=== PATIENT | female | born 1950 | race Caucasian/White ===

== ENCOUNTER 2017-08-22 01:57 | Observation (INO) ==
[2017-08-23] MEDS ORDERED: Sod Chloride 0.9% Inj 1,000 ML IV.SIG SCH (01:30)
[2017-08-23] MEDS ORDERED: Levothyroxine 125 MCG Tablet PO SCH (06:00)
[2017-08-23] MEDS ORDERED: Furosemide 20 MG Tablet PO SCH (09:00)
[2017-08-23] MEDS ORDERED: Bisacodyl 10 MG Supp RECTAL PRN (09:00)
[2017-08-23] MEDS ORDERED: Fluorometholone 0.1% Opth Drops 5 ML Bottle EACH EYE SCH (09:00)
[2017-08-23] MEDS ORDERED: Senna/Docusate Sodium 8.6/50 MG Tablet PO SCH (09:00)
[2017-08-23] MEDS ORDERED: Spironolactone 25 MG Tablet PO SCH (09:00)
[2017-08-23] MEDS ORDERED: prednisoLONE Acetate 1% Opth Susp 5 ML Bottle LEFT EYE SCH (09:00)
[2017-08-23 09:23] LABS: Baso % (Auto) 1.1 % (0.0-2.0); Eos # (Auto) 0.1 th/mm3 (0.0-0.4); Eos % (Auto) 3.6 % (0.0-4.0); Hematocrit 29.8 % (35.0-46.0); Hemoglobin 10.1 gm/dL (11.6-15.3); Lymph # (Auto) 0.5 th/mm3 (1.0-4.8); Mean Corpuscular HGB Conc 33.9 % (32.0-36.0); Mean Corpuscular Hemoglobin 31.7 pg (27.0-34.0); Mean Corpuscular Volume 93.3 fL (80.0-100.0); Mean Platelet Volume 9.8 fL (7.0-11.0); Mono # (Auto) 0.3 th/mm3 (0.0-0.9); Mono % (Auto) 11.6 % (0.0-8.0); Neut # (Auto) 1.3 th/mm3 (1.8-7.7); Neut % (Auto) 59.7 % (16.0-70.0); Platelet Count 67 th/mm3 (150-450); Red Blood Count 3.19 mil/mm3 (4.00-5.30); Red Cell Distribution Width 18.2 % (11.6-17.2); White Blood Count 2.2 th/mm3 (4.0-11.0)
--- NOTE | 2017-08-23 09:52 | P.PN ---
Subjective Interval history: Nursing denies any deterioration since last night patient reports tolerating p.o. intake well. Denies any abdominal pain. Wants to go home. Physical Exam Vital signs: Vital Signs 08/23/17 02:59 08/23/17 08:00 Temperature 98.9 F 98.0 F Pulse Rate 62 Respiratory Rate 18 17 Blood Pressure 90/55 L 104/59 L Pulse Oximetry 93 L 95 Intake & Output 08/22/17 08/23/17 08/23/17 18:59 06:59 18:59 Intake Total 240 / 240 Balance 240 / 240 Weight 55.5 kg Intake: Oral 240 / 240 Other: # Voids 1 Narrative: Abdomen soft, nontender, nondistended Lying in bed, awake and alert, no acute distress Results - Labs CBC & Chem 7: 08/23/17 08:06 08/22/17 03:00 Labs: Laboratory Results - last 24 hr 08/22/17 08/22/17 08/22/17 03:00 03:00 03:00 WBC 4.5 RBC 3.89 L Hgb 12.1 Hct 35.6 MCV 91.5 MCH 31.2 MCHC 34.1 RDW 17.7 H Plt Count 73 L MPV 11.1 H Prelim Diff (Auto) Neut % (Auto) 70.5 H Lymph % (Auto) 17.0 Desha % (Auto) 10.8 H Eos % (Auto) 1.3 Baso % (Auto) 0.4 Neut # (Auto) 3.2 Lymph # (Auto) 0.8 L Desha # (Auto) 0.5 Eos # (Auto) 0.1 Baso # (Auto) 0.0 CBC Comment AUTO DIFF Differential Comment AUTO DIFF CONFIRMED Platelet Estimate LOW L Plt Morphology Comment NORMAL Ovalocytes 1+ H Acanthocytes (Spur) OCC H PT 13.6 H INR 1.3 APTT 27.3 Sodium 140 Potassium 3.8 Chloride 108 H Carbon Dioxide 21.3 Anion Gap 11 BUN 10 Creatinine 0.68 Estimated GFR 87 L Random Glucose 88 Lactic Acid Calcium 7.7 L Total Bilirubin 1.9 H AST 89 H ALT 38 Alkaline Phosphatase 132 H Ammonia Total Protein 6.4 Albumin 2.3 L Lipase 281 08/22/17 08/22/17 08/23/17 03:20 03:20 08:06 WBC 2.2 L RBC 3.19 L Hgb 10.1 L Hct 29.8 L MCV 93.3 MCH 31.7 MCHC 33.9 RDW 18.2 H Plt Count 67 L MPV 9.8 Prelim Diff (Auto) Slide review pending Neut % (Auto) 59.7 Lymph % (Auto) 24.0 Desha % (Auto) 11.6 H Eos % (Auto) 3.6 Baso % (Auto) 1.1 Neut # (Auto) 1.3 L Lymph # (Auto) 0.5 L Desha # (Auto) 0.3 Eos # (Auto) 0.1 Baso # (Auto) 0.0 CBC Comment Differential Comment . Platelet Estimate Plt Morphology Comment Ovalocytes Acanthocytes (Spur) PT INR APTT Sodium Potassium Chloride Carbon Dioxide Anion Gap BUN Creatinine Estimated GFR Random Glucose Lactic Acid 1.4 Calcium Total Bilirubin AST ALT Alkaline Phosphatase Ammonia 62 H Total Protein Albumin Lipase Assessment and Plan - Plan Possible viral gastritis. Clinically significantly improved, tolerating p.o. intake. Patient has met maximal benefit from hospitalization is clinically stable for discharge.
[2017-08-23 10:02] LABS: Platelet Morphology Normal (Normal)
[2017-08-23 10:05] LABS: Acanthocytes Occ; Ovalocytes 1+
[2017-08-23 11:19] LABS: Alanine Aminotransferase 29 U/L (10-53); Anion Gap 12 meq/L (5-15); Aspartate Aminotransferase 66 U/L (15-37); Blood Urea Nitrogen 7 mg/dL (7-18); Calcium 6.8 mg/dL (8.5-10.1); Carbon Dioxide 20.1 meq/L (21.0-32.0); Chloride 113 meq/L (98-107); Glomerular Filtration Rate Greater Than 89 mL/min (>89); Glucose,Random 95 mg/dL (74-106); Potassium 3.4 meq/L (3.5-5.1); Sodium 145 meq/L (136-145); Total Protein 4.9 g/dL (6.4-8.2)
[2017-08-23 11:20] LABS: Albumin 1.7 g/dL (3.4-5.0); Alkaline Phosphatase 105 U/L (45-117)
== END 2017-08-23 11:40 | disposition home or self-care (01) ==
LOC: UNDODISIN → NEDA 06:23 → INTOOBSV 06:23 → N07 07:25
PROVIDERS: ADMIT Hospitalist; ATTEND Hospitalist

== ENCOUNTER 2017-09-21 01:59 | Inpatient (IN) ==
[2017-09-21] MEDS ORDERED: Morphine Inj 4 MG/ML Vial IV.PUSH ONE (02:25)
[2017-09-21] MEDS ORDERED: Sod Chloride 0.9% Inj 1,000 ML IV.CONT SCH (02:30)
[2017-09-21 02:49] LABS: Baso % (Auto) 0.8 % (0.0-2.0); Eos # (Auto) 0.1 th/mm3 (0.0-0.4); Eos % (Auto) 1.7 % (0.0-4.0); Hematocrit 36.8 % (35.0-46.0); Hemoglobin 12.2 gm/dL (11.6-15.3); Lymph # (Auto) 0.4 th/mm3 (1.0-4.8); Lymph % (Auto) 13.4 % (9.0-44.0); Mean Corpuscular HGB Conc 33.2 % (32.0-36.0); Mean Corpuscular Hemoglobin 30.7 pg (27.0-34.0); Mean Corpuscular Volume 92.5 fL (80.0-100.0); Mean Platelet Volume 10.5 fL (7.0-11.0); Mono # (Auto) 0.3 th/mm3 (0.0-0.9); Mono % (Auto) 10.3 % (0.0-8.0); Neut # (Auto) 2.4 th/mm3 (1.8-7.7); Neut % (Auto) 73.8 % (16.0-70.0); Platelet Count 162 th/mm3 (150-450); Red Blood Count 3.98 mil/mm3 (4.00-5.30); Red Cell Distribution Width 18.8 % (11.6-17.2); White Blood Count 3.3 th/mm3 (4.0-11.0)
--- NOTE | 2017-09-21 02:52 | ED ---
HPI General Chief complaint: Abdominal Pain Stated complaint: Abd Pain Time Seen by Provider: 09/21/17 02:06 Source: patient Limitations: no limitations History of Present Illness HPI narrative: The patient is a 67 year old female who presents to the [facility] emergency department with a history of abdominal pain that awoke her from sound sleep 1-1/2 hours prior to arrival. The patient reports that it is a generalized abdominal pain that is sharp in character and constant. She reports that it is 10 out of 10 in severity. She reports that it radiates to her back bilaterally worse on the right compared to the left. She reports that since it started she has had nausea and vomiting 3-4 times. She reports that she has had diarrhea 4-5 times since the onset. The patient reports that she was recently diagnosed with cirrhosis and had paracentesis done yesterday for the first time. She denies ever having a pain like this previously. She denies having any known fevers or chills. She denies having any chest pain or chest pressure. She reports having some shortness of breath. She reports that she has been having this and was told that it was related to her liver being swollen. She denies any history of pulmonary disease. On review of systems otherwise she denies having any cough or congestion, neck pain, urinary symptoms , or neurologic symptoms. Related Data Home Medications Medication Instructions Recorded Confirmed fluorometholone 1 drp OPHTHALMIC (EYE) BID 08/22/17 08/22/17 levothyroxine 125 mcg PO DAILY 08/22/17 09/21/17 prednisolone acetate 1 drp OPHTHALMIC (EYE) QID 08/22/17 08/22/17 alprazolam [Xanax] 1 mg PO DAILY PRN 09/21/17 09/21/17 benzonatate 100 mg PO TID PRN 09/21/17 09/21/17 guaifenesin 400 mg PO DAILY 09/21/17 09/21/17 lactulose 20 g PO BID 09/21/17 09/21/17 propranolol 10 mg PO DAILY 09/21/17 09/21/17 Previous Rx's Medication Instructions Recorded furosemide 20 mg PO DAILY tab 08/23/17 pantoprazole 40 mg PO DAILY #30 tab 08/23/17 rifaximin [Xifaxan] 400 mg PO Q8HR tab 08/23/17 spironolactone [Aldactone] 25 mg PO BID tab 08/23/17 Allergies Allergy/AdvReac Type Severity Reaction Status Date / Time No Known Allergies Allergy Unverified 08/22/17 11:31 Review of Systems ROS Unobtainable All other systems reviewed negative except as stated in HPI [facility] Medical History Medical History Gastroparesis (Acute) Liver cirrhosis (Acute) Unspecified immunity deficiency (Acute) Social History Social History Substance History: No History of Abuse Smoking Status: Never smoker How Often Do You Have a Drink Containing Alcohol: Never Immunization History Tetanus Immunization: <5 Years Hx Influenza Vaccine This Season: Yes Exam Const General: cooperative, well developed and in distress (Reporting severe abdominal pain on arrival.) Nutritional Appearance: well nourished Orientation: alert, awake and oriented x3 HENMT Head: normocephalic and atraumatic Nose: no nasal discharge and no epistaxis Mouth: moist mucous membranes Throat: posterior oropharynx normal Eyes Sclera: normal sclerae Pupils: PERRL Neck Neck: no meningeal signs, trachea midline and no JVD Resp Effort & Inspection: no use of accessory muscles Auscultation: clear to auscultation bilaterally Cardio Rate: regular rate Rhythm: regular rhythm Heart Sounds: no murmurs GI Inspection: non-distended Palpation: soft, no hepatosplenomegaly, no guarding, not rigid and tender (The patient reports having diffuse pain on palpation, however her tenderness is most prominent in the midepigastric area and bilateral upper quadrants of the abdomen. No erythema or ecchymosis is noted.) in the epigastrum, in the LUQ and in the RUQ; not at McBurney's point, Elise's sign negative and with no rebound tenderness Auscultation: normal bowel sounds Back/Spine/Pelvis Back: CVA tenderness (Bilateral CVA tenderness is reported on palpation worse on the right compared to the left.) Skin General: dry skin (warm) Neuro General: alert and awake Cranial Nerves: other (No evidence of facial asymmetry.) Speech: speech normal Motor: no movement abnormalities noted Extrem General: normal to inspection (No calf tenderness on palpation.), no clubbing, no cyanosis and no edema Psych Mood: congruent mood Affect: normal affect Judgment: judgment good Course Reevaluation(s) Reevaluation #1: The patient was reevaluated and reported continued pain. Consultations Consultation #1: The patient's case including history, pertinent physical examination findings, and laboratory studies were discussed with Dr. Solis. It was agreed that the patient would be admitted to the hospitalist service. Initial Documented Vital Signs Temperature 98.7 F 09/21/17 02:02 Pulse Rate 77 09/21/17 02:02 Respiratory Rate 18 09/21/17 02:02 Blood Pressure 117/58 L 09/21/17 02:02 Pulse Oximetry 98 09/21/17 02:02 Last Documented Vital Signs Temperature 98.7 F 09/21/17 02:02 Pulse Rate 68 09/21/17 05:37 Respiratory Rate 20 09/21/17 05:37 Blood Pressure 95/55 L 09/21/17 05:37 Pulse Oximetry 98 09/21/17 05:37 Medical Decision Making MDM Narrative Medical decision making narrative: During the course of the patient's emergency department visit, the patient's history, examination, and differential diagnosis were reviewed with the patient. The patient was placed on a potline monitor with oximetry and frequent blood pressure monitoring. The patient had IV access obtained and blood work sent for analysis. A diagnostic workup was started regarding the patient's abdominal pain The patient was initially provided morphine 4 mg IV, Zofran 4 mg ODT, normal saline at 125 mL/h. Laboratory studies are remarkable for a white count of 3.3, platelets 162, neutrophil percent 73.8, monocytes 10.3, hemoglobin 12.2, PT 15, INR 1.5, PTT 28.2, CMP is remarkable chemistries remarkable for a troponin I of less than 0.02, total protein 6.2, CPK 295, GFR of 88, lipase 220, magnesium is 2.0, calcium 7.5, AST is 115, alk phos is 226, albumin 2.0. Chest x-ray shows no acute cardiopulmonary disease. CT scan of the abdomen and pelvis was done. The patient CT scan of the abdomen and pelvis was read by the reading radiologist as showing continued abnormal appearance of the right side of the colon with multiple air-fluid levels that are now noted in the region of the cecum. There is an apparent mural thrombus and edema again noted. Multiple loops of prominent proximal small bowel again noted with air-fluid levels. Cirrhotic liver with moderate amount of ascitic fluid. The patient continues to have abdominal pain. The patient was given an additional fluid bolus of 500 mL 1, morphine 2 mg IV, Reglan 5 mg IV. The patient will be admitted to the hospital for continued evaluation and treatment. The patient's results were discussed with the patient, including the plan of care. I explained that further testing and/ or monitoring is indicated based on the patient's history, examination, and/ or laboratory findings. Therefore, I recommended admission for additional evaluation. The patient expressed understanding and was agreeable with this plan. The patient was admitted to the hospital in guarded condition and sent to a bed under the care of the [facility] service. Differential Diagnosis Differential Diagnosis: Bowel perforation, versus peritonitis, versus pancreatitis, versus gastroenteritis Medical Records Medical records reviewed: Yes I reviewed the patient's medical records. Lab Data Lab results reviewed: Yes I reviewed the patient's lab results. Result diagrams: 09/21/17 02:30 09/21/17 02:30 Lab Results 09/21/17 09/21/17 09/21/17 Range/Units 02:30 02:30 02:30 WBC 3.3 L (4.0-11.0) th/mm3 RBC 3.98 L (4.00-5.30) mil/mm3 Hgb 12.2 (11.6-15.3) gm/dL Hct 36.8 (35.0-46.0) % MCV 92.5 (80.0-100.0) fL MCH 30.7 (27.0-34.0) pg MCHC 33.2 (32.0-36.0) % RDW 18.8 H (11.6-17.2) % Plt Count 162 D (150-450) th/mm3 MPV 10.5 (7.0-11.0) fL Neut % (Auto) 73.8 H (16.0-70.0) % Lymph % (Auto) 13.4 (9.0-44.0) % Greenwood % (Auto) 10.3 H (0.0-8.0) % Eos % (Auto) 1.7 (0.0-4.0) % Baso % (Auto) 0.8 (0.0-2.0) % Neut # (Auto) 2.4 (1.8-7.7) th/mm3 Lymph # (Auto) 0.4 L (1.0-4.8) th/mm3 Greenwood # (Auto) 0.3 (0.0-0.9) th/mm3 Eos # (Auto) 0.1 (0.0-0.4) th/mm3 Baso # (Auto) 0.0 (0.0-0.2) th/mm3 WBC Differential . Differential Comment Auto diff final PT 15.0 H (9.8-11.6) sec INR 1.5 Ratio APTT 28.2 (24.3-30.1) sec Sodium 138 (136-145) meq/L Potassium 4.8 (3.5-5.1) meq/L Chloride 107 (98-107) meq/L Carbon Dioxide 24.5 (21.0-32.0) meq/L Anion Gap 7 (5-15) meq/L BUN 10 (7-18) mg/dL Creatinine 0.67 (0.50-1.00) mg/dL Estimated GFR 88 L (>89) mL/min Random Glucose 97 (74-106) mg/dL Lactic Acid (0.4-2.0) mmol/L Calcium 7.5 L (8.5-10.1) mg/dL Magnesium 2.0 (1.5-2.5) mg/dL Total Bilirubin 1.0 (0.2-1.0) mg/dL AST 115 H (15-37) U/L ALT 34 (10-53) U/L Alkaline Phosphatase 226 H (45-117) U/L Total Creatine Kinase 295 H (26-192) U/L CK-MB (CK-2) 2.0 (0.5-3.6) ng/mL CK-MB (CK-2) % 0.7 (0.0-4.0) % Troponin I Less than 0.02 L (0.02-0.05) ng/mL Total Protein 6.2 L (6.4-8.2) g/dL Albumin 2.0 L (3.4-5.0) g/dL Lipase 220 (73-393) U/L Urine Color (Yellw/Straw) Urine Clarity (Clear) Urine pH (5.0-8.5) Ur Specific Lee (1.002-1.035) Urine Protein (Neg-Trace) mg/dL Urine Glucose (UA) (Negative) mg/dL Urine Ketones (Negative) mg/dL Urine Occult Blood (Negative) Urine Nitrate (Negative) Urine Bilirubin (Negative) Urine Urobilinogen (Less than 2) mg/dL Ur Leukocyte Esterase (Negative) Urine RBC (0-3) /hpf Urine WBC (0-5) /hpf Ur Squamous Epith Cells (0-5) /hpf Ur Transition Epith Cell (None) /hpf Amorphous Sediment (None) /hpf Urine Mucus (Occasional) /lpf Micro UA Comment Urine Culture Comments 09/21/17 09/21/17 Range/Units 02:30 04:30 WBC (4.0-11.0) th/mm3 RBC (4.00-5.30) mil/mm3 Hgb (11.6-15.3) gm/dL Hct (35.0-46.0) % MCV (80.0-100.0) fL MCH (27.0-34.0) pg MCHC (32.0-36.0) % RDW (11.6-17.2) % Plt Count (150-450) th/mm3 MPV (7.0-11.0) fL Neut % (Auto) (16.0-70.0) % Lymph % (Auto) (9.0-44.0) % Greenwood % (Auto) (0.0-8.0) % Eos % (Auto) (0.0-4.0) % Baso % (Auto) (0.0-2.0) % Neut # (Auto) (1.8-7.7) th/mm3 Lymph # (Auto) (1.0-4.8) th/mm3 Greenwood # (Auto) (0.0-0.9) th/mm3 Eos # (Auto) (0.0-0.4) th/mm3 Baso # (Auto) (0.0-0.2) th/mm3 WBC Differential Differential Comment PT (9.8-11.6) sec INR Ratio APTT (24.3-30.1) sec Sodium (136-145) meq/L Potassium (3.5-5.1) meq/L Chloride (98-107) meq/L Carbon Dioxide (21.0-32.0) meq/L Anion Gap (5-15) meq/L BUN (7-18) mg/dL Creatinine (0.50-1.00) mg/dL Estimated GFR (>89) mL/min Random Glucose (74-106) mg/dL Lactic Acid 1.1 (0.4-2.0) mmol/L Calcium (8.5-10.1) mg/dL Magnesium (1.5-2.5) mg/dL Total Bilirubin (0.2-1.0) mg/dL AST (15-37) U/L ALT (10-53) U/L Alkaline Phosphatase (45-117) U/L Total Creatine Kinase (26-192) U/L CK-MB (CK-2) (0.5-3.6) ng/mL CK-MB (CK-2) % (0.0-4.0) % Troponin I (0.02-0.05) ng/mL Total Protein (6.4-8.2) g/dL Albumin (3.4-5.0) g/dL Lipase (73-393) U/L Urine Color Taylor (Yellw/Straw) Urine Clarity Cloudy H (Clear) Urine pH 6.0 (5.0-8.5) Ur Specific Lee 1.034 (1.002-1.035) Urine Protein 30 H (Neg-Trace) mg/dL Urine Glucose (UA) Negative (Negative) mg/dL Urine Ketones Trace H (Negative) mg/dL Urine Occult Blood Small H (Negative) Urine Nitrate Negative (Negative) Urine Bilirubin Negative (Negative) Urine Urobilinogen 2.0 H (Less than 2) mg/dL Ur Leukocyte Esterase Small H (Negative) Urine RBC 8 H (0-3) /hpf Urine WBC 6 H (0-5) /hpf Ur Squamous Epith Cells 18 (0-5) /hpf Ur Transition Epith Cell 1 (None) /hpf Amorphous Sediment Rare H (None) /hpf Urine Mucus Many H (Occasional) /lpf Micro UA Comment Culture not ind Urine Culture Comments Culture not ind Imaging Data Radiologist's impression: Chest X-Ray 09/21/17 02:25 CONCLUSION: No acute cardiopulmonary disease. Abdomen/Pelvis CT 09/21/17 03:11 CONCLUSION: 1. The right-sided colon remains abnormal appearance with multiple small air- fluid levels now noted in the region of the cecum. There is apparent mural thrombus and edema again noted. 2. Multiple loops of prominent proximal small bowel again noted with air-fluid levels. 3. Cirrhotic liver with moderate amount of ascitic fluid. 4. Status post cholecystectomy. The common bile duct remains prominent but unchanged. ECG Data Attestation: I personally reviewed and interpreted this ECG as follows: Interpretation: The patient had a EKG done on arrival. The patient's EKG reveals a sinus rhythm heart rate is 69 QRS duration 93 ms, QTC [address] segment elevation. T waves are inverted in V1 and V2. QT is prolonged. Discharge Plan Discharge Disposition Patient Disposition: 30 Still Patient Discharge Details Diagnosis: Intractable abdominal pain, Nausea, vomiting, and diarrhea Physicians Team ED Provider: Heidy Angel Primary Care Provider: UNKNOWN, Rxs /Orders / Referrals /Forms Prescriptions: No Action prednisolone acetate 1 % Drops,Suspension 1 drp ophthalmic (eye) QID RF: 0 fluorometholone 0.1 % Drops,Suspension 1 drp OPHTHALMIC (EYE) BID RF: 0 levothyroxine 125 mcg Capsule 125 mcg PO DAILY RF: 0 spironolactone [Aldactone] 25 mg Tablet 25 mg PO BID RF: 0 furosemide 20 mg Tablet 20 mg PO DAILY RF: 0 rifaximin [Xifaxan] 200 mg Tablet 400 mg PO Q8HR RF: 0 pantoprazole 40 mg Tablet,Delayed Release (Dr/Ec) 40 mg PO DAILY Qty: 30 RF: 0 propranolol 10 mg Tablet 10 mg PO DAILY RF: 0 benzonatate 100 mg Capsule 100 mg PO TID PRN (Reason: Cough) RF: 0 alprazolam [Xanax] 2 mg Tablet 1 mg PO DAILY PRN (Reason: Anxiety) RF: 0 guaifenesin 400 mg Tablet 400 mg PO DAILY RF: 0 lactulose 10 gram/15 mL Solution 20 g PO BID RF: 0 Discharge Interventions Interventions: Vital Signs Last Done: 09/21/17 05:37 Status ED Status: With Doctor
[2017-09-21 03:04] LABS: Activated Partial Thrombo Time 28.2 sec (24.3-30.1); INR 1.5 Ratio
[2017-09-21 03:17] LABS: Anion Gap 7 meq/L (5-15); Aspartate Aminotransferase 115 U/L (15-37); Blood Urea Nitrogen 10 mg/dL (7-18); Calcium 7.5 mg/dL (8.5-10.1); Carbon Dioxide 24.5 meq/L (21.0-32.0); Chloride 107 meq/L (98-107); Glomerular Filtration Rate 88 mL/min (>89); Glucose,Random 97 mg/dL (74-106); Lipase 220 U/L (73-393); Potassium 4.8 meq/L (3.5-5.1); Sodium 138 meq/L (136-145)
[2017-09-21 03:23] LABS: Alanine Aminotransferase 34 U/L (10-53); Alkaline Phosphatase 226 U/L (45-117); Creatine Kinase 295 U/L (26-192); Total Protein 6.2 g/dL (6.4-8.2)
--- NOTE | 2017-09-21 03:25 | XR ---
EXAM DATE: 09/21/2017 3:22 AM EDT AGE/SEX: 67 years / Female INDICATIONS: Abdominal pain. CLINICAL DATA: This is the patient's initial encounter. Patient reports that signs and symptoms have been present for 1 day and indicates a pain score of 0/10. MEDICAL/SURGICAL HISTORY: . Cirrhosis. Rheumatoid arthritis. Gastroparesis . Cholecystectomy. Hysterectomy COMPARISON: [facility] – [place], CHEST SINGLE AP, 08/22/2017. . FINDINGS: A single AP view of the chest demonstrates the lungs to be symmetrically aerated without evidence of mass, infiltrate or effusion. The cardiomediastinal contours are unremarkable. Osseous structures a re intact. There is no evidence of free air. CONCLUSION: No acute cardiopulmonary disease. Electronically signed by: Darren Sanchez MD 09/21/2017 3:24 AM EDT
[2017-09-21 03:36] LABS: CKMB Percent 0.7 % (0.0-4.0)
[2017-09-21 05:16] LABS: Amorphous Sediment,Urine Rare /hpf; Clarity,Urine Cloudy (Clear); Color,Urine Amber (Yellw/Straw); Glucose,Urine (UA) Negative (Negative); Leukocyte Esterase,Urine Small (Negative); Mucus,Urine Many /lpf (Occasional); Nitrite,Urine Negative (Negative); Specific Gravity,Urine 1.034 (1.002-1.035); Squamous Epithelial Cell,Urine 18 /hpf (0-5); Transitional Epi Cells,Urine 1 /hpf
[2017-09-21 05:18] LABS: Bilirubin,Urine Negative (Negative)
--- NOTE | 2017-09-21 05:19 | CT ---
EXAM DATE: 09/21/2017 5:07 AM EDT AGE/SEX: 67 years / Female INDICATIONS: Abdominal pain. CLINICAL DATA: This is the patient's initial encounter. Patient reports that signs and symptoms have been present for 1 day and indicates a pain score of 10/10. MEDICAL/SURGICAL HISTORY: Cirrhosis. Gastroparesis None. ORAL CONTRAST: No oral contrast ingested. RADIATION DOSE: 8.06 CTDI (mGy) COMPARISON: [facility] – [place], CT ABDOMEN & PELVIS W CONTRAST, 08/22/2017. . TECHNIQUE: Multiple contiguous axial images were obtained through the abdomen and pelvis following b olus infusion of 67 ml Omnipaque 350 (iohexol) nonionic water-soluble contrast as a single exam dos e. No oral contrast ingested. Using automated exposure control and adjustment of the mA and/or kV ac cording to patient size, radiation dose was kept as low as reasonably achievable to obtain optimal di agnostic quality images. DICOM format image data is available electronically for review and comparis on. FINDINGS: Lower Lungs: The visualized lower lungs are clear. Liver: The liver remains small and cirrhotic in appearance with lobular outer contour. Patient is sta tus post cholecystectomy. There is no focal mass. There is no intrahepatic ductal dilatation. The com mon bile duct remains mildly prominent. Spleen: Homogeneous density without enlargement. Pancreas: Unremarkable without mass or calcification. Kidneys: Normal in size and shape. No evidence of a solid mass or hydronephrosis. There are small cy sts again noted. Adrenal Glands: Unremarkable. Aorta: The aorta and proximal iliac vessels are grossly unremarkable without aneurysmal dilation. Bowel/Mesentery: No oral contrast was given limiting the sensitivity. There are several loops of bor derline prominent air-containing small bowel with multiple air-fluid levels. The mid and distal small bowel are normal in appearance. Gas and stool is noted segmentally in the colon. There is a moderate amount of ascitic fluid greatest in the pelvis. The right colon again appears abnormal with multiple small air-fluid levels in the region of the cecum. There is apparent dural thickening and edema agai n noted. Abdominal Wall: Intact. Retroperitoneum: No evidence of adenopathy in the retrocrural, para-aortic, or deep pelvic regions. Bladder: Contours are smooth. Reproductive Organs: No abnormal masses or calcifications seen. Inguinal: The inguinal region is unremarkable without evidence of adenopathy. Bony Structures: Unremarkable. CONCLUSION: 1. The right-sided colon remains abnormal appearance with multiple small air-fluid levels now noted in the region of the cecum. There is apparent mural thrombus and edema again noted. 2. Multiple loops of prominent proximal small bowel again noted with air-fluid levels. 3. Cirrhotic liver with moderate amount of ascitic fluid. 4. Status post cholecystectomy. The common bile duct remains prominent but unchanged. Electronically signed by: Darren Sanchez MD 09/21/2017 5:17 AM EDT
[2017-09-21] MEDS ORDERED: Morphine Sulfate Inj 2 MG/ML Vial IV.PUSH ONE (05:51)
[2017-09-21] MEDS ORDERED: Sodium Chlor 0.9% Inj 500 ML IV.SIG ONE (05:51)
[2017-09-21] MEDS ORDERED: Benzonatate 100 MG Capsule PO PRN ×2 (05:56→16:53)
[2017-09-21] MEDS ORDERED: Bisacodyl 10 MG Supp RECTAL PRN (06:00)
[2017-09-21] MEDS ORDERED: Piperacil/Tazo 4.5 GM Premix 4.5 GM/100 ML BAG IV.SIG SCH (06:00)
[2017-09-21] MEDS ORDERED: Piperacil/Tazo 3.375 GM Premix 50 ML IV.SIG ONE (06:01)
[2017-09-21] MEDS: Piperacil/Tazo 4.5 GM Premix 4.5 GM/100 ML BAG IV.SIG SCH ×3 (06:41→21:38)
[2017-09-21] MEDS: Levothyroxine 125 MCG Tablet PO SCH (08:56)
[2017-09-21] MEDS: Spironolactone 25 MG Tablet PO SCH ×2 (08:56→21:38)
[2017-09-21] MEDS: Propranolol 10 MG Tablet PO SCH (08:58)
[2017-09-21] MEDS: Furosemide 20 MG Tablet PO SCH (08:59)
[2017-09-21] MEDS: Senna/Docusate Sodium 8.6/50 MG Tablet PO SCH ×2 (09:00→21:39)
--- NOTE | 2017-09-21 10:27 | P.HP ---
History of Present Illness Primary Care Physician: UNKNOWN History of Present Illness: This is a 67-year-old female with a history of cirrhosis, gastroparesis, unspecified autoimmune disorder. She presents to the ER late last night with a complaint of abdominal pain. She was hospitalized in [facility] last week and had her ascites drained 2 days ago at that location. She was subsequently discharged from the hospital to a rehab center in our town. After 1 day she feels her ascites has recurred, this caused her great pain, she requested an ambulance. She denies any fever, she has had loose bowel movements recently, she notes no blood in her stool today but a few days ago trace blood due to what she feels is hemorrhoids. There is a pattern of cirrhosis in her family that seems independent of any alcohol use. She admits to moderate drinking, social drinking, during her younger years but says that she never drank heavily. She was told in the past that she had a form of viral hepatitis, but recent tests at the [facility] have all been negative. Her most recent hepatitis panel was drawn a few days ago at the hospital in [facility] Inpatient Certification: I certify that the inpatient services were ordered in accordance with Medicare regulations governing the order. This includes certification that hospital inpatient services are reasonable and necessary and in the case of services not specified as inpatient-only under 42 CFR 419.22(n), that they are appropriately provided as inpatient services in accordance to with the 2-midnight benchmark under 43 CFR 412.3(e) Review of Systems Constitutional: Denies body ache(s), Denies chills, Denies daytime sleepiness, Denies excessive sweating, Denies fatigue, Denies fever(s), Denies headache(s), Denies increased appetite, Denies lack of energy, Denies malaise, Denies night sweats, Denies weakness, Denies weight gain, Denies weight loss, Denies other Ears, Nose, Mouth, and Throat: Denies abnormal hearing, Denies bleeding gums, Denies bad breath, Denies change in voice, Denies dental pain, Denies difficulty swallowing, Denies dizziness, Denies dry mouth, Denies ear discharge , Denies ear pain, Denies facial pain, Denies headache(s), Denies hearing loss, Denies hoarseness, Denies lip swelling, Denies nosebleed, Denies mouth lesions, Denies mouth pain, Denies nasal congestion, Denies nasal discharge, Denies nasal obstruction, Denies nasal trauma, Denies neck lump, Denies neck pain, Denies nose pain, Denies pain with swallowing, Denies poor balance, Denies post nasal drip, Denies ringing in the ears, Denies sinus pain, Denies sinus pressure , Denies sore throat, Denies throat swelling, Denies tongue swelling, Denies other Cardiovascular: Denies chest pain, Denies chest pain at rest, Denies chest pain with activity, Denies excessive sweating, Denies fainting, Denies fast heart rate, Denies foot swelling, Denies generalized swelling, Denies irregular heart rhythm, Denies leg pain with activity, Denies leg sores, Denies leg swelling, Denies lightheadedness, Denies radiating jaw, neck or arm pain, Denies rapid, pounding, or irregular heartbeat, Denies shortness of breath, Denies shortness of breath with activity, Denies shortness of breath when lying down, Denies shortness of breath causing sudden awakening, Denies slow heart rate, Denies other Respiratory: Denies change in phlegm color, Denies chest congestion, Denies cough, Denies coughing up blood, Denies excessive phlegm production, Denies pain on inspiration, Denies pain with cough, Denies shortness of breath, Denies shortness of breath with activity, Denies snoring, Denies stridor, Denies wheezing, Denies other Gastrointestinal: Reports abdominal pain, Reports bloating, Reports change in stools, Reports feeling full early, Reports loose stools, Denies constant urge to pass stool, Denies coffee ground vomit, Denies difficulty swallowing, Denies pain with swallowing, Denies vomiting Musculoskeletal: Denies abnormal walking, Denies back pain, Denies body aches, Denies decreased muscle mass, Denies deformity, Denies joint pain, Denies joint swelling, Denies limited joint movement, Denies loss of height, Denies muscle cramps, Denies muscle weakness, Denies neck pain, Denies numbness, Denies radiating pain into limb, Denies stiffness, Denies tingling, Denies other Neurologic: Denies abnormal hearing, Denies abnormal movements, Denies abnormal speech, Denies abnormal walking, Denies behavioral changes, Denies burning sensations, Denies confusion Psychiatric: Reports memory loss Endocrine: Denies cold intolerance, Denies excessive sweating, Denies flushing, Denies heat intolerance, Denies increased hunger, Denies increased thirst, Denies increased urination, Denies rapid, pounding, or irregular heartbeat, Denies other PMFSH - History History Provided By: Patient - Medical History Medical History: Medical History (Last Updated 09/21/17 @ 02:16 by Irina Azul) Gastroparesis Liver cirrhosis Unspecified immunity deficiency - Tobacco History Smoking Status: Never smoker - Alcohol History How Often Do You Have a Drink Containing Alcohol: Never - Substance Use History Substance History: No History of Abuse - Immunization History Tetanus Immunization: <5 Years Hx Influenza Vaccine This Season: Yes Medications and Allergies Active Medications: Active Medications Al Hydroxide/Mg Hydroxide (Milk Of Magnesia Liq) 30 ml PO Q12H PRN PRN Reason: Mild Constipation Benzonatate (Tessalon Perles) 100 mg PO TID PRN PRN Reason: Cough Bisacodyl (Dulcolax Supp) 10 mg RECTAL DAILY PRN PRN Reason: SEVERE CONSITIPATION Furosemide (Lasix) 20 mg PO DAILY [facility] Last Admin: 09/21/17 08:59 Dose: Not Given Sodium Chloride (Ns Inj) 1,000 mls @ 125 mls/hr IV.CONT .Q8H [facility] Stop: 09/21/17 10:29 Last Admin: 09/21/17 03:08 Dose: 125 mls/hr Piperacillin/Tazobactam/Dextrose (Zosyn 4.5 Gm Premix) 4.5 gm in 100 mls @ 200 mls/hr IV.SIG Q6HR [facility] Last Admin: 09/21/17 06:41 Dose: 200 mls/hr Lactulose (Lactulose Liq) 30 ml PO BID [facility] Last Admin: 09/21/17 08:59 Dose: Not Given Levothyroxine Sodium (Synthroid) 125 mcg PO DAILY@0600 [facility] Last Admin: 09/21/17 08:56 Dose: Not Given Non-Formulary Medication (Alprazolam [Xanax]) 1 mg PO DAILY PRN PRN Reason: Anxiety Ondansetron HCl (Zofran Odt) 4 mg PO Q6H PRN PRN Reason: NAUSEA OR VOMITING Pantoprazole Sodium (Protonix) 40 mg PO DAILY [facility] Last Admin: 09/21/17 09:01 Dose: Not Given Propranolol HCl (Inderal) 10 mg PO DAILY [facility] Last Admin: 09/21/17 08:58 Dose: Not Given Rifaximin (Xifaxan) 400 mg PO Q8HR [facility] Last Admin: 09/21/17 08:55 Dose: Not Given Senna/Docusate Sodium (Nanette-Colace) 1 tab PO BID [facility] Last Admin: 09/21/17 09:00 Dose: Not Given Sennosides (Senokot) 17.2 mg PO Q12H PRN PRN Reason: Moderate Constipation Sodium Chloride (Ns Flush) 2 ml IV.FLUSH PRN PRN PRN Reason: FLUSH AFTER USING IV ACCESS Spironolactone (Aldactone) 25 mg PO BID [facility] Last Admin: 09/21/17 08:56 Dose: Not Given Allergies Allergy/AdvReac Type Severity Reaction Status Date / Time No Known Allergies Allergy Unverified 08/22/17 11:31 Home Medications Medication Instructions Recorded Confirmed Type fluorometholone 1 drp OPHTHALMIC (EYE) BID 08/22/17 08/22/17 History levothyroxine 125 mcg PO DAILY 08/22/17 09/21/17 History prednisolone acetate 1 drp OPHTHALMIC (EYE) QID 08/22/17 08/22/17 History alprazolam [Xanax] 1 mg PO DAILY PRN 09/21/17 09/21/17 History benzonatate 100 mg PO TID PRN 09/21/17 09/21/17 History guaifenesin 400 mg PO DAILY 09/21/17 09/21/17 History lactulose 20 g PO BID 09/21/17 09/21/17 History propranolol 10 mg PO DAILY 09/21/17 09/21/17 History Exam Vital signs: Vital Signs 09/21/17 02:02 09/21/17 05:37 09/21/17 06:38 Temperature 98.7 F Pulse Rate 77 68 75 Respiratory Rate 18 20 18 Blood Pressure 117/58 L 95/55 L 104/55 L Pulse Oximetry 98 98 97 09/21/17 08:56 Temperature Pulse Rate Respiratory Rate 16 Blood Pressure Pulse Oximetry Intake & Output 09/20/17 09/21/17 09/21/17 18:59 06:59 18:59 Weight 58.977 kg Narrative: GENERAL: Alert and oriented 3, no acute distress SKIN: Warm and dry. HEAD: Atraumatic. Normocephalic. EYES: Pupils equal and round. No injection or drainage. Mild scleral icterus ENT: No nasal bleeding or discharge. Mucous membranes pink and moist. NECK: Trachea midline. No JVD. CARDIOVASCULAR: Regular rate and rhythm. RESPIRATORY: No accessory muscle use. Clear to auscultation. Breath sounds equal bilaterally. GASTROINTESTINAL: Moderate ascites, abdomen soft, mildly tender, nondistended. Hepatic and splenic margins not palpable. MUSCULOSKELETAL: Extremities without clubbing, cyanosis, or edema. No obvious deformities. NEUROLOGICAL: Awake and alert. No obvious cranial nerve deficits. Motor grossly within normal limits. Five out of 5 muscle strength in the arms and legs. Normal speech. No asterixis PSYCHIATRIC: Appropriate mood and affect; insight and judgment normal. Results - Labs CBC & Chem 7: 09/21/17 02:30 09/21/17 02:30 Labs: Laboratory Results - last 24 hr 09/21/17 09/21/17 09/21/17 02:30 02:30 02:30 WBC 3.3 L RBC 3.98 L Hgb 12.2 Hct 36.8 MCV 92.5 MCH 30.7 MCHC 33.2 RDW 18.8 H Plt Count 162 D MPV 10.5 Neut % (Auto) 73.8 H Lymph % (Auto) 13.4 [place] % (Auto) 10.3 H Eos % (Auto) 1.7 Baso % (Auto) 0.8 Neut # (Auto) 2.4 Lymph # (Auto) 0.4 L [place] # (Auto) 0.3 Eos # (Auto) 0.1 Baso # (Auto) 0.0 WBC Differential . Differential Comment Auto diff final PT 15.0 H INR 1.5 APTT 28.2 Sodium 138 Potassium 4.8 Chloride 107 Carbon Dioxide 24.5 Anion Gap 7 BUN 10 Creatinine 0.67 Estimated GFR 88 L Random Glucose 97 Lactic Acid Calcium 7.5 L Magnesium 2.0 Total Bilirubin 1.0 AST 115 H ALT 34 Alkaline Phosphatase 226 H Total Creatine Kinase 295 H CK-MB (CK-2) 2.0 CK-MB (CK-2) % 0.7 Troponin I Less than 0.02 L Total Protein 6.2 L Albumin 2.0 L Lipase 220 Urine Color Urine Clarity Urine pH Ur Specific Ramer Urine Protein Urine Glucose (UA) Urine Ketones Urine Occult Blood Urine Nitrate Urine Bilirubin Urine Urobilinogen Ur Leukocyte Esterase Urine RBC Urine WBC Ur Squamous Epith Cells Ur Transition Epith Cell Amorphous Sediment Urine Mucus Micro UA Comment Urine Culture Comments 09/21/17 09/21/17 02:30 04:30 WBC RBC Hgb Hct MCV MCH MCHC RDW Plt Count MPV Neut % (Auto) Lymph % (Auto) [place] % (Auto) Eos % (Auto) Baso % (Auto) Neut # (Auto) Lymph # (Auto) [place] # (Auto) Eos # (Auto) Baso # (Auto) WBC Differential Differential Comment PT INR APTT Sodium Potassium Chloride Carbon Dioxide Anion Gap BUN Creatinine Estimated GFR Random Glucose Lactic Acid 1.1 Calcium Magnesium Total Bilirubin AST ALT Alkaline Phosphatase Total Creatine Kinase CK-MB (CK-2) CK-MB (CK-2) % Troponin I Total Protein Albumin Lipase Urine Color Taylor Urine Clarity Cloudy H Urine pH 6.0 Ur Specific Ramer 1.034 Urine Protein 30 H Urine Glucose (UA) Negative Urine Ketones Trace H Urine Occult Blood Small H Urine Nitrate Negative Urine Bilirubin Negative Urine Urobilinogen 2.0 H Ur Leukocyte Esterase Small H Urine RBC 8 H Urine WBC 6 H Ur Squamous Epith Cells 18 Ur Transition Epith Cell 1 Amorphous Sediment Rare H Urine Mucus Many H Micro UA Comment Culture not ind Urine Culture Comments Culture not ind - Imaging Impressions Chest X-Ray 09/21/17 02:25 CONCLUSION: No acute cardiopulmonary disease. Abdomen/Pelvis CT 09/21/17 03:11 CONCLUSION: 1. The right-sided colon remains abnormal appearance with multiple small air- fluid levels now noted in the region of the cecum. There is apparent mural thrombus and edema again noted. 2. Multiple loops of prominent proximal small bowel again noted with air-fluid levels. 3. Cirrhotic liver with moderate amount of ascitic fluid. 4. Status post cholecystectomy. The common bile duct remains prominent but unchanged. Caprini VTE Risk Assessment Caprini VTE Risk Assessment: No/Low Risk (score <= 1) VTE Pharmacological Exception Reason: High risk for bleeding Caprini Risk Assessment Model: Point Value = 1 Point Value = 2 Point Value = 3 Point Value = 5 Age 41-60 Minor surgery BMI > 25 kg/m2 Swollen legs Varicose veins or History of unexplained or recurrent spontaneous Oral contraceptives or hormone replacement Sepsis (< 1 month) Serious lung disease, including pneumonia (< 1 month) Abnormal pulmonary function Acute myocardial infarction Congestive heart failure (< 1 month) History of inflammatory bowel disease Medical patient at bed rest Age 61-74 Arthroscopic surgery Major open surgery (> 45 min) Laparoscopic surgery (> 45 min) Malignancy Confined to bed (> 72 hours) Immobilizing plaster cast Central venous access Age >= 75 History of VTE Family history of VTE Factor V Leiden Prothrombin [id number] Lupus anticoagulant Anticardiolipin antibodies Elevated serum homocysteine Heparin-induced thrombocytopenia Other congenital or acquired thrombophilia Stroke (< 1 month) Elective arthroplasty Hip, pelvis, or leg fracture Acute spinal cord injury (< 1 month) Prophylaxis Regimen: Total Risk Factor Score Risk Level Prophylaxis Regimen 0-1 Low Early ambulation 2 Moderate Order ONE of the following: *Sequential Compression Device (SCD) *Heparin 5000 units SQ BID 3-4 Higher Order ONE of the following medications: *Heparin 5000 units SQ TID *Enoxaparin/Lovenox 40 mg SQ daily (WT < 150 kg, CrCl > 30 mL/min) *Enoxaparin/Lovenox 30 mg SQ daily (WT < 150 kg, CrCl > 10-29 mL/min) *Enoxaparin/Lovenox 30 mg SQ BID (WT < 150 kg, CrCl > 30 mL/min) AND/OR *Sequential Compression Device (SCD) 5 or more Highest Order ONE of the following medications: *Heparin 5000 units SQ TID (Preferred with Epidurals) *Enoxaparin/Lovenox 40 mg SQ daily (WT < 150 kg, CrCl > 30 mL/min) *Enoxaparin/Lovenox 30 mg SQ daily (WT < 150 kg, CrCl > 10-29 mL/min) *Enoxaparin/Lovenox 30 mg SQ BID (WT < 150 kg, CrCl > 30 mL/min) AND *Sequential Compression Device (SCD) Assessment and Plan - Plan Cirrhosis, advanced liver disease By her report, her level of alcohol intake does not seem high enough to cause cirrhosis There is a familial pattern of cirrhosis and her family, some members have never drank alcohol She has had multiple workups, including [facility] visits, no answers yet that she recalls Continue with supportive care, obtain medical records from [facility] (Hep panel) Gastroenterology consult pending Ascites Moderate ascites on exam and on CT, likely not a candidate for paracentesis Paracentesis was performed 2 days ago, patient feels it has recurred We will obtain ultrasound of abdomen to assist with fluid level evaluation Abdominal pain Multiple air-fluid levels throughout cecum and small bowel on CT Mural thrombus also noted on CT Treat as possible small bowel obstruction, keep n.p.o. for now Autoimmune disorder, unidentified Consider autoimmune disorder as a possible cause of her cirrhosis She also has a history of gastroparesis, and also complains of loose stools recently We will obtain medical records from [facility] given possibility of previous workup DVT prophylaxis SCDs, chemoprophylaxis held due to INR of 1.5 naturally from cirrhosis
--- NOTE | 2017-09-21 11:44 | P.CONGI ---
History of Present Illness Consult date: 09/21/17 Consult reason: Cirrhosis, abdominal pain Chief complaint: Abdominal pain, N/V/D History of Present Illness: This is a 67 yo F with GI history significant for gastritis, cirrhosis and gastroparesis. Pt is a poor historian, has had multiple hospitalizations at multiple different hospitals and has a history of mild dementia making history difficult to obtain. is at bedside participating in history taking. Pt states unknown cause of cirrhosis, heavy drinker 20 years ago and possibly history of Hepatitis C because she reports being on Interferon for months a long time ago. She denies any ETOH in years. She also states strong family history for cirrhosis including her sister who never drank alcohol. Pt has had liver biopsy in the past but is unsure where this was done. She was previously being followed at [facility] for a possible liver transplant, however was denied due to being positive for marijuana. She denies any continued marijuana use. According to this was over a year ago and pt was told to follow up in a year and possibly would be a candidate at that time. Other than multiple hospital admission over this past year pt has not been seen by an outpatient GI doctor. She does report previous complications including esophageal varices S/P banding over 2 years ago and ascites, but reports until last week this has always been resolved with diuretics alone. Pt was recently discharged from [facility] in [facility] after a four day admission for complaints of SOB and abdominal pain. Pt report paracentesis, thinks only 260 mL were removed, on Thursday. Pt was discharged to [facility] which she was only at for five hours before requesting an ambulance to transfer her to the hospital for evaluation of abdominal pain. Points all over abdomen, states pain is constant and radiates to her back, describes pain as sharp. Complaining of abdominal swelling, she feels like her abdomen has increased to the same size it was prior to paracentesis on Thursday. Associated nausea with multiple episodes of emesis that began last night, denies hematemesis and coffee ground emesis. Reports intermittent diarrhea for quite some time, says she has had 4-5 episodes so far today. Associated urgency with one episode of incontinence. Denies hematochezia and melena. Last EGD was 2 years ago and thinks findings at that included gastritis. Last colonoscopy was done some time this year for evaluation of BRBPR, states she was told bleeding was from her hemorrhoids. <Melissa Anthony - Last Filed: 09/22/17 15:32> Review of Systems Gastrointestinal: Reports abdominal pain, Reports incontinent of stools, Reports loose stools, Reports nausea, Reports vomiting, Denies black, tarry stools, Denies bright, red blood in stools, Denies coffee ground vomit, Denies vomiting blood Comments: abdominal swelling <Melissa Anthony - Last Filed: 09/22/17 15:32> [facility] - Medical History Medical History: Medical History (Last Updated 09/21/17 @ 02:16 by Irina Azul) Gastroparesis Liver cirrhosis Unspecified immunity deficiency <Luca Cisneros - Last Filed: 09/21/17 14:51> - History History Provided By: Patient - Medical History Medical History: Medical History (Last Updated 09/21/17 @ 02:16 by Irina Azul) Gastroparesis Liver cirrhosis Unspecified immunity deficiency - Tobacco History Smoking Status: Never smoker - Alcohol History How Often Do You Have a Drink Containing Alcohol: Never - Substance Use History Substance History: No History of Abuse - Immunization History Tetanus Immunization: <5 Years Hx Influenza Vaccine This Season: Yes <Melissa Anthony - Last Filed: 09/22/17 15:32> Medications and Allergies Active Medications: Active Medications Al Hydroxide/Mg Hydroxide (Milk Of Magnesia Liq) 30 ml PO Q12H PRN PRN Reason: Mild Constipation Benzonatate (Tessalon Perles) 100 mg PO TID PRN PRN Reason: Cough Bisacodyl (Dulcolax Supp) 10 mg RECTAL DAILY PRN PRN Reason: SEVERE CONSITIPATION Furosemide (Lasix) 20 mg PO DAILY [facility] Last Admin: 09/21/17 08:59 Dose: Not Given Piperacillin/Tazobactam/Dextrose (Zosyn 4.5 Gm Premix) 4.5 gm in 100 mls @ 200 mls/hr IV.SIG Q6HR [facility] Last Infusion: 09/21/17 07:11 Dose: Infused Lactulose (Lactulose Liq) 30 ml PO BID [facility] Last Admin: 09/21/17 08:59 Dose: Not Given Levothyroxine Sodium (Synthroid) 125 mcg PO DAILY@0600 [facility] Last Admin: 09/21/17 08:56 Dose: Not Given Magnesium Citrate (Citroma Liq) 300 ml PO ONCE ONE Stop: 09/21/17 16:01 Magnesium Citrate (Citroma Liq) 300 ml PO ONCE ONE Stop: 09/21/17 18:01 Non-Formulary Medication (Alprazolam [Xanax]) 1 mg PO DAILY PRN PRN Reason: Anxiety Ondansetron HCl (Zofran Odt) 4 mg PO Q6H PRN PRN Reason: NAUSEA OR VOMITING Pantoprazole Sodium (Protonix) 40 mg PO DAILY [facility] Last Admin: 09/21/17 09:01 Dose: Not Given Propranolol HCl (Inderal) 10 mg PO DAILY [facility] Last Admin: 09/21/17 08:58 Dose: Not Given Rifaximin (Xifaxan) 400 mg PO Q8HR [facility] Last Admin: 09/21/17 08:55 Dose: Not Given Senna/Docusate Sodium (Nanette-Colace) 1 tab PO BID [facility] Last Admin: 09/21/17 09:00 Dose: Not Given Sennosides (Senokot) 17.2 mg PO Q12H PRN PRN Reason: Moderate Constipation Sodium Chloride (Ns Flush) 2 ml IV.FLUSH PRN PRN PRN Reason: FLUSH AFTER USING IV ACCESS Spironolactone (Aldactone) 25 mg PO BID [facility] Last Admin: 09/21/17 08:56 Dose: Not Given <Luca Cisneros - Last Filed: 09/21/17 14:51> Active Medications: Active Medications Al Hydroxide/Mg Hydroxide (Milk Of Magnesia Liq) 30 ml PO Q12H PRN PRN Reason: Mild Constipation Benzonatate (Tessalon Perles) 100 mg PO TID PRN PRN Reason: Cough Bisacodyl (Dulcolax Supp) 10 mg RECTAL DAILY PRN PRN Reason: SEVERE CONSITIPATION Furosemide (Lasix) 20 mg PO DAILY [facility] Last Admin: 09/21/17 08:59 Dose: Not Given Piperacillin/Tazobactam/Dextrose (Zosyn 4.5 Gm Premix) 4.5 gm in 100 mls @ 200 mls/hr IV.SIG Q6HR [facility] Last Admin: 09/21/17 06:41 Dose: 200 mls/hr Lactulose (Lactulose Liq) 30 ml PO BID [facility] Last Admin: 09/21/17 08:59 Dose: Not Given Levothyroxine Sodium (Synthroid) 125 mcg PO DAILY@0600 [facility] Last Admin: 09/21/17 08:56 Dose: Not Given Non-Formulary Medication (Alprazolam [Xanax]) 1 mg PO DAILY PRN PRN Reason: Anxiety Ondansetron HCl (Zofran Odt) 4 mg PO Q6H PRN PRN Reason: NAUSEA OR VOMITING Pantoprazole Sodium (Protonix) 40 mg PO DAILY [facility] Last Admin: 09/21/17 09:01 Dose: Not Given Propranolol HCl (Inderal) 10 mg PO DAILY [facility] Last Admin: 09/21/17 08:58 Dose: Not Given Rifaximin (Xifaxan) 400 mg PO Q8HR [facility] Last Admin: 09/21/17 08:55 Dose: Not Given Senna/Docusate Sodium (Nanette-Colace) 1 tab PO BID [facility] Last Admin: 09/21/17 09:00 Dose: Not Given Sennosides (Senokot) 17.2 mg PO Q12H PRN PRN Reason: Moderate Constipation Sodium Chloride (Ns Flush) 2 ml IV.FLUSH PRN PRN PRN Reason: FLUSH AFTER USING IV ACCESS Spironolactone (Aldactone) 25 mg PO BID [facility] Last Admin: 09/21/17 08:56 Dose: Not Given <Melissa Anthony - Last Filed: 09/22/17 15:32> Allergies Allergy/AdvReac Type Severity Reaction Status Date / Time No Known Allergies Allergy Unverified 08/22/17 11:31 Home Medications Medication Instructions Recorded Confirmed Type fluorometholone 1 drp OPHTHALMIC (EYE) BID 08/22/17 08/22/17 History levothyroxine 125 mcg PO DAILY 08/22/17 09/21/17 History prednisolone acetate 1 drp OPHTHALMIC (EYE) QID 08/22/17 08/22/17 History alprazolam [Xanax] 1 mg PO DAILY PRN 09/21/17 09/21/17 History benzonatate 100 mg PO TID PRN 09/21/17 09/21/17 History guaifenesin 400 mg PO DAILY 09/21/17 09/21/17 History lactulose 20 g PO BID 09/21/17 09/21/17 History propranolol 10 mg PO DAILY 09/21/17 09/21/17 History Exam Vital signs: Vital Signs 09/21/17 02:02 09/21/17 05:37 09/21/17 06:38 Temperature 98.7 F Pulse Rate 77 68 75 Respiratory Rate 18 20 18 Blood Pressure 117/58 L 95/55 L 104/55 L Pulse Oximetry 98 98 97 09/21/17 08:56 Temperature Pulse Rate Respiratory Rate 16 Blood Pressure Pulse Oximetry Intake & Output 09/20/17 09/21/17 09/21/17 18:59 06:59 18:59 Intake Total 100 / 100 Balance 100 / 100 Weight 58.977 kg Intake: IV 100 / 100 Zosyn 4.5 GM Premix 4.5 gm In 100 / 100 100 ml @ 200 mls/hr IV.SIG Q6HR [facility] Rx#:[id number] <Luca Cisneros - Last Filed: 09/21/17 14:51> Vital signs: Vital Signs 09/21/17 02:02 09/21/17 05:37 09/21/17 06:38 Temperature 98.7 F Pulse Rate 77 68 75 Respiratory Rate 18 20 18 Blood Pressure 117/58 L 95/55 L 104/55 L Pulse Oximetry 98 98 97 09/21/17 08:56 Temperature Pulse Rate Respiratory Rate 16 Blood Pressure Pulse Oximetry Intake & Output 09/20/17 09/21/17 09/21/17 18:59 06:59 18:59 Weight 58.977 kg - Constitutional no acute distress - Routine HEENT Exam Head: Present: normocephalic, atraumatic - Routine Respiratory Exam Absent: accessory muscle use - Routine Cardiovascular Exam Present: RRR - Routine Abdominal Exam Present: soft, normoactive bowel sounds, tenderness, distended - Routine Skin Exam Present: dry, warm - Routine Neurological Exam Present: alert, oriented X3 <Melissa Anthony - Last Filed: 09/22/17 15:32> Results - Labs CBC & Chem 7: 09/21/17 02:30 09/21/17 02:30 Labs: Laboratory Results - last 24 hr 09/21/17 09/21/17 09/21/17 02:30 02:30 02:30 WBC 3.3 L RBC 3.98 L Hgb 12.2 Hct 36.8 MCV 92.5 MCH 30.7 MCHC 33.2 RDW 18.8 H Plt Count 162 D MPV 10.5 Neut % (Auto) 73.8 H Lymph % (Auto) 13.4 [place] % (Auto) 10.3 H Eos % (Auto) 1.7 Baso % (Auto) 0.8 Neut # (Auto) 2.4 Lymph # (Auto) 0.4 L [place] # (Auto) 0.3 Eos # (Auto) 0.1 Baso # (Auto) 0.0 WBC Differential . Differential Comment Auto diff final PT 15.0 H INR 1.5 APTT 28.2 Sodium 138 Potassium 4.8 Chloride 107 Carbon Dioxide 24.5 Anion Gap 7 BUN 10 Creatinine 0.67 Estimated GFR 88 L Random Glucose 97 Lactic Acid Calcium 7.5 L Magnesium 2.0 Total Bilirubin 1.0 AST 115 H ALT 34 Alkaline Phosphatase 226 H Ammonia Total Creatine Kinase 295 H CK-MB (CK-2) 2.0 CK-MB (CK-2) % 0.7 Troponin I Less than 0.02 L Total Protein 6.2 L Albumin 2.0 L Lipase 220 Urine Color Urine Clarity Urine pH Ur Specific [place] Urine Protein Urine Glucose (UA) Urine Ketones Urine Occult Blood Urine Nitrate Urine Bilirubin Urine Urobilinogen Ur Leukocyte Esterase Urine RBC Urine WBC Ur Squamous Epith Cells Ur Transition Epith Cell Amorphous Sediment Urine Mucus Micro UA Comment Urine Culture Comments 09/21/17 09/21/17 09/21/17 02:30 04:30 12:10 WBC RBC Hgb Hct MCV MCH MCHC RDW Plt Count MPV Neut % (Auto) Lymph % (Auto) [place] % (Auto) Eos % (Auto) Baso % (Auto) Neut # (Auto) Lymph # (Auto) [place] # (Auto) Eos # (Auto) Baso # (Auto) WBC Differential Differential Comment PT INR APTT Sodium Potassium Chloride Carbon Dioxide Anion Gap BUN Creatinine Estimated GFR Random Glucose Lactic Acid 1.1 Calcium Magnesium Total Bilirubin AST ALT Alkaline Phosphatase Ammonia 28 Total Creatine Kinase CK-MB (CK-2) CK-MB (CK-2) % Troponin I Total Protein Albumin Lipase Urine Color [place] Urine Clarity Cloudy H Urine pH 6.0 Ur Specific [place] 1.034 Urine Protein 30 H Urine Glucose (UA) Negative Urine Ketones Trace H Urine Occult Blood Small H Urine Nitrate Negative Urine Bilirubin Negative Urine Urobilinogen 2.0 H Ur Leukocyte Esterase Small H Urine RBC 8 H Urine WBC 6 H Ur Squamous Epith Cells 18 Ur Transition Epith Cell 1 Amorphous Sediment Rare H Urine Mucus Many H Micro UA Comment Culture not ind Urine Culture Comments Culture not ind - Imaging Impressions Chest X-Ray 09/21/17 02:25 CONCLUSION: No acute cardiopulmonary disease. Abdomen/Pelvis CT 09/21/17 03:11 CONCLUSION: 1. The right-sided colon remains abnormal appearance with multiple small air- fluid levels now noted in the region of the cecum. There is apparent mural thrombus and edema again noted. 2. Multiple loops of prominent proximal small bowel again noted with air-fluid levels. 3. Cirrhotic liver with moderate amount of ascitic fluid. 4. Status post cholecystectomy. The common bile duct remains prominent but unchanged. <Luca Cisneros - Last Filed: 09/21/17 14:51> - Labs CBC & Chem 7: 09/22/17 13:24 09/22/17 13:24 Labs: Laboratory Results - last 24 hr 09/21/17 09/21/17 09/21/17 02:30 02:30 02:30 WBC 3.3 L RBC 3.98 L Hgb 12.2 Hct 36.8 MCV 92.5 MCH 30.7 MCHC 33.2 RDW 18.8 H Plt Count 162 D MPV 10.5 Neut % (Auto) 73.8 H Lymph % (Auto) 13.4 [place] % (Auto) 10.3 H Eos % (Auto) 1.7 Baso % (Auto) 0.8 Neut # (Auto) 2.4 Lymph # (Auto) 0.4 L [place] # (Auto) 0.3 Eos # (Auto) 0.1 Baso # (Auto) 0.0 WBC Differential . Differential Comment Auto diff final PT 15.0 H INR 1.5 APTT 28.2 Sodium 138 Potassium 4.8 Chloride 107 Carbon Dioxide 24.5 Anion Gap 7 BUN 10 Creatinine 0.67 Estimated GFR 88 L Random Glucose 97 Lactic Acid Calcium 7.5 L Magnesium 2.0 Total Bilirubin 1.0 AST 115 H ALT 34 Alkaline Phosphatase 226 H Total Creatine Kinase 295 H CK-MB (CK-2) 2.0 CK-MB (CK-2) % 0.7 Troponin I Less than 0.02 L Total Protein 6.2 L Albumin 2.0 L Lipase 220 Urine Color Urine Clarity Urine pH Ur Specific [place] Urine Protein Urine Glucose (UA) Urine Ketones Urine Occult Blood Urine Nitrate Urine Bilirubin Urine Urobilinogen Ur Leukocyte Esterase Urine RBC Urine WBC Ur Squamous Epith Cells Ur Transition Epith Cell Amorphous Sediment Urine Mucus Micro UA Comment Urine Culture Comments 09/21/17 09/21/17 02:30 04:30 WBC RBC Hgb Hct MCV MCH MCHC RDW Plt Count MPV Neut % (Auto) Lymph % (Auto) [place] % (Auto) Eos % (Auto) Baso % (Auto) Neut # (Auto) Lymph # (Auto) [place] # (Auto) Eos # (Auto) Baso # (Auto) WBC Differential Differential Comment PT INR APTT Sodium Potassium Chloride Carbon Dioxide Anion Gap BUN Creatinine Estimated GFR Random Glucose Lactic Acid 1.1 Calcium Magnesium Total Bilirubin AST ALT Alkaline Phosphatase Total Creatine Kinase CK-MB (CK-2) CK-MB (CK-2) % Troponin I Total Protein Albumin Lipase Urine Color [place] Urine Clarity Cloudy H Urine pH 6.0 Ur Specific [place] 1.034 Urine Protein 30 H Urine Glucose (UA) Negative Urine Ketones Trace H Urine Occult Blood Small H Urine Nitrate Negative Urine Bilirubin Negative Urine Urobilinogen 2.0 H Ur Leukocyte Esterase Small H Urine RBC 8 H Urine WBC 6 H Ur Squamous Epith Cells 18 Ur Transition Epith Cell 1 Amorphous Sediment Rare H Urine Mucus Many H Micro UA Comment Culture not ind Urine Culture Comments Culture not ind - Imaging Impressions Chest X-Ray 09/21/17 02:25 CONCLUSION: No acute cardiopulmonary disease. Abdomen/Pelvis CT 09/21/17 03:11 CONCLUSION: 1. The right-sided colon remains abnormal appearance with multiple small air- fluid levels now noted in the region of the cecum. There is apparent mural thrombus and edema again noted. 2. Multiple loops of prominent proximal small bowel again noted with air-fluid levels. 3. Cirrhotic liver with moderate amount of ascitic fluid. 4. Status post cholecystectomy. The common bile duct remains prominent but unchanged. <Melissa Anthony - Last Filed: 09/22/17 15:32> Assessment and Plan - Plan Seen and examined, EGD/colonoscopy planned for tomorrow. ? surgery consult depending upon above. - Attending Attestation The exam, history, and the medical decision-making described in the above note were completed with the assistance of the mid-level provider. I reviewed and agree with the findings presented. I attest that I had a [id number] encounter with the patient on the same day, and personally performed and documented my assessment and findings in the medical record. <BlayneLuca reddy - Last Filed: 09/21/17 14:51> - Plan Assessment: - Abdominal pain- points to all over her abdomen- constant- sharp- radiates to her back. Associated nausea and vomiting that began last night- denies hematemesis and coffee ground emesis. Also complaining of abdominal swelling- states feels it is back to the size it was prior to paracentesis on Thursday. Prior to Thursday pt ascites has always been resolved with diuretics, denies previous paracentesis- recent hospitalization as per HPI CT abdomen and pelvis W IV contrast --> The right side of the colon remains abnormal appearance with multiple small air-fluid levels now noted in the region of the cecum. There is apparent mural thrombus and edema again noted. Multiple loops of prominent proximal small bowel again noted with air-fluid levels. Cirrhotic liver with moderate amount of ascitic fluid. S/P Cholecystectomy. Common bile duct remains prominent but unchanged Last EGD was 2 years ago and thinks findings at that included gastritis. - Diarrhea- intermittent for a long time- states 4-5 episodes today with urgency and one episode of incontinence. Denies hematochezia and melena. Recent hospitalization here in end of July for similar symptoms- noted to be colitis vs gastroenteritis Last colonoscopy was done some time this year for evaluation of BRBPR, states she was told bleeding was from her hemorrhoids. - Cirrhosis with complication of portal HTN with ascites (usually managed with diuretics), history of esophageal varices S/P previous banding States unknown cause of cirrhosis, heavy drinker 20 years ago and possibly history of Hepatitis C because she reports being on Interferon for months a long time ago. She denies any ETOH in years. She also states strong family history for cirrhosis including her sister who never drank alcohol. Pt has had liver biopsy in the past but is unsure where this was done. She was previously being followed at [facility] for a possible liver transplant, however was denied due to being positive for marijuana. She denies any continued marijuana use. According to this was over a year ago and pt was told to follow up in a year and possibly would be a candidate at that time. Other than multiple hospital admission over this past year pt has not been seen by an outpatient GI doctor. Coagulopathy (INR 1.5) and hypoalbuminemia (albumin 2) secondary to cirrhosis (09/21) Alk [id number] AST-115 ALT-34 T bili-1 - Gastroparesis- Pt reports previous diagnosis- has never been on medication for this - Family history of colon cancer- brother Plan: EGD and colonoscopy tomorrow Obtain consent Clear liquids today Mag citrate prep NPO after MN Continue Inderal Continue Xifaxan and Lactulose Continue Spironolactone and Furosemide Stool studies Hepatitis profile Further recommendations to follow Pt has been seen and examined by myself and Dr. Cisneros and this note is written on his behalf <Melissa Anthony - Last Filed: 09/22/17 15:32>
[2017-09-21] MEDS ORDERED: Magnesium Citrate Liq 300 ML Bottle PO ONE ×2 (16:00→18:00)
[2017-09-21 21:13] LABS: Hepatitits B Surface Antigen Nonreactive (Nonreactive)
[2017-09-21 21:46] LABS: Hepatitis A IgM Antibody Nonreactive (Nonreactive)
--- NOTE | 2017-09-21 21:52 | ECG ---
Date Performed: 09/21/2017 Time Performed: 05:47:44 PTAGE: 67 years EKG: Sinus rhythm PROLONGED QT INTERVAL ABNORMAL ECG PREVIOUS TRACING : 08/22/2017 04.45 Since the previous tracing, no significant change noted DOCTOR: Tobi Alfredo Interpretating Date/Time 09/21/2017 21:52:32
[2017-09-22] MEDS: Piperacil/Tazo 4.5 GM Premix 4.5 GM/100 ML BAG IV.SIG SCH ×4 (02:30→20:39)
[2017-09-22] MEDS: Levothyroxine 125 MCG Tablet PO SCH (07:23)
[2017-09-22] MEDS: Propranolol 10 MG Tablet PO SCH (08:18)
[2017-09-22] MEDS ORDERED: Chlorhexidine Gluconate 2% 1 Pack (2 Cloths) TOPICAL SCH (09:45)
[2017-09-22] MEDS ORDERED: Metoprolol Tartrate 25 MG Tablet PO SCH (09:45)
--- NOTE | 2017-09-22 09:51 | US ---
EXAM DATE: 09/22/2017 9:39 AM EDT AGE/SEX: 67 years / Female INDICATIONS: Ascites. CLINICAL DATA: This is the patient's initial encounter. Patient reports that signs and symptoms have been present for 1 week and indicates a pain score of 3/10. MEDICAL/SURGICAL HISTORY: Cirrhosis. Gastroparesis. None. COMPARISON: [facility] [place]BDOM[place] & PELVIS W CONTRAST, 09/21/2017. . FINDINGS: Masses: None visualized portions of the liver demonstrates nodular cirrhotic appearing liver. Fluid Collections: There is a small amount of ascites. Other: None. CONCLUSION: 1. Cirrhotic liver with small amount of ascites. Electronically signed by: Joseph Guardado MD 09/22/2017 9:50 AM EDT
--- NOTE | 2017-09-22 09:53 | GIPROC ---
[facility] [address] [facility]. [facility], [address] EGD PROCEDURE REPORT EXAM DATE: 09/22/2017 PATIENT NAME: Ольга Luu MR #: [id number] BIRTHDATE: 1950 ATTENDING: Luca Cisneros MD ORDER #: [id number] [employer] MANAGER: Jen Unger STATUS: inpatient INDICATIONS: The patient is a 67 yr old female here for an EGD due to abdominal pain PROCEDURE PERFORMED: EGD w/ biopsy MEDICATIONS: None and Per Anesthesia. TOPICAL ANESTHETIC: CONSENT: The patient understands the risks and benefits of the procedure and understands that these risks include, but are not limited to: sedation, allergic reaction, infection, perforation and/or bleeding. Alternative means of evaluation and treatment include, among others: physical exam, x-rays, and/or surgical intervention. The patient elects to proceed with this endoscopic procedure. medical equipment was checked for proper function. Hand hygiene and appropriate measures for infection prevention was taken. After the risks, benefits and alternatives of the procedure were thoroughly explained, Informed consent was verified, confirmed and timeout was successfully executed by the treatment team. The patient was anesthetized with topical anesthesia and the EC-[id number] (Pedi C) endoscope was introduced through the mouth and advanced to the second portion of the duodenum. Retroflexed views revealed no abnormalities The gastroscope was then slowly withdrawn and removed. ESOPHAGUS: There was LA Class A esophagitis noted. A biopsy was performed using cold forceps. Sample sent for histology. STOMACH: There was erythematous severe gastritis with heme present in the gastric antrum. A biopsy was performed using cold forceps. Sample sent for histology. Severe portal hypertensive gastropathy was found in the gastric body and gastric fundus. DUODENUM: The duodenal mucosa appeared normal in the bulb and second portion of the duodenum. ADVERSE EVENTS: There were no complications. IMPRESSIONS: 1. There was LA Class A esophagitis noted; biopsy was performed 2. There was erythematous gastritis in the gastric antrum; biopsy was performed 3. Portal hypertensive gastropathy was found in the gastric body and gastric fundus 4. Normal duodenal mucosa in the bulb and second portion of the duodenum 5. Retroflexed views revealed no abnormalities RECOMMENDATIONS: 1. Await biopsy results. Biopsy results will not be ready for 7-10 days. If you don't hear from us in two weeks, call our office for biopsy results. 2. Continue PPI 3. Avoid NSAIDS PATIENT CONDITION: stable DISPOSITION: Inpatient REPEAT EXAM: Return 1 year EGD pending biopsy results Luca Cisneros MD eSigned: Luca Cisneros MD 09/22/2017 9:52 AM cc: PATIENT NAME: Ольга Luu MR#: [id number]
[2017-09-22] MEDS ORDERED: Sodium Chlor 0.9% Inj 500 ML IV.SIG SCH (10:00)
--- NOTE | 2017-09-22 10:12 | GIPROC ---
[facility] [address] [facility]. [facility], [address] COLONOSCOPY PROCEDURE REPORT EXAM DATE: 09/22/2017 PATIENT NAME: Ольга Luu MR #: [id number] BIRTHDATE: 1950 ENDOSCOPIST: Luca Cisneros MD ORDER #: [id number] BUGGY LOADER: Jen Unger STATUS: inpatient INDICATIONS: The patient is a 67 yr old female here for a colonoscopy due to an abnormal CT and abdominal pain PROCEDURE PERFORMED: Colonoscopy, incomplete Colonoscopy with biopsy MEDICATIONS: None and Per Anesthesia. PREP QUALITY: The [place] Bowel Prep Score was Right colon 3, Mid colon 2, and Left colon 3. Total = 8. PREP TYPE:Magnesium Citrate ESTIMATED BLOOD LOSS: None CONSENT: The patient understands the risks and benefits of the procedure and understands that these risks include, but are not limited to: sedation, allergic reaction, infection, perforation and/or bleeding. Alternative means of evaluation and treatment include, among others: physical exam, x-rays, and/or surgical intervention. The patient elects to proceed with this endoscopic procedure. medical equipment was checked for proper function. Hand hygiene and appropriate measures for infection prevention was taken. After the risks, benefits and alternatives of the procedure were thoroughly explained, Informed consent was verified, confirmed and timeout was successfully executed by the treatment team. A digital exam revealed external hemorrhoids The Pentax EC-[id number] endoscope was introduced through the anus and advanced to the ileocecal valve. The instrument was then slowly withdrawn as the colon was fully examined. COLON FINDINGS: A circumferential diffuse patch of abnormal mucosa was found throughout the entire examined colon. The mucosa was edematous and congested. A biopsy was performed using cold forceps. Retroflexed views revealed internal hemorrhoids and Retroflexed views revealed medium internal hemorrhoids The scope was then completely withdrawn from the patient and the procedure terminated. PROCEDURE WITHDRAWAL TIME:8minutes ADVERSE EVENTS: There were no complications. IMPRESSIONS: 1. Circumferential diffuse abnormal mucosa was found throughout the entire examined colon; The mucosa was edematous and congested; biopsy was performed using cold forceps 2. Retroflexed views revealed internal hemorrhoids 3. Retroflexed views revealed medium internal hemorrhoids 4. Revealed external hemorrhoids RECOMMENDATIONS: 1. Await biopsy results. Biopsy results will not be ready for 7-10 days. If you don't hear from us in two weeks, call our office for results. 2. Continue surveillance 3. Yearly hemoccult 4. Avoid NSAIDS and Aspirin RECALL: Return 6 months Colonoscopy, pending biopsy results Luca Cisneros MD eSigned: Luca Cisneros MD 09/22/2017 10:12 AM cc:
[2017-09-22] MEDS: Furosemide 20 MG Tablet PO SCH (10:58)
[2017-09-22] MEDS: Spironolactone 25 MG Tablet PO SCH ×2 (10:58→20:39)
[2017-09-22] MEDS: Senna/Docusate Sodium 8.6/50 MG Tablet PO SCH ×2 (10:58→20:39)
[2017-09-22] MEDS ORDERED: Lidocaine PF 1% Inj 5 ML Syringe INFILTRATN ONE (12:00)
[2017-09-22] MEDS: Morphine Inj 4 MG/ML Vial IV.PUSH PRN (12:19)
[2017-09-22] MEDS ORDERED: HYDROmorphone PF Inj 2 MG/ML Vial IV.PUSH ONE (13:30)
[2017-09-22 13:44] LABS: Baso % (Auto) 0.4 % (0.0-2.0); Eos # (Auto) 0.1 th/mm3 (0.0-0.4); Eos % (Auto) 1.7 % (0.0-4.0); Hematocrit 35.1 % (35.0-46.0); Hemoglobin 11.4 gm/dL (11.6-15.3); Lymph # (Auto) 0.5 th/mm3 (1.0-4.8); Lymph % (Auto) 11.2 % (9.0-44.0); Mean Corpuscular HGB Conc 32.5 % (32.0-36.0); Mean Corpuscular Volume 95.3 fL (80.0-100.0); Mean Platelet Volume 9.3 fL (7.0-11.0); Mono # (Auto) 0.3 th/mm3 (0.0-0.9); Mono % (Auto) 6.6 % (0.0-8.0); Neut # (Auto) 3.4 th/mm3 (1.8-7.7); Neut % (Auto) 80.1 % (16.0-70.0); Platelet Count 55 th/mm3 (150-450); Red Blood Count 3.68 mil/mm3 (4.00-5.30); White Blood Count 4.2 th/mm3 (4.0-11.0)
[2017-09-22 13:59] LABS: INR 1.6 Ratio; Prothrombin Time 15.9 sec (9.8-11.6)
[2017-09-22 14:06] LABS: Alanine Aminotransferase 29 U/L (10-53); Albumin 1.8 g/dL (3.4-5.0); Alkaline Phosphatase 192 U/L (45-117); Anion Gap 8 meq/L (5-15); Aspartate Aminotransferase 72 U/L (15-37); Blood Urea Nitrogen 9 mg/dL (7-18); Calcium 7.9 mg/dL (8.5-10.1); Carbon Dioxide 23.6 meq/L (21.0-32.0); Chloride 108 meq/L (98-107); Glomerular Filtration Rate Greater Than 89 mL/min (>89); Glucose,Random 86 mg/dL (74-106); Potassium 3.6 meq/L (3.5-5.1); Sodium 140 meq/L (136-145); Total Protein 5.5 g/dL (6.4-8.2)
[2017-09-22] MEDS ORDERED: Diatrizoate Meglum/Diatrizoate Sod Liq 120 ML Bottle (for RAD diag) PO ONE (14:15)
[2017-09-22 14:19] LABS: Burr Cells 1+
[2017-09-22 14:20] LABS: Acanthocytes Occ; Ovalocytes 1+; Platelet Morphology Normal (Normal)
--- NOTE | 2017-09-22 14:41 | P.PN ---
Subjective Interval history: Follow up for liver cirrhosis. Patient is complaining of significant diffuse abdominal pain. No fever or chills. Physical Exam Vital signs: Vital Signs 09/21/17 16:00 09/21/17 17:43 09/21/17 20:00 Temperature 97.5 F L 98.4 F Pulse Rate 73 75 78 Respiratory Rate 18 16 15 Blood Pressure 134/71 102/55 L Pulse Oximetry 95 95 09/22/17 04:00 09/22/17 08:00 09/22/17 10:25 Temperature 98.4 F 98.7 F 97.5 F L Pulse Rate 61 76 54 L Respiratory Rate 16 16 16 Blood Pressure 115/58 L 131/60 130/79 Pulse Oximetry 93 L 95 93 L 09/22/17 12:00 Temperature 98.7 F Pulse Rate 52 L Respiratory Rate 18 Blood Pressure 132/68 Pulse Oximetry 94 L Intake & Output 09/21/17 09/22/17 09/22/17 18:59 06:59 18:59 Intake Total 1700 / 1700 200 / 200 400 / 400 Balance 1700 / 1700 200 / 200 400 / 400 Weight 67.1 kg Intake: IV 1700 / 1700 200 / 200 100 / 100 NS Inj 1,000 ML @ 125 mls/hr IV 1000 / 1000 .CONT .Q8H DEMETRIS Rx#:[id number] Zosyn 4.5 GM Premix 4.5 gm In 200 / 200 200 / 200 100 / 100 100 ml @ 200 mls/hr IV.SIG Q6H DEMETRIS Rx#:[id number] NS Inj 500 ML @ Wide Open IV. 500 / 500 SIG BOLUS ONE Rx#:[id number] Anesthesia Amount 300 / 300 Other: # Voids 1 Date of Last Bowel Movement 09/21/17 09/21/17 # Bowel Movements 1 Narrative: GENERAL: Alert, oriented 3, NAD. SKIN: Warm and dry. HEAD: Normocephalic. EYES: No scleral icterus. No injection or drainage. NECK: Supple, trachea midline. No JVD or lymphadenopathy. CARDIOVASCULAR: Regular rate and rhythm without murmurs, gallops, or rubs. RESPIRATORY: Breath sounds equal bilaterally. No accessory muscle use. GASTROINTESTINAL: Abdomen soft, tender to palpation diffusely, somewhat distended. MUSCULOSKELETAL: No cyanosis, or edema. BACK: Nontender without obvious deformity. No CVA tenderness. Results - Labs CBC & Chem 7: 09/22/17 13:24 09/22/17 13:24 Laboratory Results - last 24 hr 09/21/17 09/22/17 09/22/17 15:24 13:24 13:24 WBC 4.2 RBC 3.68 L Hgb 11.4 L Hct 35.1 MCV 95.3 MCH 31.0 MCHC 32.5 RDW 20.0 H Plt Count 55 L D MPV 9.3 Prelim Diff (Auto) Slide review pending Neut % (Auto) 80.1 H Lymph % (Auto) 11.2 [place] % (Auto) 6.6 Eos % (Auto) 1.7 Baso % (Auto) 0.4 Neut # (Auto) 3.4 Lymph # (Auto) 0.5 L [place] # (Auto) 0.3 Eos # (Auto) 0.1 Baso # (Auto) 0.0 WBC Differential . Diff Scan Auto diff confirmed Differential Comment . Platelet Estimate Low L Platelet Morphology Normal Ovalocytes 1+ H Matthew Cells 1+ H Acanthocytes (Spur) Occ H PT INR Sodium 140 Potassium 3.6 D Chloride 108 H Carbon Dioxide 23.6 Anion Gap 8 BUN 9 Creatinine 0.61 Estimated GFR Greater than 89 Random Glucose 86 Calcium 7.9 L Total Bilirubin 1.7 H AST 72 H ALT 29 Alkaline Phosphatase 192 H Ammonia Total Protein 5.5 L D Albumin 1.8 L Hepatitis A IgM Ab Nonreactive Hep Bs Antigen Nonreactive Hep B Core IgM Ab Nonreactive Hep C IgG Ab Reactive H 09/22/17 09/22/17 13:24 13:24 WBC RBC Hgb Hct MCV MCH MCHC RDW Plt Count MPV Prelim Diff (Auto) Neut % (Auto) Lymph % (Auto) [place] % (Auto) Eos % (Auto) Baso % (Auto) Neut # (Auto) Lymph # (Auto) [place] # (Auto) Eos # (Auto) Baso # (Auto) WBC Differential Diff Scan Differential Comment Platelet Estimate Platelet Morphology Ovalocytes [place] Cells Acanthocytes (Spur) PT 15.9 H INR 1.6 Sodium Potassium Chloride Carbon Dioxide Anion Gap BUN Creatinine Estimated GFR Random Glucose Calcium Total Bilirubin AST ALT Alkaline Phosphatase Ammonia 42 H Total Protein Albumin Hepatitis A IgM Ab Hep Bs Antigen Hep B Core IgM Ab Hep C IgG Ab Microbiology 09/21/17 12:00 Blood - Peripheral Aerobic Blood Culture - Preliminary No growth in 1 day 09/21/17 12:00 Blood - Peripheral Anaerobic Blood Culture - Final QNS - See aerobic report. 09/21/17 12:10 Blood - Peripheral Aerobic Blood Culture - Preliminary No growth in 1 day 09/21/17 12:10 Blood - Peripheral Anaerobic Blood Culture - Final QNS - See aerobic report. - Imaging Impressions Abdomen Ultrasound 09/22/17 10:00 CONCLUSION: 1. Cirrhotic liver with small amount of ascites. Assessment and Plan - Plan Ms. Luu is a 67-year-old female with history of liver cirrhosis who presented to the emergency department on 09/21/2017 due to abdominal pain. She had paracentesis done 2 days prior to this admission. She also reported trace blood in the stool. Liver cirrhosis -Likely due to alcohol abuse or autoimmune in nature. -Abdominal ultrasound did not reveal significant fluid. Probable small bowel obstruction -CT scan indicates multiple small air-fluid levels. -Also mural thrombus and edema noted. Multiple loops of prominent proximal small bowel noted with air-fluid levels. -Discussed with inspector type. Will obtain a Gastrografin small bowel follow-through study. -Also obtain general surgery consultation. -Pain control with Morphine. Full code. SCDs.
[2017-09-22 16:58] LABS: % Iron Saturation 20.3 % (20-50)
--- NOTE | 2017-09-22 17:38 | FL ---
EXAM DATE: 09/22/2017 5:28 PM EDT AGE/SEX: 67 years / Female INDICATIONS: Diffuse abdominal pain and distention, evaluate for obstruction. CLINICAL DATA: This is the patient's initial encounter. Patient reports that signs and symptoms have been present for 4 - 6 days and indicates a pain score of 0/10. MEDICAL/SURGICAL HISTORY: Gastroparesis. Cholecystectomy. Hysterectomy. COMPARISON: [facility] – [place], CT ABDOMEN & PELVIS W CONTRAST, 09/21/2017. . FLUORO TIME: 0 IMAGE COUNT: 10 CONTRAST: Gastroview 240 mL FINDINGS: Preliminary film is unremarkable. The stomach is grossly unremarkable. Examination of the small bowel demonstrates normal mucosal pattern involving the jejunum and ileum. There is no evidence of mass or obstruction. No intraluminal filling defects are identified. Small bowel transit time is 180 minutes. Images of the abdomen and terminal ileum demonstrates no abnormal ity. CONCLUSION: No evidence for obstruction. Electronically signed by: Wan Domínguez MD 09/22/2017 5:37 PM EDT
--- NOTE | 2017-09-22 17:39 | P.CONGS ---
[facility] Gen Surgery Consult Note Consult date: 09/22/17 Requesting physician: Suraj Pacheco Narrative: This is a 67-year-old female with a past medical history of cirrhosis, gastroparesis, unspecified autoimmune disease and hepatitis C. The patient came to the emergency room with complaints of abdominal pain. A CT abdomen and pelvis without oral contrast was obtained which shows multiple loops of prominent proximal small bowel with air-fluid levels and a moderate amount of ascitic fluid. An ultrasound of the abdomen was obtained which is she did have a colonoscopy and EGD done today which shows esophagitis and gastritis. Of note the patient was in [place], [place] and had ascites drained there 2 days ago. Review of the electronic medical record shows that she was a heavy drinker about 20 years ago. A General Surgery consultation has been requested for evaluation of small bowel instruction. <Meghan Clayton - Last Filed: 09/24/17 09:37> Reason for consult: abdominal pain Narrative: CONSULTATION NOTE FOR SURGICAL ATTENDING, DR. KEV ORTIZ <Kev Ortiz - Last Filed: 09/24/17 20:09> Review of Systems Constitutional: Denies body ache(s), Denies chills, Denies fever(s) Eyes: Denies blurry vision Ears, Nose, Mouth, and Throat: Denies dizziness Cardiovascular: Denies chest pain Respiratory: Denies chest congestion, Denies cough Gastrointestinal: Reports abdominal pain, Reports nausea Genitourinary: Denies pelvic pain Musculoskeletal: Denies abnormal walking Skin/Breast: Denies lesions Neurologic: Denies dizziness Psychiatric: Denies anxiety, Denies depression, Denies hopelessness Endocrine: Denies cold intolerance, Denies heat intolerance Hematologic/Lymphatic: Denies easy bleeding Allergic/Immunologic: Denies throat swelling, Denies tongue swelling <Meghan Clayton - Last Filed: 09/24/17 09:37> [facility] - History History Provided By: Patient - Medical History Medical History: Medical History (Last Reviewed 09/22/17 @ 17:30 by SANAM Sanchez) Gastroparesis Hepatitis C Liver cirrhosis Unspecified immunity deficiency - Surgical History Surgical History: Surgical History (Last Updated 09/22/17 @ 17:31 by SANAM Sanchez) H/O abdominal hysterectomy S/P cholecystectomy - Tobacco History Smoking Status: Never smoker - Alcohol History How Often Do You Have a Drink Containing Alcohol: Never - Substance Use History Substance History: No History of Abuse - Immunization History Tetanus Immunization: <5 Years Hx Influenza Vaccine This Season: Yes <Meghan Clayton - Last Filed: 09/24/17 09:37> - Medical History Medical History: Medical History (Last Reviewed 09/22/17 @ 17:30 by SANAM Sanchez) Gastroparesis Hepatitis C Liver cirrhosis Unspecified immunity deficiency - Surgical History Surgical History: Surgical History (Last Updated 09/22/17 @ 17:31 by SANAM Sanchez) H/O abdominal hysterectomy S/P cholecystectomy <Kev Ortiz - Last Filed: 09/24/17 20:09> Medications and Allergies Active Medications: Active Medications Al Hydroxide/Mg Hydroxide (Milk Of Magnmiya Liq) 30 ml PO Q12H PRN PRN Reason: Mild Constipation Albuterol (Duoneb Neb (Prn)) 1 ampul NEB Q4HR NEB PRN PRN Reason: WHEEZING Last Admin: 09/21/17 17:42 Dose: 1 ampul Alprazolam (Xanax) 1 mg PO DAILY PRN PRN Reason: Anxiety Benzonatate (Tessalon Perles) 200 mg PO Q8H PRN PRN Reason: COUGH Bisacodyl (Dulcolax Supp) 10 mg RECTAL DAILY PRN PRN Reason: SEVERE CONSITIPATION Chlorhexidine Gluconate (Chlorhexidine 2% Cloth) 3 pack [employer] [facility] Stop: 09/25/17 09:41 Furosemide (Lasix) 20 mg PO DAILY [facility] Last Admin: 09/22/17 10:58 Dose: 20 mg Piperacillin/Tazobactam/Dextrose (Zosyn 4.5 Gm Premix) 4.5 gm in 100 mls @ 200 mls/hr IV.SIG Q6H [facility] Last Infusion: 09/22/17 12:00 Dose: Infused Lactated Ringer's (Lr 1000 Ml Inj) 1,000 mls @ 30 mls/hr IV.SIG .Q24H [facility] Stop: 09/25/17 09:41 Sodium Chloride (Ns Inj) 500 mls @ 30 mls/hr IV.SIG .Q10H [facility] Stop: 09/25/17 09:41 Lactulose (Lactulose Liq) 30 ml PO BID [facility] Last Admin: 09/22/17 10:58 Dose: Not Given Levothyroxine Sodium (Synthroid) 125 mcg PO DAILY@0600 [facility] Last Admin: 09/22/17 07:23 Dose: 125 mcg Metoprolol Tartrate (Lopressor) 25 mg PO [employer] UND[employer] [facility] Stop: 09/25/17 09:41 Morphine Sulfate (Morphine Inj) 4 mg IV.PUSH Q4H PRN PRN Reason: For pain 5-10 Last Admin: 09/22/17 12:19 Dose: 4 mg Ondansetron HCl (Zofran Odt) 4 mg PO Q6H PRN PRN Reason: NAUSEA OR VOMITING Last Admin: 09/22/17 10:58 Dose: 4 mg Pantoprazole Sodium (Protonix) 40 mg PO DAILY [facility] Last Admin: 09/22/17 10:58 Dose: 40 mg Povidone Iodine (Betadine 5% Antisepsis Kit) 1 applicatio EACH [employer] [facility] Stop: 09/25/17 09:41 Propranolol HCl (Inderal) 10 mg PO DAILY [facility] Last Admin: 09/22/17 08:18 Dose: 10 mg Rifaximin (Xifaxan) 400 mg PO Q8HR [facility] Last Admin: 09/22/17 07:23 Dose: 400 mg Senna/Docusate Sodium (Nanette-Colace) 1 tab PO BID [facility] Last Admin: 09/22/17 10:58 Dose: Not Given Sennosides (Senokot) 17.2 mg PO Q12H PRN PRN Reason: Moderate Constipation Sodium Chloride (Ns Flush) 2 ml IV.FLUSH PRN PRN PRN Reason: FLUSH AFTER USING IV ACCESS Spironolactone (Aldactone) 25 mg PO BID [facility] Last Admin: 09/22/17 10:58 Dose: 25 mg <Meghan Clayton - Last Filed: 09/24/17 09:37> Active Medications: Active Medications Al Hydroxide/Mg Hydroxide (Milk Of Magnesia Liq) 30 ml PO Q12H PRN PRN Reason: Mild Constipation Albuterol (Duoneb Neb (Prn)) 1 ampul NEB Q4HR NEB PRN PRN Reason: WHEEZING Last Admin: 09/21/17 17:42 Dose: 1 ampul Albuterol (Duoneb Neb (Valeriy)) 1 ampul NEB Q6HR WHILE AWAKE NEB [facility] Last Admin: 09/24/17 14:30 Dose: Not Given Alprazolam (Xanax) 1 mg PO DAILY PRN PRN Reason: Anxiety Benzonatate (Tessalon Perles) 200 mg PO Q8H PRN PRN Reason: COUGH Bisacodyl (Dulcolax Supp) 10 mg RECTAL DAILY PRN PRN Reason: SEVERE CONSITIPATION Chlorhexidine Gluconate (Chlorhexidine 2% Cloth) 3 pack [employer] [facility] Stop: 09/25/17 09:41 Furosemide (Lasix) 20 mg PO DAILY [facility] Last Admin: 09/24/17 07:54 Dose: 20 mg Piperacillin/Tazobactam/Dextrose (Zosyn 4.5 Gm Premix) 4.5 gm in 100 mls @ 200 mls/hr IV.SIG Q6H [facility] Last Infusion: 09/24/17 15:50 Dose: Infused Sodium Chloride (Ns Inj) 500 mls @ 30 mls/hr IV.SIG .Q10H [facility] Stop: 09/25/17 09:41 Lactulose (Lactulose Liq) 30 ml PO BID [facility] Last Admin: 09/24/17 07:54 Dose: Not Given Levothyroxine Sodium (Synthroid) 125 mcg PO DAILY@0600 [facility] Last Admin: 09/24/17 05:14 Dose: 125 mcg Metoprolol Tartrate (Lopressor) 25 mg PO [employer] [facility] Stop: 09/25/17 09:41 Morphine Sulfate (Morphine Inj) 4 mg IV.PUSH Q4H PRN PRN Reason: For pain 5-10 Last Admin: 09/24/17 14:03 Dose: 4 mg Ondansetron HCl (Zofran Odt) 4 mg PO Q6H PRN PRN Reason: NAUSEA OR VOMITING Last Admin: 09/24/17 12:12 Dose: 4 mg Pantoprazole Sodium (Protonix) 40 mg PO DAILY [facility] Last Admin: 09/24/17 07:54 Dose: 40 mg Povidone Iodine (Betadine 5% Antisepsis Kit) 1 applicatio EACH [employer] [facility] Stop: 09/25/17 09:41 Prednisone (Deltasone) 20 mg PO BID [facility] Last Admin: 09/24/17 12:17 Dose: 20 mg Propranolol HCl (Inderal) 10 mg PO DAILY [facility] Last Admin: 09/24/17 07:54 Dose: 10 mg Rifaximin (Xifaxan) 400 mg PO Q8HR [facility] Last Admin: 09/24/17 13:44 Dose: 400 mg Senna/Docusate Sodium (Nanette-Colace) 1 tab PO BID [facility] Last Admin: 09/24/17 07:54 Dose: Not Given Sennosides (Senokot) 17.2 mg PO Q12H PRN PRN Reason: Moderate Constipation Sodium Chloride (Ns Flush) 2 ml IV.FLUSH PRN PRN PRN Reason: FLUSH AFTER USING IV ACCESS Spironolactone (Aldactone) 25 mg PO BID [facility] Last Admin: 09/24/17 07:54 Dose: 25 mg <Kev Ortiz - Last Filed: 09/24/17 20:09> Allergies Allergy/AdvReac Type Severity Reaction Status Date / Time No Known Allergies Allergy Unverified 08/22/17 11:31 Home Medications Medication Instructions Recorded Confirmed Type fluorometholone 1 drp OPHTHALMIC (EYE) BID 08/22/17 09/22/17 History levothyroxine 125 mcg PO DAILY 08/22/17 09/21/17 History prednisolone acetate 1 drp OPHTHALMIC (EYE) QID 08/22/17 09/22/17 History alprazolam [Xanax] 1 mg PO DAILY PRN 09/21/17 09/21/17 History benzonatate 100 mg PO TID PRN 09/21/17 09/21/17 History guaifenesin 400 mg PO DAILY 09/21/17 09/21/17 History lactulose 20 g PO BID 09/21/17 09/21/17 History propranolol 10 mg PO DAILY 09/21/17 09/21/17 History Exam Vital signs: Vital Signs 09/21/17 17:43 09/21/17 20:00 09/22/17 04:00 Temperature 98.4 F 98.4 F Pulse Rate 75 78 61 Respiratory Rate 16 15 16 Blood Pressure 102/55 L 115/58 L Pulse Oximetry 95 93 L 09/22/17 08:00 09/22/17 10:25 09/22/17 12:00 Temperature 98.7 F 97.5 F L 98.7 F Pulse Rate 76 54 L 52 L Respiratory Rate 16 16 18 Blood Pressure 131/60 130/79 132/68 Pulse Oximetry 95 93 L 94 L Intake & Output 09/21/17 09/22/17 09/22/17 18:59 06:59 18:59 Intake Total 1700 / 1700 200 / 200 400 / 400 Balance 1700 / 1700 200 / 200 400 / 400 Weight 67.1 kg Intake: IV 1700 / 1700 200 / 200 100 / 100 NS Inj 1,000 ML @ 125 mls/hr IV 1000 / 1000 .CONT .Q8H [facility] Rx#:[id number] Zosyn 4.5 GM Premix 4.5 gm In 200 / 200 200 / 200 100 / 100 100 ml @ 200 mls/hr IV.SIG Q6H [facility] Rx#:[id number] NS Inj 500 ML @ Wide Open IV. 500 / 500 SIG BOLUS ONE Rx#:[id number] Anesthesia Amount 300 / 300 Other: # Voids 1 Date of Last Bowel Movement 09/21/17 09/21/17 # Bowel Movements 1 Narrative: GENERAL: Alert and awake. SKIN: Warm and dry. HEAD: Atraumatic. Normocephalic. EYES: Pupils equal and round. No scleral icterus. No injection or drainage. ENT: No nasal bleeding or discharge. Mucous membranes pink and moist. NECK: Trachea midline. CARDIOVASCULAR: Regular rate and rhythm. RESPIRATORY: No accessory muscle use. Clear to auscultation. Breath sounds equal bilaterally. GASTROINTESTINAL: Abdomen soft; minimal tender; moderate distention; large midline incision. MUSCULOSKELETAL: Extremities without clubbing, cyanosis, or edema. No obvious deformities. NEUROLOGICAL: Awake and alert. No obvious cranial nerve deficits. Motor grossly within normal limits. Five out of 5 muscle strength in the arms and legs. Normal speech. PSYCHIATRIC: Appropriate mood and affect; insight and judgment normal. <Meghan Clayton - Last Filed: 09/24/17 09:37> Vital signs: Vital Signs 09/23/17 21:00 09/24/17 00:00 09/24/17 04:00 Temperature 99.7 F H 99.1 F Pulse Rate 58 L 59 L 59 L Respiratory Rate 18 20 18 Blood Pressure 87/52 L 92/51 L 98/55 L Pulse Oximetry 93 L 96 93 L 09/24/17 08:00 09/24/17 08:31 09/24/17 12:00 Temperature 98.3 F 97.7 F Pulse Rate 65 75 56 L Respiratory Rate 17 12 17 Blood Pressure 112/56 L 97/55 L Pulse Oximetry 90 L 95 90 L 09/24/17 15:15 09/24/17 15:29 09/24/17 16:00 Temperature 98.6 F 97.9 F Pulse Rate 50 L 52 L 65 Respiratory Rate 18 18 17 Blood Pressure 106/55 L 99/61 L 109/54 L Pulse Oximetry 93 L 94 L 90 L Intake & Output 09/24/17 09/24/17 09/25/17 06:59 18:59 06:59 Intake Total 1020 / 1020 3080 / 3080 Output Total 1900 / 1900 Balance 1020 / 1020 1180 / 1180 Weight 68.9 kg Intake: IV 700 / 700 200 / 200 D5W/1/2 NS Inj 500 ML @ Wide 500 / 500 Open IV.SIG .Q0M ONE Rx#: [id number] Zosyn 4.5 GM Premix 4.5 gm In 200 / 200 200 / 200 100 ml @ 200 mls/hr IV.SIG Q6H [facility] Rx#:[id number] Oral 320 / 320 2880 / 2880 Output: Urine 1900 / 1900 Other: # Voids 2 Date of Last Bowel Movement 09/23/17 09/23/17 # Bowel Movements 2 <Kev Ortiz - Last Filed: 09/24/17 20:09> Results - Labs 09/22/17 13:24 09/22/17 13:24 Abnormal lab results 09/21/17 09/22/17 09/22/17 Range/Units 15:24 13:24 13:24 RBC 3.68 L (4.00-5.30) mil/mm3 Hgb 11.4 L (11.6-15.3) gm/dL RDW 20.0 H (11.6-17.2) % Plt Count 55 L D (150-450) th/mm3 Neut % (Auto) 80.1 H (16.0-70.0) % Lymph # (Auto) 0.5 L (1.0-4.8) th/mm3 Platelet Estimate Low L (Normal) Ovalocytes 1+ H (None) Matthew Cells 1+ H (None) Acanthocytes (Spur) Occ H (None) PT (9.8-11.6) sec Chloride 108 H (98-107) meq/L Calcium 7.9 L (8.5-10.1) mg/dL Total Bilirubin 1.7 H (0.2-1.0) mg/dL AST 72 H (15-37) U/L Alkaline Phosphatase 192 H (45-117) U/L Ammonia (11-32) mcmol/L Total Protein 5.5 L D (6.4-8.2) g/dL Albumin 1.8 L (3.4-5.0) g/dL Hep C IgG Ab Reactive H (Nonreactive) 09/22/17 09/22/17 Range/Units 13:24 13:24 RBC (4.00-5.30) mil/mm3 Hgb (11.6-15.3) gm/dL RDW (11.6-17.2) % Plt Count (150-450) th/mm3 Neut % (Auto) (16.0-70.0) % Lymph # (Auto) (1.0-4.8) th/mm3 Platelet Estimate (Normal) Ovalocytes (None) Marshall Cells (None) Acanthocytes (Spur) (None) PT 15.9 H (9.8-11.6) sec Chloride (98-107) meq/L Calcium (8.5-10.1) mg/dL Total Bilirubin (0.2-1.0) mg/dL AST (15-37) U/L Alkaline Phosphatase (45-117) U/L Ammonia 42 H (11-32) mcmol/L Total Protein (6.4-8.2) g/dL Albumin (3.4-5.0) g/dL Hep C IgG Ab (Nonreactive) Diabetes panel 09/22/17 Range/Units 13:24 Sodium 140 (136-145) meq/L Potassium 3.6 D (3.5-5.1) meq/L Chloride 108 H (98-107) meq/L Carbon Dioxide 23.6 (21.0-32.0) meq/L BUN 9 (7-18) mg/dL Creatinine 0.61 (0.50-1.00) mg/dL Calcium 7.9 L (8.5-10.1) mg/dL AST 72 H (15-37) U/L ALT 29 (10-53) U/L Alkaline Phosphatase 192 H (45-117) U/L Total Protein 5.5 L D (6.4-8.2) g/dL Albumin 1.8 L (3.4-5.0) g/dL Calcium panel 09/22/17 Range/Units 13:24 Calcium 7.9 L (8.5-10.1) mg/dL Albumin 1.8 L (3.4-5.0) g/dL Pituitary panel 09/22/17 Range/Units 13:24 Sodium 140 (136-145) meq/L Potassium 3.6 D (3.5-5.1) meq/L Chloride 108 H (98-107) meq/L Carbon Dioxide 23.6 (21.0-32.0) meq/L BUN 9 (7-18) mg/dL Creatinine 0.61 (0.50-1.00) mg/dL Calcium 7.9 L (8.5-10.1) mg/dL Adrenal panel 09/22/17 Range/Units 13:24 Sodium 140 (136-145) meq/L Potassium 3.6 D (3.5-5.1) meq/L Chloride 108 H (98-107) meq/L Carbon Dioxide 23.6 (21.0-32.0) meq/L BUN 9 (7-18) mg/dL Creatinine 0.61 (0.50-1.00) mg/dL Calcium 7.9 L (8.5-10.1) mg/dL Total Bilirubin 1.7 H (0.2-1.0) mg/dL AST 72 H (15-37) U/L ALT 29 (10-53) U/L Alkaline Phosphatase 192 H (45-117) U/L Total Protein 5.5 L D (6.4-8.2) g/dL Albumin 1.8 L (3.4-5.0) g/dL All other labs normal. - Imaging CT scan - abdomen: report reviewed <Meghan Clayton - Last Filed: 09/24/17 09:37> - Labs 09/24/17 12:00 09/24/17 12:00 Abnormal lab results 09/24/17 09/24/17 09/24/17 Range/Units 12:00 12:00 12:00 RBC 3.53 L (4.00-5.30) mil/mm3 Hgb 11.0 L (11.6-15.3) gm/dL Hct 32.7 L (35.0-46.0) % RDW 19.0 H (11.6-17.2) % Plt Count 91 L D (150-450) th/mm3 PT 14.7 H (9.8-11.6) sec Potassium (3.5-5.1) meq/L Creatinine (0.50-1.00) mg/dL Estimated GFR (>89) mL/min Random Glucose (74-106) mg/dL Calcium (8.5-10.1) mg/dL Total Bilirubin (0.2-1.0) mg/dL AST (15-37) U/L Alkaline Phosphatase (45-117) U/L Lactate Dehydrogenase 415 H (84-246) U/L Total Protein (6.4-8.2) g/dL Albumin (3.4-5.0) g/dL Peritoneal RBC (0-0) /mm3 Periton Nuc Cells (0-10) /mm3 09/24/17 09/24/17 Range/Units 12:00 15:04 RBC (4.00-5.30) mil/mm3 Hgb (11.6-15.3) gm/dL Hct (35.0-46.0) % RDW (11.6-17.2) % Plt Count (150-450) th/mm3 PT (9.8-11.6) sec Potassium 3.3 L (3.5-5.1) meq/L Creatinine 1.05 H (0.50-1.00) mg/dL Estimated GFR 53 L (>89) mL/min Random Glucose 141 H (74-106) mg/dL Calcium 7.5 L (8.5-10.1) mg/dL Total Bilirubin 1.4 H (0.2-1.0) mg/dL AST 68 H (15-37) U/L Alkaline Phosphatase 160 H (45-117) U/L Lactate Dehydrogenase (84-246) U/L Total Protein 5.4 L (6.4-8.2) g/dL Albumin 1.7 L (3.4-5.0) g/dL Peritoneal RBC 343 H (0-0) /mm3 Periton Nuc Cells 141 H (0-10) /mm3 Diabetes panel 09/24/17 09/24/17 Range/Units 12:00 12:00 Sodium 139 (136-145) meq/L Potassium 3.3 L (3.5-5.1) meq/L Chloride 105 (98-107) meq/L Carbon Dioxide 26.2 (21.0-32.0) meq/L BUN 10 (7-18) mg/dL Creatinine 1.05 H (0.50-1.00) mg/dL Calcium 7.5 L (8.5-10.1) mg/dL AST 68 H (15-37) U/L ALT 28 (10-53) U/L Alkaline Phosphatase 160 H (45-117) U/L Total Protein Cancelled 5.4 L Albumin 1.7 L (3.4-5.0) g/dL Calcium panel 09/24/17 Range/Units 12:00 Calcium 7.5 L (8.5-10.1) mg/dL Albumin 1.7 L (3.4-5.0) g/dL Pituitary panel 09/24/17 Range/Units 12:00 Sodium 139 (136-145) meq/L Potassium 3.3 L (3.5-5.1) meq/L Chloride 105 (98-107) meq/L Carbon Dioxide 26.2 (21.0-32.0) meq/L BUN 10 (7-18) mg/dL Creatinine 1.05 H (0.50-1.00) mg/dL Calcium 7.5 L (8.5-10.1) mg/dL Adrenal panel 09/24/17 09/24/17 Range/Units 12:00 12:00 Sodium 139 (136-145) meq/L Potassium 3.3 L (3.5-5.1) meq/L Chloride 105 (98-107) meq/L Carbon Dioxide 26.2 (21.0-32.0) meq/L BUN 10 (7-18) mg/dL Creatinine 1.05 H (0.50-1.00) mg/dL Calcium 7.5 L (8.5-10.1) mg/dL Total Bilirubin 1.4 H (0.2-1.0) mg/dL AST 68 H (15-37) U/L ALT 28 (10-53) U/L Alkaline Phosphatase 160 H (45-117) U/L Total Protein Cancelled 5.4 L Albumin 1.7 L (3.4-5.0) g/dL All other labs normal. - Imaging Abdominal x-ray: report reviewed, image reviewed CT scan - abdomen: image reviewed CT scan - pelvis: report reviewed, image reviewed <Kev Ortiz - Last Filed: 09/24/17 20:09> Assessment and Plan - Assessment (1) Nausea, vomiting, and diarrhea Code(s): R11.2 - Nausea with vomiting, unspecified; R19.7 - Diarrhea, unspecified Status: Resolved - Plan 67 year old female with abdominal pain/nausea/vomiting -Diet as tolerated -SBFT shows contrast to colon -Unlikely SBO -Continue non operative treatment -Thank you for this consult; We will continue to follow Discussed Condition With: Dr. Angel Luu <Meghan Clayton - Last Filed: 09/24/17 09:37> - Assessment (1) Nausea, vomiting, and diarrhea Code(s): R11.2 - Nausea with vomiting, unspecified; R19.7 - Diarrhea, unspecified Status: Resolved - Attending Attestation CONSULTATION NOTE FOR SURGICAL ATTENDING, DR. KEV ORTIZ I agree with above assessment and plan. The exam, history, and the medical decision-making described in the above note were completed with the assistance of the mid-level provider. I reviewed and agree with the findings presented. I attest that I had a [id number] encounter with the patient on the same day, and personally performed and documented my assessment and findings in the medical record. The following services were provided during this hospital visit: Chart data review, vital sign assessments/reviewing monitor data Review of consultations notes if present. Medication orders/review and/or management Ordering and/or reviewing lab tests Ordering and/or interpreting/reviewing x-rays and/or diagnostic studies Care of the patient and discussion of the patient with the care team Documentation time To help prompt me to consider important information that might be impacting today's encounter and assessment, Information from prior notes written by myself or my colleagues may have been "brought forward/copy and pasted" into today's note. <Kev Ortiz - Last Filed: 09/24/17 20:09>
[2017-09-22] MEDS ORDERED: Diatrizoate Meglum/Diatrizoate Sod Liq 9 ML UDC PO ONE (18:45)
[2017-09-23] MEDS: Piperacil/Tazo 4.5 GM Premix 4.5 GM/100 ML BAG IV.SIG SCH ×4 (01:56→21:48)
[2017-09-23] MEDS: Levothyroxine 125 MCG Tablet PO SCH (05:28)
[2017-09-23] MEDS ORDERED: Magnesium Citrate Liq 300 ML Bottle PO ONE (08:34)
[2017-09-23] MEDS: Spironolactone 25 MG Tablet PO SCH ×2 (08:52→21:49)
[2017-09-23] MEDS: Furosemide 20 MG Tablet PO SCH (08:52)
[2017-09-23] MEDS: Propranolol 10 MG Tablet PO SCH (08:52)
[2017-09-23] MEDS: Senna/Docusate Sodium 8.6/50 MG Tablet PO SCH ×2 (08:54→21:48)
--- NOTE | 2017-09-23 09:58 | P.PNGS ---
Subjective Patient reports: no new complaints, feels better, tolerating a regular diet, flatus, bowel movement Interval history: DAILY PROGRESS NOTE FOR SURGICAL ATTENDING, DR. JERSON LOZADA Physical Exam Vital signs: Vital Signs 09/23/17 08:00 Temperature 97.8 F Pulse Rate 63 Respiratory Rate 18 Blood Pressure 104/52 L Pulse Oximetry 94 L Intake & Output 09/22/17 09/23/17 09/23/17 18:59 06:59 18:59 Intake Total 400 / 400 920 / 920 Balance 400 / 400 920 / 920 Weight 67.5 kg Intake: IV 100 / 100 200 / 200 Zosyn 4.5 GM Premix 4.5 gm In 100 / 100 200 / 200 100 ml @ 200 mls/hr IV.SIG Q6H [facility] Rx#:[id number] Oral 720 / 720 Anesthesia Amount 300 / 300 Other: # Voids 2 Date of Last Bowel Movement 09/21/17 09/22/17 # Bowel Movements 2 - Constitutional no acute distress - Routine HEENT Exam Head: Present: normocephalic Eye: Present: EOMI - Routine Neck Exam Present: supple - Routine Abdominal Exam Present: distended Comments: Patient has ascites abdomen soft - Routine Extremities Exam Present: full ROM - Routine Skin Exam Present: intact - Routine Neurological Exam Present: alert, oriented X3 - Detailed Neurological Exam: Coma Scale Eye Opening: Spontaneous Verbal Response: Oriented Motor Response: Obey commands [place] Coma Scale Total: 15 - Routine Psychiatric Exam Present: normal affect - Additional findings Additional findings: ITS Impressions Chest X-Ray 09/21/17 02:25 CONCLUSION: No acute cardiopulmonary disease. Abdomen/Pelvis CT 09/21/17 03:11 CONCLUSION: 1. The right-sided colon remains abnormal appearance with multiple small air- fluid levels now noted in the region of the cecum. There is apparent mural thrombus and edema again noted. 2. Multiple loops of prominent proximal small bowel again noted with air-fluid levels. 3. Cirrhotic liver with moderate amount of ascitic fluid. 4. Status post cholecystectomy. The common bile duct remains prominent but unchanged. Abdomen Ultrasound 09/22/17 10:00 CONCLUSION: 1. Cirrhotic liver with small amount of ascites. Small Bowel X-Ray 09/22/17 12:07 CONCLUSION: No evidence for obstruction. Laboratory Last Values WBC 4.2 th/mm3 (4.0-11.0) 09/22/17 13:24 RBC 3.68 mil/mm3 (4.00-5.30) L 09/22/17 13:24 Hgb 11.4 gm/dL (11.6-15.3) L 09/22/17 13:24 Hct 35.1 % (35.0-46.0) 09/22/17 13:24 MCV 95.3 fL (80.0-100.0) 09/22/17 13:24 MCH 31.0 pg (27.0-34.0) 09/22/17 13:24 MCHC 32.5 % (32.0-36.0) 09/22/17 13:24 RDW 20.0 % (11.6-17.2) H 09/22/17 13:24 Plt Count 55 th/mm3 (150-450) L D 09/22/17 13:24 MPV 9.3 fL (7.0-11.0) 09/22/17 13:24 Prelim Diff (Auto) Slide review pending 09/22/17 13:24 Neut % (Auto) 80.1 % (16.0-70.0) H 09/22/17 13:24 Lymph % (Auto) 11.2 % (9.0-44.0) 09/22/17 13:24 Nye % (Auto) 6.6 % (0.0-8.0) 09/22/17 13:24 Eos % (Auto) 1.7 % (0.0-4.0) 09/22/17 13:24 Baso % (Auto) 0.4 % (0.0-2.0) 09/22/17 13:24 Neut # (Auto) 3.4 th/mm3 (1.8-7.7) 09/22/17 13:24 Lymph # (Auto) 0.5 th/mm3 (1.0-4.8) L 09/22/17 13:24 Nye # (Auto) 0.3 th/mm3 (0.0-0.9) 09/22/17 13:24 Eos # (Auto) 0.1 th/mm3 (0.0-0.4) 09/22/17 13:24 Baso # (Auto) 0.0 th/mm3 (0.0-0.2) 09/22/17 13:24 WBC Differential . 09/22/17 13:24 Diff Scan Auto diff confirmed 09/22/17 13:24 Differential Comment . 09/22/17 13:24 Platelet Estimate Low (Normal) L 09/22/17 13:24 Platelet Morphology Normal (Normal) 09/22/17 13:24 Ovalocytes 1+ (None) H 09/22/17 13:24 [place] Cells 1+ (None) H 09/22/17 13:24 Acanthocytes (Spur) Occ (None) H 09/22/17 13:24 PT 15.9 sec (9.8-11.6) H 09/22/17 13:24 INR 1.6 Ratio 09/22/17 13:24 APTT 28.2 sec (24.3-30.1) 09/21/17 02:30 Sodium 140 meq/L (136-145) 09/22/17 13:24 Potassium 3.6 meq/L (3.5-5.1) D 09/22/17 13:24 Chloride 108 meq/L (98-107) H 09/22/17 13:24 Carbon Dioxide 23.6 meq/L (21.0-32.0) 09/22/17 13:24 Anion Gap 8 meq/L (5-15) 09/22/17 13:24 BUN 9 mg/dL (7-18) 09/22/17 13:24 Creatinine 0.61 mg/dL (0.50-1.00) 09/22/17 13:24 Estimated GFR Greater than 89 mL/min (>89) 09/22/17 13:24 Random Glucose 86 mg/dL (74-106) 09/22/17 13:24 Lactic Acid 1.1 mmol/L (0.4-2.0) 09/21/17 02:30 Calcium 7.9 mg/dL (8.5-10.1) L 09/22/17 13:24 Magnesium 2.0 mg/dL (1.5-2.5) 09/21/17 02:30 Iron 52 mcg/dL (50-170) 09/22/17 13:24 TIBC 256 mcg/dL (250-450) 09/22/17 13:24 % Saturation 20.3 % (20-50) 09/22/17 13:24 Ferritin 26 ng/mL (8-252) 09/22/17 13:24 Total Bilirubin 1.7 mg/dL (0.2-1.0) H 09/22/17 13:24 AST 72 U/L (15-37) H 09/22/17 13:24 ALT 29 U/L (10-53) 09/22/17 13:24 Alkaline Phosphatase 192 U/L (45-117) H 09/22/17 13:24 Ammonia 42 mcmol/L (11-32) H 09/22/17 13:24 Total Creatine Kinase 295 U/L (26-192) H 09/21/17 02:30 CK-MB (CK-2) 2.0 ng/mL (0.5-3.6) 09/21/17 02:30 CK-MB (CK-2) % 0.7 % (0.0-4.0) 09/21/17 02:30 Troponin I Less than 0.02 ng/mL (0.02-0.05) L 09/21/17 02:30 Total Protein 5.5 g/dL (6.4-8.2) L D 09/22/17 13:24 Albumin 1.8 g/dL (3.4-5.0) L 09/22/17 13:24 Lipase 220 U/L (73-393) 09/21/17 02:30 Urine Color Taylor (Yellw/Straw) 09/21/17 04:30 Urine Clarity Cloudy (Clear) H 09/21/17 04:30 Urine pH 6.0 (5.0-8.5) 09/21/17 04:30 Ur Specific Hollis 1.034 (1.002-1.035) 09/21/17 04:30 Urine Protein 30 mg/dL (Neg-Trace) H 09/21/17 04:30 Urine Glucose (UA) Negative mg/dL (Negative) 09/21/17 04:30 Urine Ketones Trace mg/dL (Negative) H 09/21/17 04:30 Urine Occult Blood Small (Negative) H 09/21/17 04:30 Urine Nitrate Negative (Negative) 09/21/17 04:30 Urine Bilirubin Negative (Negative) 09/21/17 04:30 Urine Urobilinogen 2.0 mg/dL (Less than 2) H 09/21/17 04:30 Ur Leukocyte Esterase Small (Negative) H 09/21/17 04:30 Urine RBC 8 /hpf (0-3) H 09/21/17 04:30 Urine WBC 6 /hpf (0-5) H 09/21/17 04:30 Ur Squamous Epith Cells 18 /hpf (0-5) 09/21/17 04:30 Ur Transition Epith Cell 1 /hpf (None) 09/21/17 04:30 Amorphous Sediment Rare /hpf (None) H 09/21/17 04:30 Urine Mucus Many /lpf (Occasional) H 09/21/17 04:30 Micro UA Comment Culture not ind 09/21/17 04:30 Urine Culture Comments Culture not ind 09/21/17 04:30 Hepatitis A IgM Ab Nonreactive (Nonreactive) 09/21/17 15:24 Hep Bs Antigen Nonreactive (Nonreactive) 09/21/17 15:24 Hep B Core IgM Ab Nonreactive (Nonreactive) 09/21/17 15:24 Hep C IgG Ab Reactive (Nonreactive) H 09/21/17 15:24 Microbiology 09/21/17 12:00 Aerobic Blood Culture - Preliminary Blood - Peripheral No growth in 1 day Anaerobic Blood Culture - Final QNS - See aerobic report. 09/21/17 12:10 Aerobic Blood Culture - Preliminary Blood - Peripheral No growth in 1 day Anaerobic Blood Culture - Final QNS - See aerobic report. Assessment and Plan - Assessment (1) Esophagitis Code(s): K20.9 - Esophagitis, unspecified Status: Acute (2) Gastritis Code(s): K29.70 - Gastritis, unspecified, without bleeding Status: Acute (3) Ascites Code(s): R18.8 - Other ascites Status: Acute (4) Nausea, vomiting, and diarrhea Code(s): R11.2 - Nausea with vomiting, unspecified; R19.7 - Diarrhea, unspecified Status: Resolved (5) Hepatitis C antibody test positive Code(s): R76.8 - Other specified abnormal immunological findings in serum Status: Acute - Plan 67-year-old female with ascites. She had a small bowel follow-through which did not show any obstruction she has chronic abdominal pain that I think is result of her ascites and her gastritis and esophagitis no surgical intervention required - Attending Attestation progress NOTE FOR SURGICAL ATTENDING, DR. JERSON LOZADA I attest that I had a [id number] encounter with the patient on the same day, and personally performed and documented my assessment and findings in the medical record. The following services were provided during this hospital visit: Chart data review, vital sign assessments/reviewing monitor data Review of consultations notes if present. Medication orders/review and/or management Ordering and/or reviewing lab tests Ordering and/or interpreting/reviewing x-rays and/or diagnostic studies Care of the patient and discussion of the patient with the care team Documentation time To help prompt me to consider important information that might be impacting today's encounter and assessment, Information from prior notes written by myself or my colleagues may have been "brought forward/copy and pasted" into today's note.
--- NOTE | 2017-09-23 12:55 | XR ---
EXAM DATE: 09/23/2017 12:52 PM EDT AGE/SEX: 67 years / Female INDICATIONS: Obstruction. CLINICAL DATA: This is the patient's subsequent encounter. Patient reports that signs and symptoms h ave been present for 1 week and indicates a pain score of 1/10. MEDICAL/SURGICAL HISTORY: . Gastroparesis. . Cholecystectomy. Hysterectomy COMPARISON: [facility], SMALL BOWEL W GASTROGRAFIN, 09/22/2017. . FINDINGS: There is mild gaseous distention of small bowel loops overlying the midabdomen. There is air seen th roughout the large bowel. Osseous structures are intact. CONCLUSION: Mild gaseous distention of small bowel loops decreased from previous without definite evidence of hig h-grade obstruction. Electronically signed by: Wan Domínguez MD 09/23/2017 12:54 PM EDT
--- NOTE | 2017-09-23 15:05 | P.PNGI ---
Subjective Interval history: Pt resting in bed, in no apparent distress. Has had multiple BMs today, had Mag Citrate this morning to flush out contrast from SBFT yesterday so that she can have CT today. Still with some abdominal pain and swelling but states mild compared to yesterday. Denies any nausea and vomiting. <Melissa Anthony - Last Filed: 09/23/17 14:58> Physical Exam Vital signs: Vital Signs 09/22/17 18:18 09/22/17 20:00 09/23/17 00:00 Temperature 97.3 F L 97.4 F L 97.3 F L Pulse Rate 50 L 55 L 54 L Respiratory Rate 18 22 20 Blood Pressure 114/67 130/71 103/54 L Pulse Oximetry 92 L 93 L 96 09/23/17 04:00 09/23/17 08:00 09/23/17 08:14 Temperature 98.1 F 97.8 F Pulse Rate 55 L 63 Respiratory Rate 20 18 Blood Pressure 105/52 L 104/52 L Pulse Oximetry 93 L 94 L 97 09/23/17 12:00 Temperature 98.4 F Pulse Rate 63 Respiratory Rate 18 Blood Pressure 100/54 L Pulse Oximetry 97 Intake & Output 09/22/17 09/23/17 09/23/17 18:59 06:59 18:59 Intake Total 400 / 400 920 / 920 100 / 100 Balance 400 / 400 920 / 920 100 / 100 Weight 67.5 kg Intake: IV 100 / 100 200 / 200 100 / 100 Zosyn 4.5 GM Premix 4.5 gm In 100 / 100 200 / 200 100 / 100 100 ml @ 200 mls/hr IV.SIG Q6H [facility] Rx#:[id number] Oral 720 / 720 Anesthesia Amount 300 / 300 Other: # Voids 2 Date of Last Bowel Movement 09/21/17 09/22/17 # Bowel Movements 2 - Constitutional no acute distress - Routine HEENT Exam Head: Present: normocephalic, atraumatic - Routine Respiratory Exam Absent: accessory muscle use - Routine Abdominal Exam Present: soft, normoactive bowel sounds, tenderness, distended - Routine Skin Exam Present: dry, warm - Routine Neurological Exam Present: alert, oriented X3 <Melissa Anthony - Last Filed: 09/23/17 14:58> Vital signs: Vital Signs 09/22/17 18:18 07/31/18 20:00 09/23/17 00:00 Temperature 97.3 F L 97.4 F L 97.3 F L Pulse Rate 50 L 55 L 54 L Respiratory Rate 18 22 20 Blood Pressure 114/67 130/71 103/54 L Pulse Oximetry 92 L 93 L 96 09/23/17 04:00 09/23/17 08:00 09/23/17 08:14 Temperature 98.1 F 97.8 F Pulse Rate 55 L 63 Respiratory Rate 20 18 Blood Pressure 105/52 L 104/52 L Pulse Oximetry 93 L 94 L 97 09/23/17 12:00 Temperature 98.4 F Pulse Rate 63 Respiratory Rate 18 Blood Pressure 100/54 L Pulse Oximetry 97 Intake & Output 09/22/17 09/23/17 09/23/17 18:59 06:59 18:59 Intake Total 400 / 400 920 / 920 100 / 100 Balance 400 / 400 920 / 920 100 / 100 Weight 67.5 kg Intake: IV 100 / 100 200 / 200 100 / 100 Zosyn 4.5 GM Premix 4.5 gm In 100 / 100 200 / 200 100 / 100 100 ml @ 200 mls/hr IV.SIG Q6H [facility] Rx#:[id number] Oral 720 / 720 Anesthesia Amount 300 / 300 Other: # Voids 2 Date of Last Bowel Movement 09/21/17 09/22/17 # Bowel Movements 2 <Luca Cisneros - Last Filed: 09/23/17 15:31> Results - Labs CBC & Chem 7: 09/22/17 13:24 09/22/17 13:24 Laboratory Results - last 24 hr 09/22/17 09/22/17 13:24 18:11 Iron 52 TIBC 256 % Saturation 20.3 Ferritin 26 DOUG Screen Neg Microbiology 09/21/17 12:00 Blood - Peripheral Aerobic Blood Culture - Preliminary No growth in 2 days 09/21/17 12:00 Blood - Peripheral Anaerobic Blood Culture - Final QNS - See aerobic report. 09/21/17 12:10 Blood - Peripheral Aerobic Blood Culture - Preliminary No growth in 2 days 09/21/17 12:10 Blood - Peripheral Anaerobic Blood Culture - Final QNS - See aerobic report. - Imaging Impressions Small Bowel X-Ray 09/22/17 12:07 CONCLUSION: No evidence for obstruction. Abdomen X-Ray 09/23/17 00:00 CONCLUSION: Mild gaseous distention of small bowel loops decreased from previous without definite evidence of high-grade obstruction. <Melissa Anthony - Last Filed: 09/23/17 14:58> - Labs CBC & Chem 7: 09/22/17 13:24 09/22/17 13:24 Laboratory Results - last 24 hr 09/22/17 09/22/17 13:24 18:11 Iron 52 TIBC 256 % Saturation 20.3 Ferritin 26 DOUG Screen Neg Microbiology 09/21/17 12:00 Blood - Peripheral Aerobic Blood Culture - Preliminary No growth in 2 days 09/21/17 12:00 Blood - Peripheral Anaerobic Blood Culture - Final QNS - See aerobic report. 09/21/17 12:10 Blood - Peripheral Aerobic Blood Culture - Preliminary No growth in 2 days 09/21/17 12:10 Blood - Peripheral Anaerobic Blood Culture - Final QNS - See aerobic report. - Imaging Impressions Small Bowel X-Ray 09/22/17 12:07 CONCLUSION: No evidence for obstruction. Abdomen X-Ray 09/23/17 00:00 CONCLUSION: Mild gaseous distention of small bowel loops decreased from previous without definite evidence of high-grade obstruction. <Luca Cisneros - Last Filed: 09/23/17 15:31> Assessment and Plan - Plan Assessment: - Abdominal pain- points to all over her abdomen- constant- sharp- radiates to her back. Associated nausea and vomiting that began last night- denies hematemesis and coffee ground emesis. Also complaining of abdominal swelling- states feels it is back to the size it was prior to paracentesis on Thursday. Prior to Thursday pt ascites has always been resolved with diuretics, denies previous paracentesis- recent hospitalization as per HPI CT abdomen and pelvis W IV contrast --> The right side of the colon remains abnormal appearance with multiple small air-fluid levels now noted in the region of the cecum. There is apparent mural thrombus and edema again noted. Multiple loops of prominent proximal small bowel again noted with air-fluid levels. Cirrhotic liver with moderate amount of ascitic fluid. S/P Cholecystectomy. Common bile duct remains prominent but unchanged Last EGD was 2 years ago and thinks findings at that included gastritis. - Diarrhea- intermittent for a long time- states 4-5 episodes today with urgency and one episode of incontinence. Denies hematochezia and melena. Recent hospitalization here in end of July for similar symptoms- noted to be colitis vs gastroenteritis Last colonoscopy was done some time this year for evaluation of BRBPR, states she was told bleeding was from her hemorrhoids. - Cirrhosis with complication of portal HTN with ascites (usually managed with diuretics), history of esophageal varices S/P previous banding States unknown cause of cirrhosis, heavy drinker 20 years ago and possibly history of Hepatitis C because she reports being on Interferon for months a long time ago. She denies any ETOH in years. She also states strong family history for cirrhosis including her sister who never drank alcohol. Pt has had liver biopsy in the past but is unsure where this was done. She was previously being followed at [facility] for a possible liver transplant, however was denied due to being positive for marijuana. She denies any continued marijuana use. According to this was over a year ago and pt was told to follow up in a year and possibly would be a candidate at that time. Other than multiple hospital admission over this past year pt has not been seen by an outpatient GI doctor. Coagulopathy (INR 1.5) and hypoalbuminemia (albumin 2) secondary to cirrhosis (09/21) Alk [id number] AST-115 ALT-34 T bili-1 - Gastroparesis- Pt reports previous diagnosis- has never been on medication for this - Family history of colon cancer- brother (09/23) Pt S/P EGD and colonoscopy yesterday. Was complaining of severe abdominal pain and distention after procedures, SBFT was done to rule out obstruction which came back negative. CT abdomen and pelvis ordered, pt still has retained contrast from exam, was given mag citrate this morning and had follow up KUB which revealed Mild gaseous distention of small bowel loops decreased from previous without definite evidence of high-grade obstruction. EGD There was LA Class A esophagitis noted; biopsy was performed. There was erythematous gastritis in the gastric antrum; biopsy was performed. Portal hypertensive gastropathy was found in the gastric body and gastric fundus. Normal duodenal mucosa in the bulb and second portion of the duodenum Colonoscopy --> Circumferential diffuse abnormal mucosa was found throughout the entire examined colon; The mucosa was edematous and congested; biopsy was performed using cold forceps Plan: CT abdomen and pelvis EGD and colon biopsy pending Protonix Continue Inderal Continue Xifaxan and Lactulose Continue Spironolactone and Furosemide Hepatitis C genotype and quant pending Further recommendations to follow Pt has been seen and examined by myself and Dr. Cisnerso and this note is written on his behalf <Melissa Anthony - Last Filed: 09/23/17 14:58> - Plan Seen and examined, abdominal pain improved. SBFT -ve for obstruction. CT abd/ pelvis with po/iv contrast ordered. Biopsies-p. - Attending Attestation The exam, history, and the medical decision-making described in the above note were completed with the assistance of the mid-level provider. I reviewed and agree with the findings presented. I attest that I had a [id number] encounter with the patient on the same day, and personally performed and documented my assessment and findings in the medical record. <Luca Cisneros - Last Filed: 09/23/17 15:31>
--- NOTE | 2017-09-23 16:01 | P.PNIM ---
Subjective Interval history: The patient was resting comfortably in bed. She is complaining of leg swelling and shortness of breath. She has been tolerating a diet. She has been having normal bowel movements. Discussed with nursing. Physical Exam Vital signs: Vital Signs 09/22/17 18:18 09/22/17 20:00 09/23/17 00:00 Temperature 97.3 F L 97.4 F L 97.3 F L Pulse Rate 50 L 55 L 54 L Respiratory Rate 18 22 20 Blood Pressure 114/67 130/71 103/54 L Pulse Oximetry 92 L 93 L 96 09/23/17 04:00 09/23/17 08:00 09/23/17 08:14 Temperature 98.1 F 97.8 F Pulse Rate 55 L 63 Respiratory Rate 20 18 Blood Pressure 105/52 L 104/52 L Pulse Oximetry 93 L 94 L 97 09/23/17 12:00 Temperature 98.4 F Pulse Rate 63 Respiratory Rate 18 Blood Pressure 100/54 L Pulse Oximetry 97 Intake & Output 09/22/17 09/23/17 09/23/17 18:59 06:59 18:59 Intake Total 400 / 400 920 / 920 100 / 100 Balance 400 / 400 920 / 920 100 / 100 Weight 67.5 kg Intake: IV 100 / 100 200 / 200 100 / 100 Zosyn 4.5 GM Premix 4.5 gm In 100 / 100 200 / 200 100 / 100 100 ml @ 200 mls/hr IV.SIG Q6H [facility] Rx#:[id number] Oral 720 / 720 Anesthesia Amount 300 / 300 Other: # Voids 2 Date of Last Bowel Movement 09/21/17 09/22/17 # Bowel Movements 2 Narrative: GENERAL: NAD. SKIN: Warm and dry. HEAD: Normocephalic. EYES: No scleral icterus. No injection or drainage. NECK: Supple, trachea midline. No JVD or lymphadenopathy. CARDIOVASCULAR: Regular rate and rhythm without murmurs, gallops, or rubs. RESPIRATORY: Wheezing noted on exhalation. GASTROINTESTINAL: Abdomen soft, tender to palpation diffusely, somewhat distended. MUSCULOSKELETAL: No cyanosis, 1+ edema. BACK: Nontender without obvious deformity. No CVA tenderness. Results - Labs CBC & Chem 7: 09/22/17 13:24 09/22/17 13:24 Laboratory Results - last 24 hr 09/22/17 09/22/17 13:24 18:11 Iron 52 TIBC 256 % Saturation 20.3 Ferritin 26 DOUG Screen Neg Microbiology 09/21/17 12:00 Blood - Peripheral Aerobic Blood Culture - Preliminary No growth in 2 days 09/21/17 12:00 Blood - Peripheral Anaerobic Blood Culture - Final QNS - See aerobic report. 09/21/17 12:10 Blood - Peripheral Aerobic Blood Culture - Preliminary No growth in 2 days 09/21/17 12:10 Blood - Peripheral Anaerobic Blood Culture - Final QNS - See aerobic report. - Imaging Impressions Small Bowel X-Ray 09/22/17 12:07 CONCLUSION: No evidence for obstruction. Abdomen X-Ray 09/23/17 00:00 CONCLUSION: Mild gaseous distention of small bowel loops decreased from previous without definite evidence of high-grade obstruction. Assessment and Plan - Plan Ms. Luu is a 67-year-old female with history of liver cirrhosis who presented to the emergency department on 09/21/2017 due to abdominal pain. She had paracentesis done 2 days prior to this admission. She also reported trace blood in the stool. Liver cirrhosis -Likely due to alcohol abuse or autoimmune in nature. -Abdominal ultrasound did not reveal significant fluid. -follow-up with GI. -diuresis for edema. D/c IVFs. Probable small bowel obstruction -CT scan indicates multiple small air-fluid levels. -Also mural thrombus and edema noted. Multiple loops of prominent proximal small bowel noted with air-fluid levels. -Discussed with hedis nurse. Will obtain a Gastrografin small bowel follow-through study. CT pending. -general surgery consultation appreciated. -Pain control with Morphine. -CT pending. Dyspnea The pt has asthma. -standing nebs added. -consider steroids. -oxygen as needed. Full code. SCDs.
--- NOTE | 2017-09-23 16:54 | CT ---
EXAM DATE: 09/23/2017 4:39 PM EDT AGE/SEX: 67 years / Female INDICATIONS: Abdominal pain. CLINICAL DATA: This is the patient's subsequent encounter. Patient reports that signs and symptoms h ave been present for 3 days and indicates a pain score of 4/10. MEDICAL/SURGICAL HISTORY: Gastroparesis. Hepatitis C. Cirrhosis. Autoimmune deficiency. Cho lecystectomy. Hysterectomy. ORAL CONTRAST: Prescribed oral contrast ingested. RADIATION DOSE: 14.34 CTDI (mGy) COMPARISON: C, ABDOMEN 1V KUB, 09/23/2017. . TECHNIQUE: Multiple contiguous axial images were obtained through the abdomen and pelvis following b olus infusion of 70 ml Omnipaque 350 (iohexol) nonionic water-soluble contrast as a single exam dos e. Prescribed oral contrast ingested. Using automated exposure control and adjustment of the mA and/ or kV according to patient size, radiation dose was kept as low as reasonably achievable to obtain op timal diagnostic quality images. DICOM format image data is available electronically for review and comparison. FINDINGS: There are moderate bilateral effusions, and associated compressive atelectasis in the lower lobes. A cirrhotic appearing liver is identified with splenomegaly and portal hypertension, large volume ascit es and numerous varices in the upper abdomen including esophageal varices, varices in the gastrohepat ic ligament. The patient is status post cholecystectomy, and the common bile duct measures up to 1.4 cm. There is body wall edema. Urinary bladder unremarkable. The patient is status post hysterectomy. There is no evidence for bowel obstruction. There is kyphoplasty cement at the T8 vertebral body leve l. Atherosclerotic calcifications of the aorta and iliac vessels. CONCLUSION: 1. Cirrhosis and portal hypertension with large volume of ascites. 2. Bilateral effusions and atelectasis. Electronically signed by: Wan Domínguez MD 09/23/2017 4:53 PM EDT
[2017-09-23] MEDS ORDERED: Dextrose 5%/NaCl 0.45% Inj 500 ML IV.SIG ONE ×2 (21:30→21:45)
[2017-09-24] MEDS: Piperacil/Tazo 4.5 GM Premix 4.5 GM/100 ML BAG IV.SIG SCH ×4 (02:31→20:22)
[2017-09-24] MEDS: Levothyroxine 125 MCG Tablet PO SCH (05:14)
[2017-09-24] MEDS: Morphine Inj 4 MG/ML Vial IV.PUSH PRN ×3 (07:43→20:23)
[2017-09-24] MEDS: Propranolol 10 MG Tablet PO SCH (07:54)
[2017-09-24] MEDS: Senna/Docusate Sodium 8.6/50 MG Tablet PO SCH ×2 (07:54→20:23)
[2017-09-24] MEDS: Furosemide 20 MG Tablet PO SCH (07:54)
[2017-09-24] MEDS: Spironolactone 25 MG Tablet PO SCH ×2 (07:54→20:23)
--- NOTE | 2017-09-24 10:34 | P.PNGI ---
Subjective Interval history: Pt resting in bed, states not feeling well today. Complaining of abdominal pain and fullness sensation. Also has some nausea. Unable to eat much. <Melissa Anthony - Last Filed: 09/24/17 10:28> Physical Exam Vital signs: Vital Signs 09/23/17 12:00 09/23/17 16:00 09/23/17 20:00 Temperature 98.4 F 98.7 F 98.9 F Pulse Rate 63 55 L 58 L Respiratory Rate 18 18 20 Blood Pressure 100/54 L 90/49 L 83/51 L Pulse Oximetry 97 95 94 L 09/23/17 20:06 09/23/17 21:00 09/24/17 00:00 Temperature 99.7 F H Pulse Rate 55 L 58 L 59 L Respiratory Rate 18 18 20 Blood Pressure 87/52 L 92/51 L Pulse Oximetry 95 93 L 96 09/24/17 04:00 09/24/17 08:00 09/24/17 08:31 Temperature 99.1 F 98.3 F Pulse Rate 59 L 65 75 Respiratory Rate 18 17 12 Blood Pressure 98/55 L 112/56 L Pulse Oximetry 93 L 90 L 95 Intake & Output 09/23/17 09/24/17 09/24/17 18:59 06:59 18:59 Intake Total 1160 / 1160 1020 / 1020 100 / 100 Balance 1160 / 1160 1020 / 1020 100 / 100 Weight 68.9 kg Intake: IV 200 / 200 700 / 700 100 / 100 D5W/1/2 NS Inj 500 ML @ Wide 500 / 500 Open IV.SIG .Q0M ONE Rx#: [id number] Zosyn 4.5 GM Premix 4.5 gm In 200 / 200 200 / 200 100 / 100 100 ml @ 200 mls/hr IV.SIG Q6H DEMETRIS Rx#:[id number] Oral 960 / 960 320 / 320 Other: # Voids 2 2 Date of Last Bowel Movement 09/23/17 09/23/17 09/23/17 # Bowel Movements 1 2 - Constitutional no acute distress - Routine HEENT Exam Head: Present: normocephalic, atraumatic - Routine Respiratory Exam Absent: accessory muscle use - Routine Abdominal Exam Present: soft, normoactive bowel sounds, distended. Absent: tenderness - Routine Skin Exam Present: dry, warm - Routine Neurological Exam Present: alert, oriented X3 <JackMelissa mosley - Last Filed: 09/24/17 10:28> Vital signs: Vital Signs 09/23/17 20:00 09/23/17 20:06 09/23/17 21:00 Temperature 98.9 F Pulse Rate 58 L 55 L 58 L Respiratory Rate 20 18 18 Blood Pressure 83/51 L 87/52 L Pulse Oximetry 94 L 95 93 L 09/24/17 00:00 09/24/17 04:00 09/24/17 08:00 Temperature 99.7 F H 99.1 F 98.3 F Pulse Rate 59 L 59 L 65 Respiratory Rate 20 18 17 Blood Pressure 92/51 L 98/55 L 112/56 L Pulse Oximetry 96 93 L 90 L 09/24/17 08:31 09/24/17 12:00 09/24/17 15:15 Temperature 97.7 F Pulse Rate 75 56 L 50 L Respiratory Rate 12 17 18 Blood Pressure 97/55 L 106/55 L Pulse Oximetry 95 90 L 93 L 09/24/17 15:29 09/24/17 16:00 Temperature 98.6 F 97.9 F Pulse Rate 52 L 65 Respiratory Rate 18 17 Blood Pressure 99/61 L 109/54 L Pulse Oximetry 94 L 90 L Intake & Output 09/23/17 09/24/17 09/24/17 18:59 06:59 18:59 Intake Total 1160 / 1160 1020 / 1020 200 / 200 Balance 1160 / 1160 1020 / 1020 200 / 200 Weight 68.9 kg Intake: IV 200 / 200 700 / 700 200 / 200 D5W/1/2 NS Inj 500 ML @ Wide 500 / 500 Open IV.SIG .Q0M ONE Rx#: [id number] Zosyn 4.5 GM Premix 4.5 gm In 200 / 200 200 / 200 200 / 200 100 ml @ 200 mls/hr IV.SIG Q6H DEMETRIS Rx#:[id number] Oral 960 / 960 320 / 320 Other: # Voids 2 2 Date of Last Bowel Movement 09/23/17 09/23/17 09/23/17 # Bowel Movements 1 2 <Luca Cisneros - Last Filed: 09/24/17 16:54> Results - Labs CBC & Chem 7: 09/22/17 13:24 09/22/17 13:24 Laboratory Results - last 24 hr 09/22/17 18:11 DOUG Screen Neg Microbiology 09/21/17 12:00 Blood - Peripheral Aerobic Blood Culture - Preliminary No growth in 2 days 09/21/17 12:00 Blood - Peripheral Anaerobic Blood Culture - Final QNS - See aerobic report. 09/21/17 12:10 Blood - Peripheral Aerobic Blood Culture - Preliminary No growth in 2 days 09/21/17 12:10 Blood - Peripheral Anaerobic Blood Culture - Final QNS - See aerobic report. - Imaging Impressions Abdomen X-Ray 09/23/17 00:00 CONCLUSION: Mild gaseous distention of small bowel loops decreased from previous without definite evidence of high-grade obstruction. Abdomen/Pelvis CT 09/23/17 00:00 CONCLUSION: 1. Cirrhosis and portal hypertension with large volume of ascites. 2. Bilateral effusions and atelectasis. <Melissa Anthony - Last Filed: 09/24/17 10:28> - Labs CBC & Chem 7: 09/24/17 12:00 09/24/17 12:00 Laboratory Results - last 24 hr 09/24/17 09/24/17 09/24/17 12:00 12:00 12:00 WBC 4.7 RBC 3.53 L Hgb 11.0 L Hct 32.7 L MCV 92.7 MCH 31.1 MCHC 33.6 RDW 19.0 H Plt Count 91 L D MPV 8.9 PT 14.7 H INR 1.5 APTT 24.3 Sodium Potassium Chloride Carbon Dioxide Anion Gap BUN Creatinine Estimated GFR Random Glucose Calcium Total Bilirubin AST ALT Alkaline Phosphatase Lactate Dehydrogenase 415 H Total Protein Cancelled Albumin 09/24/17 12:00 WBC RBC Hgb Hct MCV MCH MCHC RDW Plt Count MPV PT INR APTT Sodium 139 Potassium 3.3 L Chloride 105 Carbon Dioxide 26.2 Anion Gap 8 BUN 10 Creatinine 1.05 H Estimated GFR 53 L Random Glucose 141 H Calcium 7.5 L Total Bilirubin 1.4 H AST 68 H ALT 28 Alkaline Phosphatase 160 H Lactate Dehydrogenase Total Protein 5.4 L Albumin 1.7 L Microbiology 09/21/17 12:00 Blood - Peripheral Aerobic Blood Culture - Preliminary No growth in 3 days 09/21/17 12:00 Blood - Peripheral Anaerobic Blood Culture - Final QNS - See aerobic report. 09/21/17 12:10 Blood - Peripheral Aerobic Blood Culture - Preliminary No growth in 3 days 09/21/17 12:10 Blood - Peripheral Anaerobic Blood Culture - Final QNS - See aerobic report. - Imaging Impressions Abdomen/Pelvis CT 09/23/17 00:00 CONCLUSION: 1. Cirrhosis and portal hypertension with large volume of ascites. 2. Bilateral effusions and atelectasis. Chest X-Ray 09/24/17 00:00 CONCLUSION: No acute cardiopulmonary process. Paracentesis Ultrasound 09/24/17 00:00 CONCLUSION: 1. Uncomplicated ultrasound guided paracentesis, as above. <Luca Cisneros - Last Filed: 09/24/17 16:54> Assessment and Plan - Plan Assessment: - Abdominal pain- points to all over her abdomen- constant- sharp- radiates to her back. Associated nausea and vomiting that began last night- denies hematemesis and coffee ground emesis. Also complaining of abdominal swelling- states feels it is back to the size it was prior to paracentesis on Thursday. Prior to Thursday pt ascites has always been resolved with diuretics, denies previous paracentesis- recent hospitalization as per HPI CT abdomen and pelvis W IV contrast --> The right side of the colon remains abnormal appearance with multiple small air-fluid levels now noted in the region of the cecum. There is apparent mural thrombus and edema again noted. Multiple loops of prominent proximal small bowel again noted with air-fluid levels. Cirrhotic liver with moderate amount of ascitic fluid. S/P Cholecystectomy. Common bile duct remains prominent but unchanged Last EGD was 2 years ago and thinks findings at that included gastritis. - Diarrhea- intermittent for a long time- states 4-5 episodes today with urgency and one episode of incontinence. Denies hematochezia and melena. Recent hospitalization here in end of July for similar symptoms- noted to be colitis vs gastroenteritis Last colonoscopy was done some time this year for evaluation of BRBPR, states she was told bleeding was from her hemorrhoids. - Cirrhosis with complication of portal HTN with ascites (usually managed with diuretics), history of esophageal varices S/P previous banding States unknown cause of cirrhosis, heavy drinker 20 years ago and possibly history of Hepatitis C because she reports being on Interferon for months a long time ago. She denies any ETOH in years. She also states strong family history for cirrhosis including her sister who never drank alcohol. Pt has had liver biopsy in the past but is unsure where this was done. She was previously being followed at [facility] for a possible liver transplant, however was denied due to being positive for marijuana. She denies any continued marijuana use. According to this was over a year ago and pt was told to follow up in a year and possibly would be a candidate at that time. Other than multiple hospital admission over this past year pt has not been seen by an outpatient GI doctor. Coagulopathy (INR 1.5) and hypoalbuminemia (albumin 2) secondary to cirrhosis (09/21) Alk phos-226 AST-115 ALT-34 T bili-1 - Gastroparesis- Pt reports previous diagnosis- has never been on medication for this - Family history of colon cancer- brother (09/23) Pt S/P EGD and colonoscopy yesterday. Was complaining of severe abdominal pain and distention after procedures, SBFT was done to rule out obstruction which came back negative. CT abdomen and pelvis ordered, pt still has retained contrast from exam, was given mag citrate this morning and had follow up KUB which revealed Mild gaseous distention of small bowel loops decreased from previous without definite evidence of high-grade obstruction. EGD There was LA Class A esophagitis noted; biopsy was performed. There was erythematous gastritis in the gastric antrum; biopsy was performed. Portal hypertensive gastropathy was found in the gastric body and gastric fundus. Normal duodenal mucosa in the bulb and second portion of the duodenum Colonoscopy --> Circumferential diffuse abnormal mucosa was found throughout the entire examined colon; The mucosa was edematous and congested; biopsy was performed using cold forceps (09/24) Pt reports not feeling well today. Complaining of upper abdominal pain and fullness. States some nausea today, not able to eat much. Continued diarrhea CT abdomen and pelvis W IV and PO contrast --> Cirrhosis and portal hypertension with large volume of ascites. Will order US paracentesis Records requested from [place] for possible liver biopsy. Also awaiting records from recent hospitalization at [place] Plan: US paracentesis- diagnostic and therapeutic EGD and colon biopsy pending Protonix Continue Inderal Continue Xifaxan and Lactulose Continue Spironolactone and Furosemide Hepatitis C genotype and quant pending Further recommendations to follow Pt has been seen and examined by myself and Dr. Cisneros and this note is written on his behalf <Melissa Anthony - Last Filed: 09/24/17 10:28> - Plan Seen and examined with MANAGER [employer]LE, worsening ascites. Repeat ct reviewed. Paracentesis. Await biopsies - Attending Attestation The exam, history, and the medical decision-making described in the above note were completed with the assistance of the mid-level provider. I reviewed and agree with the findings presented. I attest that I had a [id number] encounter with the patient on the same day, and personally performed and documented my assessment and findings in the medical record. <Luca Cisneros - Last Filed: 09/24/17 16:54>
--- NOTE | 2017-09-24 11:41 | P.PNIM ---
Subjective Interval history: The patient was complaining of abdominal pain. She said the nebulizers helped with her breathing. She said she is doing well with the pain medications. She was awaiting Zofran for nausea. Discussed with nursing. Physical Exam Vital signs: Vital Signs 09/23/17 12:00 09/23/17 16:00 09/23/17 20:00 Temperature 98.4 F 98.7 F 98.9 F Pulse Rate 63 55 L 58 L Respiratory Rate 18 18 20 Blood Pressure 100/54 L 90/49 L 83/51 L Pulse Oximetry 97 95 94 L 09/23/17 20:06 09/23/17 21:00 09/24/17 00:00 Temperature 99.7 F H Pulse Rate 55 L 58 L 59 L Respiratory Rate 18 18 20 Blood Pressure 87/52 L 92/51 L Pulse Oximetry 95 93 L 96 09/24/17 04:00 09/24/17 08:00 09/24/17 08:31 Temperature 99.1 F 98.3 F Pulse Rate 59 L 65 75 Respiratory Rate 18 17 12 Blood Pressure 98/55 L 112/56 L Pulse Oximetry 93 L 90 L 95 Intake & Output 09/23/17 09/24/17 09/24/17 18:59 06:59 18:59 Intake Total 1160 / 1160 1020 / 1020 100 / 100 Balance 1160 / 1160 1020 / 1020 100 / 100 Weight 68.9 kg Intake: IV 200 / 200 700 / 700 100 / 100 D5W/1/2 NS Inj 500 ML @ Wide 500 / 500 Open IV.SIG .Q0M ONE Rx#: [id number] Zosyn 4.5 GM Premix 4.5 gm In 200 / 200 200 / 200 100 / 100 100 ml @ 200 mls/hr IV.SIG Q6H DEMETRIS Rx#:[id number] Oral 960 / 960 320 / 320 Other: # Voids 2 2 Date of Last Bowel Movement 09/23/17 09/23/17 09/23/17 # Bowel Movements 1 2 Narrative: GENERAL: NAD. SKIN: Warm and dry. HEAD: Normocephalic. EYES: No scleral icterus. No injection or drainage. NECK: Supple, trachea midline. No JVD or lymphadenopathy. CARDIOVASCULAR: Regular rate and rhythm without murmurs, gallops, or rubs. RESPIRATORY: Diffuse wheezing noted on exhalation. GASTROINTESTINAL: Abdomen soft, tender to palpation diffusely, somewhat distended. MUSCULOSKELETAL: No cyanosis, 1+ edema. BACK: Nontender without obvious deformity. No CVA tenderness. Results - Labs CBC & Chem 7: 09/22/17 13:24 09/22/17 13:24 Laboratory Results - last 24 hr 09/22/17 18:11 DOUG Screen Neg Microbiology 09/21/17 12:00 Blood - Peripheral Aerobic Blood Culture - Preliminary No growth in 3 days 09/21/17 12:00 Blood - Peripheral Anaerobic Blood Culture - Final QNS - See aerobic report. 09/21/17 12:10 Blood - Peripheral Aerobic Blood Culture - Preliminary No growth in 3 days 09/21/17 12:10 Blood - Peripheral Anaerobic Blood Culture - Final QNS - See aerobic report. - Imaging Impressions Abdomen X-Ray 09/23/17 00:00 CONCLUSION: Mild gaseous distention of small bowel loops decreased from previous without definite evidence of high-grade obstruction. Abdomen/Pelvis CT 09/23/17 00:00 CONCLUSION: 1. Cirrhosis and portal hypertension with large volume of ascites. 2. Bilateral effusions and atelectasis. Assessment and Plan - Plan Ms. Luu is a 67-year-old female with history of liver cirrhosis who presented to the emergency department on 09/21/2017 due to abdominal pain. She had paracentesis done 2 days prior to this admission. She also reported trace blood in the stool. Liver cirrhosis -Likely due to alcohol abuse or autoimmune in nature. -Abdominal ultrasound did not reveal significant fluid. CT with large volume ascites. -follow-up with GI. Paracentesis ordered. -diuresis for edema. D/c IVFs. Probable small bowel obstruction -CT scan indicates multiple small air-fluid levels. -Also mural thrombus and edema noted. Multiple loops of prominent proximal small bowel noted with air-fluid levels. -Discussed with intermediate frame tender. Will obtain a Gastrografin small bowel follow-through study. CT pending. -general surgery consultation appreciated. -Pain control with Morphine. Dyspnea The pt has asthma. -standing nebs added. -prednisone started. -oxygen as needed. -encourage ambulation. Full code. SCDs.
[2017-09-24] MEDS: predniSONE 20 MG Tablet PO SCH ×2 (12:17→20:22)
[2017-09-24 12:29] LABS: Hematocrit 32.7 % (35.0-46.0); Mean Corpuscular HGB Conc 33.6 % (32.0-36.0); Mean Corpuscular Hemoglobin 31.1 pg (27.0-34.0); Mean Corpuscular Volume 92.7 fL (80.0-100.0); Mean Platelet Volume 8.9 fL (7.0-11.0); Platelet Count 91 th/mm3 (150-450); Red Blood Count 3.53 mil/mm3 (4.00-5.30); White Blood Count 4.7 th/mm3 (4.0-11.0)
[2017-09-24 12:32] LABS: Activated Partial Thrombo Time 24.3 sec (24.3-30.1); INR 1.5 Ratio; Prothrombin Time 14.7 sec (9.8-11.6)
--- NOTE | 2017-09-24 12:41 | XR ---
EXAM DATE: 09/24/2017 12:20 PM EDT AGE/SEX: 67 years / Female INDICATIONS: Short of breath, coughing, upper abdominal pain and fullness prevents patient from otf ing a deep breath CLINICAL DATA: This is the patient's subsequent encounter. Patient reports that signs and symptoms h ave been present for 2 weeks and indicates a pain score of 6/10. MEDICAL/SURGICAL HISTORY: Asthma. Cirrhosis. Gastroparesis. Cholecystectomy. Hysterectomy. [place] [facility] [place]. . FINDINGS: A single AP view of the chest demonstrates the lungs to be symmetrically aerated without evidence of mass, infiltrate or effusion. The cardiomediastinal contours are unremarkable. The patient is status post vertebroplasty at T8. There are clips in the right upper quadrant. CONCLUSION: No acute cardiopulmonary process. Electronically signed by: Daniel Quintero MD 09/24/2017 12:40 PM EDT
[2017-09-24 12:53] LABS: Alanine Aminotransferase 28 U/L (10-53); Albumin 1.7 g/dL (3.4-5.0); Anion Gap 8 meq/L (5-15); Aspartate Aminotransferase 68 U/L (15-37); Blood Urea Nitrogen 10 mg/dL (7-18); Calcium 7.5 mg/dL (8.5-10.1); Carbon Dioxide 26.2 meq/L (21.0-32.0); Chloride 105 meq/L (98-107); Glomerular Filtration Rate 53 mL/min (>89); Glucose,Random 141 mg/dL (74-106); Potassium 3.3 meq/L (3.5-5.1); Sodium 139 meq/L (136-145)
[2017-09-24 12:55] LABS: Alkaline Phosphatase 160 U/L (45-117); Total Protein 5.4 g/dL (6.4-8.2)
--- NOTE | 2017-09-24 13:19 | P.PNGS ---
<Meghan Clayton - Last Filed: 09/24/17 13:19> Subjective Interval history: Patient reports she is going for paracentesis today; she also reports her bowels are working Physical Exam Vital signs: Vital Signs 09/23/17 16:00 09/23/17 20:00 09/23/17 20:06 Temperature 98.7 F 98.9 F Pulse Rate 55 L 58 L 55 L Respiratory Rate 18 20 18 Blood Pressure 90/49 L 83/51 L Pulse Oximetry 95 94 L 95 09/23/17 21:00 09/24/17 00:00 09/24/17 04:00 Temperature 99.7 F H 99.1 F Pulse Rate 58 L 59 L 59 L Respiratory Rate 18 20 18 Blood Pressure 87/52 L 92/51 L 98/55 L Pulse Oximetry 93 L 96 93 L 09/24/17 08:00 09/24/17 08:31 09/24/17 12:00 Temperature 98.3 F 97.7 F Pulse Rate 65 75 56 L Respiratory Rate 17 12 17 Blood Pressure 112/56 L 97/55 L Pulse Oximetry 90 L 95 90 L Intake & Output 09/23/17 09/24/17 09/24/17 18:59 06:59 18:59 Intake Total 1160 / 1160 1020 / 1020 100 / 100 Balance 1160 / 1160 1020 / 1020 100 / 100 Weight 68.9 kg Intake: IV 200 / 200 700 / 700 100 / 100 D5W/1/2 NS Inj 500 ML @ Wide 500 / 500 Open IV.SIG .Q0M ONE Rx#: [id number] Zosyn 4.5 GM Premix 4.5 gm In 200 / 200 200 / 200 100 / 100 100 ml @ 200 mls/hr IV.SIG Q6H DEMETRIS Rx#:[id number] Oral 960 / 960 320 / 320 Other: # Voids 2 2 Date of Last Bowel Movement 09/23/17 09/23/17 09/23/17 # Bowel Movements 1 2 Narrative: Alert and awake Cardio: RRR Resp: CTAB Abd: distended likely due to increase in ascites Assessment and Plan - Assessment (1) Nausea, vomiting, and diarrhea Code(s): R11.2 - Nausea with vomiting, unspecified; R19.7 - Diarrhea, unspecified Status: Resolved - Plan 67 year old female with abdominal pain/nausea/vomiting -Diet as tolerated -Going for paracentesis this afternoon -Bowels working -Continue non surgical management <Jerson Lozada - Last Filed: 09/24/17 20:12> Subjective Patient reports: feels better Interval history: DAILY PROGRESS NOTE FOR SURGICAL ATTENDING, DR. JERSON LOZADA Physical Exam Vital signs: Vital Signs 09/23/17 21:00 09/24/17 00:00 09/24/17 04:00 Temperature 99.7 F H 99.1 F Pulse Rate 58 L 59 L 59 L Respiratory Rate 18 20 18 Blood Pressure 87/52 L 92/51 L 98/55 L Pulse Oximetry 93 L 96 93 L 09/24/17 08:00 09/24/17 08:31 09/24/17 12:00 Temperature 98.3 F 97.7 F Pulse Rate 65 75 56 L Respiratory Rate 17 12 17 Blood Pressure 112/56 L 97/55 L Pulse Oximetry 90 L 95 90 L 09/24/17 15:15 09/24/17 15:29 09/24/17 16:00 Temperature 98.6 F 97.9 F Pulse Rate 50 L 52 L 65 Respiratory Rate 18 18 17 Blood Pressure 106/55 L 99/61 L 109/54 L Pulse Oximetry 93 L 94 L 90 L Intake & Output 09/24/17 09/24/17 09/25/17 06:59 18:59 06:59 Intake Total 1020 / 1020 3080 / 3080 Output Total 1900 / 1900 Balance 1020 / 1020 1180 / 1180 Weight 68.9 kg Intake: IV 700 / 700 200 / 200 D5W/1/2 NS Inj 500 ML @ Wide 500 / 500 Open IV.SIG .Q0M ONE Rx#: [id number] Zosyn 4.5 GM Premix 4.5 gm In 200 / 200 200 / 200 100 ml @ 200 mls/hr IV.SIG Q6H DEMETRIS Rx#:[id number] Oral 320 / 320 2880 / 2880 Output: Urine 1900 / 1900 Other: # Voids 2 Date of Last Bowel Movement 09/23/17 09/23/17 # Bowel Movements 2 Assessment and Plan - Assessment (1) Ascites Code(s): R18.8 - Other ascites Status: Acute (2) Esophagitis Code(s): K20.9 - Esophagitis, unspecified Status: Acute (3) Gastritis Code(s): K29.70 - Gastritis, unspecified, without bleeding Status: Acute (4) Hepatitis C antibody test positive Code(s): R76.8 - Other specified abnormal immunological findings in serum Status: Acute - Plan her nausea and vomiting has resolved she is tolerating regular diet Feels much better after paracentesis - Attending Attestation NOTE FOR SURGICAL ATTENDING, DR. JERSON LOZADA I agree with above assessment and plan. The exam, history, and the medical decision-making described in the above note were completed with the assistance of the mid-level provider. I reviewed and agree with the findings presented. I attest that I had a [id number] encounter with the patient on the same day, and personally performed and documented my assessment and findings in the medical record. The following services were provided during this hospital visit: Chart data review, vital sign assessments/reviewing monitor data Review of consultations notes if present. Medication orders/review and/or management Ordering and/or reviewing lab tests Ordering and/or interpreting/reviewing x-rays and/or diagnostic studies Care of the patient and discussion of the patient with the care team Documentation time To help prompt me to consider important information that might be impacting today's encounter and assessment, Information from prior notes written by myself or my colleagues may have been "brought forward/copy and pasted" into today's note. <Jerson Lozada - Last Filed: 09/24/17 20:12> (1) Ascites Qualifiers: Ascites type: due to alcoholic cirrhosis Qualified Code(s): K70.31 - Alcoholic cirrhosis of liver with ascites
[2017-09-24] MEDS ORDERED: Lidocaine PF 1% Inj 10 ML Amp ONE (15:13)
--- NOTE | 2017-09-24 16:25 | US ---
EXAM DATE: 09/24/2017 3:21 PM EDT AGE/SEX: 67 years / Female INDICATIONS: Ascites. CLINICAL DATA: This is the patient's initial encounter. Patient reports that signs and symptoms have been present for 4 - 6 days and indicates a pain score of 7/10. MEDICAL/SURGICAL HISTORY: Gastroparesis. Hepatitis C. Cirrhosis. Unspecified autoimmune diso rder. Thyroidectomy. Hysterectomy. Cholecystectomy. Toe surgery. Lumbar fusion. Paracentesis. [place] [facility] [place]AST[place]23/2017. . FLUID: Total volume of 1900 cc of clear, yellow fluid was removed. Fluid was sent to lab for ordered studies . . . TECHNIQUE: Ultrasound guidance for abdominal paracentesis. Paracentesis. The risks, benefits, and alternatives to ultrasound guided paracentesis were explained to the patient in detail including the risk of bleeding and infection. Written and verbal informed consent was obt ained. With the patient on the ultrasound table, ultrasound imaging was used to select the most appropriate approach for paracentesis. Overlying skin was prepped and draped in the usual sterile fashion and wi th a local anesthetic, a dermatotomy was made with an 11 blade scalpel. A 6 [place] [id number]-[id number] ca theter was introduced into the peritoneal cavity and fluid was collected. Post procedure scanning reveals no hematoma or other complication. The patient tolerated the procedu re well and left the ultrasound suite in stable condition. FINDINGS: Small amount of ascites. CONCLUSION: 1. Uncomplicated ultrasound guided paracentesis, as above. Electronically signed by: Joseph Guardado MD 09/24/2017 4:24 PM EDT
[2017-09-24 16:59] LABS: Mesothelial,Peritoneal Fluid 1 %; Neutrophils,Peritoneal Fluid 10 %; RBC,Peritoneal Fluid 343 /mm3 (0-0)
[2017-09-24 17:25] LABS: Total Protein,Peritoneal Fluid 0.6 gm/dL
[2017-09-24 18:09] LABS: Alpha 1 Antitrypsin 151 mg/dL (100 - 190); Smooth Muscle Total Auto Abs Negative (Negative)
[2017-09-25] MEDS: Piperacil/Tazo 4.5 GM Premix 4.5 GM/100 ML BAG IV.SIG SCH ×2 (02:27→08:21)
[2017-09-25] MEDS: Morphine Inj 4 MG/ML Vial IV.PUSH PRN ×3 (02:31→21:51)
[2017-09-25] MEDS: Levothyroxine 125 MCG Tablet PO SCH (05:09)
[2017-09-25 06:19] LABS: Baso % (Auto) 0.3 % (0.0-2.0); Eos % (Auto) 0.1 % (0.0-4.0); Hematocrit 33.3 % (35.0-46.0); Hemoglobin 11.3 gm/dL (11.6-15.3); Lymph # (Auto) 0.6 th/mm3 (1.0-4.8); Lymph % (Auto) 10.3 % (9.0-44.0); Mean Corpuscular Hemoglobin 31.3 pg (27.0-34.0); Mean Corpuscular Volume 92.3 fL (80.0-100.0); Mean Platelet Volume 9.6 fL (7.0-11.0); Mono # (Auto) 0.3 th/mm3 (0.0-0.9); Mono % (Auto) 4.8 % (0.0-8.0); Neut # (Auto) 4.8 th/mm3 (1.8-7.7); Neut % (Auto) 84.5 % (16.0-70.0); Platelet Count 100 th/mm3 (150-450); Red Blood Count 3.61 mil/mm3 (4.00-5.30); Red Cell Distribution Width 18.6 % (11.6-17.2); White Blood Count 5.6 th/mm3 (4.0-11.0)
[2017-09-25 06:25] LABS: Calcium 7.7 mg/dL (8.5-10.1); Magnesium 1.9 mg/dL (1.5-2.5); Potassium 3.5 meq/L (3.5-5.1)
[2017-09-25 07:20] LABS: Burr Cells 1+; Ovalocytes 1+; Platelet Morphology Normal (Normal)
[2017-09-25] MEDS: predniSONE 20 MG Tablet PO SCH (08:21)
[2017-09-25] MEDS: Furosemide 20 MG Tablet PO SCH (08:21)
[2017-09-25] MEDS: Propranolol 10 MG Tablet PO SCH (08:21)
[2017-09-25] MEDS: Spironolactone 25 MG Tablet PO SCH ×2 (08:25→21:52)
[2017-09-25] MEDS: Senna/Docusate Sodium 8.6/50 MG Tablet PO SCH ×2 (08:28→21:54)
--- NOTE | 2017-09-25 12:06 | P.PNGI ---
Subjective Interval history: Patient is alert resting in the bed and eating breakfast States she has less abdominal pain today and feels much better after right paracentesis performed on 09/24/2017, 1900 cc return Current labs reviewed, patient's appetite has been decreased but appears to be getting better Current hemoglobin 11.3 no obvious bleeding noted Patient is wearing oxygen per nasal cannula and feels more comfortable with less shortness of breath <Roberta Palacios - Last Filed: 09/25/17 12:06> Physical Exam Vital signs: Vital Signs 09/24/17 12:00 09/24/17 15:15 09/24/17 15:29 Temperature 97.7 F 98.6 F Pulse Rate 56 L 50 L 52 L Respiratory Rate 17 18 18 Blood Pressure 97/55 L 106/55 L 99/61 L Pulse Oximetry 90 L 93 L 94 L 09/24/17 16:00 09/24/17 20:00 09/24/17 20:01 Temperature 97.9 F 97.7 F Pulse Rate 65 53 L Respiratory Rate 17 18 Blood Pressure 109/54 L 107/58 L Pulse Oximetry 90 L 92 L 95 09/24/17 20:48 09/25/17 00:00 09/25/17 08:00 Temperature 97.8 F 97.5 F L Pulse Rate 53 L 50 L 56 L Respiratory Rate 18 17 16 Blood Pressure 103/50 L 119/57 L Pulse Oximetry 93 L 95 09/25/17 09:33 Temperature Pulse Rate 61 Respiratory Rate 16 Blood Pressure Pulse Oximetry 94 L Intake & Output 09/24/17 09/25/17 09/25/17 18:59 06:59 18:59 Intake Total 3080 / 3080 680 / 680 100 / 100 Output Total 1900 / 1900 Balance 1180 / 1180 680 / 680 100 / 100 Intake: IV 200 / 200 200 / 200 100 / 100 Zosyn 4.5 GM Premix 4.5 gm In 200 / 200 200 / 200 100 / 100 100 ml @ 200 mls/hr IV.SIG Q6H DEMETRIS Rx#:[id number] Oral 2880 / 2880 480 / 480 Output: Urine 1900 / 1900 Other: # Voids 2 1 Date of Last Bowel Movement 09/23/17 09/24/17 09/24/17 - Constitutional no acute distress - Routine HEENT Exam Head: Present: normocephalic, atraumatic Eye: Present: EOMI ENT: Present: mucous membranes moist - Routine Neck Exam Present: supple - Routine Respiratory Exam Present: accessory muscle use - Routine Cardiovascular Exam Present: RRR (Mild using oxygen per nasal cannula) - Routine Abdominal Exam Present: soft (Round, mild distention without tenderness) - Routine Skin Exam Present: intact, dry - Routine Neurological Exam Present: alert (Answer simple questions appropriate) <Roberta Palacios - Last Filed: 09/25/17 12:06> Vital signs: Vital Signs 09/24/17 20:00 09/24/17 20:01 09/24/17 20:48 Temperature 97.7 F Pulse Rate 53 L 53 L Respiratory Rate 18 18 Blood Pressure 107/58 L Pulse Oximetry 92 L 95 09/25/17 00:00 09/25/17 08:00 09/25/17 09:33 Temperature 97.8 F 97.5 F L Pulse Rate 50 L 56 L 61 Respiratory Rate 17 16 16 Blood Pressure 103/50 L 119/57 L Pulse Oximetry 93 L 95 94 L 09/25/17 12:00 09/25/17 13:38 Temperature 97.3 F L Pulse Rate 58 L 50 L Respiratory Rate 18 16 Blood Pressure 127/58 L Pulse Oximetry 93 L Intake & Output 09/24/17 09/25/17 09/25/17 18:59 06:59 18:59 Intake Total 3080 / 3080 680 / 680 100 / 100 Output Total 1900 / 1900 Balance 1180 / 1180 680 / 680 100 / 100 Intake: IV 200 / 200 200 / 200 100 / 100 Zosyn 4.5 GM Premix 4.5 gm In 200 / 200 200 / 200 100 / 100 100 ml @ 200 mls/hr IV.SIG Q6H DEMETRIS Rx#:[id number] Oral 2880 / 2880 480 / 480 Output: Urine 1900 / 1900 Other: # Voids 2 1 Date of Last Bowel Movement 09/23/17 09/24/17 09/24/17 <Luca Cisneros - Last Filed: 09/25/17 16:50> Results - Labs CBC & Chem 7: 09/25/17 05:09 09/25/17 05:09 Laboratory Results - last 24 hr 09/22/17 09/24/17 09/24/17 18:11 12:00 12:00 WBC 4.7 RBC 3.53 L Hgb 11.0 L Hct 32.7 L MCV 92.7 MCH 31.1 MCHC 33.6 RDW 19.0 H Plt Count 91 L D MPV 8.9 Prelim Diff (Auto) Neut % (Auto) Lymph % (Auto) [place] % (Auto) Eos % (Auto) Baso % (Auto) Neut # (Auto) Lymph # (Auto) [place] # (Auto) Eos # (Auto) Baso # (Auto) WBC Differential Diff Scan Differential Comment Platelet Estimate Platelet Morphology Ovalocytes [place] Cells PT INR APTT Sodium Potassium Chloride Carbon Dioxide Anion Gap BUN Creatinine Estimated GFR Random Glucose Calcium Magnesium Total Bilirubin AST ALT Alkaline Phosphatase Lactate Dehydrogenase 415 H Total Protein Cancelled Albumin Oolos-5-Gmkutdoedtf 151 Peritoneal RBC Periton Nuc Cells Periton Neutrophils Periton Lymphocytes Peritoneal Monocytes Periton Mesothelial Periton Histiocytes Peritoneal Tot Protein Peritoneal Albumin Peritoneal LDH Peritoneal Glucose Peritoneal Amylase Anti-Smooth Muscle Ab Negative 09/24/17 09/24/17 09/24/17 12:00 12:00 15:04 WBC RBC Hgb Hct MCV MCH MCHC RDW Plt Count MPV Prelim Diff (Auto) Neut % (Auto) Lymph % (Auto) [place] % (Auto) Eos % (Auto) Baso % (Auto) Neut # (Auto) Lymph # (Auto) [place] # (Auto) Eos # (Auto) Baso # (Auto) WBC Differential Diff Scan Differential Comment Platelet Estimate Platelet Morphology Ovalocytes [place] Cells PT 14.7 H INR 1.5 APTT 24.3 Sodium 139 Potassium 3.3 L Chloride 105 Carbon Dioxide 26.2 Anion Gap 8 BUN 10 Creatinine 1.05 H Estimated GFR 53 L Random Glucose 141 H Calcium 7.5 L Magnesium Total Bilirubin 1.4 H AST 68 H ALT 28 Alkaline Phosphatase 160 H Lactate Dehydrogenase Total Protein 5.4 L Albumin 1.7 L Pmwqu-2-Dafkfhibpdi Peritoneal RBC Periton Nuc Cells Periton Neutrophils Periton Lymphocytes Peritoneal Monocytes Periton Mesothelial Periton Histiocytes Peritoneal Tot Protein 0.6 Peritoneal Albumin 0.2 Peritoneal LDH 47 Peritoneal Glucose 140 Peritoneal Amylase 14 Anti-Smooth Muscle Ab 09/24/17 09/25/17 09/25/17 15:04 05:09 05:09 WBC 5.6 RBC 3.61 L Hgb 11.3 L Hct 33.3 L MCV 92.3 MCH 31.3 MCHC 34.0 RDW 18.6 H Plt Count 100 L MPV 9.6 Prelim Diff (Auto) Slide review pending Neut % (Auto) 84.5 H Lymph % (Auto) 10.3 [place] % (Auto) 4.8 Eos % (Auto) 0.1 Baso % (Auto) 0.3 Neut # (Auto) 4.8 Lymph # (Auto) 0.6 L [place] # (Auto) 0.3 Eos # (Auto) 0.0 Baso # (Auto) 0.0 WBC Differential . Diff Scan Auto diff confirmed Differential Comment . Platelet Estimate Low L Platelet Morphology Normal Ovalocytes 1+ H Matthew Cells 1+ H PT INR APTT Sodium 137 Potassium 3.5 Chloride 103 Carbon Dioxide 26.0 Anion Gap 8 BUN 9 Creatinine 0.94 Estimated GFR 60 L Random Glucose 137 H Calcium 7.7 L Magnesium 1.9 Total Bilirubin AST ALT Alkaline Phosphatase Lactate Dehydrogenase Total Protein Albumin Doonc-2-Ucomqeffjvr Peritoneal RBC 343 H Periton Nuc Cells 141 H Periton Neutrophils 10 Periton Lymphocytes 37 Peritoneal Monocytes 42 Periton Mesothelial 1 Periton Histiocytes 10 Peritoneal Tot Protein Peritoneal Albumin Peritoneal LDH Peritoneal Glucose Peritoneal Amylase Anti-Smooth Muscle Ab Microbiology 09/21/17 12:00 Blood - Peripheral Aerobic Blood Culture - Preliminary No growth in 4 days 09/21/17 12:00 Blood - Peripheral Anaerobic Blood Culture - Final QNS - See aerobic report. 09/21/17 12:10 Blood - Peripheral Aerobic Blood Culture - Preliminary No growth in 4 days 09/21/17 12:10 Blood - Peripheral Anaerobic Blood Culture - Final QNS - See aerobic report. - Imaging Impressions Chest X-Ray 09/24/17 00:00 CONCLUSION: No acute cardiopulmonary process. Paracentesis Ultrasound 09/24/17 00:00 CONCLUSION: 1. Uncomplicated ultrasound guided paracentesis, as above. <Roberta Palacios - Last Filed: 09/25/17 12:06> - Labs CBC & Chem 7: 09/25/17 05:09 09/25/17 05:09 Laboratory Results - last 24 hr 09/22/17 09/24/17 09/24/17 18:11 15:04 15:04 WBC RBC Hgb Hct MCV MCH MCHC RDW Plt Count MPV Prelim Diff (Auto) Neut % (Auto) Lymph % (Auto) [place] % (Auto) Eos % (Auto) Baso % (Auto) Neut # (Auto) Lymph # (Auto) [place] # (Auto) Eos # (Auto) Baso # (Auto) WBC Differential Diff Scan Differential Comment Platelet Estimate Platelet Morphology Ovalocytes Matthew Cells Sodium Potassium Chloride Carbon Dioxide Anion Gap BUN Creatinine Estimated GFR Random Glucose Calcium Magnesium Oofur-1-Biqykbaabec 151 Peritoneal RBC 343 H Periton Nuc Cells 141 H Periton Neutrophils 10 Periton Lymphocytes 37 Peritoneal Monocytes 42 Periton Mesothelial 1 Periton Histiocytes 10 Peritoneal Tot Protein 0.6 Peritoneal Albumin 0.2 Peritoneal LDH 47 Peritoneal Glucose 140 Peritoneal Amylase 14 Anti-Smooth Muscle Ab Negative 09/25/17 09/25/17 05:09 05:09 WBC 5.6 RBC 3.61 L Hgb 11.3 L Hct 33.3 L MCV 92.3 MCH 31.3 MCHC 34.0 RDW 18.6 H Plt Count 100 L MPV 9.6 Prelim Diff (Auto) Slide review pending Neut % (Auto) 84.5 H Lymph % (Auto) 10.3 [place] % (Auto) 4.8 Eos % (Auto) 0.1 Baso % (Auto) 0.3 Neut # (Auto) 4.8 Lymph # (Auto) 0.6 L [place] # (Auto) 0.3 Eos # (Auto) 0.0 Baso # (Auto) 0.0 WBC Differential . Diff Scan Auto diff confirmed Differential Comment . Platelet Estimate Low L Platelet Morphology Normal Ovalocytes 1+ H Matthew Cells 1+ H Sodium 137 Potassium 3.5 Chloride 103 Carbon Dioxide 26.0 Anion Gap 8 BUN 9 Creatinine 0.94 Estimated GFR 60 L Random Glucose 137 H Calcium 7.7 L Magnesium 1.9 Ttkjz-7-Oezsejcadvk Peritoneal RBC Periton Nuc Cells Periton Neutrophils Periton Lymphocytes Peritoneal Monocytes Periton Mesothelial Periton Histiocytes Peritoneal Tot Protein Peritoneal Albumin Peritoneal LDH Peritoneal Glucose Peritoneal Amylase Anti-Smooth Muscle Ab Microbiology 09/21/17 12:00 Blood - Peripheral Aerobic Blood Culture - Preliminary No growth in 4 days 09/21/17 12:00 Blood - Peripheral Anaerobic Blood Culture - Final QNS - See aerobic report. 09/21/17 12:10 Blood - Peripheral Aerobic Blood Culture - Preliminary No growth in 4 days 09/21/17 12:10 Blood - Peripheral Anaerobic Blood Culture - Final QNS - See aerobic report. - Imaging Impressions Paracentesis Ultrasound 09/24/17 00:00 CONCLUSION: 1. Uncomplicated ultrasound guided paracentesis, as above. <Luca Cisneros - Last Filed: 09/25/17 16:50> Assessment and Plan - Plan Admission and history Abdominal pain- points to all over her abdomen- constant- sharp- radiates to her back. Associated nausea and vomiting that began last night- denies hematemesis and coffee ground emesis. Also complaining of abdominal swelling- states feels it is back to the size it was prior to paracentesis on Thursday. Prior to Thursday pt ascites has always been resolved with diuretics, denies previous paracentesis- recent hospitalization as per HPI CT abdomen and pelvis W IV contrast --> The right side of the colon remains abnormal appearance with multiple small air-fluid levels now noted in the region of the cecum. There is apparent mural thrombus and edema again noted. Multiple loops of prominent proximal small bowel again noted with air-fluid levels. Cirrhotic liver with moderate amount of ascitic fluid. S/P Cholecystectomy. Common bile duct remains prominent but unchanged Last EGD was 2 years ago and thinks findings at that included gastritis. - Diarrhea- intermittent for a long time- states 4-5 episodes today with urgency and one episode of incontinence. Denies hematochezia and melena. Recent hospitalization here in end of July for similar symptoms- noted to be colitis vs gastroenteritis Last colonoscopy was done some time this year for evaluation of BRBPR, states she was told bleeding was from her hemorrhoids. - Cirrhosis with complication of portal HTN with ascites (usually managed with diuretics), history of esophageal varices S/P previous banding States unknown cause of cirrhosis, heavy drinker 20 years ago and possibly history of Hepatitis C because she reports being on Interferon for months a long time ago. She denies any ETOH in years. She also states strong family history for cirrhosis including her sister who never drank alcohol. Pt has had liver biopsy in the past but is unsure where this was done. She was previously being followed at [facility] for a possible liver transplant, however was denied due to being positive for marijuana. She denies any continued marijuana use. According to this was over a year ago and pt was told to follow up in a year and possibly would be a candidate at that time. Other than multiple hospital admission over this past year pt has not been seen by an outpatient GI doctor. Coagulopathy (INR 1.5) and hypoalbuminemia (albumin 2) secondary to cirrhosis (09/21) Alk phos-226 AST-115 ALT-34 T bili-1 - Gastroparesis- Pt reports previous diagnosis- has never been on medication for this - Family history of colon cancer- brother (09/23) Pt S/P EGD and colonoscopy yesterday. Was complaining of severe abdominal pain and distention after procedures, SBFT was done to rule out obstruction which came back negative. CT abdomen and pelvis ordered, pt still has retained contrast from exam, was given mag citrate this morning and had follow up KUB which revealed Mild gaseous distention of small bowel loops decreased from previous without definite evidence of high-grade obstruction. EGD There was LA Class A esophagitis noted; biopsy was performed. There was erythematous gastritis in the gastric antrum; biopsy was performed. Portal hypertensive gastropathy was found in the gastric body and gastric fundus. Normal duodenal mucosa in the bulb and second portion of the duodenum Colonoscopy --> Circumferential diffuse abnormal mucosa was found throughout the entire examined colon; The mucosa was edematous and congested; biopsy was performed using cold forceps (09/24) Pt reports not feeling well today. Complaining of upper abdominal pain and fullness. States some nausea today, not able to eat much. Continued diarrhea CT abdomen and pelvis W IV and PO contrast --> Cirrhosis and portal hypertension with large volume of ascites. Will order US paracentesis Records requested from [place] for possible liver biopsy. Also awaiting records from recent hospitalization at [facility] 09/25/2017 patient is status post right paracentesis with 1900 cc fluid return which gave her immediate relief from her pressure and shortness of breath. She states today she feels some of that pressure has returned but is still much better and symptoms are more controlled. She is eating solid food this a.m. although she has had decreased appetite this admission. Patient states daily bowel movements without any issues some notes no alcohol in the past 20 discussed with her her history of liver options and she states she is not a candidate for any liver transplant. We will continue to monitor patient's lab as well has her abdominal girth and any shortness of breath. Patient continues to wear oxygen per nasal cannula and states that it helps with her breathing. Abdominal cramping more controlled. Patient states she also had left paracentesis several days ago with less fluid were mild. Labs include negative peritoneal RBCs 343, neutrophils 141, Hemoglobin 11.3, bilirubin L82 2018 1. 4, AST 68 ALT 28. PT/INR 1.5 on 2017, DOUG negative mitochondrial antibody pending anti-smooth muscle antibody negative RNA genotype and PCR pending. Patient requesting advanced GI follow her as an outpatient. Plan: Diet per attending as tolerated encourage patient to eat even if it small amounts every 4-6 hours Protonix , and around Xifaxan, lactulose, spironolactone, Lasix Monitor abdominal girth Monitor labs Biopsies pending Further recommendations to follow Pt has been seen per myself and Dr. 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 Monitor renal functions. - Attending Attestation The exam, history, and the medical decision-making described in the above note were completed with the assistance of the mid-level provider. I reviewed and agree with the findings presented. I attest that I had a [id number] encounter with the patient on the same day, and personally performed and documented my assessment and findings in the medical record. <Luca Cisneros - Last Filed: 09/25/17 16:50>
--- NOTE | 2017-09-25 12:14 | P.PNIM ---
Subjective Interval history: The patient said that she felt better yesterday following the paracentesis but then she felt that the fluid built back up in her belly. She is complaining of some shortness of breath. She has been ambulating. No other acute complaints. Physical Exam Vital signs: Vital Signs 09/24/17 12:00 09/24/17 15:15 09/24/17 15:29 Temperature 97.7 F 98.6 F Pulse Rate 56 L 50 L 52 L Respiratory Rate 17 18 18 Blood Pressure 97/55 L 106/55 L 99/61 L Pulse Oximetry 90 L 93 L 94 L 09/24/17 16:00 09/24/17 20:00 09/24/17 20:01 Temperature 97.9 F 97.7 F Pulse Rate 65 53 L Respiratory Rate 17 18 Blood Pressure 109/54 L 107/58 L Pulse Oximetry 90 L 92 L 95 09/24/17 20:48 09/25/17 00:00 09/25/17 08:00 Temperature 97.8 F 97.5 F L Pulse Rate 53 L 50 L 56 L Respiratory Rate 18 17 16 Blood Pressure 103/50 L 119/57 L Pulse Oximetry 93 L 95 09/25/17 09:33 Temperature Pulse Rate 61 Respiratory Rate 16 Blood Pressure Pulse Oximetry 94 L Intake & Output 09/24/17 09/25/17 09/25/17 18:59 06:59 18:59 Intake Total 3080 / 3080 680 / 680 100 / 100 Output Total 1900 / 1900 Balance 1180 / 1180 680 / 680 100 / 100 Intake: IV 200 / 200 200 / 200 100 / 100 Zosyn 4.5 GM Premix 4.5 gm In 200 / 200 200 / 200 100 / 100 100 ml @ 200 mls/hr IV.SIG Q6H DEMETRIS Rx#:[id number] Oral 2880 / 2880 480 / 480 Output: Urine 1900 / 1900 Other: # Voids 2 1 Date of Last Bowel Movement 09/23/17 09/24/17 09/24/17 Narrative: GENERAL: This is a well-nourished, well-developed patient, in no apparent distress. HEENT: NGT in place. CARDIOVASCULAR: Regular rate and rhythm without murmurs, gallops, or rubs. RESPIRATORY: Clear to auscultation. Breath sounds equal bilaterally. No wheezes , rales, or rhonchi. GASTROINTESTINAL: Abdomen non-tender. MUSCULOSKELETAL: Extremities without clubbing, cyanosis, or edema. NEURO: Alert & Oriented x4 to person, place, time, situation. Moves all ext x4. Results - Labs CBC & Chem 7: 09/25/17 05:09 09/25/17 05:09 Laboratory Results - last 24 hr 09/22/17 09/24/17 09/24/17 18:11 12:00 12:00 WBC 4.7 RBC 3.53 L Hgb 11.0 L Hct 32.7 L MCV 92.7 MCH 31.1 MCHC 33.6 RDW 19.0 H Plt Count 91 L D MPV 8.9 Prelim Diff (Auto) Neut % (Auto) Lymph % (Auto) [place] % (Auto) Eos % (Auto) Baso % (Auto) Neut # (Auto) Lymph # (Auto) [place] # (Auto) Eos # (Auto) Baso # (Auto) WBC Differential Diff Scan Differential Comment Platelet Estimate Platelet Morphology Ovalocytes [place] Cells PT INR APTT Sodium Potassium Chloride Carbon Dioxide Anion Gap BUN Creatinine Estimated GFR Random Glucose Calcium Magnesium Total Bilirubin AST ALT Alkaline Phosphatase Lactate Dehydrogenase 415 H Total Protein Cancelled Albumin Jskti-6-Lelgsyhfsvw 151 Peritoneal RBC Periton Nuc Cells Periton Neutrophils Periton Lymphocytes Peritoneal Monocytes Periton Mesothelial Periton Histiocytes Peritoneal Tot Protein Peritoneal Albumin Peritoneal LDH Peritoneal Glucose Peritoneal Amylase Anti-Smooth Muscle Ab Negative 09/24/17 09/24/17 09/24/17 12:00 12:00 15:04 WBC RBC Hgb Hct MCV MCH MCHC RDW Plt Count MPV Prelim Diff (Auto) Neut % (Auto) Lymph % (Auto) [place] % (Auto) Eos % (Auto) Baso % (Auto) Neut # (Auto) Lymph # (Auto) [place] # (Auto) Eos # (Auto) Baso # (Auto) WBC Differential Diff Scan Differential Comment Platelet Estimate Platelet Morphology Ovalocytes [place] Cells PT 14.7 H INR 1.5 APTT 24.3 Sodium 139 Potassium 3.3 L Chloride 105 Carbon Dioxide 26.2 Anion Gap 8 BUN 10 Creatinine 1.05 H Estimated GFR 53 L Random Glucose 141 H Calcium 7.5 L Magnesium Total Bilirubin 1.4 H AST 68 H ALT 28 Alkaline Phosphatase 160 H Lactate Dehydrogenase Total Protein 5.4 L Albumin 1.7 L Ivzkw-2-Sivsidjyhaq Peritoneal RBC Periton Nuc Cells Periton Neutrophils Periton Lymphocytes Peritoneal Monocytes Periton Mesothelial Periton Histiocytes Peritoneal Tot Protein 0.6 Peritoneal Albumin 0.2 Peritoneal LDH 47 Peritoneal Glucose 140 Peritoneal Amylase 14 Anti-Smooth Muscle Ab 09/24/17 09/25/17 09/25/17 15:04 05:09 05:09 WBC 5.6 RBC 3.61 L Hgb 11.3 L Hct 33.3 L MCV 92.3 MCH 31.3 MCHC 34.0 RDW 18.6 H Plt Count 100 L MPV 9.6 Prelim Diff (Auto) Slide review pending Neut % (Auto) 84.5 H Lymph % (Auto) 10.3 [place] % (Auto) 4.8 Eos % (Auto) 0.1 Baso % (Auto) 0.3 Neut # (Auto) 4.8 Lymph # (Auto) 0.6 L [place] # (Auto) 0.3 Eos # (Auto) 0.0 Baso # (Auto) 0.0 WBC Differential . Diff Scan Auto diff confirmed Differential Comment . Platelet Estimate Low L Platelet Morphology Normal Ovalocytes 1+ H Matthew Cells 1+ H PT INR APTT Sodium 137 Potassium 3.5 Chloride 103 Carbon Dioxide 26.0 Anion Gap 8 BUN 9 Creatinine 0.94 Estimated GFR 60 L Random Glucose 137 H Calcium 7.7 L Magnesium 1.9 Total Bilirubin AST ALT Alkaline Phosphatase Lactate Dehydrogenase Total Protein Albumin Pexzg-1-Tqzekiyjxcb Peritoneal RBC 343 H Periton Nuc Cells 141 H Periton Neutrophils 10 Periton Lymphocytes 37 Peritoneal Monocytes 42 Periton Mesothelial 1 Periton Histiocytes 10 Peritoneal Tot Protein Peritoneal Albumin Peritoneal LDH Peritoneal Glucose Peritoneal Amylase Anti-Smooth Muscle Ab Microbiology 09/21/17 12:00 Blood - Peripheral Aerobic Blood Culture - Preliminary No growth in 4 days 09/21/17 12:00 Blood - Peripheral Anaerobic Blood Culture - Final QNS - See aerobic report. 09/21/17 12:10 Blood - Peripheral Aerobic Blood Culture - Preliminary No growth in 4 days 09/21/17 12:10 Blood - Peripheral Anaerobic Blood Culture - Final QNS - See aerobic report. - Imaging Impressions Chest X-Ray 09/24/17 00:00 CONCLUSION: No acute cardiopulmonary process. Paracentesis Ultrasound 09/24/17 00:00 CONCLUSION: 1. Uncomplicated ultrasound guided paracentesis, as above. Assessment and Plan - Plan Ms. Luu is a 67-year-old female with history of liver cirrhosis who presented to the emergency department on 09/21/2017 due to abdominal pain. She had paracentesis done 2 days prior to this admission. She also reported trace blood in the stool. Liver cirrhosis -Hepatitis profile positive for HCV. -Abdominal ultrasound did not reveal significant fluid. CT with large volume ascites. S/p paracentesis 09/24. -follow-up with GI. -diuresis for edema. Increase Lasix. Continue Aldactone. Adjust as needed. -continue rifaximin and lactulose. Possible small bowel obstruction -CT scan indicates multiple small air-fluid levels. -Also mural thrombus and edema noted. Multiple loops of prominent proximal small bowel noted with air-fluid levels. -Discussed with director specialty. Will obtain a Gastrografin small bowel follow-through study. CT noted. -general surgery following. -Pain control as needed. Dyspnea The pt has asthma. Exacerbated by ascites. -standing nebs added. -prednisone started. -oxygen as needed. -encourage ambulation. -continue diuresis. Full code. SCDs Discharge Planning: Continue diuresis. Follow up wit GI and surgery. May need further paracentesis. Increase activity. D/c antibiotics and monitor.
[2017-09-25] MEDS ORDERED: Potassium Chloride 25 MEQ Effervescent Tablet PO ONE (13:00)
[2017-09-25 17:52] LABS: Ceruloplasmin 26 mg/dL (18-53)
--- NOTE | 2017-09-25 21:19 | XR ---
EXAM DATE: 09/25/2017 9:14 PM EDT AGE/SEX: 67 years / Female INDICATIONS: Abdominal pain in entire abdomen and distention. CLINICAL DATA: This is the patient's subsequent encounter. Patient reports that signs and symptoms h ave been present for 1 day and indicates a pain score of 4/10. MEDICAL/SURGICAL HISTORY: Cirrhosis. Carcinoma, breast. Hypertension. Diverticulitis. Perforate d bowel. Cholecystectomy. Hysterectomy. Bladder surgery. COMPARISON: [facility] [place], CHEST 1V SINGLE AP, 09/24/2017. . FINDINGS: Mild basilar atelectasis. Previous kyphoplasty. No effusion. No pneumothorax. Heart size mildly enlar ged. CONCLUSION: Mild basilar airspace disease. Pleural effusion. No pneumothorax. Electronically signed by: Kev Denton MD 09/25/2017 9:18 PM EDT
--- NOTE | 2017-09-25 21:22 | XR ---
EXAM DATE: 09/25/2017 9:17 PM EDT AGE/SEX: 67 years / Female INDICATIONS: Abdominal pain in entire abdomen and distention. CLINICAL DATA: This is the patient's initial encounter. Patient reports that signs and symptoms have been present for 1 week and indicates a pain score of 5/10. MEDICAL/SURGICAL HISTORY: Asthma. Cirrhosis. Gastroparesis. Cholecystectomy. Hysterectomy. COMPARISON: [facility] [place] ABDOMEN 1V KUB, 09/23/2017. . FINDINGS: The abdominal bowel gas pattern demonstrates ileus. No free air. No abnormal masses, calcifications, or organomegaly is seen. The osseous structures are unremarkable. CONCLUSION: Ileus. No free air. Previous kyphoplasty at T8. Electronically signed by: Kev Denton MD 09/25/2017 9:20 PM EDT
[2017-09-25] MEDS: MethylPREDNISolone Sod Succinate Inj 40 MG/ML Vial IV.PUSH SCH (21:53)
[2017-09-26] MEDS ORDERED: HYDROmorphone PF Inj 2 MG/ML Vial IV.PUSH ONE (00:42)
[2017-09-26] MEDS: MethylPREDNISolone Sod Succinate Inj 40 MG/ML Vial IV.PUSH SCH ×3 (03:51→20:30)
[2017-09-26] MEDS: Levothyroxine 125 MCG Tablet PO SCH (05:48)
[2017-09-26 06:23] LABS: Baso % (Auto) 0.1 % (0.0-2.0); Eos % (Auto) 0.1 % (0.0-4.0); Hematocrit 32.6 % (35.0-46.0); Lymph # (Auto) 0.4 th/mm3 (1.0-4.8); Lymph % (Auto) 4.3 % (9.0-44.0); Mean Corpuscular HGB Conc 33.7 % (32.0-36.0); Mean Corpuscular Hemoglobin 31.2 pg (27.0-34.0); Mean Corpuscular Volume 92.4 fL (80.0-100.0); Mean Platelet Volume 10.2 fL (7.0-11.0); Mono # (Auto) 0.3 th/mm3 (0.0-0.9); Mono % (Auto) 3.1 % (0.0-8.0); Neut # (Auto) 9.6 th/mm3 (1.8-7.7); Neut % (Auto) 92.4 % (16.0-70.0); Platelet Count 122 th/mm3 (150-450); Red Blood Count 3.52 mil/mm3 (4.00-5.30); Red Cell Distribution Width 19.2 % (11.6-17.2); White Blood Count 10.3 th/mm3 (4.0-11.0)
[2017-09-26] MEDS: Furosemide 40 MG Tablet PO SCH (08:30)
[2017-09-26] MEDS: Propranolol 10 MG Tablet PO SCH (08:42)
[2017-09-26] MEDS: Furosemide 20 MG Tablet PO SCH (08:42)
[2017-09-26] MEDS: Spironolactone 25 MG Tablet PO SCH ×2 (08:53→20:30)
[2017-09-26] MEDS: Morphine Inj 4 MG/ML Vial IV.PUSH PRN ×2 (08:55→15:29)
--- NOTE | 2017-09-26 10:10 | P.PNGI ---
Subjective Interval history: Patient is resting in the bed just finished eating breakfast No nausea no vomiting Mild abdominal distention unchanged in the past 24 hours <Roberta Palacios - Last Filed: 09/26/17 10:04> Physical Exam Vital signs: Vital Signs 09/25/17 12:00 09/25/17 13:38 09/25/17 16:00 Temperature 97.3 F L 97.3 F L Pulse Rate 58 L 50 L 49 L Respiratory Rate 18 16 20 Blood Pressure 127/58 L 100/56 L Pulse Oximetry 93 L 95 09/25/17 19:43 09/25/17 20:00 09/26/17 00:00 Temperature 97.3 F L 97.5 F L Pulse Rate 55 L 60 54 L Respiratory Rate 18 14 14 Blood Pressure 104/50 L 114/56 L Pulse Oximetry 97 96 97 09/26/17 04:00 09/26/17 08:40 Temperature 97.8 F Pulse Rate 70 51 L Respiratory Rate 14 16 Blood Pressure 148/70 H Pulse Oximetry 95 93 L Intake & Output 09/25/17 09/26/17 09/26/17 18:59 06:59 18:59 Intake Total 700 / 700 900 / 900 Output Total 1900 / 1900 Balance 700 / 700 -1000 / -1000 Intake: IV 100 / 100 Zosyn 4.5 GM Premix 4.5 gm In 100 / 100 100 ml @ 200 mls/hr IV.SIG Q6H [facility] Rx#:[id number] Oral 600 / 600 600 / 600 Anesthesia Amount 300 / 300 Output: Urine 1900 / 1900 Other: # Voids 5 5 Date of Last Bowel Movement 09/24/17 09/25/17 # Bowel Movements 2 - Constitutional mild distress (Slim build with round abdomen) - Routine HEENT Exam Head: Present: normocephalic, atraumatic ENT: Present: mucous membranes moist - Routine Neck Exam Present: supple - Routine Respiratory Exam Present: decreased breath sounds (Mild in basis using oxygen) - Routine Cardiovascular Exam Present: RRR - Routine Abdominal Exam Present: soft (Round active bowel sounds mild distention unchanged) - Routine Skin Exam Present: intact - Routine Neurological Exam Present: alert (Answer simple questions) <Roberta Palacios - Last Filed: 09/26/17 10:04> Vital signs: Vital Signs 09/25/17 16:00 09/25/17 19:43 09/25/17 20:00 Temperature 97.3 F L 97.3 F L Pulse Rate 49 L 55 L 60 Respiratory Rate 20 18 14 Blood Pressure 100/56 L 104/50 L Pulse Oximetry 95 97 96 09/26/17 00:00 09/26/17 04:00 09/26/17 08:00 Temperature 97.5 F L 97.8 F 97.4 F L Pulse Rate 54 L 70 52 L Respiratory Rate 14 14 17 Blood Pressure 114/56 L 148/70 H 104/55 L Pulse Oximetry 97 95 92 L 09/26/17 08:40 09/26/17 12:00 09/26/17 13:45 Temperature 98.0 F Pulse Rate 51 L 64 48 L Respiratory Rate 16 17 16 Blood Pressure 123/65 Pulse Oximetry 93 L 91 L Intake & Output 09/25/17 09/26/17 09/26/17 18:59 06:59 18:59 Intake Total 700 / 700 900 / 900 Output Total 1900 / 1900 Balance 700 / 700 -1000 / -1000 Intake: IV 100 / 100 Zosyn 4.5 GM Premix 4.5 gm In 100 / 100 100 ml @ 200 mls/hr IV.SIG Q6H [facility] Rx#:[id number] Oral 600 / 600 600 / 600 Anesthesia Amount 300 / 300 Output: Urine 1900 / 1900 Other: # Voids 5 5 Date of Last Bowel Movement 09/24/17 09/25/17 09/25/17 # Bowel Movements 2 <Luca Cisneros - Last Filed: 09/26/17 15:54> Results - Labs CBC & Chem 7: 09/26/17 05:48 09/25/17 05:09 Laboratory Results - last 24 hr 09/22/17 09/26/17 18:11 05:48 WBC 10.3 RBC 3.52 L Hgb 11.0 L Hct 32.6 L MCV 92.4 MCH 31.2 MCHC 33.7 RDW 19.2 H Plt Count 122 L MPV 10.2 Neut % (Auto) 92.4 H Lymph % (Auto) 4.3 L Real % (Auto) 3.1 Eos % (Auto) 0.1 Baso % (Auto) 0.1 Neut # (Auto) 9.6 H Lymph # (Auto) 0.4 L Real # (Auto) 0.3 Eos # (Auto) 0.0 Baso # (Auto) 0.0 WBC Differential . Differential Comment Auto diff final Ceruloplasmin 26 Microbiology 09/21/17 12:00 Blood - Peripheral Aerobic Blood Culture - Preliminary No growth in 4 days 09/21/17 12:00 Blood - Peripheral Anaerobic Blood Culture - Final QNS - See aerobic report. 09/21/17 12:10 Blood - Peripheral Aerobic Blood Culture - Preliminary No growth in 4 days 09/21/17 12:10 Blood - Peripheral Anaerobic Blood Culture - Final QNS - See aerobic report. - Imaging Impressions Abdomen X-Ray 09/25/17 00:00 CONCLUSION: Ileus. No free air. Previous kyphoplasty at T8. Chest X-Ray 09/25/17 00:00 CONCLUSION: Mild basilar airspace disease. Pleural effusion. No pneumothorax. <Roberta Palacios - Last Filed: 09/26/17 10:04> - Labs CBC & Chem 7: 09/26/17 05:48 09/26/17 09:51 Laboratory Results - last 24 hr 09/22/17 09/26/17 09/26/17 18:11 05:48 09:51 WBC 10.3 RBC 3.52 L Hgb 11.0 L Hct 32.6 L MCV 92.4 MCH 31.2 MCHC 33.7 RDW 19.2 H Plt Count 122 L MPV 10.2 Neut % (Auto) 92.4 H Lymph % (Auto) 4.3 L Real % (Auto) 3.1 Eos % (Auto) 0.1 Baso % (Auto) 0.1 Neut # (Auto) 9.6 H Lymph # (Auto) 0.4 L Real # (Auto) 0.3 Eos # (Auto) 0.0 Baso # (Auto) 0.0 WBC Differential . Differential Comment Auto diff final Sodium 139 Potassium 5.0 D Chloride 102 Carbon Dioxide 27.5 Anion Gap 10 BUN 10 Creatinine 0.97 Estimated GFR 58 L Random Glucose 129 H Calcium 8.0 L Magnesium 1.8 Total Bilirubin 1.3 H Direct Bilirubin 0.5 H Indirect Bilirubin 0.8 AST 71 H ALT 30 Alkaline Phosphatase 158 H Total Protein 6.0 L D Albumin 1.9 L Ceruloplasmin 26 Lipase 224 Microbiology 09/21/17 12:00 Blood - Peripheral Aerobic Blood Culture - Final No growth in 5 days 09/21/17 12:00 Blood - Peripheral Anaerobic Blood Culture - Final QNS - See aerobic report. 09/21/17 12:10 Blood - Peripheral Aerobic Blood Culture - Final No growth in 5 days 09/21/17 12:10 Blood - Peripheral Anaerobic Blood Culture - Final QNS - See aerobic report. - Imaging Impressions Abdomen X-Ray 09/25/17 00:00 CONCLUSION: Ileus. No free air. Previous kyphoplasty at T8. Chest X-Ray 09/25/17 00:00 CONCLUSION: Mild basilar airspace disease. Pleural effusion. No pneumothorax. <BlayneSegovia - Last Filed: 09/26/17 15:54> Assessment and Plan - Plan Admission and history Abdominal pain- points to all over her abdomen- constant- sharp- radiates to her back. Associated nausea and vomiting that began last night- denies hematemesis and coffee ground emesis. Also complaining of abdominal swelling- states feels it is back to the size it was prior to paracentesis on Thursday. Prior to Thursday pt ascites has always been resolved with diuretics, denies previous paracentesis- recent hospitalization as per HPI CT abdomen and pelvis W IV contrast --> The right side of the colon remains abnormal appearance with multiple small air-fluid levels now noted in the region of the cecum. There is apparent mural thrombus and edema again noted. Multiple loops of prominent proximal small bowel again noted with air-fluid levels. Cirrhotic liver with moderate amount of ascitic fluid. S/P Cholecystectomy. Common bile duct remains prominent but unchanged Last EGD was 2 years ago and thinks findings at that included gastritis. - Diarrhea- intermittent for a long time- states 4-5 episodes today with urgency and one episode of incontinence. Denies hematochezia and melena. Recent hospitalization here in end of July for similar symptoms- noted to be colitis vs gastroenteritis Last colonoscopy was done some time this year for evaluation of BRBPR, states she was told bleeding was from her hemorrhoids. - Cirrhosis with complication of portal HTN with ascites (usually managed with diuretics), history of esophageal varices S/P previous banding States unknown cause of cirrhosis, heavy drinker 20 years ago and possibly history of Hepatitis C because she reports being on Interferon for months a long time ago. She denies any ETOH in years. She also states strong family history for cirrhosis including her sister who never drank alcohol. Pt has had liver biopsy in the past but is unsure where this was done. She was previously being followed at [facility] for a possible liver transplant, however was denied due to being positive for marijuana. She denies any continued marijuana use. According to this was over a year ago and pt was told to follow up in a year and possibly would be a candidate at that time. Other than multiple hospital admission over this past year pt has not been seen by an outpatient GI doctor. Coagulopathy (INR 1.5) and hypoalbuminemia (albumin 2) secondary to cirrhosis (09/21) Alk phos-226 AST-115 ALT-34 T bili-1 - Gastroparesis- Pt reports previous diagnosis- has never been on medication for this - Family history of colon cancer- brother (09/23) Pt S/P EGD and colonoscopy yesterday. Was complaining of severe abdominal pain and distention after procedures, SBFT was done to rule out obstruction which came back negative. CT abdomen and pelvis ordered, pt still has retained contrast from exam, was given mag citrate this morning and had follow up KUB which revealed Mild gaseous distention of small bowel loops decreased from previous without definite evidence of high-grade obstruction. EGD There was LA Class A esophagitis noted; biopsy was performed. There was erythematous gastritis in the gastric antrum; biopsy was performed. Portal hypertensive gastropathy was found in the gastric body and gastric fundus. Normal duodenal mucosa in the bulb and second portion of the duodenum Colonoscopy --> Circumferential diffuse abnormal mucosa was found throughout the entire examined colon; The mucosa was edematous and congested; biopsy was performed using cold forceps (09/24) Pt reports not feeling well today. Complaining of upper abdominal pain and fullness. States some nausea today, not able to eat much. Continued diarrhea CT abdomen and pelvis W IV and PO contrast --> Cirrhosis and portal hypertension with large volume of ascites. Will order US paracentesis Records requested from [place] for possible liver biopsy. Also awaiting records from recent hospitalization at [place] 09/25/2017 patient is status post right paracentesis with 1900 cc fluid return which gave her immediate relief from her pressure and shortness of breath. She states today she feels some of that pressure has returned but is still much better and symptoms are more controlled. She is eating solid food this a.m. although she has had decreased appetite this admission. Patient states daily bowel movements without any issues some notes no alcohol in the past 20 discussed with her her history of liver options and she states she is not a candidate for any liver transplant. We will continue to monitor patient's lab as well has her abdominal girth and any shortness of breath. Patient continues to wear oxygen per nasal cannula and states that it helps with her breathing. Abdominal cramping more controlled. Patient states she also had left paracentesis several days ago with less fluid were mild. Labs include negative peritoneal RBCs 343, neutrophils 141, Hemoglobin 11.3, bilirubin L82 2018 1. 4, AST 68 ALT 28. PT/INR 1.5 on 2017, DOUG negative mitochondrial antibody pending anti-smooth muscle antibody negative RNA genotype and PCR pending. Patient requesting advanced GI follow her as an outpatient. 09/26/2017 patient's resting in the bed alert no obvious nausea or vomiting. Appetite continues to be moderately improved and able to eat solid food and drink liquids without any nausea or vomiting still notes some abdominal bloating , but appears to be essentially unchanged over the past 24 hours. Continue to monitor labs as well as patient's medical management and if any acute changes. Supportive care. Discussed with patient when she returns to the [place] rehab she will have oxygen as needed. Will need to continue to monitor abdominal girth. Current hemoglobin stable at 11. Chemistry labs pending this morning. Plan: Diet , solid food encouraged to eat small amounts Aldactone dose increased on 09/25/2017 Protonix , and around Xifaxan, lactulose, Lasix Monitor labs including renal function Biopsies pending Increase activity as tolerated Pt has been seen per myself and Dr. Cisneros and this note is written on his behalf <Roberta Palacios - Last Filed: 09/26/17 10:04> - Plan Seen and examined with CRANE LADLE PERSON, doing better today. Advised to make fu appointment with [facility] upon dc. Aldactone increased to 100mg daily and lasix is at 60mg daily. Monitor renal functions closely. GI will sign off, fu outpt. upon dc. Thank you - Attending Attestation The exam, history, and the medical decision-making described in the above note were completed with the assistance of the mid-level provider. I reviewed and agree with the findings presented. I attest that I had a [id number] encounter with the patient on the same day, and personally performed and documented my assessment and findings in the medical record. <Luca Cisneros - Last Filed: 09/26/17 15:54>
[2017-09-26 10:41] LABS: Albumin 1.9 g/dL (3.4-5.0); Carbon Dioxide 27.5 meq/L (21.0-32.0); Magnesium 1.8 mg/dL (1.5-2.5)
[2017-09-26] MEDS: Senna/Docusate Sodium 8.6/50 MG Tablet PO SCH ×2 (11:10→20:30)
--- NOTE | 2017-09-26 13:48 | P.PN ---
Subjective Interval history: Pt seen and examined for f/u liver cirrhosis with recurrent ascites. Pt continues to have some shortness of breath and she feels like her abdomen is continuing to expand and fill with fluid. She reports she is very concerned about the state of her liver. She denies nausea, vomiting, or diarrhea. She is tolerating PO. Endorses a dry cough. Reports nebulizers make her feel a lot better but she continues to be short of breath with minimal activity. Physical Exam Vital signs: Vital Signs 09/25/17 16:00 09/25/17 19:43 09/25/17 20:00 Temperature 97.3 F L 97.3 F L Pulse Rate 49 L 55 L 60 Respiratory Rate 20 18 14 Blood Pressure 100/56 L 104/50 L Pulse Oximetry 95 97 96 09/26/17 00:00 09/26/17 04:00 09/26/17 08:00 Temperature 97.5 F L 97.8 F 97.4 F L Pulse Rate 54 L 70 52 L Respiratory Rate 14 14 17 Blood Pressure 114/56 L 148/70 H 104/55 L Pulse Oximetry 97 95 92 L 09/26/17 08:40 09/26/17 12:00 Temperature 98.0 F Pulse Rate 51 L 64 Respiratory Rate 16 17 Blood Pressure 123/65 Pulse Oximetry 93 L 91 L Intake & Output 09/25/17 09/26/17 09/26/17 18:59 06:59 18:59 Intake Total 700 / 700 900 / 900 Output Total 1900 / 1900 Balance 700 / 700 -1000 / -1000 Intake: IV 100 / 100 Zosyn 4.5 GM Premix 4.5 gm In 100 / 100 100 ml @ 200 mls/hr IV.SIG Q6H [facility] Rx#:[id number] Oral 600 / 600 600 / 600 Anesthesia Amount 300 / 300 Output: Urine 1900 / 1900 Other: # Voids 5 5 Date of Last Bowel Movement 09/24/17 09/25/17 09/25/17 # Bowel Movements 2 Narrative: GENERAL: WN, WD female resting in bed in NAD. SKIN: Warm and dry. HEART: RRR no m/r/g. LUNGS: CTAB without wheezes or crackles. ABDOMEN: Distended with + fluid shift. No significant TTP. EXTREMITIES: No LE edema. 2+ pedal pulses. NEURO: Awake and alert. Nonfocal. PSYCH: Appropriate mood and affect. Results - Labs CBC & Chem 7: 09/26/17 05:48 09/26/17 09:51 Laboratory Results - last 24 hr 09/22/17 09/26/17 09/26/17 18:11 05:48 09:51 WBC 10.3 RBC 3.52 L Hgb 11.0 L Hct 32.6 L MCV 92.4 MCH 31.2 MCHC 33.7 RDW 19.2 H Plt Count 122 L MPV 10.2 Neut % (Auto) 92.4 H Lymph % (Auto) 4.3 L [place] % (Auto) 3.1 Eos % (Auto) 0.1 Baso % (Auto) 0.1 Neut # (Auto) 9.6 H Lymph # (Auto) 0.4 L [place] # (Auto) 0.3 Eos # (Auto) 0.0 Baso # (Auto) 0.0 WBC Differential . Differential Comment Auto diff final Sodium 139 Potassium 5.0 D Chloride 102 Carbon Dioxide 27.5 Anion Gap 10 BUN 10 Creatinine 0.97 Estimated GFR 58 L Random Glucose 129 H Calcium 8.0 L Magnesium 1.8 Total Bilirubin 1.3 H Direct Bilirubin 0.5 H Indirect Bilirubin 0.8 AST 71 H ALT 30 Alkaline Phosphatase 158 H Total Protein 6.0 L D Albumin 1.9 L Ceruloplasmin 26 Lipase 224 Microbiology 09/21/17 12:00 Blood - Peripheral Aerobic Blood Culture - Final No growth in 5 days 09/21/17 12:00 Blood - Peripheral Anaerobic Blood Culture - Final QNS - See aerobic report. 09/21/17 12:10 Blood - Peripheral Aerobic Blood Culture - Final No growth in 5 days 09/21/17 12:10 Blood - Peripheral Anaerobic Blood Culture - Final QNS - See aerobic report. - Imaging Impressions Abdomen X-Ray 09/25/17 00:00 CONCLUSION: Ileus. No free air. Previous kyphoplasty at T8. Chest X-Ray 09/25/17 00:00 CONCLUSION: Mild basilar airspace disease. Pleural effusion. No pneumothorax. Assessment and Plan - Plan 67 year old female with history of cirrhosis, gastroparesis, unspecific autoimmune disorder admitted 09/21 for abdominal pain and ascites. 1. Liver cirrhosis/ascites - With associated coagulopathy and hypoalbuminemia - Hepatitis profile positive for HCV - CT with large volume ascites s/p paracentesis 09/24 with -1.9L - GI following - EGD/colonoscopy 09/22 showing esophagitis, erythematous gastritis, portal hypertensive gastropathy, and diffuse, circumferential, edematous abnormal mucosa throughout the entire colon. They have since signed off, appreciate their assistance - Aldactone increased to 100 mg daily and Lasix to 60 mg daily - Continue rifaximin and lactulose - Continue PPI 2. Asthma - Patient's asthma has been exacerbated by the ascites and abdominal distention - CXR 09/25 showing mild basilar airspace disease with no effusion - Started on SoluMedrol yesterday - No significant wheezing on exam - Transition to PO prednisone tomorrow - Bronchodilators - Supplemental O2 PRN - Incentive spirometer - O2 walk test DVT prophylaxis: SCDs Code Status: Full Discussed Condition With: Patient Discharge Planning: Possibly tomorrow, GI has signed off. Will do home O2 walk test in the morning
[2017-09-26 23:53] LABS: HCV Genotype NOT DETECTED (Not Detecte)
[2017-09-27] MEDS: MethylPREDNISolone Sod Succinate Inj 40 MG/ML Vial IV.PUSH SCH ×2 (05:39→12:55)
[2017-09-27] MEDS: Levothyroxine 125 MCG Tablet PO SCH (05:39)
[2017-09-27] MEDS: Propranolol 10 MG Tablet PO SCH (08:25)
[2017-09-27] MEDS: Furosemide 20 MG Tablet PO SCH (08:26)
[2017-09-27] MEDS: Furosemide 40 MG Tablet PO SCH (08:26)
[2017-09-27] MEDS: Spironolactone 25 MG Tablet PO SCH (08:26)
[2017-09-27] MEDS: Senna/Docusate Sodium 8.6/50 MG Tablet PO SCH (08:27)
--- NOTE | 2017-09-27 11:30 | P.DS ---
Date of admission: 09/21/17 06:00 Primary care physician: UNKNOWN Attending physician on discharge: Heidy Cravne Anticipated date of discharge: 09/27/17 Brief History from admission: This is a 67-year-old female with a history of cirrhosis, gastroparesis, unspecified autoimmune disorder. She presents to the ER late last night with a complaint of abdominal pain. She was hospitalized in [facility] last week and had her ascites drained 2 days ago at that location. She was subsequently discharged from the hospital to a rehab center in our town. After 1 day she feels her ascites has recurred, this caused her great pain, she requested an ambulance. She denies any fever, she has had loose bowel movements recently, she notes no blood in her stool today but a few days ago trace blood due to what she feels is hemorrhoids. There is a pattern of cirrhosis in her family that seems independent of any alcohol use. She admits to moderate drinking, social drinking, during her younger years but says that she never drank heavily. She was told in the past that she had a form of viral hepatitis, but recent tests at the [facility] have all been negative. Her most recent hepatitis panel was drawn a few days ago at the hospital in [facility] DS: Diagnosis - Discharge Diagnosis (1) Ascites Status: Acute (2) Cirrhosis Status: Acute (3) Asthma exacerbation Status: Acute (4) Hypoxia Status: Acute DS: Medications - Discharge Medications Prescriptions: alprazolam [Xanax] 1 mg PO DAILY PRN #30 tab PRN Reason: Anxiety DS: Summary Hospital Course: 67 year old female with history of cirrhosis, gastroparesis, unspecific autoimmune disorder admitted 09/21 for abdominal pain and ascites. GI was consulted and patient underwent EGD/colonoscopy on 09/22 showing esophagitis, erythematous gastritis, portal hypertensive gastropathy, and diffuse, circumferential, edematous abnormal mucosa throughout the entire colon. She underwent paracentesis on 09/24 with 1.9L output. Her diuretics were increased and her abdominal exam improved. She was also treated for a mild asthma exacerbation secondary to the ascites and increased abdominal pressure onto her lungs. She was given bronchodilators, steroids, and supplemental O2. She failed O2 walk test. She was discharged in stable condition on 09/27 to a SNF with oxygen , prednisone, increased dose of diuretics, and her home medications. - Time Spent with Patient Total time spent providing and/or coordinating discharge services: Greater than 30 minutes - Quality: VTE Deep Vein Thrombosis/Pulmonary Embolism Present on Admission: No Exam Vital signs: Vital Signs 09/26/17 12:00 09/26/17 13:45 09/26/17 16:00 Temperature 98.0 F 97.8 F Pulse Rate 64 48 L 58 L Respiratory Rate 17 16 17 Blood Pressure 123/65 99/55 L Pulse Oximetry 91 L 94 L Pulse Oximetry [Resting on Room Air] Pulse Oximetry [Resting with Oxygen] 09/26/17 19:08 09/26/17 20:30 09/27/17 00:20 Temperature 97.6 F 97.7 F Pulse Rate 56 L 53 L 52 L Respiratory Rate 18 18 16 Blood Pressure 105/51 L 97/54 L Pulse Oximetry 92 L 94 L Pulse Oximetry [Resting on Room Air] Pulse Oximetry [Resting with Oxygen] 09/27/17 08:00 09/27/17 08:45 09/27/17 10:02 Temperature 98.1 F Pulse Rate 48 L 54 L Respiratory Rate 17 16 Blood Pressure 109/52 L Pulse Oximetry 91 L Pulse Oximetry [Resting on Room Air] 87 L Pulse Oximetry [Resting with Oxygen] 96 Intake & Output 09/26/17 09/27/17 09/27/17 18:59 06:59 18:59 Intake Total 1662 / 1662 780 / 780 Balance 1662 / 1662 780 / 780 Weight 68 kg Intake: Oral 1662 / 1662 780 / 780 Other: # Voids 8 2 Date of Last Bowel Movement 09/25/17 09/26/17 # Bowel Movements 1 Narrative: GENERAL: WN, WD pleasant female resting in bed in [facility]. SKIN: Warm and dry. No jaundice. HEENT: No scleral icterus. Nasal cannula in palce. HEART: RRR no m/r/g. LUNGS: Diminished breath sounds with occasional end-expiratory wheeze otherwise clear. ABDOMEN: Distended but improved from prior exam. No significant TTP. EXTREMITIES: No LE edema. 2+ pedal pulses. NEURO: Awake and alert. Nonfocal. PSYCH: Appropriate mood and affect. Results Procedures completed during hospitalization: EGD/colonoscopy 09/22 Therapeutic paracentesis 09/23 Labs on day of discharge: Labs from last 24 hours 09/22/17 18:11 HCV RNA Genotype Not detected - Impressions ITS Impressions Abdomen Ultrasound 09/22/17 10:00 CONCLUSION: 1. Cirrhotic liver with small amount of ascites. Small Bowel X-Ray 09/22/17 12:07 CONCLUSION: No evidence for obstruction. Abdomen/Pelvis CT 09/23/17 00:00 CONCLUSION: 1. Cirrhosis and portal hypertension with large volume of ascites. 2. Bilateral effusions and atelectasis. Paracentesis Ultrasound 09/24/17 00:00 CONCLUSION: 1. Uncomplicated ultrasound guided paracentesis, as above. Abdomen X-Ray 09/25/17 00:00 CONCLUSION: Ileus. No free air. Previous kyphoplasty at T8. Chest X-Ray 09/25/17 00:00 CONCLUSION: Mild basilar airspace disease. Pleural effusion. No pneumothorax. Discharge Plan - Discharge Disposition Patient Disposition: Discharge to SNF - Discharge Condition Condition: Stable - Discharge Order Discharge Orders: Discharge Order (Routine); Ordered 09/27/17 Ordered By: Heidy Craven - Discharge Details Anticipated Discharge Date: 09/27/17 - Physicians Team Primary Care Provider: UNKNOWN, Attending Provider: Heidy Craven Other Providers: Luca Cisneros MD ; [facility],[place] ; Kev Ortiz MD
--- NOTE | 2017-09-27 11:32 | P.DCO ---
- Diagnosis (5) Ascites - Physical Therapy Order: Evaluate and treat, Improve ambulation, Strength and gait training - Home Health Nursing Order: Signs/symptoms of disease process, Oxygen administration education, Nursing assessment with vital signs - Certification I have seen patient Ольга Luu on 09/27/17. My clinical findings support the need for the requested home health care services because: Patient has SOB, Deconditioned with increased weakness, High risk of falls I certify that my clinical findings support that this patient is homebound because: Hx COPD - exertion dyspnea/weakness, Unsteady gait/balance (5) Ascites Qualifiers: Ascites type: due to alcoholic cirrhosis Qualified Code(s): K70.31 - Alcoholic cirrhosis of liver with ascites
[2017-09-28 03:51] LABS: Mitochondria M2 Abs IgG 20.6 U (0-20.0)
[2017-09-29 18:09] VITALS: PULSE 50
[2017-09-29 18:11] VITALS: BP 98/54; TEMP 97.7; O2SAT 92
[2017-09-29 18:24] VITALS: RESP 18
== END 2017-09-27 15:25 ==
LOC: NEPE 01:59 → NEDA 06:00 → NEPFCDU 06:45 → N07 09-22 16:16
PROVIDERS: ADMIT Family Medicine; ATTEND Family Medicine
PROC: PANENDO (2017-09-22 09:37)
PROC: COLONOS (2017-09-22 09:37)

== ENCOUNTER 2017-09-28 09:07 | Observation (INO) ==
--- NOTE | 2017-09-28 09:16 | ED ---
HPI General Chief Complaint: Abdominal Pain Stated Complaint: Medical Time Seen by Provider: 09/28/17 09:08 Source: patient and EMS Mode of arrival: EMS Limitations: no limitations History of Present Illness HPI narrative: 67-year-old female patient released yesterday from the hospital for gastritis, vomiting episodes, presents to the ER today brought in by EMS because this morning she is complaining of diffuse abdominal pains, nauseous, vomiting. She apparently had paracentesis done 2 days ago, she states that she still has some drainage on the right side. She denies any fevers, states that the pain is a 10 out of 10. She denies other issues. Related Data Home Medications Medication Instructions Recorded Confirmed fluorometholone 1 drp OPHTHALMIC (EYE) BID 08/22/17 09/22/17 levothyroxine 125 mcg PO DAILY 08/22/17 09/21/17 prednisolone acetate 1 drp OPHTHALMIC (EYE) QID 08/22/17 09/22/17 benzonatate 100 mg PO TID PRN 09/21/17 09/21/17 guaifenesin 400 mg PO DAILY 09/21/17 09/21/17 lactulose 20 g PO BID 09/21/17 09/21/17 propranolol 10 mg PO DAILY 09/21/17 09/21/17 budesonide [Pulmicort Flexhaler] 2 inh INHALATION BID 09/28/17 09/28/17 lactulose 20 g PO BID 09/28/17 09/28/17 ondansetron [Zofran ODT] 4 mg PO Q6-8H PRN 09/28/17 09/28/17 potassium chloride 20 meq PO DAILY 09/28/17 09/28/17 prednisone [Deltasone] 20 mg PO BID 09/28/17 rifaximin [Xifaxan] 550 mg PO BID 09/28/17 Previous Rx's Medication Instructions Recorded pantoprazole 40 mg PO DAILY #30 tab 08/23/17 alprazolam [Xanax] 1 mg PO DAILY PRN #30 tab 09/27/17 budesonide [Pulmicort Flexhaler] 2 inh INHALATION BID #1 ea 09/27/17 furosemide 40 mg PO DAILY #30 tab 09/27/17 spironolactone 100 mg PO DAILY #30 tab 09/27/17 Allergies Allergy/AdvReac Type Severity Reaction Status Date / Time No Known Allergies Allergy Verified 09/28/17 10:47 Review of Systems Except as stated in HPI: all other systems reviewed are negative PMFSH History History Provided By: Patient Medical History Medical History Ascites (Acute) Hypothyroid (Acute) S/P abdominal paracentesis (Acute) Gastroparesis (Acute) Hepatitis C (Acute) History of thyroidectomy (Acute) Liver cirrhosis (Acute) Unspecified immunity deficiency (Acute) Surgical History Surgical History H/O abdominal hysterectomy (Acute) History of lumbar fusion (Acute) History of toe surgery (Acute) S/P cholecystectomy (Acute) Social History Social History Substance History: No History of Abuse Second Hand Smoke Exposure: No Smoking Status: Never smoker How Often Do You Have a Drink Containing Alcohol: Never Recent Travel in [facility] within the Last 8 Weeks: No Recent Out of Country Travel within the Last 8 Weeks: No Exam Narrative Exam Narrative: GENERAL: Well-developed elderly female patient currently in mild distress. Awake and oriented 3. SKIN: Focused skin assessment warm/dry. HEAD: Atraumatic. Normocephalic. EYES: Pupils equal and round. No scleral icterus. No injection or drainage. ENT: No nasal bleeding or discharge. Mucous membranes pink and moist. NECK: Trachea midline. No JVD. CARDIOVASCULAR: Regular rate and rhythm. No murmur appreciated. RESPIRATORY: No accessory muscle use. Clear to auscultation. Breath sounds equal bilaterally. GASTROINTESTINAL: Abdomen soft, diffuse abdominal tenderness without guarding or rebound, nondistended. Hepatic and splenic margins not palpable. Right sided abdominal paracentesis site appears clean, draining a small amount of clear fluid. MUSCULOSKELETAL: No obvious deformities. No clubbing. No cyanosis. No edema. NEUROLOGICAL: Awake and alert. No obvious cranial nerve deficits. Motor grossly within normal limits. Normal speech. PSYCHIATRIC: Appropriate mood and affect; insight and judgment normal. Course Initial Documented Vital Signs Temperature 97.7 F 09/28/17 09:10 Pulse Rate 55 L 09/28/17 09:10 Respiratory Rate 18 09/28/17 09:10 Blood Pressure 136/73 09/28/17 09:10 Pulse Oximetry 99 09/28/17 09:10 Last Documented Vital Signs Temperature 97.7 F 09/28/17 09:10 Pulse Rate 57 L 09/28/17 09:30 Respiratory Rate 28 H 09/28/17 09:30 Blood Pressure 148/74 H 09/28/17 09:30 Pulse Oximetry 98 09/28/17 09:30 Medical Decision Making MDM Narrative Medical decision making narrative: Lab work and CAT scan was evaluated. She has lactic acidosis, possibly secondary to dehydration from the vomiting. CAT scan shows some signs of air-fluid levels, questionable for underlying ileus, no other acute findings are identified, motion artifact was noted. At this point, considering her ongoing symptoms, patient had been given Reglan, and has not vomiting anymore but is still complaining of pain. She was given morphine in the ER for pain. Case has been discussed with her , and at this point he agrees to admission to the hospital for further observation of ileus. Case has been discussed with Dr. Mcgarry for admission. Differential Diagnosis Differential Diagnosis: Postprocedural pain versus gastroparesis versus gastritis versus dehydration versus electrolyte abnormalities versus SBP Lab Data Lab results reviewed: Yes I reviewed the patient's lab results. Result diagrams: 09/28/17 09:10 09/28/17 09:10 Lab Results 09/28/17 09/28/17 09/28/17 Range/Units 09:10 09:10 09:10 WBC 12.8 H (4.0-11.0) th/mm3 RBC 4.07 (4.00-5.30) mil/mm3 Hgb 12.4 (11.6-15.3) gm/dL Hct 37.1 (35.0-46.0) % MCV 91.2 (80.0-100.0) fL MCH 30.6 (27.0-34.0) pg MCHC 33.5 (32.0-36.0) % RDW 19.1 H (11.6-17.2) % Plt Count 111 L (150-450) th/mm3 MPV 8.7 (7.0-11.0) fL Neut % (Auto) 83.4 H (16.0-70.0) % Lymph % (Auto) 7.9 L (9.0-44.0) % [place] % (Auto) 8.4 H (0.0-8.0) % Eos % (Auto) 0.0 (0.0-4.0) % Baso % (Auto) 0.3 (0.0-2.0) % Neut # (Auto) 10.7 H (1.8-7.7) th/mm3 Lymph # (Auto) 1.0 (1.0-4.8) th/mm3 [place] # (Auto) 1.1 H (0.0-0.9) th/mm3 Eos # (Auto) 0.0 (0.0-0.4) th/mm3 Baso # (Auto) 0.0 (0.0-0.2) th/mm3 WBC Differential . Differential Comment Auto diff final Sodium 138 (136-145) meq/L Potassium 4.0 D (3.5-5.1) meq/L Chloride 102 (98-107) meq/L Carbon Dioxide 24.7 (21.0-32.0) meq/L Anion Gap 11 (5-15) meq/L BUN 15 (7-18) mg/dL Creatinine 0.93 (0.50-1.00) mg/dL Estimated GFR 61 L (>89) mL/min Random Glucose 106 (74-106) mg/dL Lactic Acid 3.9 H (0.4-2.0) mmol/L Calcium 8.5 (8.5-10.1) mg/dL Total Bilirubin 1.4 H (0.2-1.0) mg/dL AST 63 H (15-37) U/L ALT 33 (10-53) U/L Alkaline Phosphatase 175 H (45-117) U/L Total Protein 6.5 (6.4-8.2) g/dL Albumin 2.0 L (3.4-5.0) g/dL Lipase 259 (73-393) U/L Imaging Data Attestation: I personally reviewed and interpreted this imaging study as follows : Radiologist's impression: Abdomen/Pelvis CT 09/28/17 10:14 CONCLUSION: 1. Study is degraded by breathing motion artifact. 2. Interval wall thickening and mild distention of multiple loops of proximal small bowel with decompressed distal small bowel. No focal transition point, obstructing mass, or lesion. 3. Small volume ascites. 4. Cirrhosis. Discharge Plan Discharge Disposition Patient Disposition: 30 Still Patient Discharge Condition Condition: Stable Discharge Details Anticipated Discharge Date: 09/28/17 Diagnosis: Small bowel obstruction Physicians Team ED Provider: Marjorie Tavares Primary Care Provider: UNKNOWN, Rxs /Orders / Referrals /Forms Prescriptions: No Action prednisolone acetate 1 % Drops,Suspension 1 drp ophthalmic (eye) QID RF: 0 fluorometholone 0.1 % Drops,Suspension 1 drp OPHTHALMIC (EYE) BID RF: 0 levothyroxine 125 mcg Capsule 125 mcg PO DAILY RF: 0 pantoprazole 40 mg Tablet,Delayed Release (Dr/Ec) 40 mg PO DAILY Qty: 30 RF: 0 propranolol 10 mg Tablet 10 mg PO DAILY RF: 0 benzonatate 100 mg Capsule 100 mg PO TID PRN (Reason: Cough) RF: 0 guaifenesin 400 mg Tablet 400 mg PO DAILY RF: 0 lactulose 10 gram/15 mL Solution 20 g PO BID RF: 0 furosemide 40 mg Tablet 40 mg PO DAILY Qty: 30 RF: 0 spironolactone 100 mg Tablet 100 mg PO DAILY Qty: 30 RF: 0 budesonide [Pulmicort Flexhaler] 90 mcg/actuation Aerosol Powdr Breath Activated 2 inh INHALATION BID Qty: 1 RF: 0 alprazolam [Xanax] 2 mg Tablet 1 mg PO DAILY PRN (Reason: Anxiety) Qty: 30 RF: 0 lactulose 20 gram Packet 20 g PO BID RF: 0 ondansetron [Zofran ODT] 4 mg Tablet,Disintegrating 4 mg PO Q6-8H PRN (Reason: Vomiting) RF: 0 budesonide [Pulmicort Flexhaler] 90 mcg/actuation Aerosol Powdr Breath Activated 2 inh INHALATION BID RF: 0 potassium chloride 20 mEq Tablet Extended Release 20 meq PO DAILY RF: 0 prednisone [Deltasone] 20 mg tablet 20 mg PO BID RF: 0 rifaximin [Xifaxan] 200 mg tablet 550 mg PO BID RF: 0 Discharge Interventions Interventions: Vital Signs Last Done: 09/28/17 09:30 Status ED Status: With Doctor
[2017-09-28] MEDS ORDERED: Sodium Chlor 0.9% Inj 500 ML IV.SIG ONE (09:19)
[2017-09-28 09:54] LABS: Baso % (Auto) 0.3 % (0.0-2.0); Hematocrit 37.1 % (35.0-46.0); Hemoglobin 12.4 gm/dL (11.6-15.3); Lymph % (Auto) 7.9 % (9.0-44.0); Mean Corpuscular HGB Conc 33.5 % (32.0-36.0); Mean Corpuscular Hemoglobin 30.6 pg (27.0-34.0); Mean Corpuscular Volume 91.2 fL (80.0-100.0); Mean Platelet Volume 8.7 fL (7.0-11.0); Mono # (Auto) 1.1 th/mm3 (0.0-0.9); Mono % (Auto) 8.4 % (0.0-8.0); Neut # (Auto) 10.7 th/mm3 (1.8-7.7); Neut % (Auto) 83.4 % (16.0-70.0); Platelet Count 111 th/mm3 (150-450); Red Blood Count 4.07 mil/mm3 (4.00-5.30); Red Cell Distribution Width 19.1 % (11.6-17.2); White Blood Count 12.8 th/mm3 (4.0-11.0)
[2017-09-28 10:20] LABS: Alanine Aminotransferase 33 U/L (10-53); Alkaline Phosphatase 175 U/L (45-117); Anion Gap 11 meq/L (5-15); Aspartate Aminotransferase 63 U/L (15-37); Blood Urea Nitrogen 15 mg/dL (7-18); Calcium 8.5 mg/dL (8.5-10.1); Carbon Dioxide 24.7 meq/L (21.0-32.0); Chloride 102 meq/L (98-107); Glomerular Filtration Rate 61 mL/min (>89); Glucose,Random 106 mg/dL (74-106); Lipase 259 U/L (73-393); Sodium 138 meq/L (136-145); Total Protein 6.5 g/dL (6.4-8.2)
--- NOTE | 2017-09-28 11:00 | CT ---
EXAM DATE: 09/28/2017 10:50 AM EDT AGE/SEX: 67 years / Female INDICATIONS: Abdominal pain, nausea, vomiting. Status post paracentesis. CLINICAL DATA: This is the patient's initial encounter. Patient reports that signs and symptoms have been present for 1 day and indicates a pain score of 3/10. MEDICAL/SURGICAL HISTORY: Gastroparesis. Hepatitis C. Cirrhosis. Hysterectomy. Cholecystecto my. ORAL CONTRAST: No oral contrast ingested. RADIATION DOSE: 9.96 CTDI (mGy) COMPARISON: [facility] [place], CT ABDOMEN & PELVIS W CONTRAST, 09/23/2017. . TECHNIQUE: Multiple contiguous axial images were obtained through the abdomen and pelvis following b olus infusion of 75 ml Omnipaque 350 (iohexol) nonionic water-soluble contrast as a single exam dos e. No oral contrast ingested. Using automated exposure control and adjustment of the mA and/or kV ac cording to patient size, radiation dose was kept as low as reasonably achievable to obtain optimal di agnostic quality images. DICOM format image data is available electronically for review and comparis on. FINDINGS: Study is degraded by breathing motion artifact. Lower Lungs: The visualized lower lungs are clear. Liver: Small lobulated liver consistent with underlying cirrhosis. There is a recannulated periumbili monse vein. Small volume of ascites is noted largely within the pelvis. No hepatic mass. Portal vein is patent. Gallbladder is surgically absent. No ductal dilatation.. Spleen: Homogeneous density without enlargement. There is a large splenorenal varicosity. Pancreas: Unremarkable without mass or calcification. Kidneys: Normal in size and shape. No evidence of mass or hydronephrosis. Adrenal Glands: Unremarkable. Aorta: The aorta and proximal iliac vessels are grossly unremarkable without aneurysmal dilation. Bowel/Mesentery: No free air. Small volume ascites observed. Diffuse wall thickening and mild disten tion of multiple loops of proximal small bowel. This is a new finding from the prior study. The stoma ch and large bowel are unremarkable. Distal small bowel decompressed. No obstructing mass or lesion o bserved. Abdominal Wall: Intact. Retroperitoneum: No evidence of adenopathy in the retrocrural, para-aortic, or deep pelvic regions. Bladder: Contours are smooth. Reproductive Organs: No abnormal masses or calcifications seen. Inguinal: The inguinal region is unremarkable without evidence of adenopathy. Bony Structures: Prior T8 cement augmentation. Bilateral hip osteoarthritis.. CONCLUSION: 1. Study is degraded by breathing motion artifact. 2. Interval wall thickening and mild distention of multiple loops of proximal small bowel with decom pressed distal small bowel. No focal transition point, obstructing mass, or lesion. 3. Small volume ascites. 4. Cirrhosis. Electronically signed by: Gen Hampton MD 09/28/2017 10:59 AM EDT
[2017-09-28] MEDS ORDERED: Morphine Sulfate Inj 2 MG/ML Vial IV.PUSH ONE (12:42)
[2017-09-28] MEDS ORDERED: Diatrizoate Meglum/Diatrizoate Sod Liq 120 ML Bottle (for RAD diag) PO ONE (12:51)
[2017-09-28] MEDS ORDERED: Temazepam 15 MG Capsule PO PRN ×2 (13:50→13:52)
[2017-09-28] MEDS ORDERED: Bisacodyl 10 MG Supp RECTAL PRN (13:50)
--- NOTE | 2017-09-28 13:58 | P.HP ---
History of Present Illness Primary Care Physician: UNKNOWN History of Present Illness: 67 YOWF with history of liver cirrhosis, recurrent ascites, and HCV presenting with severe abdominal pain and vomiting. Patient recently discharged yesterday after being admitted 09/21-09/27 for recurrent ascites. GI was consulted and patient underwent EGD showing esophagitis and gastritis. She was discharged in stable condition [facility] the SNF yesterday where her states she was doing great and excited to start therapy. Her provides most of the history because patient somnolent from pain medications. He states the patient woke up this morning screaming in abdominal pain. She had multiple episodes of nonbloody , nonbilious emesis. Her states she was difficult to control because of how agitated and in pain she was. He is concerned because she has been in and out of the hospital so frequently lately. The patient responds with simple answers to my questions. States she is in a lot of pain. Pain is generalized and diffuse. She states she had some diarrhea this morning but since then no BM and no gas. She denies chest pain or shortness of breath but I did have to put 2L nasal cannula on her because her sats were 87% in the room. She was in no respiratory distress. - Diagnosis (1) Intractable abdominal pain Review of Systems All other systems reviewed negative except as stated in HPI PMFSH - History History Provided By: Patient - Medical History Medical History: Medical History (Last Reviewed 09/28/17 @ 18:47 by Heidy Craven MD) Ascites Hypothyroid S/P abdominal paracentesis Gastroparesis Hepatitis C History of thyroidectomy Liver cirrhosis Unspecified immunity deficiency - Surgical History Surgical History: Surgical History (Last Reviewed 09/28/17 @ 10:12 by Nilda Mehta) H/O abdominal hysterectomy History of lumbar fusion History of toe surgery S/P cholecystectomy - Family History Family History: Family History (Last Updated 09/28/17 @ 18:47 by Heidy Craven MD) Son Cirrhosis Sister Cirrhosis - Tobacco History Second Hand Smoke Exposure: No Tobacco Use In Past 30 Days: No Smoking Status: Never smoker - Alcohol History How Often Do You Have a Drink Containing Alcohol: Never - Substance Use History Substance History: No History of Abuse - Travel History Recent Travel in the [place] Within the Last 8 Weeks: No Recent Travel Out of the Country Within the Last 8 Weeks: No - Immunization History Tetanus Immunization: <5 Years Hx Influenza Vaccine This Season: Yes Medications and Allergies Active Medications: Active Medications Al Hydroxide/Mg Hydroxide (Milk Of Magnesia Liq) 30 ml PO Q12H PRN PRN Reason: Mild Constipation Bisacodyl (Dulcolax Supp) 10 mg RECTAL DAILY PRN PRN Reason: SEVERE CONSITIPATION Sodium Chloride (Ns Inj) 1,000 mls @ 100 mls/hr IV.CONT .Q10H DEMETRIS Lactulose (Lactulose Liq) 30 ml PO DAILY PRN PRN Reason: SEVERE CONSITIPATION Metoclopramide HCl (Reglan Inj) 5 mg IV.PUSH Q6HR PRN; Protocol PRN Reason: NAUSEA OR VOMITING Senna/Docusate Sodium (Nanette-Colace) 1 tab PO BID DEMETRIS Sennosides (Senokot) 17.2 mg PO Q12H PRN PRN Reason: Moderate Constipation Sodium Chloride (Ns Flush) 2 ml IV.FLUSH PRN PRN PRN Reason: FLUSH AFTER USING IV ACCESS Last Admin: 09/28/17 12:55 Dose: 2 ml Temazepam (Restoril) 15 mg PO HS PRN PRN Reason: INSOMNIA Temazepam (Restoril) 15 mg PO HS PRN PRN Reason: INSOMNIA Allergies Allergy/AdvReac Type Severity Reaction Status Date / Time No Known Allergies Allergy Verified 09/28/17 10:47 Home Medications Medication Instructions Recorded Confirmed Type fluorometholone 1 drp OPHTHALMIC (EYE) BID 08/22/17 09/22/17 History levothyroxine 125 mcg PO DAILY 08/22/17 09/21/17 History prednisolone acetate 1 drp OPHTHALMIC (EYE) QID 08/22/17 09/22/17 History benzonatate 100 mg PO TID PRN 09/21/17 09/21/17 History guaifenesin 400 mg PO DAILY 09/21/17 09/21/17 History lactulose 20 g PO BID 09/21/17 09/21/17 History propranolol 10 mg PO DAILY 09/21/17 09/21/17 History budesonide [Pulmicort Flexhaler] 2 inh INHALATION BID 09/28/17 09/28/17 History lactulose 20 g PO BID 09/28/17 09/28/17 History ondansetron [Zofran ODT] 4 mg PO Q6-8H PRN 09/28/17 09/28/17 History potassium chloride 20 meq PO DAILY 09/28/17 09/28/17 History prednisone [Deltasone] 20 mg PO BID 09/28/17 History rifaximin [Xifaxan] 550 mg PO BID 09/28/17 History Exam Vital signs: Vital Signs 09/28/17 09:10 09/28/17 09:30 09/28/17 12:55 Temperature 97.7 F Pulse Rate 55 L 57 L 68 Respiratory Rate 18 28 H 17 Blood Pressure 136/73 148/74 H 144/68 H Pulse Oximetry 99 98 Intake & Output 09/27/17 09/28/17 09/28/17 18:59 06:59 18:59 Weight 65.317 kg Narrative: GENERAL: WN, WD female resting in bed in [facility]. Somnolent from pain medicatinos. SKIN: Warm and dry. No jaundice. HEENT: AT/NC. Pupils equal and round. No scleral icterus. MMM. NECK: Supple no tender LAD or JVD. HEART: RRR no m/r/g. LUNGS: CTAB without wheezes or crackles. ABDOMEN: Hypoactive BS. Mildly distended abdomen with diffuse TTP. EXTREMITIES: No LE edema. 2+ pedal pulses. NEURO: Somnolent. Results - Labs CBC & Chem 7: 09/28/17 09:10 09/28/17 09:10 Labs: Laboratory Results - last 24 hr 09/28/17 09/28/17 09/28/17 09:10 09:10 09:10 WBC 12.8 H RBC 4.07 Hgb 12.4 Hct 37.1 MCV 91.2 MCH 30.6 MCHC 33.5 RDW 19.1 H Plt Count 111 L MPV 8.7 Neut % (Auto) 83.4 H Lymph % (Auto) 7.9 L [place] % (Auto) 8.4 H Eos % (Auto) 0.0 Baso % (Auto) 0.3 Neut # (Auto) 10.7 H Lymph # (Auto) 1.0 [place] # (Auto) 1.1 H Eos # (Auto) 0.0 Baso # (Auto) 0.0 WBC Differential . Differential Comment Auto diff final Sodium 138 Potassium 4.0 D Chloride 102 Carbon Dioxide 24.7 Anion Gap 11 BUN 15 Creatinine 0.93 Estimated GFR 61 L Random Glucose 106 Lactic Acid 3.9 H Calcium 8.5 Total Bilirubin 1.4 H AST 63 H ALT 33 Alkaline Phosphatase 175 H Total Protein 6.5 Albumin 2.0 L Lipase 259 - Imaging Impressions Abdomen/Pelvis CT 09/28/17 10:14 CONCLUSION: 1. Study is degraded by breathing motion artifact. 2. Interval wall thickening and mild distention of multiple loops of proximal small bowel with decompressed distal small bowel. No focal transition point, obstructing mass, or lesion. 3. Small volume ascites. 4. Cirrhosis. Caprini VTE Risk Assessment Caprini VTE Risk Assessment: Moderate/High Risk (score >= 2) VTE Pharmacological Exception Reason: End Stage Liver Disease Caprini Risk Assessment Model: Point Value = 1 Point Value = 2 Point Value = 3 Point Value = 5 Age 41-60 Minor surgery BMI > 25 kg/m2 Swollen legs Varicose veins or History of unexplained or recurrent spontaneous Oral contraceptives or hormone replacement Sepsis (< 1 month) Serious lung disease, including pneumonia (< 1 month) Abnormal pulmonary function Acute myocardial infarction Congestive heart failure (< 1 month) History of inflammatory bowel disease Medical patient at bed rest Age 61-74 Arthroscopic surgery Major open surgery (> 45 min) Laparoscopic surgery (> 45 min) Malignancy Confined to bed (> 72 hours) Immobilizing plaster cast Central venous access Age >= 75 History of VTE Family history of VTE Factor V Leiden Prothrombin [id number] Lupus anticoagulant Anticardiolipin antibodies Elevated serum homocysteine Heparin-induced thrombocytopenia Other congenital or acquired thrombophilia Stroke (< 1 month) Elective arthroplasty Hip, pelvis, or leg fracture Acute spinal cord injury (< 1 month) Prophylaxis Regimen: Total Risk Factor Score Risk Level Prophylaxis Regimen 0-1 Low Early ambulation 2 Moderate Order ONE of the following: *Sequential Compression Device (SCD) *Heparin 5000 units SQ BID 3-4 Higher Order ONE of the following medications: *Heparin 5000 units SQ TID *Enoxaparin/Lovenox 40 mg SQ daily (WT < 150 kg, CrCl > 30 mL/min) *Enoxaparin/Lovenox 30 mg SQ daily (WT < 150 kg, CrCl > 10-29 mL/min) *Enoxaparin/Lovenox 30 mg SQ BID (WT < 150 kg, CrCl > 30 mL/min) AND/OR *Sequential Compression Device (SCD) 5 or more Highest Order ONE of the following medications: *Heparin 5000 units SQ TID (Preferred with Epidurals) *Enoxaparin/Lovenox 40 mg SQ daily (WT < 150 kg, CrCl > 30 mL/min) *Enoxaparin/Lovenox 30 mg SQ daily (WT < 150 kg, CrCl > 10-29 mL/min) *Enoxaparin/Lovenox 30 mg SQ BID (WT < 150 kg, CrCl > 30 mL/min) AND *Sequential Compression Device (SCD) Assessment and Plan - Assessment (1) Intractable abdominal pain Code(s): R10.9 - Unspecified abdominal pain Status: Acute - Plan 67 year old female with history of cirrhosis, gastroparesis, unspecific autoimmune disorder admitted 09/21 for intractable abdominal found with suspected ileus vs partial SBO. 1. Abdominal pain - partial SBO vs. ileus - CT A/P showing interval wall thickening and mild distention of multiple loops of proximal small bowel with decompressed distal small bowel. No focal transition point, obstructing mass, or lesion. Small volume ascites and liver cirrhosis - EGD/colonoscopy 09/22 showing esophagitis, erythematous gastritis, portal hypertensive gastropathy, and diffuse, circumferential, edematous abnormal mucosa throughout the entire colon - Defer NG tube since not longer actively vomiting - Antiemetics - Pain control - IV fluids - NPO - Consult general surgery 2. Liver cirrhosis - With associated coagulopathy and hypoalbuminemia - Hepatitis profile positive for HCV last admission - CT from prior admission with large volume ascites s/p paracentesis 09/24 with - 1.9L - CT this admission as above - Continue Aldactone and Lasix - Continue rifaximin and lactulose 3. Gastritis - Continue PPI 4. Asthma - Currently finishing prednisone therapy for recent asthma exacerbation - Lungs clear on exam - Supplemental O2 - Bronchodilators - Incentive spirometer DVT prophylaxis: SCDs, avoid chemical anticoagulation given hepatic coagulopathy Code Status: Full Discussed Condition With: The patient and her
[2017-09-28] MEDS: Sod Chloride 0.9% Inj 1,000 ML IV.CONT SCH (16:54)
[2017-09-28] MEDS: Senna/Docusate Sodium 8.6/50 MG Tablet PO SCH (20:29)
[2017-09-29] MEDS: Sod Chloride 0.9% Inj 1,000 ML IV.CONT SCH ×3 (00:02→20:12)
--- NOTE | 2017-09-29 09:11 | XR ---
EXAM DATE: 09/29/2017 9:04 AM EDT AGE/SEX: 67 years / Female INDICATIONS: Abdomen pain. CLINICAL DATA: This is the patient's subsequent encounter. Patient reports that signs and symptoms h ave been present for 1 week and indicates a pain score of 2/10. MEDICAL/SURGICAL HISTORY: . Gastroparesis. Hepatitis C. Cirrhosis. . . Hysterectomy. Cholecyst ectomy COMPARISON: [facility], ABDOMEN 1V KUB, 09/25/2017. . FINDINGS: Bowel gas pattern nonspecific without evidence for obstruction or free air. Cholecystectomy clips in the right upper quadrant. No acute bony abnormalities. CONCLUSION: No acute findings. Electronically signed by: Kev Denton MD 09/29/2017 9:10 AM EDT
[2017-09-29 09:34] LABS: Baso % (Auto) 0.2 % (0.0-2.0); Eos # (Auto) 0.2 th/mm3 (0.0-0.4); Eos % (Auto) 2.4 % (0.0-4.0); Hematocrit 30.2 % (35.0-46.0); Hemoglobin 10.2 gm/dL (11.6-15.3); Lymph # (Auto) 0.8 th/mm3 (1.0-4.8); Lymph % (Auto) 12.9 % (9.0-44.0); Mean Corpuscular HGB Conc 33.8 % (32.0-36.0); Mean Corpuscular Hemoglobin 31.1 pg (27.0-34.0); Mean Corpuscular Volume 92.1 fL (80.0-100.0); Mean Platelet Volume 8.8 fL (7.0-11.0); Mono # (Auto) 0.7 th/mm3 (0.0-0.9); Mono % (Auto) 11.6 % (0.0-8.0); Neut # (Auto) 4.7 th/mm3 (1.8-7.7); Neut % (Auto) 72.9 % (16.0-70.0); Platelet Count 77 th/mm3 (150-450); Red Blood Count 3.28 mil/mm3 (4.00-5.30); Red Cell Distribution Width 19.3 % (11.6-17.2); White Blood Count 6.4 th/mm3 (4.0-11.0)
[2017-09-29] MEDS: Senna/Docusate Sodium 8.6/50 MG Tablet PO SCH ×2 (09:58→20:12)
[2017-09-29 10:04] LABS: Albumin 1.5 g/dL (3.4-5.0); Calcium 7.2 mg/dL (8.5-10.1); Carbon Dioxide 26.1 meq/L (21.0-32.0); Total Protein 4.9 g/dL (6.4-8.2)
[2017-09-29 10:09] LABS: Acanthocytes Occ; Ovalocytes 1+; Platelet Morphology Normal (Normal)
--- NOTE | 2017-09-29 13:10 | P.PN ---
Subjective Interval history: Pt seen and examined. AFVSS. No acute events overnight. Reports she is feeling much better today. Abdominal pain has nearly resolved. Would like to eat. Had some diarrhea this morning. Passing gas. No CP or SOB. No N/V. Physical Exam Vital signs: Vital Signs 09/28/17 13:51 09/28/17 13:52 09/28/17 16:00 Temperature 98.4 F Pulse Rate 54 L 50 L Respiratory Rate 23 16 Blood Pressure 142/68 H 138/64 Pulse Oximetry 97 97 09/28/17 20:00 09/29/17 00:00 09/29/17 08:00 Temperature 98.1 F 97.4 F L 98.0 F Pulse Rate 50 L 58 L 57 L Respiratory Rate 17 17 20 Blood Pressure 109/53 L 117/57 L 112/55 L Pulse Oximetry 95 95 98 09/29/17 11:06 Temperature Pulse Rate Respiratory Rate Blood Pressure Pulse Oximetry 95 Intake & Output 09/28/17 09/29/17 09/29/17 18:59 06:59 18:59 Intake Total 500 / 500 1000 / 1000 Balance 500 / 500 1000 / 1000 Weight 65.317 kg Intake: IV 500 / 500 1000 / 1000 NS Inj 1,000 ML @ 100 mls/hr IV 1000 / 1000 .CONT .Q10H DEMETRIS Rx#:[id number] Other: # Bowel Movements 0 Narrative: GENERAL: WN, WD female resting in bed in NAD. SKIN: Warm and dry. No jaundice. HEENT: AT/NC. Pupils equal and round. No scleral icterus. MMM. HEART: RRR no m/r/g. LUNGS: CTAB without wheezes or crackles. ABDOMEN: +BS. Soft, NT, ND. EXTREMITIES: No LE edema. 2+ pedal pulses. Results - Labs CBC & Chem 7: 09/29/17 07:20 09/29/17 07:20 Laboratory Results - last 24 hr 09/28/17 09/29/17 09/29/17 15:40 07:20 07:20 WBC 6.4 RBC 3.28 L Hgb 10.2 L D Hct 30.2 L MCV 92.1 MCH 31.1 MCHC 33.8 RDW 19.3 H Plt Count 77 L D MPV 8.8 Prelim Diff (Auto) Slide review pending Neut % (Auto) 72.9 H Lymph % (Auto) 12.9 [place] % (Auto) 11.6 H Eos % (Auto) 2.4 Baso % (Auto) 0.2 Neut # (Auto) 4.7 Lymph # (Auto) 0.8 L [place] # (Auto) 0.7 Eos # (Auto) 0.2 Baso # (Auto) 0.0 WBC Differential . Diff Scan Auto diff confirmed Differential Comment . Platelet Estimate Low L Platelet Morphology Normal Ovalocytes 1+ H Acanthocytes (Spur) Occ H Keratocytes Occ H Sodium 143 Potassium 4.0 Chloride 108 H Carbon Dioxide 26.1 Anion Gap 9 BUN 19 H Creatinine 0.76 Estimated GFR 76 L Random Glucose 64 L Lactic Acid 1.8 Calcium 7.2 L* D Prot Corrected Calcium 8.4 L Total Bilirubin 1.3 H AST 54 H ALT 28 Alkaline Phosphatase 129 H Total Protein 4.9 L D Albumin 1.5 L Microbiology 09/28/17 09:10 Blood - Peripheral Aerobic Blood Culture - Preliminary No growth in 1 day 09/28/17 09:10 Blood - Peripheral Anaerobic Blood Culture - Preliminary No growth in 1 day 09/28/17 09:10 Blood - Peripheral Aerobic Blood Culture - Preliminary No growth in 1 day 09/28/17 09:10 Blood - Peripheral Anaerobic Blood Culture - Preliminary No growth in 1 day - Imaging Impressions Abdomen X-Ray 09/29/17 00:00 CONCLUSION: No acute findings. Assessment and Plan - Assessment (1) Intractable abdominal pain Code(s): R10.9 - Unspecified abdominal pain Status: Acute - Plan 67 year old female with history of cirrhosis, gastroparesis, unspecific autoimmune disorder admitted 09/21 for intractable abdominal found with suspected ileus vs partial SBO. 1. Abdominal pain - partial SBO vs. ileus - Resolved - CT A/P showing interval wall thickening and mild distention of multiple loops of proximal small bowel with decompressed distal small bowel. No focal transition point, obstructing mass, or lesion. Small volume ascites and liver cirrhosis - EGD/colonoscopy 09/22 showing esophagitis, erythematous gastritis, portal hypertensive gastropathy, and diffuse, circumferential, edematous abnormal mucosa throughout the entire colon - KUB this AM unremarkable - Antiemetics - Pain control - IV fluids - ADAT - General surgery was consulted on admission 2. Liver cirrhosis - With associated coagulopathy and hypoalbuminemia - Hepatitis profile positive for HCV last admission - CT from prior admission with large volume ascites s/p paracentesis 09/24 with - 1.9L - CT this admission as above - Continue Aldactone and Lasix - Continue rifaximin and lactulose 3. Gastritis - Continue PPI 4. Asthma - Currently finishing prednisone therapy for recent asthma exacerbation - Lungs clear on exam - Supplemental O2 - Bronchodilators - Incentive spirometer DVT prophylaxis: SCDs, avoid chemical anticoagulation given hepatic coagulopathy Discussed Condition With: Patient Discharge Planning: Likely back to SNF tomorrow if pt remains stable
[2017-09-29] MEDS: Furosemide 40 MG Tablet PO SCH (16:28)
[2017-09-29] MEDS: predniSONE 20 MG Tablet PO SCH (20:12)
[2017-09-29] MEDS: rifAXIMin 550 MG Tablet PO SCH (20:12)
[2017-09-30] MEDS: Levothyroxine 125 MCG Tablet PO SCH (04:59)
[2017-09-30] MEDS: Sod Chloride 0.9% Inj 1,000 ML IV.CONT SCH ×2 (05:00→22:35)
--- NOTE | 2017-09-30 08:57 | P.PNIM ---
Subjective Interval history: Complaint of worsening abdominal pain today. Patient feels nauseated. Did tolerate clear liquid diet yesterday and had some loose stools. Passing gas. Patient states that she was feeling better yesterday compared to today. She does not feel ready to return back to long-term. Physical Exam Vital signs: Vital Signs 09/29/17 11:06 09/29/17 12:00 09/29/17 16:00 Temperature 98.3 F 98.7 F Pulse Rate 50 L 53 L Respiratory Rate 18 18 Blood Pressure 113/57 L 120/84 Pulse Oximetry 95 92 L 93 L 09/29/17 20:00 09/30/17 00:00 Temperature 98.3 F 97.7 F Pulse Rate 54 L 60 Respiratory Rate 20 18 Blood Pressure 103/55 L 102/57 L Pulse Oximetry 94 L 94 L Intake & Output 09/29/17 09/30/17 09/30/17 18:59 06:59 18:59 Intake Total 480 / 480 2000 / 2000 Balance 480 / 480 2000 / 2000 Weight 65.3 kg Intake: IV 1000 / 1000 NS Inj 1,000 ML @ 100 mls/hr IV 1000 / 1000 .CONT .Q10H DEMETRIS Rx#:[id number] Oral 480 / 480 1000 / 1000 Other: # Voids 3 3 # Bowel Movements 2 Narrative: GENERAL: This is a well-nourished, well-developed patient, in no apparent distress. CARDIOVASCULAR: Regular rate and rhythm RESPIRATORY: Clear to auscultation. Breath sounds equal bilaterally. No wheezes , rales, or rhonchi. GASTROINTESTINAL: Abdomen soft, generalized tenderness, no rebound guarding, nondistended. Hypoactive bowel sounds MUSCULOSKELETAL: Extremities without clubbing, cyanosis, or edema. NEURO: Alert & Oriented x4 to person, place, time, situation. Moves all ext x4 Results - Labs CBC & Chem 7: 09/29/17 07:20 09/29/17 07:20 Laboratory Results - last 24 hr 09/29/17 09/29/17 07:20 07:20 WBC 6.4 RBC 3.28 L Hgb 10.2 L D Hct 30.2 L MCV 92.1 MCH 31.1 MCHC 33.8 RDW 19.3 H Plt Count 77 L D MPV 8.8 Prelim Diff (Auto) Slide review pending Neut % (Auto) 72.9 H Lymph % (Auto) 12.9 [place] % (Auto) 11.6 H Eos % (Auto) 2.4 Baso % (Auto) 0.2 Neut # (Auto) 4.7 Lymph # (Auto) 0.8 L [place] # (Auto) 0.7 Eos # (Auto) 0.2 Baso # (Auto) 0.0 WBC Differential . Diff Scan Auto diff confirmed Differential Comment . Platelet Estimate Low L Platelet Morphology Normal Ovalocytes 1+ H Acanthocytes (Spur) Occ H Keratocytes Occ H Sodium 143 Potassium 4.0 Chloride 108 H Carbon Dioxide 26.1 Anion Gap 9 BUN 19 H Creatinine 0.76 Estimated GFR 76 L Random Glucose 64 L Calcium 7.2 L* D Prot Corrected Calcium 8.4 L Total Bilirubin 1.3 H AST 54 H ALT 28 Alkaline Phosphatase 129 H Total Protein 4.9 L D Albumin 1.5 L Microbiology 09/28/17 09:10 Blood - Peripheral Aerobic Blood Culture - Preliminary No growth in 1 day 09/28/17 09:10 Blood - Peripheral Anaerobic Blood Culture - Preliminary No growth in 1 day 09/28/17 09:10 Blood - Peripheral Aerobic Blood Culture - Preliminary No growth in 1 day 09/28/17 09:10 Blood - Peripheral Anaerobic Blood Culture - Preliminary No growth in 1 day - Imaging Impressions Abdomen X-Ray 09/29/17 00:00 CONCLUSION: No acute findings. Assessment and Plan - Assessment (1) Intractable abdominal pain Code(s): R10.9 - Unspecified abdominal pain Status: Acute - Plan 67 year old female with history of cirrhosis, gastroparesis, unspecific autoimmune disorder admitted 09/21 for intractable abdominal found with suspected ileus vs partial SBO. 1. Abdominal pain - partial SBO vs. ileus -Worsening today as compared to yesterday., Currently on clear liquid diet will attempt full liquid - CT A/P showing interval wall thickening and mild distention of multiple loops of proximal small bowel with decompressed distal small bowel. No focal transition point, obstructing mass, or lesion. Small volume ascites and liver cirrhosis - EGD/colonoscopy 09/22 showing esophagitis, erythematous gastritis, portal hypertensive gastropathy, and diffuse, circumferential, edematous abnormal mucosa throughout the entire colon - KUB on 09/29 unremarkable - Antiemetics - Pain control - IV fluids - ADAT - General surgery was consulted on admission Will obtain a small bowel follow-through today. 2. Liver cirrhosis - With associated coagulopathy and hypoalbuminemia - Hepatitis profile positive for HCV last admission - CT from prior admission with large volume ascites s/p paracentesis 09/24 with - 1.9L - CT this admission as above - Continue Aldactone and Lasix - Continue rifaximin and lactulose 3. Gastritis - Continue PPI 4. Asthma - Currently finishing prednisone therapy for recent asthma exacerbation - Lungs clear on exam - Supplemental O2 - Bronchodilators - Incentive spirometer DVT prophylaxis: SCDs, avoid chemical anticoagulation given hepatic coagulopathy
[2017-09-30] MEDS: Propranolol 10 MG Tablet PO SCH (10:58)
[2017-09-30] MEDS: rifAXIMin 550 MG Tablet PO SCH ×2 (10:58→22:43)
[2017-09-30] MEDS: Furosemide 40 MG Tablet PO SCH (10:58)
[2017-09-30] MEDS: predniSONE 20 MG Tablet PO SCH ×2 (10:58→22:43)
[2017-09-30] MEDS: Senna/Docusate Sodium 8.6/50 MG Tablet PO SCH ×2 (10:58→22:43)
--- NOTE | 2017-09-30 12:03 | P.CONGS ---
[facility] Gen Surgery Consult Note Consult date: 09/30/17 Reason for consult: abdominal pain Requesting physician: Heidy Craven Narrative: This is a 67 year old female with a past medical history of cirrhosis, gastroparesis, unspecified autoimmune disease and hepatitis C. The patient was just hospitalized last week for continued abdominal pain and radiology findings of a small bowel obstruction. During that admission, the patient had a paracentesis. Her bowels were working and she was able to tolerate a regular diet. She was discharged to rehab. She was in rehab for about one day when she developed acute onset of abdominal pain with associated nausea and no vomiting. A CT abdomen/pelvis was obtained which shows interval wall thickening and mild distention of multiple loops of proximal small bowel with decompressed distal small bowel. CT abdomen/pelvis continues to shows ascites. She reports her last bowel movement was yesterday which was normal soft brown. A General Surgery consultation has been requested. <Meghan Clayton - Last Filed: 10/01/17 10:09> Narrative: CONSULTATION NOTE FOR SURGICAL ATTENDING, DR. KEV ORTIZ <Kev Ortiz - Last Filed: 10/01/17 14:08> Review of Systems Constitutional: Denies body ache(s), Denies fever(s) Eyes: Denies blurry vision Ears, Nose, Mouth, and Throat: Denies difficulty swallowing Cardiovascular: Denies chest pain, Denies chest pain at rest, Denies chest pain with activity Respiratory: Denies chest congestion, Denies cough Gastrointestinal: Reports abdominal pain, Reports nausea, Denies belching, Denies vomiting Genitourinary: Denies pelvic pain Musculoskeletal: Denies back pain, Denies body aches Skin/Breast: Denies lesions Neurologic: Denies frequent falls, Denies loss of vision Psychiatric: Denies anxiety, Denies depression Endocrine: Denies cold intolerance, Denies heat intolerance Hematologic/Lymphatic: Denies easy bleeding Allergic/Immunologic: Denies GI upset with certain foods <Meghan Clayton - Last Filed: 10/01/17 10:09> PMF - History History Provided By: Patient - Medical History Medical History: Medical History (Last Reviewed 09/30/17 @ 15:40 by SANAM Sanchez) Ascites Hypothyroid S/P abdominal paracentesis Gastroparesis Hepatitis C History of thyroidectomy Liver cirrhosis Unspecified immunity deficiency - Surgical History Surgical History: Surgical History (Last Reviewed 09/30/17 @ 15:40 by SANAM Sanchez) H/O abdominal hysterectomy History of lumbar fusion History of toe surgery S/P cholecystectomy - Family History Family History: Family History (Last Reviewed 09/29/17 @ 14:17 by Anastasiya Villalba PT) Son Cirrhosis Sister Cirrhosis - Tobacco History Second Hand Smoke Exposure: No Tobacco Use In Past 30 Days: No Smoking Status: Unknown if ever smoked - Alcohol History How Often Do You Have a Drink Containing Alcohol: Unable to Obtain - Substance Use History Substance History: Unable to Obtain - Travel History Recent Travel in the [place] Within the Last 8 Weeks: No Recent Travel Out of the Country Within the Last 8 Weeks: No - Immunization History Tetanus Immunization: <5 Years Hx Influenza Vaccine This Season: Yes <Meghan Clayton - Last Filed: 10/01/17 10:09> - Medical History Medical History: Medical History (Last Reviewed 09/30/17 @ 15:40 by SANAM Sanchez) Ascites Hypothyroid S/P abdominal paracentesis Gastroparesis Hepatitis C History of thyroidectomy Liver cirrhosis Unspecified immunity deficiency - Surgical History Surgical History: Surgical History (Last Reviewed 09/30/17 @ 15:40 by SANAM Sanchez) H/O abdominal hysterectomy History of lumbar fusion History of toe surgery S/P cholecystectomy - Family History Family History: Family History (Last Reviewed 09/29/17 @ 14:17 by Anastasiya Villalba PT) Son Cirrhosis Sister Cirrhosis <Kev Ortiz - Last Filed: 10/01/17 14:08> Medications and Allergies Active Medications: Active Medications Al Hydroxide/Mg Hydroxide (Milk Of Magnesia Liq) 30 ml PO Q12H PRN PRN Reason: Mild Constipation Alprazolam (Xanax) 1 mg PO BID PRN PRN Reason: ANXIETY Last Admin: 09/30/17 10:37 Dose: 1 mg Bisacodyl (Dulcolax Supp) 10 mg RECTAL DAILY PRN PRN Reason: SEVERE CONSITIPATION Furosemide (Lasix Inj) 20 mg IV.PUSH DAILY [facility] Last Admin: 09/30/17 10:58 Dose: Not Given Furosemide (Lasix) 40 mg PO DAILY [facility] Last Admin: 09/30/17 10:58 Dose: Not Given Sodium Chloride (Ns Inj) 1,000 mls @ 100 mls/hr IV.CONT .Q10H [facility] Last Infusion: 09/30/17 10:59 Dose: Infused Lactulose (Lactulose Liq) 30 ml PO DAILY PRN PRN Reason: SEVERE CONSITIPATION Levothyroxine Sodium (Synthroid) 125 mcg PO DAILY@0600 [facility] Last Admin: 09/30/17 04:59 Dose: 125 mcg Lorazepam (Ativan Inj) 1 mg IM Q4H PRN PRN Reason: ANXIETY Metoclopramide HCl (Reglan Inj) 5 mg IV.PUSH Q6HR PRN; Protocol PRN Reason: NAUSEA OR VOMITING Last Admin: 09/30/17 08:48 Dose: 5 mg Pantoprazole Sodium (Protonix) 40 mg PO DAILY [facility] Last Admin: 09/30/17 10:58 Dose: Not Given Potassium Chloride (K-Dur) 20 meq PO DAILY [facility] Last Admin: 09/30/17 10:58 Dose: Not Given Prednisone (Deltasone) 20 mg PO BID [facility] Stop: 10/02/17 09:01 Last Admin: 09/30/17 10:58 Dose: Not Given Propranolol HCl (Inderal) 10 mg PO DAILY [facility] Last Admin: 09/30/17 10:58 Dose: Not Given Rifaximin (Xifaxan) 550 mg PO BID [facility] Last Admin: 09/30/17 10:58 Dose: Not Given Senna/Docusate Sodium (Nanette-Colace) 1 tab PO BID [facility] Last Admin: 09/30/17 10:58 Dose: Not Given Sennosides (Senokot) 17.2 mg PO Q12H PRN PRN Reason: Moderate Constipation Sodium Chloride (Ns Flush) 2 ml IV.FLUSH PRN PRN PRN Reason: FLUSH AFTER USING IV ACCESS Last Admin: 09/29/17 09:59 Dose: 2 ml Spironolactone (Aldactone) 100 mg PO DAILY [facility] Last Admin: 09/30/17 10:58 Dose: Not Given Temazepam (Restoril) 15 mg PO HS PRN PRN Reason: INSOMNIA <Meghan Clayton - Last Filed: 10/01/17 10:09> Active Medications: Active Medications Al Hydroxide/Mg Hydroxide (Milk Of Magnesia Liq) 30 ml PO Q12H PRN PRN Reason: Mild Constipation Alprazolam (Xanax) 1 mg PO BID PRN PRN Reason: ANXIETY Last Admin: 10/01/17 14:02 Dose: 1 mg Bisacodyl (Dulcolax Supp) 10 mg RECTAL DAILY PRN PRN Reason: SEVERE CONSITIPATION Furosemide (Lasix Inj) 20 mg IV.PUSH DAILY [facility] Last Admin: 10/01/17 09:54 Dose: Not Given Furosemide (Lasix) 40 mg PO DAILY [facility] Last Admin: 10/01/17 09:54 Dose: Not Given Sodium Chloride (Ns Inj) 1,000 mls @ 100 mls/hr IV.CONT .Q10H [facility] Last Admin: 10/01/17 06:22 Dose: 100 mls/hr Ketorolac Tromethamine (Toradol Inj) 15 mg IV.PUSH Q6H PRN PRN Reason: pain1 to 10 Stop: 10/05/17 13:08 Last Admin: 10/01/17 14:02 Dose: 15 mg Lactulose (Lactulose Liq) 30 ml PO DAILY PRN PRN Reason: SEVERE CONSITIPATION Levothyroxine Sodium (Synthroid) 125 mcg PO DAILY@0600 [facility] Last Admin: 10/01/17 06:22 Dose: Not Given Lorazepam (Ativan Inj) 1 mg IM Q4H PRN PRN Reason: ANXIETY Last Admin: 09/30/17 16:22 Dose: 1 mg Metoclopramide HCl (Reglan Inj) 5 mg IV.PUSH Q6HR PRN; Protocol PRN Reason: NAUSEA OR VOMITING Last Admin: 10/01/17 06:19 Dose: 5 mg Pantoprazole Sodium (Protonix) 40 mg PO DAILY [facility] Last Admin: 10/01/17 09:54 Dose: Not Given Potassium Chloride (K-Dur) 20 meq PO DAILY [facility] Last Admin: 10/01/17 09:54 Dose: Not Given Prednisone (Deltasone) 20 mg PO BID [facility] Stop: 10/02/17 09:01 Last Admin: 10/01/17 09:54 Dose: Not Given Propranolol HCl (Inderal) 10 mg PO DAILY [facility] Last Admin: 10/01/17 09:54 Dose: Not Given Rifaximin (Xifaxan) 550 mg PO BID [facility] Last Admin: 10/01/17 09:54 Dose: Not Given Senna/Docusate Sodium (Nanette-Colace) 1 tab PO BID [facility] Last Admin: 10/01/17 09:41 Dose: Not Given Sennosides (Senokot) 17.2 mg PO Q12H PRN PRN Reason: Moderate Constipation Sodium Chloride (Ns Flush) 2 ml IV.FLUSH PRN PRN PRN Reason: FLUSH AFTER USING IV ACCESS Last Admin: 09/29/17 09:59 Dose: 2 ml Spironolactone (Aldactone) 100 mg PO DAILY [facility] Last Admin: 10/01/17 09:54 Dose: Not Given Temazepam (Restoril) 15 mg PO HS PRN PRN Reason: INSOMNIA <Kev Ortiz - Last Filed: 10/01/17 14:08> Allergies Allergy/AdvReac Type Severity Reaction Status Date / Time No Known Allergies Allergy Verified 09/28/17 10:47 Home Medications Medication Instructions Recorded Confirmed Type fluorometholone 1 drp OPHTHALMIC (EYE) BID 08/22/17 09/22/17 History levothyroxine 125 mcg PO DAILY 08/22/17 09/21/17 History prednisolone acetate 1 drp OPHTHALMIC (EYE) QID 08/22/17 09/22/17 History benzonatate 100 mg PO TID PRN 09/21/17 09/21/17 History guaifenesin 400 mg PO DAILY 09/21/17 09/21/17 History lactulose 20 g PO BID 09/21/17 09/21/17 History propranolol 10 mg PO DAILY 09/21/17 09/21/17 History budesonide [Pulmicort Flexhaler] 2 inh INHALATION BID 09/28/17 09/28/17 History lactulose 20 g PO BID 09/28/17 09/28/17 History ondansetron [Zofran ODT] 4 mg PO Q6-8H PRN 09/28/17 09/28/17 History potassium chloride 20 meq PO DAILY 09/28/17 09/28/17 History prednisone [Deltasone] 20 mg PO BID 09/28/17 History rifaximin [Xifaxan] 550 mg PO BID 09/28/17 History Exam Vital signs: Vital Signs 09/29/17 16:00 09/29/17 20:00 09/30/17 00:00 Temperature 98.7 F 98.3 F 97.7 F Pulse Rate 53 L 54 L 60 Respiratory Rate 18 20 18 Blood Pressure 120/84 103/55 L 102/57 L Pulse Oximetry 93 L 94 L 94 L 09/30/17 08:00 Temperature 98.4 F Pulse Rate 60 Respiratory Rate 18 Blood Pressure 115/59 L Pulse Oximetry 90 L Intake & Output 09/29/17 09/30/17 09/30/17 18:59 06:59 18:59 Intake Total 480 / 480 2000 / 2000 1000 / 1000 Balance 480 / 480 2000 / 2000 1000 / 1000 Weight 65.3 kg Intake: IV 1000 / 1000 1000 / 1000 NS Inj 1,000 ML @ 100 mls/hr IV 1000 / 1000 1000 / 1000 .CONT .Q10H [facility] Rx#:[id number] Oral 480 / 480 1000 / 1000 Other: # Voids 3 3 # Bowel Movements 2 Narrative: GENERAL: 67 year old female looks older than stated age resting in bed in no acute distress. SKIN: Warm and dry. HEAD: Atraumatic. Normocephalic. EYES: Pupils equal and round. No scleral icterus. No injection or drainage. ENT: No nasal bleeding or discharge. Mucous membranes pink and moist. NECK: Trachea midline. CARDIOVASCULAR: Regular rate and rhythm. RESPIRATORY: No accessory muscle use. Clear to auscultation. Breath sounds equal bilaterally. GASTROINTESTINAL: Abdomen soft, nondistended. Mild generalized tenderness with palpation. MUSCULOSKELETAL: Extremities without clubbing, cyanosis, or edema. No obvious deformities. NEUROLOGICAL: Awake and alert. No obvious cranial nerve deficits. Motor grossly within normal limits. Five out of 5 muscle strength in the arms and legs. Normal speech. PSYCHIATRIC: Appropriate mood and affect; insight and judgment normal. <Meghan Clayton - Last Filed: 10/01/17 10:09> Vital signs: Vital Signs 09/30/17 16:49 09/30/17 20:00 10/01/17 00:00 Temperature 98.0 F 98.3 F Pulse Rate 65 79 Respiratory Rate 18 19 Blood Pressure 147/67 H 103/53 L Pulse Oximetry 92 L 90 L 90 L 10/01/17 08:00 10/01/17 11:29 Temperature 98.0 F Pulse Rate 66 Respiratory Rate 17 Blood Pressure 109/56 L Pulse Oximetry 94 L 94 L Intake & Output 09/30/17 10/01/17 10/01/17 18:59 06:59 18:59 Intake Total 1000 / 1000 1600 / 1600 Balance 1000 / 1000 1600 / 1600 Weight 65.3 kg Intake: IV 1000 / 1000 1000 / 1000 NS Inj 1,000 ML @ 100 mls/hr IV 1000 / 1000 1000 / 1000 .CONT .Q10H [facility] Rx#:[id number] Oral 600 / 600 Other: # Voids 2 Date of Last Bowel Movement 09/30/17 # Bowel Movements 1 <Kev Ortiz - Last Filed: 10/01/17 14:08> Results - Labs 09/29/17 07:20 09/29/17 07:20 Laboratory Results WBC 6.4 th/mm3 (4.0-11.0) 09/29/17 07:20 RBC 3.28 mil/mm3 (4.00-5.30) L 09/29/17 07:20 Hgb 10.2 gm/dL (11.6-15.3) L D 09/29/17 07:20 Hct 30.2 % (35.0-46.0) L 09/29/17 07:20 MCV 92.1 fL (80.0-100.0) 09/29/17 07:20 MCH 31.1 pg (27.0-34.0) 09/29/17 07:20 MCHC 33.8 % (32.0-36.0) 09/29/17 07:20 RDW 19.3 % (11.6-17.2) H 09/29/17 07:20 Plt Count 77 th/mm3 (150-450) L D 09/29/17 07:20 MPV 8.8 fL (7.0-11.0) 09/29/17 07:20 Prelim Diff (Auto) Slide review pending 09/29/17 07:20 Neut % (Auto) 72.9 % (16.0-70.0) H 09/29/17 07:20 Lymph % (Auto) 12.9 % (9.0-44.0) 09/29/17 07:20 [place] % (Auto) 11.6 % (0.0-8.0) H 09/29/17 07:20 Eos % (Auto) 2.4 % (0.0-4.0) 09/29/17 07:20 Baso % (Auto) 0.2 % (0.0-2.0) 09/29/17 07:20 Neut # (Auto) 4.7 th/mm3 (1.8-7.7) 09/29/17 07:20 Lymph # (Auto) 0.8 th/mm3 (1.0-4.8) L 09/29/17 07:20 [place] # (Auto) 0.7 th/mm3 (0.0-0.9) 09/29/17 07:20 Eos # (Auto) 0.2 th/mm3 (0.0-0.4) 09/29/17 07:20 Baso # (Auto) 0.0 th/mm3 (0.0-0.2) 09/29/17 07:20 WBC Differential . 09/29/17 07:20 Diff Scan Auto diff confirmed 09/29/17 07:20 Differential Comment . 09/29/17 07:20 Platelet Estimate Low (Normal) L 09/29/17 07:20 Platelet Morphology Normal (Normal) 09/29/17 07:20 Ovalocytes 1+ (None) H 09/29/17 07:20 Acanthocytes (Spur) Occ (None) H 09/29/17 07:20 Keratocytes Occ (None) H 09/29/17 07:20 Sodium 143 meq/L (136-145) 09/29/17 07:20 Potassium 4.0 meq/L (3.5-5.1) 09/29/17 07:20 Chloride 108 meq/L (98-107) H 09/29/17 07:20 Carbon Dioxide 26.1 meq/L (21.0-32.0) 09/29/17 07:20 Anion Gap 9 meq/L (5-15) 09/29/17 07:20 BUN 19 mg/dL (7-18) H 09/29/17 07:20 Creatinine 0.76 mg/dL (0.50-1.00) 09/29/17 07:20 Estimated GFR 76 mL/min (>89) L 09/29/17 07:20 Random Glucose 64 mg/dL (74-106) L 09/29/17 07:20 Lactic Acid 1.8 mmol/L (0.4-2.0) 09/28/17 15:40 Calcium 7.2 mg/dL (8.5-10.1) L* D 09/29/17 07:20 Prot Corrected Calcium 8.4 mg/dL (8.5-10.1) L 09/29/17 07:20 Total Bilirubin 1.3 mg/dL (0.2-1.0) H 09/29/17 07:20 AST 54 U/L (15-37) H 09/29/17 07:20 ALT 28 U/L (10-53) 09/29/17 07:20 Alkaline Phosphatase 129 U/L (45-117) H 09/29/17 07:20 Total Protein 4.9 g/dL (6.4-8.2) L D 09/29/17 07:20 Albumin 1.5 g/dL (3.4-5.0) L 09/29/17 07:20 Lipase 259 U/L (73-393) 09/28/17 09:10 Impressions Abdomen/Pelvis CT 09/28/17 10:14 CONCLUSION: 1. Study is degraded by breathing motion artifact. 2. Interval wall thickening and mild distention of multiple loops of proximal small bowel with decompressed distal small bowel. No focal transition point, obstructing mass, or lesion. 3. Small volume ascites. 4. Cirrhosis. Abdomen X-Ray 09/29/17 00:00 CONCLUSION: No acute findings. - Imaging CT scan - abdomen: report reviewed, image reviewed <Meghan Clayton - Last Filed: 10/01/17 10:09> - Labs 09/29/17 07:20 09/29/17 07:20 All other labs normal. ITS Impressions Abdomen/Pelvis CT 09/28/17 10:14 CONCLUSION: 1. Study is degraded by breathing motion artifact. 2. Interval wall thickening and mild distention of multiple loops of proximal small bowel with decompressed distal small bowel. No focal transition point, obstructing mass, or lesion. 3. Small volume ascites. 4. Cirrhosis. Abdomen X-Ray 09/29/17 00:00 CONCLUSION: No acute findings. Small Bowel X-Ray 09/30/17 00:00 CONCLUSION: 1. Suboptimal examination. The patient terminated the study prematurely and refused additional imaging at 45 minutes. 2. Abnormal duodenum and jejunum with diffuse fold thickening which is nonspecific. 3. No evidence of obstruction. Contrast is noted in colon at 45 minutes. The distal and terminal ileum were not well visualized or evaluated on this exam. - Imaging Abdominal x-ray: report reviewed CT scan - abdomen: report reviewed Additional studies: Small bowel follow-through <Kev Ortiz - Last Filed: 10/01/17 14:08> Assessment and Plan - Assessment (1) Intractable abdominal pain Code(s): R10.9 - Unspecified abdominal pain Status: Acute Plan: 67 year old female with recurrent abdominal pain; ascites -Diet as tolerated -Unlikely SBO; favor ileus appears to have improved -OOB and mobilize as tolerated -Continue non operative treatment -Thank you for this consult; We will continue to follow - Plan Discussed Condition With: Dr. Ortiz Mrs. Luu <Meghan Clayton - Last Filed: 10/01/17 10:09> - Assessment (1) Intractable abdominal pain Code(s): R10.9 - Unspecified abdominal pain Status: Acute - Attending Attestation NOTE FOR SURGICAL ATTENDING, DR. KEV ORTIZ I agree with above assessment and plan. The exam, history, and the medical decision-making described in the above note were completed with the assistance of the mid-level provider. I reviewed and agree with the findings presented. I attest that I had a [id number] encounter with the patient on the same day, and personally performed and documented my assessment and findings in the medical record. The following services were provided during this hospital visit: Chart data review, vital sign assessments/reviewing monitor data Review of consultations notes if present. Medication orders/review and/or management Ordering and/or reviewing lab tests Ordering and/or interpreting/reviewing x-rays and/or diagnostic studies Care of the patient and discussion of the patient with the care team Documentation time To help prompt me to consider important information that might be impacting today's encounter and assessment, Information from prior notes written by myself or my colleagues may have been "brought forward/copy and pasted" into today's note. <Kev Ortiz - Last Filed: 10/01/17 14:08>
[2017-09-30] MEDS: Ketorolac Inj 30 MG/ML (IVP) Vial IV.PUSH PRN (16:22)
--- NOTE | 2017-09-30 16:23 | FL ---
EXAM DATE: 09/30/2017 4:01 PM EDT AGE/SEX: 67 years / Female INDICATIONS: Abdominal pain, nausea and vomiting. Patient being evaluated for possible obstruction.. CLINICAL DATA: This is the patient's subsequent encounter. Patient reports that signs and symptoms h ave been present for 1 week and indicates a pain score of 10/10. MEDICAL/SURGICAL HISTORY: . Gastroparesis. Hepatitis C. Cirrhosis. . Hysterectomy. Cholecystec mirian. [place] [facility] [place] 09/28/2017. . FLUORO TIME: 0 IMAGE COUNT: 8 CONTRAST: Thin barium. 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 Gas and stool is noted segmental in the colon. The patient is status post cholecystectomy. Patient is st atus post kyphoplasty in the lower thoracic spine. The stomach is grossly unremarkable. Examination of the small bowel demonstrates mucosal fold thickening in the duodenum and jejunum. The more distal ileum appears more unremarkable. The patient terminated the procedure prematurely at 45 m inutes and no additional imaging could be performed. Contrast is present in the lumen at this time. T he distal ileum and terminal ileum were not well evaluated. No evidence of leakage or obstruction. CONCLUSION: 1. Suboptimal examination. The patient terminated the study prematurely and refused additional imagi ng at 45 minutes. 2. Abnormal duodenum and jejunum with diffuse fold thickening which is nonspecific. 3. No evidence of obstruction. Contrast is noted in colon at 45 minutes. The distal and terminal ile um were not well visualized or evaluated on this exam. Electronically signed by: Darren Sanchez MD 09/30/2017 4:22 PM EDT
--- NOTE | 2017-09-30 16:39 | P.CONPAL ---
Consult Service: Palliative Care Requesting Physician: Ashlie Zuleta Reason for Consult: a. To assist with evaluation and management of symptoms including:Nausea/ Vomiting, debility b. To assist medical decision maker(s) with: better understanding of current medical conditions; weighing benefits/burdens of medical treatment options; making medical treatment decisions. Primary Care Provider: UNKNOWN History of Present Illness History of Present Illness: Mrs Luu is a 67 years old with a past medical history significant for liver cirrhosis, recurrent ascites, esophageal varices, hepatitis C, gastroparesis, asthma, hypothyroidism, mild dementia and unspecified immunity deficiency. Patient presented to the ER on 09/28/17 complaining of severe abdominal pain, nausea and vomiting. Patient was recently hospitalized from 09/21-09/27 for recurrent ascites, and radiology findings of a small bowel obstruction. She had paracentesis done during that hospitalization and was discharged to the custodial facility for rehabilitation. Patient was also hospitalized in for abdominal pain. It is also noted in medical record that patient` s care has been at [facility] where she was been evaluated for a liver transplant and was declined because she was positive for Marijuana. ER Course: * Vital signs: Temperature 97.7, pulse 55, respirations 18, BP 136/73, O2 saturation 99%. * Abdomen/pelvis CT revealed interval wall thickening and mild distention of multiple loops of proximal small bowel with decompressed distal small bowel. No obstructing mass or lesion. Small volume ascites. Cirrhosis. * Laboratory workup revealed WBC 12.8, hemoglobin 12.5, hematocrit 37.1, platelet count 111, sodium 138, potassium 4.0, BUN/creatinine 50/0.93, lactic acid 3.9, total bilirubin 1.4, AST 63, ALT 33, total protein 6.5, albumin 2.0, lipase 259 * [facility]-ray on 09/29/17 revealed bowel gas pattern nonspecific without evidence for obstruction or free air. General surgeon Dr. Ortiz consulted on 09/30/17 to evaluate patient with abdominal pain, which they feel patient most likely has an ileus and not small bowel obstruction. Recommended to continue nonoperative treatment. Patient's spouse voiced frustration of patient having multiple hospitalizations and patient refusing tests today to one of the providers. Palliative care consulted to assists with symptom management and establishment of short-term and long-term goals for the patient. Patient seen and examined in her room. Patient just received Lorazepam 1mg IM for anxiety. Patient slightly sedated, arousable but falling asleep during conversation. Patient currently denying pain, and nausea. Introduced palliative care and its role in symptom management and establishing goals of care. Patient was able to provide some of his psychosocial and past medical history. Patient states that she has never completed advanced directives and in the event that she is not able to participate in decision-making she would like a to do so. Patient's arrived during visit. Obtained psychosocial, past medical history and events leading to this hospitalization. Patient's relieved to speak to palliative care. Expressed concern that today, physician addressed CODE STATUS with him and he thought that patient must be dying. Patient's voiced concern regarding patient's recent multiple hospitalizations, and that it appears to him that she is not getting any better. Patient's states that he is not able to take patient back home at this time because she has been needing assistance with almost all his ADLs. He is not sure if patient will be able to do well in rehabilitation. Introduced hospice philosophy and benefits. After lengthy conversation with patient`s and providing supportive listening to his concerns, he has decided that he would like to give patient a chance to go through rehabilitation and if she does not show any improvement he would like her to be placed in a prison long-term and at that time transition patient to comfort measures through hospice services. Patient`s voiced concern that he has not been receiving medical updates from providers and would appreciate it if all providers notify him of test results as well as treatment plan. Palliative care contact information provided. Function/Cognitive Trajectory: Patient has had multiple hospitalizations this year it multiple different hospitals. Patient was hospitalized in [facility] in [place], [place] in mid August this year where she had ascites drained and was discharged to [facility]. Patient was being evaluated for possible liver transplant at [facility] and was denied due to being positive for marijuana. Per patient has been diagnosed with mild dementia at [facility] and he has had episodes of confusion. Per patient`s 6 weeks ago, when she left him patient required assistance with most of his ADLs and she had multiple falls at home with no injuries, and he has been progressively losing weight. She is able to verbalize his needs. Review of Systems Constitutional: Reports fatigue, Reports lack of energy, Reports weight loss, Denies fever(s) Eyes: Denies blurry vision, Denies double vision Ears, Nose, Mouth, and Throat: Denies abnormal hearing, Denies difficulty swallowing, Denies nasal congestion Cardiovascular: Denies chest pain, Denies foot swelling, Denies generalized swelling, Denies rapid, pounding, or irregular heartbeat Respiratory: Reports shortness of breath Gastrointestinal: Reports abdominal pain, Reports bloating, Reports feeling full early, Reports loose stools, Reports nausea, Reports vomiting, Denies coffee ground vomit, Denies constipation, Denies vomiting blood Genitourinary: Denies painful urination, Denies urinary incontinence Musculoskeletal: Reports abnormal walking (Unsteady gait), Reports stiffness ( Arthritis) Skin/Breast: Denies itching, Denies non-healing lesions, Denies unusual bruising Neurologic: Reports abnormal walking (Unsteady gait), Reports confusion, Reports frequent falls, Denies abnormal hearing, Denies localized weakness, Denies tingling/numbness/burning sensations Psychiatric: Reports anxiety, Reports confusion, Denies change in appetite Endocrine: Denies increased urination, Denies rapid, pounding, or irregular heartbeat Hematologic/Lymphatic: Reports easy bruising PMFSH - History History Provided By: Patient, Family Member (Spouse), Medical Record - Medical History Medical History: Medical History (Last Updated 09/30/17 @ 16:32 by Sena Delgado) Ascites Asthma Esophageal varices Hypertension Hypothyroidism Gastroparesis Hepatitis C History of thyroidectomy Liver cirrhosis Unspecified immunity deficiency - Surgical History Surgical History: Surgical History (Last Updated 09/30/17 @ 16:00 by Sena Delagdo) S/P abdominal paracentesis (Resolved) H/O abdominal hysterectomy History of lumbar fusion History of toe surgery S/P cholecystectomy - Family History Family History: Family History (Last Reviewed 09/29/17 @ 14:17 by Anastasiya Villalba PT) Son Cirrhosis Sister Cirrhosis - Tobacco History Second Hand Smoke Exposure: No Tobacco Use In Past 30 Days: No Smoking Status: Unknown if ever smoked - Alcohol History How Often Do You Have a Drink Containing Alcohol: Unable to Obtain (Patient used to drink alcohol many years ago.) - Substance Use History Substance History: Past History ( marijuana use) - Travel History Recent Travel in the [place] Within the Last 8 Weeks: No Recent Travel Out of the Country Within the Last 8 Weeks: No - Immunization History Tetanus Immunization: <5 Years Hx Influenza Vaccine This Season: Yes Medications and Allergies Active Medications: Active Medications Al Hydroxide/Mg Hydroxide (Milk Of Magnesia Liq) 30 ml PO Q12H PRN PRN Reason: Mild Constipation Alprazolam (Xanax) 1 mg PO BID PRN PRN Reason: ANXIETY Last Admin: 09/30/17 10:37 Dose: 1 mg Bisacodyl (Dulcolax Supp) 10 mg RECTAL DAILY PRN PRN Reason: SEVERE CONSITIPATION Furosemide (Lasix Inj) 20 mg IV.PUSH DAILY [facility] Last Admin: 09/30/17 10:58 Dose: Not Given Furosemide (Lasix) 40 mg PO DAILY [facility] Last Admin: 09/30/17 10:58 Dose: Not Given Sodium Chloride (Ns Inj) 1,000 mls @ 100 mls/hr IV.CONT .Q10H [facility] Last Infusion: 09/30/17 10:59 Dose: Infused Ketorolac Tromethamine (Toradol Inj) 15 mg IV.PUSH Q6H PRN PRN Reason: pain1 to 10 Stop: 10/05/17 13:08 Lactulose (Lactulose Liq) 30 ml PO DAILY PRN PRN Reason: SEVERE CONSITIPATION Levothyroxine Sodium (Synthroid) 125 mcg PO DAILY@0600 [facility] Last Admin: 09/30/17 04:59 Dose: 125 mcg Lorazepam (Ativan Inj) 1 mg IM Q4H PRN PRN Reason: ANXIETY Metoclopramide HCl (Reglan Inj) 5 mg IV.PUSH Q6HR PRN; Protocol PRN Reason: NAUSEA OR VOMITING Last Admin: 09/30/17 08:48 Dose: 5 mg Pantoprazole Sodium (Protonix) 40 mg PO DAILY [facility] Last Admin: 09/30/17 10:58 Dose: Not Given Potassium Chloride (K-Dur) 20 meq PO DAILY [facility] Last Admin: 09/30/17 10:58 Dose: Not Given Prednisone (Deltasone) 20 mg PO BID [facility] Stop: 10/02/17 09:01 Last Admin: 09/30/17 10:58 Dose: Not Given Propranolol HCl (Inderal) 10 mg PO DAILY [facility] Last Admin: 09/30/17 10:58 Dose: Not Given Rifaximin (Xifaxan) 550 mg PO BID [facility] Last Admin: 09/30/17 10:58 Dose: Not Given Senna/Docusate Sodium (Nanette-Colace) 1 tab PO BID [facility] Last Admin: 09/30/17 10:58 Dose: Not Given Sennosides (Senokot) 17.2 mg PO Q12H PRN PRN Reason: Moderate Constipation Sodium Chloride (Ns Flush) 2 ml IV.FLUSH PRN PRN PRN Reason: FLUSH AFTER USING IV ACCESS Last Admin: 09/29/17 09:59 Dose: 2 ml Spironolactone (Aldactone) 100 mg PO DAILY [facility] Last Admin: 09/30/17 10:58 Dose: Not Given Temazepam (Restoril) 15 mg PO HS PRN PRN Reason: INSOMNIA Allergies Allergy/AdvReac Type Severity Reaction Status Date / Time No Known Allergies Allergy Verified 09/28/17 10:47 Home Medications Medication Instructions Recorded Confirmed Type fluorometholone 1 drp OPHTHALMIC (EYE) BID 08/22/17 09/22/17 History levothyroxine 125 mcg PO DAILY 08/22/17 09/21/17 History prednisolone acetate 1 drp OPHTHALMIC (EYE) QID 08/22/17 09/22/17 History benzonatate 100 mg PO TID PRN 09/21/17 09/21/17 History guaifenesin 400 mg PO DAILY 09/21/17 09/21/17 History lactulose 20 g PO BID 09/21/17 09/21/17 History propranolol 10 mg PO DAILY 09/21/17 09/21/17 History budesonide [Pulmicort Flexhaler] 2 inh INHALATION BID 09/28/17 09/28/17 History lactulose 20 g PO BID 09/28/17 09/28/17 History ondansetron [Zofran ODT] 4 mg PO Q6-8H PRN 09/28/17 09/28/17 History potassium chloride 20 meq PO DAILY 09/28/17 09/28/17 History prednisone [Deltasone] 20 mg PO BID 09/28/17 History rifaximin [Xifaxan] 550 mg PO BID 09/28/17 History Advance Directives Living Will: No Healthcare Surrogate: No (HCP: Ruiz Luu-[phone]) Power of [place]: No Family/friends goals: Patient's would want patient to try rehabilitation and if she does not do well in rehab he is leaning towards transitioning to comfort care through hospice services. Ethical and Legal Issues: None identified at this time Physical Exam Vital Signs: Vital Signs - 24 hr 09/29/17 16:00 09/29/17 20:00 09/30/17 00:00 Temperature 98.7 F 98.3 F 97.7 F Pulse Rate 53 L 54 L 60 Respiratory Rate 18 20 18 Blood Pressure 120/84 103/55 L 102/57 L Pulse Oximetry 93 L 94 L 94 L 09/30/17 08:00 09/30/17 12:00 Temperature 98.4 F 98.3 F Pulse Rate 60 52 L Respiratory Rate 18 18 Blood Pressure 115/59 L 147/66 H Pulse Oximetry 90 L 92 L I&O: Intake & Output 09/28/17 09/29/17 09/30/17 10/01/17 06:59 06:59 06:59 06:59 Intake Total 1500 / 1500 2480 / 2480 1000 / 1000 Balance 1500 / 1500 2480 / 2480 1000 / 1000 Weight 65.317 kg 65.3 kg Physical Exam: CONSTITUTIONAL/GENERAL: This is an thin elderly patient, in no apparent distress. TUBES/LINES/DRAINS: PIV SKIN: No jaundice, rashes, or lesions. Ecchymoses on upper extremities. No wounds seen anteriorly. Skin temperature appropriate. Not diaphoretic. HEAD: Atraumatic. Normocephalic. EYES: Pupils equal and round and reactive. Extraocular motions intact. No scleral icterus. No injection or drainage. Fundi not examined. ENT: Hearing grossly normal. Nose without bleeding or purulent drainage. Moist oral mucosa NECK: Trachea midline. Supple, nontender. CARDIOVASCULAR: Regular rate and rhythm without murmurs, gallops, or rubs. No JVD. Peripheral pulses symmetric. RESPIRATORY/CHEST: Symmetric, unlabored respirations. Clear to auscultation. Breath sounds equal bilaterally. No wheezes, rales, or rhonchi. GASTROINTESTINAL: Abdomen soft, non-tender, nondistended. No hepato-splenomegaly , or palpable masses. No guarding. Bowel sounds present. GENITOURINARY: Without palpable bladder distension. Catalan catheter in place. MUSCULOSKELETAL: Extremities without clubbing, cyanosis, or edema. No joint tenderness or effusion noted. No calf tenderness. No mottling or clubbing. NEUROLOGICAL: Sleepy, slightly sedated, arousable. Oriented to self, place and situation. Follows commands with all 4 extremities PSYCHIATRIC: No obvious anxiety/depression. no apparent hallucinations or other psychotic thought process. Diagnostic Tests Laboratory: Laboratory Results - last 72 hr 09/28/17 09/28/17 09/28/17 09:10 09:10 09:10 WBC 12.8 H RBC 4.07 Hgb 12.4 Hct 37.1 MCV 91.2 MCH 30.6 MCHC 33.5 RDW 19.1 H Plt Count 111 L MPV 8.7 Prelim Diff (Auto) Neut % (Auto) 83.4 H Lymph % (Auto) 7.9 L [place] % (Auto) 8.4 H Eos % (Auto) 0.0 Baso % (Auto) 0.3 Neut # (Auto) 10.7 H Lymph # (Auto) 1.0 [place] # (Auto) 1.1 H Eos # (Auto) 0.0 Baso # (Auto) 0.0 WBC Differential . Diff Scan Differential Comment Auto diff final Platelet Estimate Platelet Morphology Ovalocytes Acanthocytes (Spur) Keratocytes Sodium 138 Potassium 4.0 D Chloride 102 Carbon Dioxide 24.7 Anion Gap 11 BUN 15 Creatinine 0.93 Estimated GFR 61 L Random Glucose 106 Lactic Acid 3.9 H Calcium 8.5 Prot Corrected Calcium Total Bilirubin 1.4 H AST 63 H ALT 33 Alkaline Phosphatase 175 H Total Protein 6.5 Albumin 2.0 L Lipase 259 09/28/17 09/29/17 09/29/17 15:40 07:20 07:20 WBC 6.4 RBC 3.28 L Hgb 10.2 L D Hct 30.2 L MCV 92.1 MCH 31.1 MCHC 33.8 RDW 19.3 H Plt Count 77 L D MPV 8.8 Prelim Diff (Auto) Slide review pending Neut % (Auto) 72.9 H Lymph % (Auto) 12.9 [place] % (Auto) 11.6 H Eos % (Auto) 2.4 Baso % (Auto) 0.2 Neut # (Auto) 4.7 Lymph # (Auto) 0.8 L [place] # (Auto) 0.7 Eos # (Auto) 0.2 Baso # (Auto) 0.0 WBC Differential . Diff Scan Auto diff confirmed Differential Comment . Platelet Estimate Low L Platelet Morphology Normal Ovalocytes 1+ H Acanthocytes (Spur) Occ H Keratocytes Occ H Sodium 143 Potassium 4.0 Chloride 108 H Carbon Dioxide 26.1 Anion Gap 9 BUN 19 H Creatinine 0.76 Estimated GFR 76 L Random Glucose 64 L Lactic Acid 1.8 Calcium 7.2 L* D Prot Corrected Calcium 8.4 L Total Bilirubin 1.3 H AST 54 H ALT 28 Alkaline Phosphatase 129 H Total Protein 4.9 L D Albumin 1.5 L Lipase Result Diagrams: 09/29/17 07:20 09/29/17 07:20 Microbiology: Microbiology 09/28/17 09:10 Aerobic Blood Culture - Preliminary Blood - Peripheral No growth in 2 days Anaerobic Blood Culture - Preliminary No growth in 2 days 09/28/17 09:10 Aerobic Blood Culture - Preliminary Blood - Peripheral No growth in 2 days Anaerobic Blood Culture - Preliminary No growth in 2 days Imaging: Abdomen/Pelvis CT 09/28/17 10:14 CONCLUSION: 1. Study is degraded by breathing motion artifact. 2. Interval wall thickening and mild distention of multiple loops of proximal small bowel with decompressed distal small bowel. No focal transition point, obstructing mass, or lesion. 3. Small volume ascites. 4. Cirrhosis. Abdomen X-Ray 09/29/17 00:00 CONCLUSION: No acute findings. Small Bowel X-Ray 09/30/17 00:00 CONCLUSION: 1. Suboptimal examination. The patient terminated the study prematurely and refused additional imaging at 45 minutes. 2. Abnormal duodenum and jejunum with diffuse fold thickening which is nonspecific. 3. No evidence of obstruction. Contrast is noted in colon at 45 minutes. The distal and terminal ileum were not well visualized or evaluated on this exam. Patient/Family Conference Family Conference Time: 65 Family Conference Location: Bedside, Consult Room Issues Discussed: * Palliative care role, purpose, approach * Additional medical, psychosocial, and spiritual history * Patients general health, functional status, and cognitive changes in the months leading up to the current hospitalization * Patient/family understanding of the current medical problems * Patient/family understanding of prognosis * Patients goals of care as best understood from advance directives and/or conversations and/or values * Current medical treatment options and benefits/burdens of those options * Likely scenarios comparing ongoing aggressive care with a transition to comfort measures only * Questions answered to the best of my ability * Introduced hospice philosophy and benefits * Palliative care contact information provided Assessment and Plan - Disease Oriented Problem List (1) Gastritis (2) Liver cirrhosis (3) Hypothyroidism (4) Hx of esophageal varices (5) Asthma - Symptom Scale (1) Nausea and vomiting 0-10 Scale: Unable to quantify (2) Pain 0-10 Scale: Unable to quantify Pertinent Non-Medical Issues: Psychosocial: Patient was born in [place]. 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 She moved back to [place] 10 years ago when she fell sick and filed for disability. She has been 5 times, 4 times and has been to her current Ruiz Luu for 4 years. According to patient had left him and went to live with her daughter 6 weeks ago and had asked for a divorce but came back after she was hospitalized in [place], [place] for rehabilitation at [facility] close to him. Patient had 2 children, one son who is and one daughter Zoila Aguilar. Her son from liver cirrhosis. Spiritual: Patient is Christianity Legal: Never completed advanced directives Ethical issues impacting care: None identified at this time Important Contacts: Spouse-Ruiz Luu ([phone]) Prognosis: Mrs Luu is a 67 years old with a past medical history significant for liver cirrhosis, recurrent ascites, esophageal varices, hepatitis C, gastroparesis, asthma, hypothyroidism, mild dementia and unspecified immunity deficiency. Patient presented to the ER on 09/28/17 complaining of severe abdominal pain, nausea and vomiting. Patient was recently hospitalized from 09/21-09/27 for recurrent ascites, and radiology findings of a small bowel obstruction. Clinical course complicated with persistent abdominal pain and nausea. Given current multiple comorbidities and multiple hospitalizations, patient remains at risk for further complications, deterioration and decline. Code Status: No Code DNR Plan: PLAN: Legal decision maker: Patient is able to participate in medical decision making. According to [place] statute, in the event that patient is incapacitated to make her own medical decisions, he Ruiz Luu will serve as her healthcare proxy. Goals: Aggressive short of no code. Patient was slightly sedated at time of visit. Lengthy discussion with patient`s . Patient`s decided that he would like to give patient a chance to go through rehabilitation and if she does not show any improvement he would like her to be placed in a prison long-term and at that time transition patient to comfort measures through hospice services. CODE STATUS: No code DNR SYMPTOMS: * Nausea and vomiting: Patient has history of liver cirrhosis, gastritis and recurrent ascites. Came in complaining of nausea and vomiting. Patient still having nausea with no episodes of vomiting. Nausea being managed with metoclopramide 5mg IVP * Anxiety: Patient has been refusing to go for diagnostic testing. Patient is on alprazolam 1 mg po bid prn. Continue to monitor. * Pain: Patient has history of liver cirrhosis, gastritis and recurrent ascites. Came in complaining of intractable abdominal pain. Patient is on 15 mg IV push Toradol every 6 hrs prn. Patient has only used x1 dose since admission. Palliative care will continue to follow the patient during hospital course as condition evolves, to assist patient/decision-maker with understanding of their medical conditions, weighing benefits/burdens of treatment options, for clarification of goals of treatment. Additionally will assist with any symptoms of palliative concern. Appreciation Thank you for the opportunity to participate in the care of Ольга Luu. Attestation Attestation: To help prompt me to consider important information that might be impacting today's encounter and assessment, information from prior notes written by myself or my colleagues may have been "brought forward" into today's note. My signature on this note, however, is an attestation that I personally performed the exam, history, and/or decision-making noted today, and, unless otherwise indicated, the interactions with patient, family, and staff as well as the review of records all occurred today. I also attest that the listed assessment and stated plan reflect my best clinical judgment today based on the combination of historical information, prior notes, and today's exam/ interactions. When time spent is documented, it refers only to time spent today by the signer, or if indicated, combined time spent today by collaborating physician/nurse practitioner.
[2017-10-01] MEDS: Sod Chloride 0.9% Inj 1,000 ML IV.CONT SCH ×2 (06:22→17:47)
[2017-10-01] MEDS: Levothyroxine 125 MCG Tablet PO SCH (06:22)
[2017-10-01] MEDS: Senna/Docusate Sodium 8.6/50 MG Tablet PO SCH ×2 (09:41→20:15)
[2017-10-01] MEDS: predniSONE 20 MG Tablet PO SCH ×2 (09:54→20:13)
[2017-10-01] MEDS: rifAXIMin 550 MG Tablet PO SCH ×2 (09:54→20:13)
[2017-10-01] MEDS: Furosemide 40 MG Tablet PO SCH (09:54)
[2017-10-01] MEDS: Propranolol 10 MG Tablet PO SCH (09:54)
--- NOTE | 2017-10-01 10:09 | P.PNGS ---
<ForrestMeghan - Last Filed: 10/01/17 10:07> Subjective Interval history: Reports she feels better today; would like to try to eat Physical Exam Vital signs: Vital Signs 09/30/17 12:00 09/30/17 16:49 09/30/17 20:00 Temperature 98.3 F 98.0 F Pulse Rate 52 L 65 Respiratory Rate 18 18 Blood Pressure 147/66 H 147/67 H Pulse Oximetry 92 L 92 L 90 L 10/01/17 00:00 10/01/17 08:00 Temperature 98.3 F 98.0 F Pulse Rate 79 66 Respiratory Rate 19 17 Blood Pressure 103/53 L 109/56 L Pulse Oximetry 90 L 94 L Intake & Output 09/30/17 10/01/17 10/01/17 18:59 06:59 18:59 Intake Total 1000 / 1000 1600 / 1600 Balance 1000 / 1000 1600 / 1600 Weight 65.3 kg Intake: IV 1000 / 1000 1000 / 1000 NS Inj 1,000 ML @ 100 mls/hr IV 1000 / 1000 1000 / 1000 .CONT .Q10H [facility] Rx#:[id number] Oral 600 / 600 Other: # Voids 2 # Bowel Movements 1 Narrative: Alert and awake Cardio: RRR Resp: CTAB Abd: soft; minimally tender to palpation Assessment and Plan - Assessment (1) Intractable abdominal pain Code(s): R10.9 - Unspecified abdominal pain Status: Acute Plan: 67 year old female with recurrent abdominal pain; ascites -Diet as tolerated -Unlikely SBO; favor ileus appears to have improved -OOB and mobilize as tolerated -Continue non operative treatment <Kev Lozada - Last Filed: 10/01/17 14:06> Subjective Interval history: CONSULTATION NOTE FOR SURGICAL ATTENDING, DR. KEV LOZADA Physical Exam Vital signs: Vital Signs 09/30/17 16:49 09/30/17 20:00 10/01/17 00:00 Temperature 98.0 F 98.3 F Pulse Rate 65 79 Respiratory Rate 18 19 Blood Pressure 147/67 H 103/53 L Pulse Oximetry 92 L 90 L 90 L 10/01/17 08:00 10/01/17 11:29 Temperature 98.0 F Pulse Rate 66 Respiratory Rate 17 Blood Pressure 109/56 L Pulse Oximetry 94 L 94 L Intake & Output 09/30/17 10/01/17 10/01/17 18:59 06:59 18:59 Intake Total 1000 / 1000 1600 / 1600 Balance 1000 / 1000 1600 / 1600 Weight 65.3 kg Intake: IV 1000 / 1000 1000 / 1000 NS Inj 1,000 ML @ 100 mls/hr IV 1000 / 1000 1000 / 1000 .CONT .Q10H [facility] Rx#:[id number] Oral 600 / 600 Other: # Voids 2 Date of Last Bowel Movement 09/30/17 # Bowel Movements 1 Assessment and Plan - Assessment (1) Intractable abdominal pain Code(s): R10.9 - Unspecified abdominal pain Status: Acute - Attending Attestation NOTE FOR SURGICAL ATTENDING, DR. KEV LOZADA I agree with above assessment and plan. The exam, history, and the medical decision-making described in the above note were completed with the assistance of the mid-level provider. I reviewed and agree with the findings presented. I attest that I had a [id number] encounter with the patient on the same day, and personally performed and documented my assessment and findings in the medical record. The following services were provided during this hospital visit: Chart data review, vital sign assessments/reviewing monitor data Review of consultations notes if present. Medication orders/review and/or management Ordering and/or reviewing lab tests Ordering and/or interpreting/reviewing x-rays and/or diagnostic studies Care of the patient and discussion of the patient with the care team Documentation time To help prompt me to consider important information that might be impacting today's encounter and assessment, Information from prior notes written by myself or my colleagues may have been "brought forward/copy and pasted" into today's note.
[2017-10-01] MEDS: Ketorolac Inj 30 MG/ML (IVP) Vial IV.PUSH PRN ×2 (14:02→23:00)
--- NOTE | 2017-10-01 14:14 | P.PNIM ---
Subjective Interval history: FU abdominal pain. Patient states she feels a little better today. Some nausea but no vomiting. Physical Exam Vital signs: Vital Signs 09/30/17 16:49 09/30/17 20:00 10/01/17 00:00 Temperature 98.0 F 98.3 F Pulse Rate 65 79 Respiratory Rate 18 19 Blood Pressure 147/67 H 103/53 L Pulse Oximetry 92 L 90 L 90 L 10/01/17 08:00 10/01/17 11:29 Temperature 98.0 F Pulse Rate 66 Respiratory Rate 17 Blood Pressure 109/56 L Pulse Oximetry 94 L 94 L Intake & Output 09/30/17 10/01/17 10/01/17 18:59 06:59 18:59 Intake Total 1000 / 1000 1600 / 1600 Balance 1000 / 1000 1600 / 1600 Weight 65.3 kg Intake: IV 1000 / 1000 1000 / 1000 NS Inj 1,000 ML @ 100 mls/hr IV 1000 / 1000 1000 / 1000 .CONT .Q10H [facility] Rx#:[id number] Oral 600 / 600 Other: # Voids 2 Date of Last Bowel Movement 09/30/17 # Bowel Movements 1 Narrative: GENERAL: This is a well-nourished, well-developed patient, in no apparent distress. CARDIOVASCULAR: Regular rate and rhythm RESPIRATORY: Clear to auscultation. Breath sounds equal bilaterally. No wheezes , rales, or rhonchi. GASTROINTESTINAL: Abdomen soft, generalized tenderness, no rebound guarding, nondistended. Hypoactive bowel sounds MUSCULOSKELETAL: Extremities without clubbing, cyanosis, or edema. NEURO: Alert & Oriented x4 to person, place, time, situation. Moves all ext x4 Results - Labs CBC & Chem 7: 09/29/17 07:20 09/29/17 07:20 Microbiology 09/28/17 09:10 Blood - Peripheral Aerobic Blood Culture - Preliminary No growth in 3 days 09/28/17 09:10 Blood - Peripheral Anaerobic Blood Culture - Preliminary No growth in 3 days 09/28/17 09:10 Blood - Peripheral Aerobic Blood Culture - Preliminary No growth in 3 days 09/28/17 09:10 Blood - Peripheral Anaerobic Blood Culture - Preliminary No growth in 3 days - Imaging Impressions Small Bowel X-Ray 09/30/17 00:00 CONCLUSION: 1. Suboptimal examination. The patient terminated the study prematurely and refused additional imaging at 45 minutes. 2. Abnormal duodenum and jejunum with diffuse fold thickening which is nonspecific. 3. No evidence of obstruction. Contrast is noted in colon at 45 minutes. The distal and terminal ileum were not well visualized or evaluated on this exam. Assessment and Plan - Assessment (1) Intractable abdominal pain Code(s): R10.9 - Unspecified abdominal pain Status: Acute - Plan 67 year old female with history of cirrhosis, gastroparesis, unspecific autoimmune disorder admitted 09/21 for intractable abdominal found with suspected ileus vs partial SBO. Abdominal pain - partial SBO vs. ileus -Improved today compared to yesterday, Currently on full liquid, advance as tolerated - CT A/P showing interval wall thickening and mild distention of multiple loops of proximal small bowel with decompressed distal small bowel. No focal transition point, obstructing mass, or lesion. Small volume ascites and liver cirrhosis - EGD/colonoscopy 09/22 showing esophagitis, erythematous gastritis, portal hypertensive gastropathy, and diffuse, circumferential, edematous abnormal mucosa throughout the entire colon - KUB on 09/29 unremarkable - Antiemetics - Pain control - IV fluids - ADAT - General surgery was consulted on admission, states likely ileus, cont non operative treatment. - small bowel follow-through shows no obstruction. - Antiemetics as needed Liver cirrhosis - With associated coagulopathy and hypoalbuminemia - Hepatitis profile positive for HCV last admission - CT from prior admission with large volume ascites s/p paracentesis 09/24 with - 1.9L - CT this admission as above - Continue Aldactone and Lasix - Continue rifaximin and lactulose Gastritis - Continue PPI Asthma - Currently finishing prednisone therapy for recent asthma exacerbation - Lungs clear on exam - Supplemental O2 - Bronchodilators - Incentive spirometer DVT prophylaxis: SCDs, avoid chemical anticoagulation given hepatic coagulopathy Discharge: Patient's can not care for patient at home, she will require LTC Discussed 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
--- NOTE | 2017-10-01 16:54 | P.PNPAL ---
Reason for Visit Reason for visit: a. To assist with evaluation and management of symptoms including:Nausea/ Vomiting, debility b. To assist medical decision maker(s) with: better understanding of current medical conditions; weighing benefits/burdens of medical treatment options; making medical treatment decisions. Subjective Subjective/Interval History: Follow up medically necessary for symptom management and further clarification of goals of care. Patient seen and examined in her room. Patient is sitting up in a chair, awake, more alert than she was today. Patient denies pain and nausea. Reports that she has had a bowel movement. Pain managed with Tramadol 15mg IVP Q 6 hrs and had needed x2 prn doses in the past 24 hrs. Nausea is managed with Metoclopramide 5mg IVP and has needed x4 prn doses in the past 24hrs- last dose given at 0619hrs. Small bowel follow through showed no obstruction. Vital signs currently stable. Noted patient refused most of her scheduled medications today including Levothyroxine. Readdressed code status with patient, discussed CPR limitations, benefits and complications. Patient states that she would not want to be resuscitated or put on life support. Patient elected DNR/DNI. She does not want to be kept alive on machines. Patient states that she has a niece who works for hospice and has discussed completing 5 wishes with her. Patient states that she has been on hospice before and was discharged. She is interested in trying rehabilitation first and if she fails, she is willing to transition to comfort care only through hospice services. She agreed to having an informative hospice consult. Assisted patient with completing [facility] DNR. Per case management, patient has been accepted back at [facility] upon hospital discharge. Telephone conversation with patient`s spouse Jus Melchor. Updated him on patient`s current medical status and conversation regarding code status, and informative hospice consult. Family/Friend Interactions: No family at bedside. Advance Directives Living Will: Never completed Health Care Surrogate: Never completed Durable Power of Investigation Division Lieutenant: Never completed Objective Vital Signs: Vital Signs 09/30/17 16:49 09/30/17 20:00 10/01/17 00:00 Temperature 98.0 F 98.3 F Pulse Rate 65 79 Respiratory Rate 18 19 Blood Pressure 147/67 H 103/53 L Pulse Oximetry 92 L 90 L 90 L 10/01/17 08:00 10/01/17 11:29 Temperature 98.0 F Pulse Rate 66 Respiratory Rate 17 Blood Pressure 109/56 L Pulse Oximetry 94 L 94 L Intake & Output 09/30/17 10/01/17 10/01/17 18:59 06:59 18:59 Intake Total 1000 / 1000 1600 / 1600 Balance 1000 / 1000 1600 / 1600 Weight 65.3 kg Intake: IV 1000 / 1000 1000 / 1000 NS Inj 1,000 ML @ 100 mls/hr IV 1000 / 1000 1000 / 1000 .CONT .Q10H [facility] Rx#:[id number] Oral 600 / 600 Other: # Voids 2 Date of Last Bowel Movement 09/30/17 # Bowel Movements 1 Physical Exam: CONSTITUTIONAL/GENERAL: This is an thin elderly patient, in no apparent distress. TUBES/LINES/DRAINS: PIV SKIN: No jaundice, rashes, or lesions. Ecchymoses on upper extremities. No wounds seen anteriorly. Skin temperature appropriate. Not diaphoretic. EYES: Pupils equal and round and reactive. Extraocular motions intact. No scleral icterus. No injection or drainage. Fundi not examined. ENT: Hearing grossly normal. Nose without bleeding or purulent drainage. Moist oral mucosa CARDIOVASCULAR: Regular rate and rhythm without murmurs, gallops, or rubs. No JVD. Peripheral pulses symmetric. RESPIRATORY/CHEST: Symmetric, unlabored respirations. Clear to auscultation. Breath sounds equal bilaterally. No wheezes, rales, or rhonchi. GASTROINTESTINAL: Abdomen soft, non-tender, nondistended. No hepato-splenomegaly , or palpable masses. No guarding. Bowel sounds present. GENITOURINARY: Without palpable bladder distension. MUSCULOSKELETAL: Extremities without clubbing, cyanosis, or edema. No joint tenderness or effusion noted. No calf tenderness. No mottling or clubbing. NEUROLOGICAL: Awake, alert, oriented to self, place and situation. Follows commands with all 4 extremities. PSYCHIATRIC: No obvious anxiety/depression. no apparent hallucinations or other psychotic thought process. Diagnostic Tests Laboratory: Laboratory Results - last 72 hr 09/28/17 09/29/17 09/29/17 15:40 07:20 07:20 WBC 6.4 RBC 3.28 L Hgb 10.2 L D Hct 30.2 L MCV 92.1 MCH 31.1 MCHC 33.8 RDW 19.3 H Plt Count 77 L D MPV 8.8 Prelim Diff (Auto) Slide review pending Neut % (Auto) 72.9 H Lymph % (Auto) 12.9 [place] % (Auto) 11.6 H Eos % (Auto) 2.4 Baso % (Auto) 0.2 Neut # (Auto) 4.7 Lymph # (Auto) 0.8 L [place] # (Auto) 0.7 Eos # (Auto) 0.2 Baso # (Auto) 0.0 WBC Differential . Diff Scan Auto diff confirmed Differential Comment . Platelet Estimate Low L Platelet Morphology Normal Ovalocytes 1+ H Acanthocytes (Spur) Occ H Keratocytes Occ H Sodium 143 Potassium 4.0 Chloride 108 H Carbon Dioxide 26.1 Anion Gap 9 BUN 19 H Creatinine 0.76 Estimated GFR 76 L Random Glucose 64 L Lactic Acid 1.8 Calcium 7.2 L* D Prot Corrected Calcium 8.4 L Total Bilirubin 1.3 H AST 54 H ALT 28 Alkaline Phosphatase 129 H Total Protein 4.9 L D Albumin 1.5 L Result Diagrams: 10/03/17 03:32 10/04/17 06:20 Microbiology: Microbiology 09/28/17 09:10 Aerobic Blood Culture - Preliminary Blood - Peripheral No growth in 3 days Anaerobic Blood Culture - Preliminary No growth in 3 days 09/28/17 09:10 Aerobic Blood Culture - Preliminary Blood - Peripheral No growth in 3 days Anaerobic Blood Culture - Preliminary No growth in 3 days Imaging: Abdomen/Pelvis CT 09/28/17 10:14 CONCLUSION: 1. Study is degraded by breathing motion artifact. 2. Interval wall thickening and mild distention of multiple loops of proximal small bowel with decompressed distal small bowel. No focal transition point, obstructing mass, or lesion. 3. Small volume ascites. 4. Cirrhosis. Abdomen X-Ray 09/29/17 00:00 CONCLUSION: No acute findings. Small Bowel X-Ray 09/30/17 00:00 CONCLUSION: 1. Suboptimal examination. The patient terminated the study prematurely and refused additional imaging at 45 minutes. 2. Abnormal duodenum and jejunum with diffuse fold thickening which is nonspecific. 3. No evidence of obstruction. Contrast is noted in colon at 45 minutes. The distal and terminal ileum were not well visualized or evaluated on this exam. Assessment and Plan - Symptom Scale (1) Nausea and vomiting 0-10 Scale: Unable to quantify (2) Pain 0-10 Scale: 1 Pertinent Non-Medical Issues: Psychosocial: Patient was born in [place]. 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 She moved back to [place] 10 years ago when she fell sick and filed for disability. She has been 5 times, 4 times and has been to her current Ruiz Luu for 4 years. According to patient had left him and went to live with her daughter 6 weeks ago and had asked for a divorce but came back after she was hospitalized in [place], [place] for rehabilitation at [facility] close to him. Patient had 2 children, one son who is and one daughter Zoila Aguilar. Her son from liver cirrhosis. Spiritual: Patient is Orthodoxy Legal: Never completed advanced directives Ethical issues impacting care: None identified at this time Important Contacts: Spouse-Ruiz Luu ([phone]) Prognosis: Mrs Luu is a 67 years old with a past medical history significant for liver cirrhosis, recurrent ascites, esophageal varices, hepatitis C, gastroparesis, asthma, hypothyroidism, mild dementia and unspecified immunity deficiency. Patient presented to the ER on 09/28/17 complaining of severe abdominal pain, nausea and vomiting. Patient was recently hospitalized from 09/21-09/27 for recurrent ascites, and radiology findings of a small bowel obstruction. Clinical course complicated with persistent abdominal pain and nausea. Given current multiple comorbidities and multiple hospitalizations, patient remains at risk for further complications, deterioration and decline. Code Status: No Code DNR Plan: PLAN: Legal decision maker: Patient is able to participate in medical decision making. According to [place] statute, in the event that patient is incapacitated to make her own medical decisions, he Ruiz uLu will serve as her healthcare proxy. Goals: Aggressive short of no code. Readdressed code status with patient, discussed CPR limitations, benefits and complications. Patient elected DNR/ DNI.Patient states that she has been on hospice before and was discharged. She is interested in trying rehabilitation first and if she fails, she is willing to transition to comfort care only through hospice services. She agreed to having an informative hospice consult. Assisted patient with completing [facility] DNR. CODE STATUS: No code DNR/DNI- [place] DNR signed. SYMPTOMS: * Nausea and vomiting: Patient has history of liver cirrhosis, gastritis and recurrent ascites. Came in complaining of nausea and vomiting. Patient still having nausea with no episodes of vomiting. Nausea being managed with metoclopramide 5mg IVP. Continue to monitor. * Anxiety: Patient has been refusing to go for diagnostic testing. Patient is on alprazolam 1 mg po bid prn. Continue to monitor. * Pain: Patient has history of liver cirrhosis, gastritis and recurrent ascites. Came in complaining of intractable abdominal pain. Patient is on 15 mg IV push Toradol every 6 hrs prn. Has needed x2 doses in the past 24hrs. Palliative care will continue to follow the patient during hospital course as condition evolves, to assist patient/decision-maker with understanding of their medical conditions, weighing benefits/burdens of treatment options, for clarification of goals of treatment. Additionally will assist with any symptoms of palliative concern. Attestation Collaborating MD Comments: Chart reviewed. Case discussed with palliative care MANAGEMENT TECH. Above MANAGEMENT TECH note reviewed and I concur. .
[2017-10-02] MEDS: Sod Chloride 0.9% Inj 1,000 ML IV.CONT SCH ×2 (02:02→11:56)
[2017-10-02] MEDS: Levothyroxine 125 MCG Tablet PO SCH (06:47)
[2017-10-02] MEDS: Senna/Docusate Sodium 8.6/50 MG Tablet PO SCH ×2 (08:16→22:58)
[2017-10-02] MEDS: Propranolol 10 MG Tablet PO SCH (08:16)
[2017-10-02] MEDS: rifAXIMin 550 MG Tablet PO SCH ×2 (08:16→21:11)
[2017-10-02] MEDS: Furosemide 40 MG Tablet PO SCH (08:16)
[2017-10-02] MEDS: predniSONE 20 MG Tablet PO SCH (08:17)
--- NOTE | 2017-10-02 13:17 | P.PNGS ---
<Meghan Clayton - Last Filed: 10/02/17 13:16> Subjective Interval history: Resting in bed; no complaints; continues to have low appetite Physical Exam Vital signs: Vital Signs 10/01/17 20:00 10/02/17 00:00 10/02/17 08:00 Temperature 98.4 F 98.3 F 98.3 F Pulse Rate 56 L 58 L 63 Respiratory Rate 16 22 17 Blood Pressure 116/58 L 103/58 L 151/70 H Pulse Oximetry 96 92 L 96 10/02/17 09:59 10/02/17 12:00 Temperature 98.6 F Pulse Rate 66 Respiratory Rate 17 Blood Pressure 116/56 L Pulse Oximetry 96 96 Intake & Output 10/01/17 10/02/17 10/02/17 18:59 06:59 18:59 Intake Total 1000 / 1000 1120 / 1120 1000 / 1000 Balance 1000 / 1000 1120 / 1120 1000 / 1000 Weight 69.2 kg Intake: IV 1000 / 1000 1000 / 1000 1000 / 1000 NS Inj 1,000 ML @ 100 mls/hr IV 1000 / 1000 1000 / 1000 1000 / 1000 .CONT .Q10H [facility] Rx#:[id number] Oral 120 / 120 Other: # Voids 1 Date of Last Bowel Movement 09/30/17 10/01/17 10/01/17 Narrative: Alert and awake Cardio: RRR Resp: CTAB Abd: soft non tender Assessment and Plan - Assessment (1) Intractable abdominal pain Code(s): R10.9 - Unspecified abdominal pain Status: Acute Plan: 67 year old female with recurrent abdominal pain; ascites -Diet as tolerated -Unlikely SBO; favor ileus appears to have improved -OOB and mobilize as tolerated -Continue non operative treatment -General Surgery will sign off; please call if any questions <Jerson Lozada - Last Filed: 10/02/17 15:34> Subjective Interval history: DAILY PROGRESS NOTE FOR SURGICAL ATTENDING, DR. JERSON LOZADA Physical Exam Vital signs: Vital Signs 10/01/17 20:00 10/02/17 00:00 10/02/17 08:00 Temperature 98.4 F 98.3 F 98.3 F Pulse Rate 56 L 58 L 63 Respiratory Rate 16 22 17 Blood Pressure 116/58 L 103/58 L 151/70 H Pulse Oximetry 96 92 L 96 10/02/17 09:59 10/02/17 12:00 Temperature 98.6 F Pulse Rate 66 Respiratory Rate 17 Blood Pressure 116/56 L Pulse Oximetry 96 96 Intake & Output 10/01/17 10/02/17 10/02/17 18:59 06:59 18:59 Intake Total 1000 / 1000 1120 / 1120 1000 / 1000 Balance 1000 / 1000 1120 / 1120 1000 / 1000 Weight 69.2 kg Intake: IV 1000 / 1000 1000 / 1000 1000 / 1000 NS Inj 1,000 ML @ 100 mls/hr IV 1000 / 1000 1000 / 1000 1000 / 1000 .CONT .Q10H [facility] Rx#:[id number] Oral 120 / 120 Other: # Voids 1 Date of Last Bowel Movement 09/30/17 10/01/17 10/01/17 Assessment and Plan - Assessment (1) Intractable abdominal pain Code(s): R10.9 - Unspecified abdominal pain Status: Acute - Attending Attestation NOTE FOR SURGICAL ATTENDING, DR. JERSON LOZADA I agree with above assessment and plan. The exam, history, and the medical decision-making described in the above note were completed with the assistance of the mid-level provider. I reviewed and agree with the findings presented. The following services were provided during this hospital visit: Chart data review, vital sign assessments/reviewing monitor data Review of consultations notes if present. Medication orders/review and/or management Ordering and/or reviewing lab tests Ordering and/or interpreting/reviewing x-rays and/or diagnostic studies Care of the patient and discussion of the patient with the care team Documentation time To help prompt me to consider important information that might be impacting today's encounter and assessment, Information from prior notes written by myself or my colleagues may have been "brought forward/copy and pasted" into today's note.
--- NOTE | 2017-10-02 16:40 | P.PN ---
Subjective Interval history: Patient seen earlier today around 9AM Follow up: partial SBO vs ileus, liver cirrhosis, and gastritis Patient reports vomiting after PO intake last night patient also reports liquid BM last night x 3 Physical Exam Vital signs: Vital Signs 10/01/17 20:00 10/02/17 00:00 10/02/17 08:00 Temperature 98.4 F 98.3 F 98.3 F Pulse Rate 56 L 58 L 63 Respiratory Rate 16 22 17 Blood Pressure 116/58 L 103/58 L 151/70 H Pulse Oximetry 96 92 L 96 10/02/17 09:59 10/02/17 12:00 10/02/17 16:00 Temperature 98.6 F 98.7 F Pulse Rate 66 60 Respiratory Rate 17 17 Blood Pressure 116/56 L 123/60 Pulse Oximetry 96 96 95 Intake & Output 10/01/17 10/02/17 10/02/17 18:59 06:59 18:59 Intake Total 1000 / 1000 1120 / 1120 1000 / 1000 Balance 1000 / 1000 1120 / 1120 1000 / 1000 Weight 69.2 kg Intake: IV 1000 / 1000 1000 / 1000 1000 / 1000 NS Inj 1,000 ML @ 100 mls/hr IV 1000 / 1000 1000 / 1000 1000 / 1000 .CONT .Q10H DEMETRIS Rx#:[id number] Oral 120 / 120 Other: # Voids 1 Date of Last Bowel Movement 09/30/17 10/01/17 10/01/17 Narrative: GENERAL: This is a well-nourished, well-developed patient, in no apparent distress. CARDIOVASCULAR: Regular rate and rhythm RESPIRATORY: Clear to auscultation. Breath sounds equal bilaterally. GASTROINTESTINAL: Abdomen soft, generalized tenderness, no rebound guarding, nondistended. Hypoactive bowel sounds MUSCULOSKELETAL: Extremities without clubbing, cyanosis, or edema. NEURO: Alert & Oriented x4 to person, place, time, situation. Moves all ext x4 Results - Labs CBC & Chem 7: 09/29/17 07:20 09/29/17 07:20 Microbiology 09/28/17 09:10 Blood - Peripheral Aerobic Blood Culture - Preliminary No growth in 4 days 09/28/17 09:10 Blood - Peripheral Anaerobic Blood Culture - Preliminary No growth in 4 days 09/28/17 09:10 Blood - Peripheral Aerobic Blood Culture - Preliminary No growth in 4 days 09/28/17 09:10 Blood - Peripheral Anaerobic Blood Culture - Preliminary No growth in 4 days Assessment and Plan - Plan 67 year old female with history of cirrhosis, gastroparesis, unspecific autoimmune disorder admitted 09/21 for intractable abdominal found with suspected ileus vs partial SBO. Abdominal pain - partial SBO vs. ileus -Improved today compared to yesterday, Currently on full liquid, advance as tolerated - CT A/P showing interval wall thickening and mild distention of multiple loops of proximal small bowel with decompressed distal small bowel. No focal transition point, obstructing mass, or lesion. Small volume ascites and liver cirrhosis - EGD/colonoscopy 09/22 showing esophagitis, erythematous gastritis, portal hypertensive gastropathy, and diffuse, circumferential, edematous abnormal mucosa throughout the entire colon - KUB on 09/29 unremarkable - Antiemetics - Pain control - IV fluids - continue clear liquid diet - General surgery was consulted on admission, states likely ileus, cont non operative treatment. - small bowel follow-through shows no obstruction. - Antiemetics as needed - repeat KUB in AM - stool for C diff Liver cirrhosis - With associated coagulopathy and hypoalbuminemia - Hepatitis profile positive for HCV last admission - CT from prior admission with large volume ascites s/p paracentesis 09/24 with - 1.9L - CT this admission as above - Continue Aldactone and Lasix - Continue rifaximin and lactulose - CBC and CMP in AM Gastritis - Continue PPI Asthma - Currently finishing prednisone therapy for recent asthma exacerbation - Lungs clear on exam - Supplemental O2 - Bronchodilators - Incentive spirometer DVT prophylaxis: SCDs, avoid chemical anticoagulation given hepatic coagulopathy Discharge: Patient's can not care for patient at home, she will require LTC Discussed Condition With: Patient, RN and supervising physician Dr. Andrews Discharge Planning: Patient accepted to Rehab, may be discharged if she tolerates diet.
[2017-10-03 04:18] LABS: Baso % (Auto) 0.2 % (0.0-2.0); Eos # (Auto) 0.1 th/mm3 (0.0-0.4); Eos % (Auto) 2.4 % (0.0-4.0); Hematocrit 31.9 % (35.0-46.0); Hemoglobin 11.1 gm/dL (11.6-15.3); Lymph # (Auto) 0.7 th/mm3 (1.0-4.8); Lymph % (Auto) 13.2 % (9.0-44.0); Mean Corpuscular HGB Conc 34.7 % (32.0-36.0); Mean Corpuscular Hemoglobin 31.8 pg (27.0-34.0); Mean Corpuscular Volume 91.7 fL (80.0-100.0); Mean Platelet Volume 8.9 fL (7.0-11.0); Mono # (Auto) 0.6 th/mm3 (0.0-0.9); Mono % (Auto) 10.9 % (0.0-8.0); Neut # (Auto) 3.8 th/mm3 (1.8-7.7); Neut % (Auto) 73.3 % (16.0-70.0); Platelet Count 60 th/mm3 (150-450); Red Blood Count 3.48 mil/mm3 (4.00-5.30); Red Cell Distribution Width 18.2 % (11.6-17.2); White Blood Count 5.2 th/mm3 (4.0-11.0)
[2017-10-03] MEDS: Sod Chloride 0.9% Inj 1,000 ML IV.CONT SCH ×3 (04:28→14:32)
[2017-10-03 04:47] LABS: Alanine Aminotransferase 28 U/L (10-53); Albumin 1.5 g/dL (3.4-5.0); Alkaline Phosphatase 127 U/L (45-117); Anion Gap 7 meq/L (5-15); Aspartate Aminotransferase 48 U/L (15-37); Blood Urea Nitrogen 15 mg/dL (7-18); Calcium 6.8 mg/dL (8.5-10.1); Carbon Dioxide 27.5 meq/L (21.0-32.0); Chloride 107 meq/L (98-107); Glomerular Filtration Rate Greater Than 89 mL/min (>89); Glucose,Random 91 mg/dL (74-106); Potassium 3.4 meq/L (3.5-5.1); Sodium 141 meq/L (136-145); Total Protein 4.8 g/dL (6.4-8.2)
[2017-10-03 05:41] LABS: Acanthocytes Occ; Ovalocytes 1+; Platelet Morphology Normal (Normal)
[2017-10-03] MEDS: Levothyroxine 125 MCG Tablet PO SCH (06:12)
--- NOTE | 2017-10-03 06:38 | XR ---
EXAM DATE: 10/03/2017 6:29 AM EDT AGE/SEX: 67 years / Female INDICATIONS: Ileus. CLINICAL DATA: This is the patient's subsequent encounter. Patient reports that signs and symptoms h ave been present for 1 week and indicates a pain score of 0/10. MEDICAL/SURGICAL HISTORY: . Gastroparesis. Hepatitis C. Cirrhosis. . Hysterectomy. Cholecyste ctomy. COMPARISON: [facility] [place], SMALL BOWEL W GASTROGRAFIN, 09/30/2017. [facility] [place], CT ABDOMEN & PELVIS W CONTRAST, 09/28. . FINDINGS: 2 portable supine frontal views of the abdomen demonstrate a nonobstructive bowel gas pattern. Bowel gas is a centralized in the abdomen and characteristic of ascites. Cholecystectomy clips are present . There is severe left hip joint osteoarthritis. CONCLUSION: A nonobstructive bowel gas pattern is present. However, there are features suggestive of ascites. Electronically signed by: Daniel Aguilera MD 10/03/2017 6:37 AM EDT
[2017-10-03] MEDS: Propranolol 10 MG Tablet PO SCH (09:27)
[2017-10-03] MEDS: Furosemide 40 MG Tablet PO SCH (09:28)
[2017-10-03] MEDS: Senna/Docusate Sodium 8.6/50 MG Tablet PO SCH ×2 (09:28→21:32)
[2017-10-03] MEDS: rifAXIMin 550 MG Tablet PO SCH ×2 (09:28→21:31)
--- NOTE | 2017-10-03 09:36 | P.PN ---
Subjective Interval history: Patient in Status post SBO versus Ileus, Liver cirrhosis and Gastritis, stable in her bedroom, asked for PT for evaluation, no complaint, she had multiple loose stools yesterday today no BM in am. Physical Exam Vital signs: Vital Signs 10/02/17 09:59 10/02/17 12:00 10/02/17 16:00 Temperature 98.6 F 98.7 F Pulse Rate 66 60 Respiratory Rate 17 17 Blood Pressure 116/56 L 123/60 Pulse Oximetry 96 96 95 10/02/17 17:43 10/02/17 20:00 10/03/17 00:00 Temperature 98.3 F 98.6 F Pulse Rate 46 L 59 L Respiratory Rate 20 18 Blood Pressure 142/65 H 92/51 L Pulse Oximetry 95 98 95 10/03/17 04:00 10/03/17 08:00 Temperature 98.3 F 99.1 F Pulse Rate 48 L 49 L Respiratory Rate 18 18 Blood Pressure 99/57 L 116/55 L Pulse Oximetry 100 98 Intake & Output 10/02/17 10/03/17 10/03/17 18:59 06:59 18:59 Intake Total 1580 / 1580 1320 / 1320 100 / 100 Balance 1580 / 1580 1320 / 1320 100 / 100 Weight 67.2 kg Intake: IV 1000 / 1000 1000 / 1000 NS Inj 1,000 ML @ 100 mls/hr IV 1000 / 1000 1000 / 1000 .CONT .Q10H DEMETRIS Rx#:[id number] Oral 580 / 580 320 / 320 Other 100 / 100 Other: # Voids 4 2 Date of Last Bowel Movement 10/01/17 10/01/17 # Bowel Movements 2 Narrative: GENERAL: This is a well-nourished, well-developed patient, in no apparent distress. CARDIOVASCULAR: Regular rate and rhythm RESPIRATORY: Clear to auscultation. Breath sounds equal bilaterally. GASTROINTESTINAL: Abdomen soft, generalized tenderness, no rebound guarding, nondistended. Hypoactive bowel sounds MUSCULOSKELETAL: Extremities without clubbing, cyanosis, or edema. NEURO: Alert & Oriented x4 to person, place, time, situation. Moves all ext x4 Results - Labs CBC & Chem 7: 10/03/17 03:32 10/03/17 03:32 Laboratory Results - last 24 hr 10/03/17 10/03/17 03:32 03:32 WBC 5.2 RBC 3.48 L Hgb 11.1 L Hct 31.9 L MCV 91.7 MCH 31.8 MCHC 34.7 RDW 18.2 H Plt Count 60 L MPV 8.9 Prelim Diff (Auto) Slide review pending Neut % (Auto) 73.3 H Lymph % (Auto) 13.2 Bath % (Auto) 10.9 H Eos % (Auto) 2.4 Baso % (Auto) 0.2 Neut # (Auto) 3.8 Lymph # (Auto) 0.7 L Bath # (Auto) 0.6 Eos # (Auto) 0.1 Baso # (Auto) 0.0 WBC Differential . Diff Scan Auto diff confirmed Differential Comment . Platelet Estimate Low L Platelet Morphology Normal Ovalocytes 1+ H Acanthocytes (Spur) Occ H Keratocytes Occ H Sodium 141 Potassium 3.4 L Chloride 107 Carbon Dioxide 27.5 Anion Gap 7 BUN 15 Creatinine 0.65 Estimated GFR Greater than 89 Random Glucose 91 Calcium 6.8 L* Prot Corrected Calcium 8.0 L Total Bilirubin 1.7 H AST 48 H ALT 28 Alkaline Phosphatase 127 H Total Protein 4.8 L Albumin 1.5 L Microbiology 09/28/17 09:10 Blood - Peripheral Aerobic Blood Culture - Preliminary No growth in 4 days 09/28/17 09:10 Blood - Peripheral Anaerobic Blood Culture - Preliminary No growth in 4 days 09/28/17 09:10 Blood - Peripheral Aerobic Blood Culture - Preliminary No growth in 4 days 09/28/17 09:10 Blood - Peripheral Anaerobic Blood Culture - Preliminary No growth in 4 days - Imaging Impressions Abdomen X-Ray 10/03/17 06:00 CONCLUSION: A nonobstructive bowel gas pattern is present. However, there are features suggestive of ascites. Assessment and Plan - Assessment (1) Intractable abdominal pain Code(s): R10.9 - Unspecified abdominal pain Status: Acute - Plan 67 year old female with history of cirrhosis, gastroparesis, unspecific autoimmune disorder admitted 09/21 for intractable abdominal found with suspected ileus vs partial SBO. Abdominal pain - partial SBO vs. ileus -Improved - CT A/P showing interval wall thickening and mild distention of multiple loops of proximal small bowel with decompressed distal small bowel. No focal transition point, obstructing mass, or lesion. Small volume ascites and liver cirrhosis - EGD/colonoscopy 09/22 showing esophagitis, erythematous gastritis, portal hypertensive gastropathy, and diffuse, circumferential, edematous abnormal mucosa throughout the entire colon - KUB on 09/29 unremarkable - Non operative as per general surgery, patient having multiple BMs. - small bowel follow-through shows no obstruction. Liver cirrhosis - With associated coagulopathy and hypoalbuminemia - Hepatitis profile positive for HCV last admission - CT from prior admission with large volume ascites s/p paracentesis 09/24 with - 1.9L - New KUB no obstruction. Gastritis - Continue PPI Asthma - Currently finishing prednisone therapy for recent asthma exacerbation - Lungs clear on exam - Supplemental O2 - Bronchodilators - Incentive spirometer Hypokalemia and Hypocalcemia replaced today and following. DVT prophylaxis: SCDs, avoid chemical anticoagulation given hepatic coagulopathy Code Status: DNR Discussed Condition With: patient and nurse. Discharge Planning: Patient's can not care for patient at home, she will require LTC
[2017-10-03] MEDS ORDERED: Calcium Chloride Inj 0.34 GM in Sodium Chlor 0.9% Inj 100 ML IV.SIG ONE (17:30)
[2017-10-04] MEDS: Sod Chloride 0.9% Inj 1,000 ML IV.CONT SCH ×2 (02:02→09:51)
[2017-10-04] MEDS: Levothyroxine 125 MCG Tablet PO SCH (06:05)
[2017-10-04 07:29] LABS: Anion Gap 7 meq/L (5-15); Blood Urea Nitrogen 13 mg/dL (7-18); Calcium 7.1 mg/dL (8.5-10.1); Carbon Dioxide 26.5 meq/L (21.0-32.0); Chloride 104 meq/L (98-107); Glomerular Filtration Rate Greater Than 89 mL/min (>89); Glucose,Random 82 mg/dL (74-106); Potassium 3.5 meq/L (3.5-5.1); Sodium 137 meq/L (136-145)
[2017-10-04 07:48] LABS: Total Protein 4.7 g/dL (6.4-8.2)
[2017-10-04 09:07] VITALS: RESP 18
[2017-10-04] MEDS: Propranolol 10 MG Tablet PO SCH (09:22)
[2017-10-04] MEDS: Senna/Docusate Sodium 8.6/50 MG Tablet PO SCH (09:23)
[2017-10-04] MEDS: rifAXIMin 550 MG Tablet PO SCH (09:23)
[2017-10-04] MEDS: Furosemide 40 MG Tablet PO SCH (09:23)
--- NOTE | 2017-10-04 10:51 | P.PN ---
Subjective Interval history: 67 YOWF with history of liver cirrhosis, recurrent ascites, and HCV presenting with severe abdominal pain and vomiting. Patient recently discharged yesterday after being admitted 09/21-09/27 for recurrent ascites. GI was consulted and patient underwent EGD showing esophagitis and gastritis. She was discharged in stable condition to the SNF yesterday where her states she was doing great and excited to start therapy. Her provides most of the history because patient somnolent from pain medications. He states the patient woke up this morning screaming in abdominal pain. She had multiple episodes of nonbloody , nonbilious emesis. Her states she was difficult to control because of how agitated and in pain she was. He is concerned because she has been in and out of the hospital so frequently lately. The patient responds with simple answers to my questions. States she is in a lot of pain. Pain is generalized and diffuse. She states she had some diarrhea this morning but since then no BM and no gas. She denies chest pain or shortness of breath but I did have to put 2L nasal cannula on her because her sats were 87% in the room. She was in no respiratory distress. Seen in her bedroom discussed with nurse stable for discharge to SNF today, no nausea, vomit or diarrhea. will go on Oxygen and Walker needed for ambulation. Physical Exam Vital signs: Vital Signs 10/03/17 12:00 10/03/17 15:39 10/03/17 16:00 Temperature 97.7 F 99.4 F Pulse Rate 52 L 52 L Respiratory Rate 20 18 Blood Pressure 121/56 L 105/58 L Pulse Oximetry 90 L 95 98 10/03/17 20:00 10/03/17 21:29 10/04/17 00:00 Temperature 98.0 F 99.5 F Pulse Rate 54 L 59 L Respiratory Rate 16 16 Blood Pressure 107/54 L 106/55 L Pulse Oximetry 96 96 94 L 10/04/17 08:00 10/04/17 08:20 Temperature 99 F Pulse Rate 55 L Respiratory Rate 18 Blood Pressure 105/51 L Pulse Oximetry 98 98 Intake & Output 10/03/17 10/04/17 10/04/17 18:59 06:59 18:59 Intake Total 100 / 100 0 / 0 Balance 100 / 100 0 / 0 Intake: Other 100 / 100 0 / 0 Other: # Voids 2 1 Date of Last Bowel Movement 10/03/17 Narrative: GENERAL: This is a well-nourished, well-developed patient, in no apparent distress. CARDIOVASCULAR: Regular rate and rhythm RESPIRATORY: Clear to auscultation. Breath sounds equal bilaterally. GASTROINTESTINAL: Abdomen soft, generalized tenderness, no rebound guarding, nondistended. Hypoactive bowel sounds MUSCULOSKELETAL: Extremities without clubbing, cyanosis, or edema. NEURO: Alert & Oriented x4 to person, place, time, situation. Moves all ext x4 Results - Labs CBC & Chem 7: 10/03/17 03:32 10/04/17 06:20 Laboratory Results - last 24 hr 10/03/17 10/04/17 17:45 06:20 Sodium 137 Potassium 3.5 Chloride 104 Carbon Dioxide 26.5 Anion Gap 7 BUN 13 Creatinine 0.57 Estimated GFR Greater than 89 Random Glucose 82 Calcium 7.1 L* Prot Corrected Calcium 8.4 L Ammonia 42 H Total Protein 4.7 L Microbiology 09/28/17 09:10 Blood - Peripheral Aerobic Blood Culture - Final No growth in 5 days 09/28/17 09:10 Blood - Peripheral Anaerobic Blood Culture - Final No growth in 5 days 09/28/17 09:10 Blood - Peripheral Aerobic Blood Culture - Final No growth in 5 days 09/28/17 09:10 Blood - Peripheral Anaerobic Blood Culture - Final No growth in 5 days Assessment and Plan - Assessment (1) Intractable abdominal pain Code(s): R10.9 - Unspecified abdominal pain Status: Acute - Plan 67 year old female with history of cirrhosis, gastroparesis, unspecific autoimmune disorder admitted 09/21 for intractable abdominal found with suspected ileus vs partial SBO. Abdominal pain - partial SBO vs. ileus -Improved - CT A/P showing interval wall thickening and mild distention of multiple loops of proximal small bowel with decompressed distal small bowel. No focal transition point, obstructing mass, or lesion. Small volume ascites and liver cirrhosis - EGD/colonoscopy 09/22 showing esophagitis, erythematous gastritis, portal hypertensive gastropathy, and diffuse, circumferential, edematous abnormal mucosa throughout the entire colon - KUB on 09/29 unremarkable - Non operative as per general surgery, patient having multiple BMs. - small bowel follow-through shows no obstruction. Liver cirrhosis - With associated coagulopathy and hypoalbuminemia - Hepatitis profile positive for HCV last admission - CT from prior admission with large volume ascites s/p paracentesis 09/24 with - 1.9L - New KUB no obstruction. Gastritis - Continue PPI Asthma - Currently finishing prednisone therapy for recent asthma exacerbation - Lungs clear on exam - Supplemental O2 - Bronchodilators - Incentive spirometer Hypokalemia and Hypocalcemia replaced today and following. DVT prophylaxis: SCDs, avoid chemical anticoagulation given hepatic coagulopathy Code Status: DNR Discussed Condition With: patient and nurse. Discharge Planning: Patient's can not care for patient at home, she will require LTC
--- NOTE | 2017-10-04 10:55 | P.DS ---
Date of admission: 09/28/17 12:50 Primary care physician: UNKNOWN Attending physician on discharge: Jose Pillai Anticipated date of discharge: 10/04/17 Brief History from admission: 67 YOWF with history of liver cirrhosis, recurrent ascites, and HCV presenting with severe abdominal pain and vomiting. Patient recently discharged yesterday after being admitted 09/21-09/27 for recurrent ascites. GI was consulted and patient underwent EGD showing esophagitis and gastritis. She was discharged in stable condition to the SNF yesterday where her states she was doing great and excited to start therapy. Her provides most of the history because patient somnolent from pain medications. He states the patient woke up this morning screaming in abdominal pain. She had multiple episodes of nonbloody , nonbilious emesis. Her states she was difficult to control because of how agitated and in pain she was. He is concerned because she has been in and out of the hospital so frequently lately. The patient responds with simple answers to my questions. States she is in a lot of pain. Pain is generalized and diffuse. She states she had some diarrhea this morning but since then no BM and no gas. She denies chest pain or shortness of breath but I did have to put 2L nasal cannula on her because her sats were 87% in the room. She was in no respiratory distress. DS: Diagnosis - Discharge Diagnosis (1) Intractable abdominal pain Status: Acute DS: Summary Hospital Course: 67 year old female with history of cirrhosis, gastroparesis, unspecific autoimmune disorder admitted 09/21 for intractable abdominal found with suspected ileus vs partial SBO. Abdominal pain - partial SBO vs. ileus -Improved - CT A/P showing interval wall thickening and mild distention of multiple loops of proximal small bowel with decompressed distal small bowel. No focal transition point, obstructing mass, or lesion. Small volume ascites and liver cirrhosis - EGD/colonoscopy 09/22 showing esophagitis, erythematous gastritis, portal hypertensive gastropathy, and diffuse, circumferential, edematous abnormal mucosa throughout the entire colon - KUB on 09/29 unremarkable - Non operative as per general surgery, patient having multiple BMs. - small bowel follow-through shows no obstruction. Liver cirrhosis - With associated coagulopathy and hypoalbuminemia - Hepatitis profile positive for HCV last admission - CT from prior admission with large volume ascites s/p paracentesis 09/24 with - 1.9L - New KUB no obstruction. Gastritis - Continue PPI Asthma - Currently finishing prednisone therapy for recent asthma exacerbation - Lungs clear on exam - Supplemental O2 - Bronchodilators - Incentive spirometer Hypokalemia and Hypocalcemia replaced today and following. DVT prophylaxis: SCDs, avoid chemical anticoagulation given hepatic coagulopathy Code Status: DNR Discussed Condition With: patient and nurse. Discharge Planning: Patient's can not care for patient at home, she will require LTC - Time Spent with Patient Total time spent providing and/or coordinating discharge services: Greater than 30 minutes Exam Vital signs: Vital Signs 10/03/17 12:00 10/03/17 15:39 10/03/17 16:00 Temperature 97.7 F 99.4 F Pulse Rate 52 L 52 L Respiratory Rate 20 18 Blood Pressure 121/56 L 105/58 L Pulse Oximetry 90 L 95 98 10/03/17 20:00 10/03/17 21:29 10/04/17 00:00 Temperature 98.0 F 99.5 F Pulse Rate 54 L 59 L Respiratory Rate 16 16 Blood Pressure 107/54 L 106/55 L Pulse Oximetry 96 96 94 L 10/04/17 08:00 10/04/17 08:20 Temperature 99 F Pulse Rate 55 L Respiratory Rate 18 Blood Pressure 105/51 L Pulse Oximetry 98 98 Intake & Output 10/03/17 10/04/17 10/04/17 18:59 06:59 18:59 Intake Total 100 / 100 0 / 0 Balance 100 / 100 0 / 0 Intake: Other 100 / 100 0 / 0 Other: # Voids 2 1 Date of Last Bowel Movement 10/03/17 Narrative: GENERAL: This is a well-nourished, well-developed patient, in no apparent distress. CARDIOVASCULAR: Regular rate and rhythm RESPIRATORY: Clear to auscultation. Breath sounds equal bilaterally. GASTROINTESTINAL: Abdomen soft, generalized tenderness, no rebound guarding, nondistended. Hypoactive bowel sounds MUSCULOSKELETAL: Extremities without clubbing, cyanosis, or edema. NEURO: Alert & Oriented x4 to person, place, time, situation. Moves all ext x4 Results Procedures completed during hospitalization: NONE Labs on day of discharge: Labs from last 24 hours 10/04/17 10/03/17 06:20 17:45 Sodium 137 Potassium 3.5 Chloride 104 Carbon Dioxide 26.5 Anion Gap 7 BUN 13 Creatinine 0.57 Estimated GFR Greater than 89 Random Glucose 82 Calcium 7.1 L* Prot Corrected Calcium 8.4 L Ammonia 42 H Total Protein 4.7 L - Impressions ITS Impressions Abdomen/Pelvis CT 09/28/17 10:14 CONCLUSION: 1. Study is degraded by breathing motion artifact. 2. Interval wall thickening and mild distention of multiple loops of proximal small bowel with decompressed distal small bowel. No focal transition point, obstructing mass, or lesion. 3. Small volume ascites. 4. Cirrhosis. Small Bowel X-Ray 09/30/17 00:00 CONCLUSION: 1. Suboptimal examination. The patient terminated the study prematurely and refused additional imaging at 45 minutes. 2. Abnormal duodenum and jejunum with diffuse fold thickening which is nonspecific. 3. No evidence of obstruction. Contrast is noted in colon at 45 minutes. The distal and terminal ileum were not well visualized or evaluated on this exam. Abdomen X-Ray 10/03/17 06:00 CONCLUSION: A nonobstructive bowel gas pattern is present. However, there are features suggestive of ascites. Discharge Plan - Discharge Disposition Patient Disposition: [facility] Inpatient - Discharge Condition Condition: Stable - Discharge Order Discharge Orders: Discharge Order (Routine); Ordered 10/04/17 Ordered By: Jose Pillai - Discharge Details Anticipated Discharge Date: 09/28/17 - Physicians Team Primary Care Provider: UNKNOWN, Attending Provider: Jose Pillai Other Providers: Jesus Noyola MD ; [facility],Agency
[2017-10-04 13:04] VITALS: BP 104/53; PULSE 50; TEMP 98.6; O2SAT 96
== END 2017-10-04 14:41 ==
LOC: N07 09:07 → NEPC 09:07 → NEDA 09:07 → N07 14:19
PROVIDERS: ADMIT Internal Medicine; ATTEND Internal Medicine
DX: E83.51 Hypocalcemia; Z90.710 Acquired absence of both cervix and uterus; E88.09 Other disorders of plasma-protein metabolism, not elsewhere classified; K20.9 Esophagitis, unspecified; K29.70 Gastritis, unspecified, without bleeding; B19.20 Unspecified viral hepatitis C without hepatic coma; D68.4 Acquired coagulation factor deficiency; Z66 Do not resuscitate; Z90.49 Acquired absence of other specified parts of digestive tract; K31.84 Gastroparesis; E87.6 Hypokalemia; Z98.1 Arthrodesis status; R18.8 Other ascites; J45.909 Unspecified asthma, uncomplicated; K74.60 Unspecified cirrhosis of liver; K56.609 Unspecified intestinal obstruction, unspecified as to partial versus complete obstruction; K76.6 Portal hypertension

== ENCOUNTER 2017-10-19 17:38 | Inpatient (IN) ==
--- NOTE | 2017-10-19 19:26 | ED ---
HPI General Chief complaint: Abdominal Pain Stated complaint: Med Clearance Time Seen by Provider: 10/19/17 19:02 Source: patient Limitations: no limitations History of Present Illness HPI narrative: The patient is a 67 year old female who presents to the [facility] emergency department with a history of Generalized abdominal pain that she reports is a pressure sensation with associated abdominal distention that is progressively worsened throughout the day today. She reports that she has had this in the past and been diagnosed with ascites related to cirrhosis. She reports that she was last treated with a paracentesis approximately a week and a half ago in the hospital. Patient is currently a resident at [facility]. The patient was sent for evaluation at this facility. She reports having some shortness of breath related to having difficulty taking a deep breath from her abdominal distention. She otherwise denies having any fevers, cough or congestion. She denies having any chest pain. She denies having any nausea or vomiting. She reports having some diarrhea, however she reports that this is chronic on the lactulose. She reports that she has been moving her bowels 3-4 times per day. She denies having any blood in her stool or black or tarry stools. The patient also reports having lower extremity edema that was slightly worse today. She reports that she has been taking her diuretics as prescribed. She denies having any dysuria or urinary urgency diuretic. Otherwise on review of systems, the patient denies having any neck pain, or neurologic symptoms. Related Data Home Medications Medication Instructions Recorded Confirmed fluorometholone 1 drp EACH EYE BID 08/22/17 10/19/17 levothyroxine 125 mcg PO DAILY 08/22/17 10/19/17 prednisolone acetate 1 drp LEFT EYE QID 08/22/17 10/19/17 lactulose 20 g PO BID 09/21/17 10/19/17 propranolol 10 mg PO DAILY 09/21/17 10/19/17 potassium chloride 20 meq PO DAILY 09/28/17 10/19/17 alprazolam [Xanax] 0.5 mg PO Q12HR PRN 10/19/17 10/19/17 calcium carbonate 500 mg PO BID 10/19/17 10/19/17 furosemide 40 mg PO BID 10/19/17 10/19/17 ibuprofen 600 mg PO Q8HR PRN 10/19/17 10/19/17 metoclopramide HCl [Reglan] 5 mg PO TID 10/19/17 10/19/17 mirtazapine [Remeron] 15 mg PO HS 10/19/17 10/19/17 ondansetron HCl 4 mg IM Q4H PRN 10/19/17 10/19/17 ondansetron HCl [Zofran] 4 mg PO Q4HR PRN 10/19/17 10/19/17 rifaximin 550 mg PO BID 10/19/17 10/19/17 Previous Rx's Medication Instructions Recorded pantoprazole 40 mg PO DAILY #30 tab 08/23/17 spironolactone 100 mg PO DAILY #30 tab 09/27/17 Allergies Allergy/AdvReac Type Severity Reaction Status Date / Time No Known Allergies Allergy Verified 09/28/17 10:47 Review of Systems ROS: all other systems reviewed are negative (Except for that which was mentioned in the HPI.) [facility] Medical History Medical History Ascites (Acute) Asthma (Acute) Esophageal varices (Acute) Gastroparesis (Acute) Hepatitis C (Acute) Hypertension (Acute) Hypothyroidism (Acute) Liver cirrhosis (Acute) Unspecified immunity deficiency (Acute) Surgical History Surgical History H/O abdominal hysterectomy (Acute) History of lumbar fusion (Acute) History of thyroidectomy (Acute) History of toe surgery (Acute) S/P cholecystectomy (Acute) S/P abdominal paracentesis (Resolved) Family History Family History Son Cirrhosis Sister Cirrhosis Social History Social History Substance History: No History of Abuse Second Hand Smoke Exposure: No Smoking Status: Never smoker How Often Do You Have a Drink Containing Alcohol: Never Recent Travel in [facility] within the Last 8 Weeks: No Recent Out of Country Travel within the Last 8 Weeks: No Immunization History Tetanus Immunization: <5 Years Hx Influenza Vaccine This Season: No Exam Const General: cooperative, no acute distress and well developed Nutritional Appearance: well nourished Orientation: alert, awake and oriented x3 HENMT Head: normocephalic and atraumatic Nose: no nasal discharge and no epistaxis Mouth: moist mucous membranes Throat: posterior oropharynx normal and uvula midline Eyes Sclera: normal sclerae Pupils: PERRL Neck Neck: no meningeal signs, trachea midline and no JVD Resp Effort & Inspection: no use of accessory muscles Auscultation: clear to auscultation bilaterally Cardio Rate: regular rate Rhythm: regular rhythm Heart Sounds: no murmurs GI Inspection: distended Palpation: soft (No specific point tenderness on palpation. No guarding or rigidity. Has a positive fluid wave to suggest ascites.) and no hepatosplenomegaly Back/Spine/Pelvis Back: CVA tenderness (Bilateral CVA tenderness is noted.) Skin General: dry skin (warm) Neuro General: alert and awake Cranial Nerves: other (No facial asymmetry. Grossly nonfocal.) Speech: speech normal Motor: no movement abnormalities noted Extrem General: normal to inspection, no clubbing, no cyanosis and edema Laterality: bilaterally Psych Mood: congruent mood Affect: normal affect Judgment: judgment good Course Consultations Consultation #1: The patient's case including history, pertinent physical examination findings, and laboratory studies were discussed with Dr. Mitchell. It was agreed that the patient would be admitted to the hospitalist service. Initial Documented Vital Signs Temperature 98.4 F 10/19/17 18:26 Pulse Rate 71 10/19/17 18:26 Respiratory Rate 15 10/19/17 18:26 Blood Pressure 104/61 10/19/17 18:26 Pulse Oximetry 97 10/19/17 18:26 Last Documented Vital Signs Temperature 98.4 F 10/19/17 18:26 Pulse Rate 71 10/19/17 18:26 Respiratory Rate 15 10/19/17 18:26 Blood Pressure 104/61 10/19/17 18:26 Pulse Oximetry 97 10/19/17 18:26 Medical Decision Making MDM Narrative Medical decision making narrative: During the course of the patient's emergency department visit, the patient's history, examination, and differential diagnosis were reviewed with the patient. The patient was placed on a ekg monitor tech with oximetry and frequent blood pressure monitoring. The patient had IV access obtained and blood work sent for analysis. Diagnostic evaluation was started regarding the patient's abdominal distention, pressure sensation. The patient has a history of cirrhosis with ascites and has last had a paracentesis approximately a week and half ago in the hospital. The patient's diagnostic evaluation is remarkable for her having a white count of 3.6 which is compared to her last white count of 5.6, platelets are 107, last were noted to be at 68, monocytosis at 12.6, hemoglobin is 11.4 which is stable compared to previous. PT 14, INR 1.4, PTT 28.9, chemistry is remarkable for a total protein 5.6, total bilirubin 1.6, GFR 25, creatinine 2 which is compared to her prior creatinine of 0.57 consistent with an acute kidney injury. Calcium is 7.9, AST 78, alk phos 193, albumin 1.7, lipase is within normal limits at 318. [facility]. The patient is noted to be on increased diuresis recently of Lasix 40 mg twice a day which has likely led to the acute kidney injury. The patient was given normal saline at 250 mL fluid bolus 1. The patient will be admitted for albumin administration , consideration of therapeutic paracentesis given her increased ascites. The patient's results were discussed with the patient, including the plan of care. I explained that further testing and/ or monitoring is indicated based on the patient's history, examination, and/ or laboratory findings. Therefore, I recommended admission for additional evaluation. The patient expressed understanding and was agreeable with this plan. The patient was admitted to the hospital in stable condition and sent to a bed under the care of [facility] service. Medical Screen Exam Complete: Yes Emergency Medical Condition: Yes Differential Diagnosis Differential Diagnosis: Recurrent ascites related to cirrhosis, versus spontaneous bacterial peritonitis, versus pulmonary edema. Medical Records Medical records reviewed: Yes I reviewed the patient's medical records. Lab Data Lab results reviewed: Yes I reviewed the patient's lab results. Result diagrams: 10/19/17 19:10 10/19/17 19:10 Lab Results 10/19/17 10/19/17 10/19/17 Range/Units 19:10 19:10 19:10 WBC 3.6 L (4.0-11.0) th/mm3 RBC 3.60 L (4.00-5.30) mil/mm3 Hgb 11.4 L (11.6-15.3) gm/dL Hct 34.1 L (35.0-46.0) % MCV 94.8 (80.0-100.0) fL MCH 31.8 (27.0-34.0) pg MCHC 33.5 (32.0-36.0) % RDW 20.5 H (11.6-17.2) % Plt Count 107 L D (150-450) th/mm3 MPV 8.8 (7.0-11.0) fL Neut % (Auto) 52.1 (16.0-70.0) % Lymph % (Auto) 30.7 (9.0-44.0) % Lyon % (Auto) 12.6 H (0.0-8.0) % Eos % (Auto) 3.9 (0.0-4.0) % Baso % (Auto) 0.7 (0.0-2.0) % Neut # (Auto) 1.9 (1.8-7.7) th/mm3 Lymph # (Auto) 1.1 (1.0-4.8) th/mm3 Lyon # (Auto) 0.5 (0.0-0.9) th/mm3 Eos # (Auto) 0.1 (0.0-0.4) th/mm3 Baso # (Auto) 0.0 (0.0-0.2) th/mm3 WBC Differential . Differential Comment Auto diff final PT 14.0 H (9.8-11.6) sec INR 1.4 Ratio APTT 28.9 (24.3-30.1) sec Sodium 138 (136-145) meq/L Potassium 4.8 (3.5-5.1) meq/L Chloride 105 (98-107) meq/L Carbon Dioxide 24.7 (21.0-32.0) meq/L Anion Gap 8 (5-15) meq/L BUN 18 (7-18) mg/dL Creatinine 2.00 H (0.50-1.00) mg/dL Estimated GFR 25 L (>89) mL/min Random Glucose 83 (74-106) mg/dL Calcium 7.9 L (8.5-10.1) mg/dL Total Bilirubin 1.6 H (0.2-1.0) mg/dL AST 78 H (15-37) U/L ALT 38 (10-53) U/L Alkaline Phosphatase 193 H (45-117) U/L Total Protein 5.6 L (6.4-8.2) g/dL Albumin 1.7 L (3.4-5.0) g/dL Lipase 318 (73-393) U/L Urine Color (Yellw/Straw) Urine Clarity (Clear) Urine pH (5.0-8.5) Ur Specific [place] (1.002-1.035) Urine Protein (Neg-Trace) mg/dL Urine Glucose (UA) (Negative) mg/dL Urine Ketones (Negative) mg/dL Urine Occult Blood (Negative) Urine Nitrate (Negative) Urine Bilirubin (Negative) Urine Urobilinogen (Less than 2) mg/dL Ur Leukocyte Esterase (Negative) Urine RBC (0-3) /hpf Urine WBC (0-5) /hpf Ur Squamous Epith Cells (0-5) /hpf Urine Bacteria (None) /hpf Hyaline Casts (0-3) /lpf Urine Mucus (Occasional) /lpf Micro UA Comment Ur Microscopic Review Urine Culture Comments 10/19/17 Range/Units 19:40 WBC (4.0-11.0) th/mm3 RBC (4.00-5.30) mil/mm3 Hgb (11.6-15.3) gm/dL Hct (35.0-46.0) % MCV (80.0-100.0) fL MCH (27.0-34.0) pg MCHC (32.0-36.0) % RDW (11.6-17.2) % Plt Count (150-450) th/mm3 MPV (7.0-11.0) fL Neut % (Auto) (16.0-70.0) % Lymph % (Auto) (9.0-44.0) % Lyon % (Auto) (0.0-8.0) % Eos % (Auto) (0.0-4.0) % Baso % (Auto) (0.0-2.0) % Neut # (Auto) (1.8-7.7) th/mm3 Lymph # (Auto) (1.0-4.8) th/mm3 Lyon # (Auto) (0.0-0.9) th/mm3 Eos # (Auto) (0.0-0.4) th/mm3 Baso # (Auto) (0.0-0.2) th/mm3 WBC Differential Differential Comment PT (9.8-11.6) sec INR Ratio APTT (24.3-30.1) sec Sodium (136-145) meq/L Potassium (3.5-5.1) meq/L Chloride (98-107) meq/L Carbon Dioxide (21.0-32.0) meq/L Anion Gap (5-15) meq/L BUN (7-18) mg/dL Creatinine (0.50-1.00) mg/dL Estimated GFR (>89) mL/min Random Glucose (74-106) mg/dL Calcium (8.5-10.1) mg/dL Total Bilirubin (0.2-1.0) mg/dL AST (15-37) U/L ALT (10-53) U/L Alkaline Phosphatase (45-117) U/L Total Protein (6.4-8.2) g/dL Albumin (3.4-5.0) g/dL Lipase (73-393) U/L Urine Color Yellow (Yellw/Straw) Urine Clarity Clear (Clear) Urine pH 7.0 (5.0-8.5) Ur Specific [place] 1.006 (1.002-1.035) Urine Protein Negative (Neg-Trace) mg/dL Urine Glucose (UA) Negative (Negative) mg/dL Urine Ketones Negative (Negative) mg/dL Urine Occult Blood Negative (Negative) Urine Nitrate Negative (Negative) Urine Bilirubin Negative (Negative) Urine Urobilinogen Less than 2 (Less than 2) mg/dL Ur Leukocyte Esterase Small H (Negative) Urine RBC 1 (0-3) /hpf Urine WBC 6 H (0-5) /hpf Ur Squamous Epith Cells 3 (0-5) /hpf Urine Bacteria Rare H (None) /hpf Hyaline Casts 16 (0-3) /lpf Urine Mucus Few H (Occasional) /lpf Micro UA Comment Culture not ind Ur Microscopic Review Not Reportable Urine Culture Comments Culture not ind Imaging Data Radiologist's impression: Chest X-Ray 10/19/17 19:10 CONCLUSION: Right lower lobe atelectasis or consolidation. Stable areas of increased linear density seen in both lungs which could be small amounts of embolized packing material from prior vertebroplasty. This finding has been present on multiple prior exams and is stable. ECG Data Attestation: I personally reviewed and interpreted this ECG as follows: Interpretation: The patient had a EKG done on arrival that shows a sinus. No acute ST segment elevation. T waves are inverted in V1. Discharge Plan Discharge Disposition Patient Disposition: 30 Still Patient Discharge Details Diagnosis: Acute kidney injury, Ascites Physicians Team ED Provider: Heidy Angel Primary Care Provider: UNKNOWN, Attending Provider: Alfredo Mitchell Status ED Status: Admitted Patient
--- NOTE | 2017-10-19 19:29 | XR ---
EXAM DATE: 10/19/2017 7:22 PM EDT AGE/SEX: 67 years / Female INDICATIONS: Shortness of breath. CLINICAL DATA: This is the patient's initial encounter. Patient reports that signs and symptoms have been present for 1 day and indicates a pain score of 0/10. MEDICAL/SURGICAL HISTORY: . Gastroparesis. Hepatitis C. Cirrhosis. . Hysterectomy. Cholecyst ectomy. COMPARISON: C, CHEST 1V SINGLE AP, 09/24/2017. C, CHEST 1V SINGLE AP, 09/21/2017. C, [place]ST SINGLE AP, 08/22/2017[place] [facility] [place]AST, 09/28/2017. . FINDINGS: The heart size is normal. There is increased density at the right base. The left lung is free of foca l consolidation. There is linear high density material seen in the lungs bilaterally. This could be e mbolized material from the prior vertebroplasty. This finding has been present on multiple prior exam s. Patient is status post vertebroplasty at T8. Clips are seen in the right upper quadrant presumabl y from prior cholecystectomy. There is a focal area of sclerosis in the left humeral head which is no nspecific. It could be a bone island. CONCLUSION: Right lower lobe atelectasis or consolidation. Stable areas of increased linear density seen in both lungs which could be small amounts of embolized packing material from prior vertebroplasty. This finding has been present on multiple prior exams an d is stable. Electronically signed by: Daniel Quintero MD 10/19/2017 7:27 PM EDT
[2017-10-19 19:32] LABS: Baso % (Auto) 0.7 % (0.0-2.0); Eos # (Auto) 0.1 th/mm3 (0.0-0.4); Eos % (Auto) 3.9 % (0.0-4.0); Hematocrit 34.1 % (35.0-46.0); Hemoglobin 11.4 gm/dL (11.6-15.3); Lymph # (Auto) 1.1 th/mm3 (1.0-4.8); Lymph % (Auto) 30.7 % (9.0-44.0); Mean Corpuscular HGB Conc 33.5 % (32.0-36.0); Mean Corpuscular Hemoglobin 31.8 pg (27.0-34.0); Mean Corpuscular Volume 94.8 fL (80.0-100.0); Mean Platelet Volume 8.8 fL (7.0-11.0); Mono # (Auto) 0.5 th/mm3 (0.0-0.9); Mono % (Auto) 12.6 % (0.0-8.0); Neut # (Auto) 1.9 th/mm3 (1.8-7.7); Neut % (Auto) 52.1 % (16.0-70.0); Platelet Count 107 th/mm3 (150-450); Red Cell Distribution Width 20.5 % (11.6-17.2); White Blood Count 3.6 th/mm3 (4.0-11.0)
[2017-10-19 19:38] LABS: Activated Partial Thrombo Time 28.9 sec (24.3-30.1); INR 1.4 Ratio
[2017-10-19 19:44] LABS: Albumin 1.7 g/dL (3.4-5.0); Anion Gap 8 meq/L (5-15); Aspartate Aminotransferase 78 U/L (15-37); Blood Urea Nitrogen 18 mg/dL (7-18); Calcium 7.9 mg/dL (8.5-10.1); Carbon Dioxide 24.7 meq/L (21.0-32.0); Chloride 105 meq/L (98-107); Glomerular Filtration Rate 25 mL/min (>89); Glucose,Random 83 mg/dL (74-106); Lipase 318 U/L (73-393); Potassium 4.8 meq/L (3.5-5.1); Sodium 138 meq/L (136-145)
[2017-10-19 19:45] LABS: Alanine Aminotransferase 38 U/L (10-53)
[2017-10-19 19:47] LABS: Alkaline Phosphatase 193 U/L (45-117); Total Protein 5.6 g/dL (6.4-8.2)
[2017-10-19 20:06] LABS: Bacteria,Urine Rare /hpf; Bilirubin,Urine Negative (Negative); Clarity,Urine Clear (Clear); Color,Urine Yellow (Yellw/Straw); Glucose,Urine (UA) Negative (Negative); Hyaline Casts,Urine 16 /lpf (0-3); Leukocyte Esterase,Urine Small (Negative); Mucus,Urine Few /lpf (Occasional); Nitrite,Urine Negative (Negative); Specific Gravity,Urine 1.006 (1.002-1.035); Squamous Epithelial Cell,Urine 3 /hpf (0-5)
[2017-10-19] MEDS ORDERED: Sodium Chlor 0.9% Inj 250 ML IV.SIG ONE (20:36)
[2017-10-19] MEDS ORDERED: Albumin Human 25% Inj 100 ML IV.SIG SCH (20:54)
[2017-10-19] MEDS ORDERED: Bisacodyl 10 MG Supp RECTAL PRN (20:55)
[2017-10-19] MEDS ORDERED: Naloxone Inj 0.4 MG/ML Vial IV.PUSH PRN (23:37)
[2017-10-19] MEDS ORDERED: ALPRAZolam 0.5 MG Tablet PO PRN (23:51)
--- NOTE | 2017-10-19 23:54 | P.HPIM ---
History of Present Illness Primary Care Physician: UNKNOWN History of Present Illness: 67-year-old female with a history of cirrhosis, chronic ascites requiring paracentesis with most recent paracentesis 1 week ago, who presents with a one- week history of progressively worsening constant, dull, nonradiating diffuse abdominal pain, as well as shortness of breath which she reports is due to not being able to take deep breath due to abdominal distention. She denies any fevers, chills, chest pain, nausea, vomiting. She has 3-4 loose bowel movements a day and she is on lactulose. She says she needs a paracentesis. Patient says she would like this abdominal discomfort to be taking care of, however she has called hospice and would like to be set up with hospice. Inpatient Certification: I certify that the inpatient services were ordered in accordance with Medicare regulations governing the order. This includes certification that hospital inpatient services are reasonable and necessary and in the case of services not specified as inpatient-only under 42 CFR 419.22(n), that they are appropriately provided as inpatient services in accordance to with the 2-midnight benchmark under 43 CFR 412.3(e) Estimated Total Length of Stay (Days): 3 Plans for Post Hospital Care: SNF Review of Systems All other systems reviewed negative except as stated in HPI PMFSH - History History Provided By: Patient, Medical Record - Medical History Medical History: Medical History (Last Reviewed 10/19/17 @ 19:46 by Heidy Angel MD) Ascites Asthma Esophageal varices Gastroparesis Hepatitis C Hypertension Hypothyroidism Liver cirrhosis Unspecified immunity deficiency - Surgical History Surgical History: Surgical History (Last Reviewed 10/19/17 @ 19:46 by Heidy Angel MD) H/O abdominal hysterectomy History of lumbar fusion History of thyroidectomy History of toe surgery S/P cholecystectomy S/P abdominal paracentesis (Resolved) - Family History Family History: Family History (Last Reviewed 10/19/17 @ 19:46 by Heidy Angel MD) Son Cirrhosis Sister Cirrhosis - Tobacco History Second Hand Smoke Exposure: No Smoking Status: Never smoker - Alcohol History How Often Do You Have a Drink Containing Alcohol: Never - Substance Use History Substance History: No History of Abuse - Travel History Recent Travel in the [place] Within the Last 8 Weeks: No Recent Travel Out of the Country Within the Last 8 Weeks: No - Immunization History Tetanus Immunization: <5 Years Hx Influenza Vaccine This Season: No Medications and Allergies Active Medications: Active Medications Al Hydroxide/Mg Hydroxide (Milk Of Magnesia Liq) 30 ml PO Q12H PRN PRN Reason: Mild Constipation Bisacodyl (Dulcolax Supp) 10 mg RECTAL DAILY PRN PRN Reason: SEVERE CONSITIPATION Albumin Human (Flexbumin 25% Inj) 200 mls @ 60 mls/hr IV.SIG Q12H DEMETRIS Lactulose (Lactulose Liq) 30 ml PO DAILY PRN PRN Reason: SEVERE CONSITIPATION Naloxone HCl (Narcan Inj) 0.4 mg IV.PUSH UNSCH PRN PRN Reason: SEE LABEL COMMENTS Oxycodone HCl (Roxicodone) 5 mg PO Q4H PRN PRN Reason: PAIN SCALE 3 TO 5 Oxycodone HCl (Roxicodone) 7.5 mg PO Q4H PRN PRN Reason: PAIN SCALE 6 TO 10 Sennosides (Senokot) 17.2 mg PO Q12H PRN PRN Reason: Moderate Constipation Sodium Chloride (Ns Flush) 2 ml IV.FLUSH PRN PRN PRN Reason: FLUSH AFTER USING IV ACCESS Allergies Allergy/AdvReac Type Severity Reaction Status Date / Time No Known Allergies Allergy Verified 09/28/17 10:47 Home Medications Medication Instructions Recorded Confirmed Type fluorometholone 1 drp EACH EYE BID 08/22/17 10/19/17 History levothyroxine 125 mcg PO DAILY 08/22/17 10/19/17 History prednisolone acetate 1 drp LEFT EYE QID 08/22/17 10/19/17 History lactulose 20 g PO BID 09/21/17 10/19/17 History propranolol 10 mg PO DAILY 09/21/17 10/19/17 History potassium chloride 20 meq PO DAILY 09/28/17 10/19/17 History alprazolam [Xanax] 0.5 mg PO Q12HR PRN 10/19/17 10/19/17 History calcium carbonate 500 mg PO BID 10/19/17 10/19/17 History furosemide 40 mg PO BID 10/19/17 10/19/17 History ibuprofen 600 mg PO Q8HR PRN 10/19/17 10/19/17 History metoclopramide HCl [Reglan] 5 mg PO TID 10/19/17 10/19/17 History mirtazapine [Remeron] 15 mg PO HS 10/19/17 10/19/17 History ondansetron HCl 4 mg IM Q4H PRN 10/19/17 10/19/17 History ondansetron HCl [Zofran] 4 mg PO Q4HR PRN 10/19/17 10/19/17 History rifaximin 550 mg PO BID 10/19/17 10/19/17 History Exam Vital signs: Vital Signs 10/19/17 18:26 10/19/17 21:53 Temperature 98.4 F Pulse Rate 71 68 Respiratory Rate 15 18 Blood Pressure 104/61 106/76 Pulse Oximetry 97 94 L Intake & Output 10/19/17 10/19/17 10/20/17 06:59 18:59 06:59 Weight 61.235 kg Narrative: GENERAL: Patient sitting up in bed. Appears uncomfortable. Alert and oriented 3. SKIN: Warm and dry. HEAD: Atraumatic. Normocephalic. EYES: Pupils equal and round. No scleral icterus. No injection or drainage. ENT: No nasal bleeding or discharge. Mucous membranes pink and moist. NECK: Trachea midline. No JVD. CARDIOVASCULAR: Regular rate and rhythm. RESPIRATORY: No accessory muscle use. Clear to auscultation. Breath sounds equal bilaterally. GASTROINTESTINAL: Abdomen distended. Tender to palpation diffusely. Liver enlarged. No rebound or guarding. MUSCULOSKELETAL: Extremities without clubbing, cyanosis, or edema. No obvious deformities. NEUROLOGICAL: Awake and alert. No obvious cranial nerve deficits. Motor grossly within normal limits. 4 out of 5 muscle strength in the arms and legs. Symmetric. Normal speech. PSYCHIATRIC: Appropriate mood and affect; insight and judgment normal. Results - Labs CBC & Chem 7: 10/19/17 19:10 10/19/17 19:10 Labs: Short CBC 10/19/17 Range/Units 19:10 WBC 3.6 L (4.0-11.0) th/mm3 Hgb 11.4 L (11.6-15.3) gm/dL Hct 34.1 L (35.0-46.0) % Plt Count 107 L D (150-450) th/mm3 BMP 10/19/17 19:10 Sodium 138 Potassium 4.8 Chloride 105 Carbon Dioxide 24.7 BUN 18 Creatinine 2.00 H Calcium 7.9 L Liver Function 10/19/17 Range/Units 19:10 Total Bilirubin 1.6 H (0.2-1.0) mg/dL AST 78 H (15-37) U/L ALT 38 (10-53) U/L Alkaline Phosphatase 193 H (45-117) U/L Albumin 1.7 L (3.4-5.0) g/dL Urine 10/19/17 Range/Units 19:40 Urine Color Yellow (Yellw/Straw) Urine Clarity Clear (Clear) Urine pH 7.0 (5.0-8.5) Ur Specific [place] 1.006 (1.002-1.035) Urine Protein Negative (Neg-Trace) mg/dL Urine Glucose (UA) Negative (Negative) mg/dL - Imaging Impressions Chest X-Ray 10/19/17 19:10 CONCLUSION: Right lower lobe atelectasis or consolidation. Stable areas of increased linear density seen in both lungs which could be small amounts of embolized packing material from prior vertebroplasty. This finding has been present on multiple prior exams and is stable. Caprini VTE Risk Assessment Caprini VTE Risk Assessment: Moderate/High Risk (score >= 2) Caprini Risk Assessment Model: Point Value = 1 Point Value = 2 Point Value = 3 Point Value = 5 Age 41-60 Minor surgery BMI > 25 kg/m2 Swollen legs Varicose veins or History of unexplained or recurrent spontaneous Oral contraceptives or hormone replacement Sepsis (< 1 month) Serious lung disease, including pneumonia (< 1 month) Abnormal pulmonary function Acute myocardial infarction Congestive heart failure (< 1 month) History of inflammatory bowel disease Medical patient at bed rest Age 61-74 Arthroscopic surgery Major open surgery (> 45 min) Laparoscopic surgery (> 45 min) Malignancy Confined to bed (> 72 hours) Immobilizing plaster cast Central venous access Age >= 75 History of VTE Family history of VTE Factor V Leiden Prothrombin [id number] Lupus anticoagulant Anticardiolipin antibodies Elevated serum homocysteine Heparin-induced thrombocytopenia Other congenital or acquired thrombophilia Stroke (< 1 month) Elective arthroplasty Hip, pelvis, or leg fracture Acute spinal cord injury (< 1 month) Prophylaxis Regimen: Total Risk Factor Score Risk Level Prophylaxis Regimen 0-1 Low Early ambulation 2 Moderate Order ONE of the following: *Sequential Compression Device (SCD) *Heparin 5000 units SQ BID 3-4 Higher Order ONE of the following medications: *Heparin 5000 units SQ TID *Enoxaparin/Lovenox 40 mg SQ daily (WT < 150 kg, CrCl > 30 mL/min) *Enoxaparin/Lovenox 30 mg SQ daily (WT < 150 kg, CrCl > 10-29 mL/min) *Enoxaparin/Lovenox 30 mg SQ BID (WT < 150 kg, CrCl > 30 mL/min) AND/OR *Sequential Compression Device (SCD) 5 or more Highest Order ONE of the following medications: *Heparin 5000 units SQ TID (Preferred with Epidurals) *Enoxaparin/Lovenox 40 mg SQ daily (WT < 150 kg, CrCl > 30 mL/min) *Enoxaparin/Lovenox 30 mg SQ daily (WT < 150 kg, CrCl > 10-29 mL/min) *Enoxaparin/Lovenox 30 mg SQ BID (WT < 150 kg, CrCl > 30 mL/min) AND *Sequential Compression Device (SCD) Assessment and Plan - Plan //Worsening ascites //Abdominal pain. = Recent admission noted with ileus Recurrent ascites secondary to cirrhosis. Will order paracentesis with labs, cultures. //Acute kidney injury. Creatinine 2 from normal previously. Patient with fluid overload, continues on diuretics. This could be secondary to hepatorenal syndrome. Will start on IV albumin, consult gastroenterology. Urine sodium level is pending. If urine sodium level is below 10, we will consider starting on octreotide, midodrine. Ultrasound kidneys pending. Appreciate gastroenterology assistance. = We will hold off on diuretics for now, however could be started in the next day or 2. //Cirrhosis //hepatitisC -We will continue chronic medications of propranolol, rifaximin. Will consult patient's lean facilitator //Leukopenia. 3.6 appears patient has had leukopenia in the past. This is likely secondary to liver disease. We will continue to monitor for signs of infection. //Hypothyroidism. Chronic. Continue home medications. //Palliative care. Patient would like hospice consult. Patient requests DNR. We will consult hospice. Discussed Condition With: Patient, nurse, ED physician.
--- NOTE | 2017-10-20 00:24 | US ---
EXAM DATE: 10/20/2017 12:18 AM EDT AGE/SEX: 67 years / Female INDICATIONS: Increased BUN and Creatinine. CLINICAL DATA: This is the patient's initial encounter. Patient reports that signs and symptoms have been present for 2 days and indicates a pain score of 4/10. MEDICAL/SURGICAL HISTORY: Cirrhosis. Hepatitis C. Gastroparesis. Asthma. Ascites. Esophage al varices. Hypertension. Hypothyroidism. Hysterectomy. Fusion, lumbar. Cholecystectomy. Thyr oidectomy. Toe surgery. Paracentesis. COMPARISON: [facility] [place] W/IMAGE, 09/24/2017. . MEASUREMENTS: Right Kidney:__11.0 x 4.4 x 4.6 cm Left Kidney:__10.7 x 3.6 x 4.5 cm FINDINGS: Right Kidney: Normal echotexture and cortical thickness. 7 mm benign-appearing cyst of the lower pole . No solid mass or hydronephrosis. Left Kidney: Normal echotexture and cortical thickness. No mass or hydronephrosis. Bladder: Within normal limits given the degree of distension. Other: Ascites is present. Spleen measures 14.2 cm craniocaudal. CONCLUSION: 1. No hydronephrosis or other acute renal abnormality. 2. Subcentimeter benign-appearing cyst of the right lower pole. 3. Ascites and splenomegaly. Electronically signed by: Daniel Mackey MD 10/20/2017 12:23 AM EDT
[2017-10-20] MEDS: Albumin Human 25% Inj 200 ML IV.SIG SCH ×3 (00:41→21:42)
[2017-10-20 06:21] LABS: Baso % (Auto) 0.9 % (0.0-2.0); Eos # (Auto) 0.1 th/mm3 (0.0-0.4); Eos % (Auto) 4.2 % (0.0-4.0); Hematocrit 27.6 % (35.0-46.0); Hemoglobin 9.4 gm/dL (11.6-15.3); Lymph # (Auto) 0.9 th/mm3 (1.0-4.8); Lymph % (Auto) 32.4 % (9.0-44.0); Mean Corpuscular Hemoglobin 32.3 pg (27.0-34.0); Mean Corpuscular Volume 94.9 fL (80.0-100.0); Mean Platelet Volume 8.7 fL (7.0-11.0); Mono # (Auto) 0.4 th/mm3 (0.0-0.9); Neut # (Auto) 1.3 th/mm3 (1.8-7.7); Neut % (Auto) 49.5 % (16.0-70.0); Platelet Count 91 th/mm3 (150-450); Red Blood Count 2.91 mil/mm3 (4.00-5.30); Red Cell Distribution Width 20.9 % (11.6-17.2); White Blood Count 2.7 th/mm3 (4.0-11.0)
[2017-10-20 06:55] LABS: Alanine Aminotransferase 31 U/L (10-53); Albumin 1.9 g/dL (3.4-5.0); Anion Gap 10 meq/L (5-15); Aspartate Aminotransferase 55 U/L (15-37); Blood Urea Nitrogen 17 mg/dL (7-18); Calcium 7.7 mg/dL (8.5-10.1); Chloride 105 meq/L (98-107); Glomerular Filtration Rate 29 mL/min (>89); Glucose,Random 88 mg/dL (74-106); Potassium 4.3 meq/L (3.5-5.1); Sodium 141 meq/L (136-145)
[2017-10-20 06:57] LABS: Alkaline Phosphatase 144 U/L (45-117)
[2017-10-20] MEDS: Levothyroxine 125 MCG Tablet PO SCH (07:35)
[2017-10-20 07:38] LABS: Acanthocytes Occ; Ovalocytes 1+; Platelet Morphology Normal (Normal)
[2017-10-20] MEDS: rifAXIMin 550 MG Tablet PO SCH ×2 (08:50→21:42)
[2017-10-20] MEDS: Metoclopramide 10 MG Tablet PO SCH ×3 (08:50→17:25)
[2017-10-20] MEDS: Propranolol 10 MG Tablet PO SCH (08:50)
[2017-10-20] MEDS: Fluorometholone 0.1% Opth Drops 5 ML Bottle EACH EYE SCH ×2 (08:50→21:45)
--- NOTE | 2017-10-20 11:05 | US ---
EXAM DATE: 10/20/2017 10:03 AM EDT AGE/SEX: 67 years / Female INDICATIONS: Ascites. CLINICAL DATA: This is the patient's subsequent encounter. Patient reports that signs and symptoms h ave been present for 3 weeks and indicates a pain score of 3/10. MEDICAL/SURGICAL HISTORY: Asthma. Hepatitis C. Gastroparesis. Esophageal varices. Hypertensi on. Hypothyroidism. Liver cirrhosis. Immunity deficiency. Hysterectomy. Thyroidectomy. Cholecystec mirian. Paracentesis. Lumbar fusion. COMPARISON: [facility] [place]/BL[place], 10/19/2017. . FLUID: Total volume of 2200 cc of clear, yellow fluid was removed. Fluid was sent to lab for ordered studies . . . TECHNIQUE: Ultrasound guidance for abdominal paracentesis. Paracentesis. The risks, benefits, and alternatives to ultrasound guided paracentesis were explained to the patient in detail including the risk of bleeding and infection. Written and verbal informed consent was obt ained. With the patient on the ultrasound table, ultrasound imaging was used to select the most appropriate approach for paracentesis. Overlying skin was prepped and draped in the usual sterile fashion and wi th a local anesthetic, a dermatotomy was made with an 11 blade scalpel. A 6 Sami [id number] ca theter was introduced into the peritoneal cavity and fluid was collected. Post procedure scanning reveals no hematoma or other complication. The patient tolerated the procedu re well and left the ultrasound suite in stable condition. CONCLUSION: 1. Uncomplicated paracentesis Electronically signed by: Mundo Bennett MD 10/20/2017 11:04 AM EDT
[2017-10-20 11:48] LABS: Mesothelial,Peritoneal Fluid 3 %; Neutrophils,Peritoneal Fluid 7 %; RBC,Peritoneal Fluid 38 /mm3 (0-0)
--- NOTE | 2017-10-20 15:25 | P.PN ---
Subjective Interval history: Patient is seen lying in bed status post paracentesis. They were able to remove 2.2 L per her report. She tells me that she is breathing much better and feels much more comfortable. Denies any chest pain. No nausea vomiting or diarrhea. She would like to eat if possible. Her is at bedside. tells me that the initial plan had been for her to come home on hospice this week from the SNF that she was living at. Physical Exam Vital signs: Vital Signs 10/19/17 18:26 10/19/17 21:53 10/19/17 23:44 Temperature 98.4 F Pulse Rate 71 68 62 Respiratory Rate 15 18 16 Blood Pressure 104/61 106/76 108/72 Pulse Oximetry 97 94 L 98 10/20/17 01:40 10/20/17 02:00 10/20/17 04:00 Temperature 97.8 F 98.2 F Pulse Rate 65 65 Respiratory Rate 15 18 18 Blood Pressure 97/55 L 96/51 L Pulse Oximetry 96 95 10/20/17 08:00 10/20/17 09:19 10/20/17 09:48 Temperature 98.2 F 98 F Pulse Rate 64 64 63 Respiratory Rate 16 18 18 Blood Pressure 91/53 L 101/57 L 102/61 Pulse Oximetry 95 99 99 10/20/17 11:10 10/20/17 12:00 Temperature 97.4 F L Pulse Rate 62 Respiratory Rate 16 Blood Pressure 102/59 L Pulse Oximetry 99 96 Intake & Output 10/19/17 10/20/17 10/20/17 18:59 06:59 18:59 Intake Total 550 / 550 Balance 550 / 550 Weight 61.235 kg 61.23 kg Intake: IV 550 / 550 Flexbumin 25% Inj 200 ML @ 60 200 / 200 mls/hr IV.SIG Q12H DEMETRIS Rx#: [id number] Other: # Voids 1 Narrative: GENERAL: Well-nourished, well-developed adult female in no obvious distress. SKIN: Warm and dry. HEAD: Atraumatic. Normocephalic. CARDIOVASCULAR: Regular rate and rhythm. RESPIRATORY: No accessory muscle use. Clear to auscultation. Breath sounds equal bilaterally. GASTROINTESTINAL: Abdomen soft, non-tender, distended. Dressing to right abdominal wall; no drainage. Positive bowel sounds. MUSCULOSKELETAL: Extremities without clubbing, cyanosis, or edema. No obvious deformities. NEUROLOGICAL: Awake and alert. No obvious cranial nerve deficits. Motor grossly within normal limits. Normal speech. PSYCHIATRIC: Appropriate mood and affect; insight and judgment good. Results - Labs CBC & Chem 7: 10/20/17 05:00 10/20/17 05:00 Laboratory Results - last 24 hr 10/19/17 10/19/17 10/19/17 19:10 19:10 19:10 WBC 3.6 L RBC 3.60 L Hgb 11.4 L Hct 34.1 L MCV 94.8 MCH 31.8 MCHC 33.5 RDW 20.5 H Plt Count 107 L D MPV 8.8 Prelim Diff (Auto) Neut % (Auto) 52.1 Lymph % (Auto) 30.7 Dolores % (Auto) 12.6 H Eos % (Auto) 3.9 Baso % (Auto) 0.7 Neut # (Auto) 1.9 Lymph # (Auto) 1.1 Dolores # (Auto) 0.5 Eos # (Auto) 0.1 Baso # (Auto) 0.0 WBC Differential . Diff Scan Differential Comment Auto diff final Platelet Estimate Platelet Morphology Ovalocytes Acanthocytes (Spur) Keratocytes PT 14.0 H INR 1.4 APTT 28.9 Sodium 138 Potassium 4.8 Chloride 105 Carbon Dioxide 24.7 Anion Gap 8 BUN 18 Creatinine 2.00 H Estimated GFR 25 L Random Glucose 83 Calcium 7.9 L Total Bilirubin 1.6 H AST 78 H ALT 38 Alkaline Phosphatase 193 H Total Protein 5.6 L Albumin 1.7 L Lipase 318 Urine Color Urine Clarity Urine pH Ur Specific [place] Urine Protein Urine Glucose (UA) Urine Ketones Urine Occult Blood Urine Nitrate Urine Bilirubin Urine Urobilinogen Ur Leukocyte Esterase Urine RBC Urine WBC Ur Squamous Epith Cells Urine Bacteria Hyaline Casts Urine Mucus Micro UA Comment Ur Microscopic Review Urine Culture Comments Peritoneal RBC Periton Nuc Cells Periton Neutrophils Periton Lymphocytes Peritoneal Monocytes Periton Mesothelial Periton Histiocytes Peritoneal Albumin 10/19/17 10/20/17 10/20/17 19:40 05:00 05:00 WBC 2.7 L RBC 2.91 L Hgb 9.4 L D Hct 27.6 L MCV 94.9 MCH 32.3 MCHC 34.0 RDW 20.9 H Plt Count 91 L MPV 8.7 Prelim Diff (Auto) Slide review pending Neut % (Auto) 49.5 Lymph % (Auto) 32.4 Dolores % (Auto) 13.0 H Eos % (Auto) 4.2 H Baso % (Auto) 0.9 Neut # (Auto) 1.3 L Lymph # (Auto) 0.9 L [place] # (Auto) 0.4 Eos # (Auto) 0.1 Baso # (Auto) 0.0 WBC Differential . Diff Scan Auto diff confirmed Differential Comment . Platelet Estimate Low L Platelet Morphology Normal Ovalocytes 1+ H Acanthocytes (Spur) Occ H Keratocytes Occ H PT INR APTT Sodium 141 Potassium 4.3 Chloride 105 Carbon Dioxide 26.0 Anion Gap 10 BUN 17 Creatinine 1.77 H Estimated GFR 29 L Random Glucose 88 Calcium 7.7 L Total Bilirubin 1.7 H AST 55 H ALT 31 Alkaline Phosphatase 144 H Total Protein 5.0 L D Albumin 1.9 L Lipase Urine Color Yellow Urine Clarity Clear Urine pH 7.0 Ur Specific [place] 1.006 Urine Protein Negative Urine Glucose (UA) Negative Urine Ketones Negative Urine Occult Blood Negative Urine Nitrate Negative Urine Bilirubin Negative Urine Urobilinogen Less than 2 Ur Leukocyte Esterase Small H Urine RBC 1 Urine WBC 6 H Ur Squamous Epith Cells 3 Urine Bacteria Rare H Hyaline Casts 16 Urine Mucus Few H Micro UA Comment Culture not ind Ur Microscopic Review Not Reportable Urine Culture Comments Culture not ind Peritoneal RBC Periton Nuc Cells Periton Neutrophils Periton Lymphocytes Peritoneal Monocytes Periton Mesothelial Periton Histiocytes Peritoneal Albumin 10/20/17 10/20/17 09:35 09:35 WBC RBC Hgb Hct MCV MCH MCHC RDW Plt Count MPV Prelim Diff (Auto) Neut % (Auto) Lymph % (Auto) Dolores % (Auto) Eos % (Auto) Baso % (Auto) Neut # (Auto) Lymph # (Auto) Dolores # (Auto) Eos # (Auto) Baso # (Auto) WBC Differential Diff Scan Differential Comment Platelet Estimate Platelet Morphology Ovalocytes Acanthocytes (Spur) Keratocytes PT INR APTT Sodium Potassium Chloride Carbon Dioxide Anion Gap BUN Creatinine Estimated GFR Random Glucose Calcium Total Bilirubin AST ALT Alkaline Phosphatase Total Protein Albumin Lipase Urine Color Urine Clarity Urine pH Ur Specific [place] Urine Protein Urine Glucose (UA) Urine Ketones Urine Occult Blood Urine Nitrate Urine Bilirubin Urine Urobilinogen Ur Leukocyte Esterase Urine RBC Urine WBC Ur Squamous Epith Cells Urine Bacteria Hyaline Casts Urine Mucus Micro UA Comment Ur Microscopic Review Urine Culture Comments Peritoneal RBC 38 H Periton Nuc Cells 143 H Periton Neutrophils 7 Periton Lymphocytes 45 Peritoneal Monocytes 42 Periton Mesothelial 3 Periton Histiocytes 3 Peritoneal Albumin 0.2 Microbiology 10/20/17 09:35 Fluid - Ascites Fluid Gram Stain - Final - Imaging Impressions Abdomen/Bladder Ultrasound 10/19/17 00:00 CONCLUSION: 1. No hydronephrosis or other acute renal abnormality. 2. Subcentimeter benign-appearing cyst of the right lower pole. 3. Ascites and splenomegaly. Chest X-Ray 10/19/17 19:10 CONCLUSION: Right lower lobe atelectasis or consolidation. Stable areas of increased linear density seen in both lungs which could be small amounts of embolized packing material from prior vertebroplasty. This finding has been present on multiple prior exams and is stable. Paracentesis Ultrasound 10/20/17 00:00 CONCLUSION: 1. Uncomplicated paracentesis Assessment and Plan - Plan 67-year-old female presenting with a complaint of abdominal ascites. Has required repeat paracentesis. Currently living in SNF; considering hospice for liver failure. Past medical history includes hepatitis C, liver cirrhosis, hypertension, hyperthyroidism, asthma, esophageal varices and gastroparesis. Liver cirrhosis; hep C = Recent admission noted with ileus Recurrent ascites secondary to cirrhosis. -continue chronic medications of propranolol, rifaximin. -Paracentesis done 10/20; 2.2 L removed. -Consult to GI -considering shunt placement. Acute kidney injury -Creatinine 2 from normal previously. Improved to 1.77 on 10/20. -Fluid overload. This could be secondary to hepatorenal syndrome. Will start on IV albumin, consult gastroenterology. -Urine sodium level is pending. If urine sodium level is below 10, we will consider starting on octreotide, midodrine. -Ultrasound kidneys 10/19 indicates only a benign-appearing cyst in lower pole of right kidney; no acute abnormality. -We will hold off on diuretics for now, however could be started in the next day or 2. Leukopenia. WBC 3.6 --> now 2.7; appears patient has had leukopenia in the past. This is likely secondary to liver disease. We will continue to monitor for signs of infection. Hypothyroidism. -Chronic. Continue home medications. Palliative care. -Patient would like hospice consult. Patient requests DNR. We will consult hospice. Discussed Condition With: Patient, nurse, . Discharge planning: Uncertain if is able to care for at home. Pending hospice consult. Will need GI clearance. will consider SNF if indicated.
--- NOTE | 2017-10-20 16:21 | ECG ---
Date Performed: 10/19/2017 Time Performed: 20:11:01 PTAGE: 67 years EKG: Sinus rhythm Since the previous tracing, no significant change noted NORMAL ECG PREVIOUS TRACING : 09/21/2017 05.47 DOCTOR: Emanuel Perez Interpretating Date/Time 10/20/2017 16:18:09
[2017-10-20] MEDS: Mirtazapine 15 MG Tablet PO SCH (21:42)
[2017-10-21 06:07] LABS: Baso % (Auto) 0.6 % (0.0-2.0); Eos % (Auto) 2.2 % (0.0-4.0); Hematocrit 24.8 % (35.0-46.0); Hemoglobin 8.6 gm/dL (11.6-15.3); Lymph # (Auto) 0.7 th/mm3 (1.0-4.8); Lymph % (Auto) 35.3 % (9.0-44.0); Mean Corpuscular HGB Conc 34.8 % (32.0-36.0); Mean Corpuscular Hemoglobin 32.6 pg (27.0-34.0); Mean Corpuscular Volume 93.6 fL (80.0-100.0); Mean Platelet Volume 8.5 fL (7.0-11.0); Mono # (Auto) 0.3 th/mm3 (0.0-0.9); Mono % (Auto) 14.4 % (0.0-8.0); Neut # (Auto) 0.9 th/mm3 (1.8-7.7); Neut % (Auto) 47.5 % (16.0-70.0); Platelet Count 74 th/mm3 (150-450); Red Blood Count 2.65 mil/mm3 (4.00-5.30); Red Cell Distribution Width 20.6 % (11.6-17.2); White Blood Count 1.9 th/mm3 (4.0-11.0)
[2017-10-21] MEDS: Levothyroxine 125 MCG Tablet PO SCH (06:37)
[2017-10-21 06:40] LABS: Alanine Aminotransferase 24 U/L (10-53); Albumin 2.3 g/dL (3.4-5.0); Alkaline Phosphatase 119 U/L (45-117); Anion Gap 9 meq/L (5-15); Aspartate Aminotransferase 44 U/L (15-37); Blood Urea Nitrogen 14 mg/dL (7-18); Calcium 7.6 mg/dL (8.5-10.1); Carbon Dioxide 27.2 meq/L (21.0-32.0); Chloride 106 meq/L (98-107); Glomerular Filtration Rate 40 mL/min (>89); Glucose,Random 87 mg/dL (74-106); Potassium 4.2 meq/L (3.5-5.1); Sodium 142 meq/L (136-145); Total Protein 4.9 g/dL (6.4-8.2)
[2017-10-21 08:18] LABS: Eosinophils 1 % (0-4); Lymphocytes 33 % (9-44); Monocytes 8 % (0-8); Ovalocytes 1+
[2017-10-21 08:19] LABS: Acanthocytes Occ; Platelet Morphology Normal (Normal)
--- NOTE | 2017-10-21 10:56 | P.CONPAL ---
Consult Service: Palliative Care Requesting Physician: Nan Medeiros Reason for Consult: a. To assist with evaluation and management of symptoms including:Pain, shortness of breath, debility b. To assist medical decision maker(s) with: better understanding of current medical conditions; weighing benefits/burdens of medical treatment options; making medical treatment decisions. Primary Care Provider: UNKNOWN History of Present Illness History of Present Illness: Mrs Luu is a 67 years old with a past medical history significant for liver cirrhosis, recurrent ascites, esophageal varices, hepatitis C, gastroparesis, asthma, hypothyroidism, mild dementia and unspecified immunity deficiency. Patient presented to the emergency room from [facility] and rehab for evaluation persistent abdominal discomfort from abdominal distention, shortness of breath and diarrhea on 10/19/17. Patient described abdominal pain as constant, dull, nonradiating pain. Patient has had multiple hospitalizations with complaints of abdominal discomfort. Her recent hospitalization was a week ago for severe abdominal pain and imaging showed that she did not have small bowel obstruction and patient was medically treated and discharged back to [facility] and rehab. Patient is known to palliative care. ER course: * Vital signs: Temperature 98.4F, pulse 71, respirations 15, BP 104/61, O2 saturation 97%. * Laboratory workup revealed WBC 3.6, hemoglobin 11.4, hematocrit 34.1, platelet count 107, sodium 138, potassium 4.8, BUN/creatinine 18/2.0, calcium 7.9, total bilirubin 1.6, AST 78, ALT 38, total protein 5.6, albumin 1.7, lipase 318, PT 14.0, INR 1.4, APTT 28.9 * Urinalysis with small amount of leukocyte esterase * EKG showed sinus rhythm * Chest x-ray revealed right lower lobe atelectasis or consolidation. * Ultrasound kidney/renal/bladder revealed no hydronephrosis or other acute renal abnormality On 10/20/17 patient underwent ultrasound-guided paracentesis with removal of 2200 mL's of clear yellow fluid. Ascites fluid culture pending. Patient seen and examined in her room. Patient is awake, alert and oriented to self, place and situation. Patient states that she feels better today than she did yesterday. Patient states that his breathing is much better than it was after she had paracentesis. Patient is currently on O2 2 L nasal cannula. She denies pain at this time. Reintroduced palliative care to patient, which patient is already familiar with. Patient states that she was not able to do very well in rehabilitation due to increased shortness of breath and weakness. Patient states that she does not want to do rehabilitation anymore and she wants to forego any further aggressive treatment and transition to comfort care through hospice. Patient was already being followed by [facility] since his last hospitalization. Telephone conversation with patient's , in the presence of patient. Patient's agreeable to patient's decision to transition to comfort care through hospice. Function/Cognitive Trajectory: Patient is in multiple hospitalizations this year in different hospitals. In mid August 2017 patient was hospitalized in [facility] in [place], [place] and he had ascites drained. Patient was being evaluated for possible liver transplant at [facility] and was denied due to being positive for marijuana. Per patient has been diagnosed with mild dementia at [facility] and she has had episodes of confusion. Patient was then discharged to [facility] which only lasted for a few days and had to be admitted at [facility] on 08/28-09/27/17 for recurrent ascites and small bowel obstruction. Patient had paracentesis done at that time and was discharged back to [facility] only to return back to the hospital on 08/10 with complaints of severe abdominal pain, nausea and vomiting. During that hospitalization it was felt that patient had an ileus and not small bowel obstruction and surgery recommended nonoperative treatment. Patient was medically treated and then discharged back to [facility] rehab approximately a week ago. Review of Systems Constitutional: Reports fatigue, Reports weakness, Denies fever(s) Eyes: Denies blurry vision, Denies discharge Ears, Nose, Mouth, and Throat: Denies abnormal hearing, Denies dry mouth, Denies pain with swallowing Cardiovascular: Reports shortness of breath, Reports shortness of breath with activity, Denies chest pain, Denies foot swelling, Denies irregular heart rhythm Respiratory: Reports shortness of breath, Reports shortness of breath with activity, Denies cough Gastrointestinal: Reports abdominal pain, Reports loose stools, Denies constipation, Denies difficulty swallowing, Denies incontinent of stools Genitourinary: Denies blood in urine, Denies urinary incontinence Musculoskeletal: Reports muscle weakness Skin/Breast: Reports unusual bruising, Denies yellowing of the skin Neurologic: Reports frequent falls, Reports unsteadiness, Reports weakness, Denies confusion Psychiatric: Denies change in appetite, Denies confusion Hematologic/Lymphatic: Reports easy bruising PMFSH - History History Provided By: Patient, Medical Record - Medical History Medical History: Medical History (Last Reviewed 10/19/17 @ 19:46 by Heidy Angel MD) Ascites Asthma Esophageal varices Gastroparesis Hepatitis C Hypertension Hypothyroidism Liver cirrhosis Unspecified immunity deficiency - Surgical History Surgical History: Surgical History (Last Reviewed 10/19/17 @ 19:46 by Heidy Angel MD) H/O abdominal hysterectomy History of lumbar fusion History of thyroidectomy History of toe surgery S/P cholecystectomy S/P abdominal paracentesis (Resolved) - Family History Family History: Family History (Last Reviewed 10/19/17 @ 19:46 by Heidy Angel MD) Son Cirrhosis Sister Cirrhosis - Tobacco History Second Hand Smoke Exposure: No Smoking Status: Former smoker - Alcohol History How Often Do You Have a Drink Containing Alcohol: Never - Substance Use History Substance History: Past History - Travel History Recent Travel in the USA Within the Last 8 Weeks: No Recent Travel Out of the Country Within the Last 8 Weeks: No - Immunization History Tetanus Immunization: <5 Years Hx Influenza Vaccine This Season: No Medications and Allergies Active Medications: Active Medications Al Hydroxide/Mg Hydroxide (Milk Of Magnmiya Liq) 30 ml PO Q12H PRN PRN Reason: Mild Constipation Alprazolam (Xanax) 0.5 mg PO Q12HR PRN PRN Reason: Anxiety Bisacodyl (Dulcolax Supp) 10 mg RECTAL DAILY PRN PRN Reason: SEVERE CONSITIPATION Fluorometholone (Fml Opth Drops) 1 drop EACH EYE BID [facility] Last Admin: 10/20/17 21:45 Dose: Not Given Albumin Human (Flexbumin 25% Inj) 200 mls @ 60 mls/hr IV.SIG Q12H [facility] Last Infusion: 10/21/17 02:31 Dose: Infused Lactulose (Lactulose Liq) 30 ml PO BID [facility] Last Admin: 10/20/17 21:42 Dose: 30 ml Levothyroxine Sodium (Synthroid) 125 mcg PO DAILY@0700 [facility] Last Admin: 10/21/17 06:37 Dose: 125 mcg Metoclopramide HCl (Reglan) 5 mg PO TID [facility] Last Admin: 10/20/17 17:25 Dose: 5 mg Mirtazapine (Remeron) 15 mg PO HS [facility] Last Admin: 10/20/17 21:42 Dose: 15 mg Naloxone HCl (Narcan Inj) 0.4 mg IV.PUSH UNSCH PRN PRN Reason: SEE LABEL COMMENTS Oxycodone HCl (Roxicodone) 5 mg PO Q4H PRN PRN Reason: PAIN SCALE 3 TO 5 Last Admin: 10/20/17 12:59 Dose: 5 mg Oxycodone HCl (Roxicodone) 7.5 mg PO Q4H PRN PRN Reason: PAIN SCALE 6 TO 10 Last Admin: 10/20/17 04:07 Dose: 7.5 mg Pantoprazole Sodium (Protonix) 40 mg PO DAILY [facility] Last Admin: 10/20/17 08:50 Dose: Not Given Propranolol HCl (Inderal) 10 mg PO DAILY [facility] Last Admin: 10/20/17 08:50 Dose: Not Given Rifaximin (Xifaxan) 550 mg PO BID [facility] Last Admin: 10/20/17 21:42 Dose: 550 mg Sennosides (Senokot) 17.2 mg PO Q12H PRN PRN Reason: Moderate Constipation Sodium Chloride (Ns Flush) 2 ml IV.FLUSH PRN PRN PRN Reason: FLUSH AFTER USING IV ACCESS Allergies Allergy/AdvReac Type Severity Reaction Status Date / Time No Known Allergies Allergy Verified 09/28/17 10:47 Home Medications Medication Instructions Recorded Confirmed Type fluorometholone 1 drp EACH EYE BID 08/22/17 10/19/17 History levothyroxine 125 mcg PO DAILY 08/22/17 10/19/17 History prednisolone acetate 1 drp LEFT EYE QID 08/22/17 10/19/17 History lactulose 20 g PO BID 09/21/17 10/19/17 History propranolol 10 mg PO DAILY 09/21/17 10/19/17 History potassium chloride 20 meq PO DAILY 09/28/17 10/19/17 History alprazolam [Xanax] 0.5 mg PO Q12HR PRN 10/19/17 10/19/17 History calcium carbonate 500 mg PO BID 10/19/17 10/19/17 History furosemide 40 mg PO BID 10/19/17 10/19/17 History ibuprofen 600 mg PO Q8HR PRN 10/19/17 10/19/17 History metoclopramide HCl [Reglan] 5 mg PO TID 10/19/17 10/19/17 History mirtazapine [Remeron] 15 mg PO HS 10/19/17 10/19/17 History ondansetron HCl 4 mg IM Q4H PRN 10/19/17 10/19/17 History ondansetron HCl [Zofran] 4 mg PO Q4HR PRN 10/19/17 10/19/17 History rifaximin 550 mg PO BID 10/19/17 10/19/17 History Advance Directives Living Will: No Power of Senior Systems Software Engineer: No Power of Senior Systems Software Engineer Phone Number: HCP: Ruiz Luu ([phone]) Today's verbally stated goals: Patient wants to transition to comfort care through hospice services. Family/friends goals: Patient's is supportive of patient's decision to transition to comfort care through hospice. Ethical and Legal Issues: None identified at this time. Physical Exam Vital Signs: Vital Signs - 24 hr 10/20/17 11:10 10/20/17 12:00 10/20/17 16:00 Temperature 97.4 F L 97.9 F Pulse Rate 62 64 Respiratory Rate 16 18 Blood Pressure 102/59 L 104/56 L Pulse Oximetry 99 96 94 L 10/20/17 20:00 10/21/17 00:00 10/21/17 04:00 Temperature 98.3 F 99.6 F 99.6 F Pulse Rate 72 78 78 Respiratory Rate 18 18 20 Blood Pressure 97/54 L 94/53 L 102/58 L Pulse Oximetry 95 91 L 96 10/21/17 08:00 10/21/17 09:37 Temperature 99.1 F Pulse Rate 75 Respiratory Rate 18 Blood Pressure 107/51 L Pulse Oximetry 94 L 94 L I&O: Intake & Output 10/19/17 10/20/17 10/21/17 10/22/17 06:59 06:59 06:59 06:59 Intake Total 550 / 550 1090 / 1090 Output Total 700 / 700 Balance 550 / 550 390 / 390 Weight 61.23 kg 61.3 kg Physical Exam: CONSTITUTIONAL/GENERAL: This is an adequately nourished patient, in no apparent distress. TUBES/LINES/DRAINS: PIV SKIN: No jaundice, rashes, or lesions. Ecchymoses on upper extremities. No wounds seen anteriorly. Skin temperature appropriate. Not diaphoretic. HEAD: Atraumatic. Normocephalic. EYES: Pupils equal and round and reactive. Extraocular motions intact. No injection or drainage. Fundi not examined. ENT: Hearing grossly normal. Nose without bleeding or purulent drainage. Moist oral mucosa NECK: Trachea midline. Supple, nontender. CARDIOVASCULAR: Regular rate and rhythm without murmurs, gallops, or rubs. No JVD. Peripheral pulses symmetric. RESPIRATORY/CHEST: Symmetric, unlabored respirations. Clear to auscultation. Breath sounds equal bilaterally. No wheezes, rales, or rhonchi. GASTROINTESTINAL: Abdomen slightly firm, non-tender, distended. No guarding. Bowel sounds present. GENITOURINARY: Without palpable bladder distension. MUSCULOSKELETAL: Extremities without clubbing, cyanosis, or edema. No joint tenderness or effusion noted. No calf tenderness. No mottling or clubbing. NEUROLOGICAL: Awake and alert. Motor and sensory grossly within normal limits. Follows commands. Moves all extremities. PSYCHIATRIC: No obvious anxiety/depression. no apparent hallucinations or other psychotic thought process. Diagnostic Tests Laboratory: Laboratory Results - last 72 hr 10/19/17 10/19/17 10/19/17 19:10 19:10 19:10 WBC 3.6 L RBC 3.60 L Hgb 11.4 L Hct 34.1 L MCV 94.8 MCH 31.8 MCHC 33.5 RDW 20.5 H Plt Count 107 L D MPV 8.8 Prelim Diff (Auto) Neut % (Auto) 52.1 Lymph % (Auto) 30.7 [place] % (Auto) 12.6 H Eos % (Auto) 3.9 Baso % (Auto) 0.7 Neut # (Auto) 1.9 Lymph # (Auto) 1.1 [place] # (Auto) 0.5 Eos # (Auto) 0.1 Baso # (Auto) 0.0 WBC Differential . Diff Scan Seg Neuts % (Manual) Band Neuts % (Manual) Lymphocytes % (Manual) Monocytes % (Manual) Eosinophils % (Manual) Abs Neuts (Manual) Differential Comment Auto diff final Platelet Estimate Platelet Morphology Ovalocytes Acanthocytes (Spur) Keratocytes PT 14.0 H INR 1.4 APTT 28.9 Sodium 138 Potassium 4.8 Chloride 105 Carbon Dioxide 24.7 Anion Gap 8 BUN 18 Creatinine 2.00 H Estimated GFR 25 L Random Glucose 83 Calcium 7.9 L Total Bilirubin 1.6 H AST 78 H ALT 38 Alkaline Phosphatase 193 H Total Protein 5.6 L Albumin 1.7 L Lipase 318 Urine Color Urine Clarity Urine pH Ur Specific Wren Urine Protein Urine Glucose (UA) Urine Ketones Urine Occult Blood Urine Nitrate Urine Bilirubin Urine Urobilinogen Ur Leukocyte Esterase Urine RBC Urine WBC Ur Squamous Epith Cells Urine Bacteria Hyaline Casts Urine Mucus Micro UA Comment Ur Microscopic Review Urine Culture Comments Peritoneal RBC Periton Nuc Cells Periton Neutrophils Periton Lymphocytes Peritoneal Monocytes Periton Mesothelial Periton Histiocytes Peritoneal Albumin 10/19/17 10/20/17 10/20/17 19:40 05:00 05:00 WBC 2.7 L RBC 2.91 L Hgb 9.4 L D Hct 27.6 L MCV 94.9 MCH 32.3 MCHC 34.0 RDW 20.9 H Plt Count 91 L MPV 8.7 Prelim Diff (Auto) Slide review pending Neut % (Auto) 49.5 Lymph % (Auto) 32.4 [place] % (Auto) 13.0 H Eos % (Auto) 4.2 H Baso % (Auto) 0.9 Neut # (Auto) 1.3 L Lymph # (Auto) 0.9 L [place] # (Auto) 0.4 Eos # (Auto) 0.1 Baso # (Auto) 0.0 WBC Differential . Diff Scan Auto diff confirmed Seg Neuts % (Manual) Band Neuts % (Manual) Lymphocytes % (Manual) Monocytes % (Manual) Eosinophils % (Manual) Abs Neuts (Manual) Differential Comment . Platelet Estimate Low L Platelet Morphology Normal Ovalocytes 1+ H Acanthocytes (Spur) Occ H Keratocytes Occ H PT INR APTT Sodium 141 Potassium 4.3 Chloride 105 Carbon Dioxide 26.0 Anion Gap 10 BUN 17 Creatinine 1.77 H Estimated GFR 29 L Random Glucose 88 Calcium 7.7 L Total Bilirubin 1.7 H AST 55 H ALT 31 Alkaline Phosphatase 144 H Total Protein 5.0 L D Albumin 1.9 L Lipase Urine Color Yellow Urine Clarity Clear Urine pH 7.0 Ur Specific Wren 1.006 Urine Protein Negative Urine Glucose (UA) Negative Urine Ketones Negative Urine Occult Blood Negative Urine Nitrate Negative Urine Bilirubin Negative Urine Urobilinogen Less than 2 Ur Leukocyte Esterase Small H Urine RBC 1 Urine WBC 6 H Ur Squamous Epith Cells 3 Urine Bacteria Rare H Hyaline Casts 16 Urine Mucus Few H Micro UA Comment Culture not ind Ur Microscopic Review Not Reportable Urine Culture Comments Culture not ind Peritoneal RBC Periton Nuc Cells Periton Neutrophils Periton Lymphocytes Peritoneal Monocytes Periton Mesothelial Periton Histiocytes Peritoneal Albumin 10/20/17 10/20/17 10/21/17 09:35 09:35 05:04 WBC 1.9 L RBC 2.65 L Hgb 8.6 L Hct 24.8 L MCV 93.6 MCH 32.6 MCHC 34.8 RDW 20.6 H Plt Count 74 L MPV 8.5 Prelim Diff (Auto) Slide review pending Neut % (Auto) 47.5 Lymph % (Auto) 35.3 [place] % (Auto) 14.4 H Eos % (Auto) 2.2 Baso % (Auto) 0.6 Neut # (Auto) 0.9 L Lymph # (Auto) 0.7 L [place] # (Auto) 0.3 Eos # (Auto) 0.0 Baso # (Auto) 0.0 WBC Differential Manual diff final Diff Scan Seg Neuts % (Manual) 56 Band Neuts % (Manual) 2 Lymphocytes % (Manual) 33 Monocytes % (Manual) 8 Eosinophils % (Manual) 1 Abs Neuts (Manual) 1.1 L Differential Comment . Platelet Estimate Low L Platelet Morphology Normal Ovalocytes 1+ H Acanthocytes (Spur) Occ H Keratocytes PT INR APTT Sodium Potassium Chloride Carbon Dioxide Anion Gap BUN Creatinine Estimated GFR Random Glucose Calcium Total Bilirubin AST ALT Alkaline Phosphatase Total Protein Albumin Lipase Urine Color Urine Clarity Urine pH Ur Specific Wren Urine Protein Urine Glucose (UA) Urine Ketones Urine Occult Blood Urine Nitrate Urine Bilirubin Urine Urobilinogen Ur Leukocyte Esterase Urine RBC Urine WBC Ur Squamous Epith Cells Urine Bacteria Hyaline Casts Urine Mucus Micro UA Comment Ur Microscopic Review Urine Culture Comments Peritoneal RBC 38 H Periton Nuc Cells 143 H Periton Neutrophils 7 Periton Lymphocytes 45 Peritoneal Monocytes 42 Periton Mesothelial 3 Periton Histiocytes 3 Peritoneal Albumin 0.2 10/21/17 05:04 WBC RBC Hgb Hct MCV MCH MCHC RDW Plt Count MPV Prelim Diff (Auto) Neut % (Auto) Lymph % (Auto) [place] % (Auto) Eos % (Auto) Baso % (Auto) Neut # (Auto) Lymph # (Auto) [place] # (Auto) Eos # (Auto) Baso # (Auto) WBC Differential Diff Scan Seg Neuts % (Manual) Band Neuts % (Manual) Lymphocytes % (Manual) Monocytes % (Manual) Eosinophils % (Manual) Abs Neuts (Manual) Differential Comment Platelet Estimate Platelet Morphology Ovalocytes Acanthocytes (Spur) Keratocytes PT INR APTT Sodium 142 Potassium 4.2 Chloride 106 Carbon Dioxide 27.2 Anion Gap 9 BUN 14 Creatinine 1.34 H Estimated GFR 40 L Random Glucose 87 Calcium 7.6 L Total Bilirubin 1.7 H AST 44 H ALT 24 Alkaline Phosphatase 119 H Total Protein 4.9 L Albumin 2.3 L Lipase Urine Color Urine Clarity Urine pH Ur Specific [place]ren Urine Protein Urine Glucose (UA) Urine Ketones Urine Occult Blood Urine Nitrate Urine Bilirubin Urine Urobilinogen Ur Leukocyte Esterase Urine RBC Urine WBC Ur Squamous Epith Cells Urine Bacteria Hyaline Casts Urine Mucus Micro UA Comment Ur Microscopic Review Urine Culture Comments Peritoneal RBC Periton Nuc Cells Periton Neutrophils Periton Lymphocytes Peritoneal Monocytes Periton Mesothelial Periton Histiocytes Peritoneal Albumin Result Diagrams: 10/21/17 05:04 10/21/17 05:04 Microbiology: Microbiology 10/20/17 09:35 Gram Stain - Final Fluid - Ascites Fluid Imaging: Abdomen/Bladder Ultrasound 10/19/17 00:00 CONCLUSION: 1. No hydronephrosis or other acute renal abnormality. 2. Subcentimeter benign-appearing cyst of the right lower pole. 3. Ascites and splenomegaly. Chest X-Ray 10/19/17 19:10 CONCLUSION: Right lower lobe atelectasis or consolidation. Stable areas of increased linear density seen in both lungs which could be small amounts of embolized packing material from prior vertebroplasty. This finding has been present on multiple prior exams and is stable. Paracentesis Ultrasound 10/20/17 00:00 CONCLUSION: 1. Uncomplicated paracentesis Procedures: [id number] paracentesis Patient/Family Conference Family Conference Location: Bedside, Telephone Issues Discussed: * Palliative care role, purpose, approach * Additional medical, psychosocial, and spiritual history * Patients general health, functional status, and cognitive changes in the months leading up to the current hospitalization * Patient/family understanding of the current medical problems * Patient/family understanding of prognosis * Patients goals of care as best understood from advance directives and/or conversations and/or values * Current medical treatment options and benefits/burdens of those options * Likely scenarios comparing ongoing aggressive care with a transition to comfort measures only * Questions answered to the best of my ability * Palliative care contact information provided Assessment and Plan - Disease Oriented Problem List (1) Liver cirrhosis (2) Acute kidney injury (3) Ascites (4) Leukopenia - Symptom Scale (1) Shortness of breath 0-10 Scale: Unable to quantify (2) Pain 0-10 Scale: 2 Comment: History of liver cirrhosis and recurrent ascites. Patient came in complaining of abdominal discomfort. (3) Debility 0-10 Scale: Unable to quantify Pertinent Non-Medical Issues: Psychosocial:Patient was born in [place]. 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 She moved back to [place] 10 years ago when she fell sick and filed for disability. She has been 5 times, 4 times and has been to her current Ruiz Luu for 4 years. According to patient had left him and went to live with her daughter 6 weeks ago and had asked for a divorce but came back after she was hospitalized in [place], [place] for rehabilitation at [facility] close to him. Patient had 2 children, one son who is and one daughter Zoila Aguilar. Her son from liver cirrhosis. Spiritual:Patient is [employer] Legal: Ethical issues impacting care:None identified at this time Important Contacts: Spouse-Ruiz Luu ([phone]) Prognosis: Mrs Luu is a 67 years old with a past medical history significant for liver cirrhosis, recurrent ascites, esophageal varices, hepatitis C, gastroparesis, asthma, hypothyroidism, mild dementia and unspecified immunity deficiency. Patient presented to the emergency room from [facility] and rehab for evaluation persistent abdominal discomfort from abdominal distention, shortness of breath and diarrhea on 10/19/17. Code Status: No Code DNR Plan: PLAN: Legal decision maker: Patient is alert, oriented to self, place and situation and is able to participate in medical decision making. However patient sometimes has episodes of confusion, recommending any medical decision making to be done in collaboration with he Jus Burgos who is her healthcare proxy according to [place] statute. Goals: Patient wants to transition to comfort care through hospice services. CODE STATUS: No code DNR/DNI ([facility] DNR signed during last hospitalization) SYMPTOMS: * Pain: Patient his liver cirrhosis and recurrent ascites. Patient came in complaining of abdominal pain. Oxycodone 5-7.5 mg every 4 prn available. Patient currently denies pain. No recommendations at this time * Shortness of breath: History of liver cirrhosis and recurrent ascites. Patient came in with complaints of shortness of breath most likely due to distended abdomen. Patient underwent paracentesis. Currently on O2 2 L nasal cannula with O2 saturation in the mid 90s. No respiratory distress. * Debility: Progressive. History of liver cirrhosis. Patient has had multiple hospitalizations due to recurrent ascites and abdominal pain. Patient attempted to do rehabilitation and failed. Patient is decided to forego any aggressive treatment and seek comfort care through hospice services. Palliative care will continue to follow the patient during hospital course as condition evolves, to assist patient/decision-maker with understanding of their medical conditions, weighing benefits/burdens of treatment options, for clarification of goals of treatment. Additionally will assist with any symptoms of palliative concern Appreciation Thank you for the opportunity to participate in the care of Ольга Luu. Attestation Attestation: To help prompt me to consider important information that might be impacting today's encounter and assessment, information from prior notes written by myself or my colleagues may have been "brought forward" into today's note. My signature on this note, however, is an attestation that I personally performed the exam, history, and/or decision-making noted today, and, unless otherwise indicated, the interactions with patient, family, and staff as well as the review of records all occurred today. I also attest that the listed assessment and stated plan reflect my best clinical judgment today based on the combination of historical information, prior notes, and today's exam/ interactions. When time spent is documented, it refers only to time spent today by the signer, or if indicated, combined time spent today by collaborating physician/nurse practitioner.
--- NOTE | 2017-10-21 11:16 | P.CONGI ---
History of Present Illness Consult date: 10/21/17 Consult reason: Cirrhosis Chief complaint: Acute Kidney Injury, Ascites History of Present Illness: This is a 67 yo F with medical history significant for cirrhosis secondary to previous ETOH abuse and history of Hepatitis C S/P successful treatment with Interferon. Pt was first seen by our service in August for abdominal swelling, she reported multiple hospitalizations at multiple different hospitals prior to this and has had an extensive work up including liver biopsy. Pt was being managed on diuretics which seemed to control her ascites until August, she had a paracentesis prior to hospitalization at [facility] and reports drainage of 260 mL of fluid and then another paracentesis on September 24 with 1900 mL of fluid removed. Pt was discharged back to [facility] and rehab after that admission, she returned to the ER two days ago with complaints of abdominal swelling and pain. Since admission pt has had a paracentesis and she denies any continued symptoms at this time. Of note, pt has plans to go on [facility] , she has been given 6-12 months to live. Case was discussed by interventional radiologist and Dr. Cisneros yesterday who felt a peritoneal drain would be beneficial to prevent recurrent need of paracentesis to be done. IR has not scheduled the procedure for today, they are waiting for the official Hospice paperwork to be signed to proceed. <Melissa Anthony - Last Filed: 10/21/17 11:01> Review of Systems Comments: decrease appetite Gastrointestinal: Reports abdominal pain, Denies nausea, Denies vomiting Comments: abdominal swelling <Melissa Anthony - Last Filed: 10/21/17 11:01> PMFSH - History History Provided By: Patient, Medical Record - Medical History Medical History: Medical History (Last Reviewed 10/19/17 @ 19:46 by Heidy Angel MD) Ascites Asthma Esophageal varices Gastroparesis Hepatitis C Hypertension Hypothyroidism Liver cirrhosis Unspecified immunity deficiency - Surgical History Surgical History: Surgical History (Last Reviewed 10/19/17 @ 19:46 by Heidy Angel MD) H/O abdominal hysterectomy History of lumbar fusion History of thyroidectomy History of toe surgery S/P cholecystectomy S/P abdominal paracentesis (Resolved) - Family History Family History: Family History (Last Reviewed 10/19/17 @ 19:46 by Heidy Angel MD) Son Cirrhosis Sister Cirrhosis - Tobacco History Second Hand Smoke Exposure: No Smoking Status: Former smoker - Alcohol History How Often Do You Have a Drink Containing Alcohol: Never - Substance Use History Substance History: Past History - Travel History Recent Travel in the [place] Within the Last 8 Weeks: No Recent Travel Out of the Country Within the Last 8 Weeks: No - Immunization History Tetanus Immunization: <5 Years Hx Influenza Vaccine This Season: No <Melissa Anthony - Last Filed: 10/21/17 11:01> - Medical History Medical History: Medical History (Last Reviewed 10/19/17 @ 19:46 by Heidy Angel MD) Ascites Asthma Esophageal varices Gastroparesis Hepatitis C Hypertension Hypothyroidism Liver cirrhosis Unspecified immunity deficiency - Surgical History Surgical History: Surgical History (Last Reviewed 10/19/17 @ 19:46 by Heidy Angel MD) H/O abdominal hysterectomy History of lumbar fusion History of thyroidectomy History of toe surgery S/P cholecystectomy S/P abdominal paracentesis (Resolved) - Family History Family History: Family History (Last Reviewed 10/19/17 @ 19:46 by Heidy Angel MD) Son Cirrhosis Sister Cirrhosis <Luca Cisneros - Last Filed: 10/21/17 17:07> Medications and Allergies Active Medications: Active Medications Al Hydroxide/Mg Hydroxide (Milk Of Magnesia Liq) 30 ml PO Q12H PRN PRN Reason: Mild Constipation Alprazolam (Xanax) 0.5 mg PO Q12HR PRN PRN Reason: Anxiety Bisacodyl (Dulcolax Supp) 10 mg RECTAL DAILY PRN PRN Reason: SEVERE CONSITIPATION Fluorometholone (Fml Opth Drops) 1 drop EACH EYE BID [facility] Last Admin: 10/20/17 21:45 Dose: Not Given Albumin Human (Flexbumin 25% Inj) 200 mls @ 60 mls/hr IV.SIG Q12H [facility] Last Infusion: 10/21/17 02:31 Dose: Infused Lactulose (Lactulose Liq) 30 ml PO BID [facility] Last Admin: 10/20/17 21:42 Dose: 30 ml Levothyroxine Sodium (Synthroid) 125 mcg PO DAILY@0700 [facility] Last Admin: 10/21/17 06:37 Dose: 125 mcg Metoclopramide HCl (Reglan) 5 mg PO TID [facility] Last Admin: 10/20/17 17:25 Dose: 5 mg Mirtazapine (Remeron) 15 mg PO HS [facility] Last Admin: 10/20/17 21:42 Dose: 15 mg Naloxone HCl (Narcan Inj) 0.4 mg IV.PUSH UNSCH PRN PRN Reason: SEE LABEL COMMENTS Oxycodone HCl (Roxicodone) 5 mg PO Q4H PRN PRN Reason: PAIN SCALE 3 TO 5 Last Admin: 10/20/17 12:59 Dose: 5 mg Oxycodone HCl (Roxicodone) 7.5 mg PO Q4H PRN PRN Reason: PAIN SCALE 6 TO 10 Last Admin: 10/20/17 04:07 Dose: 7.5 mg Pantoprazole Sodium (Protonix) 40 mg PO DAILY [facility] Last Admin: 10/20/17 08:50 Dose: Not Given Propranolol HCl (Inderal) 10 mg PO DAILY [facility] Last Admin: 10/20/17 08:50 Dose: Not Given Rifaximin (Xifaxan) 550 mg PO BID [facility] Last Admin: 10/20/17 21:42 Dose: 550 mg Sennosides (Senokot) 17.2 mg PO Q12H PRN PRN Reason: Moderate Constipation Sodium Chloride (Ns Flush) 2 ml IV.FLUSH PRN PRN PRN Reason: FLUSH AFTER USING IV ACCESS <Melissa Anthony - Last Filed: 10/21/17 11:01> Active Medications: Active Medications Al Hydroxide/Mg Hydroxide (Milk Of Magnesia Liq) 30 ml PO Q12H PRN PRN Reason: Mild Constipation Alprazolam (Xanax) 0.5 mg PO Q12HR PRN PRN Reason: Anxiety Bisacodyl (Dulcolax Supp) 10 mg RECTAL DAILY PRN PRN Reason: SEVERE CONSITIPATION Fluorometholone (Fml Opth Drops) 1 drop EACH EYE BID [facility] Last Admin: 10/21/17 12:01 Dose: 1 drop Albumin Human (Flexbumin 25% Inj) 200 mls @ 60 mls/hr IV.SIG Q12H [facility] Last Admin: 10/21/17 12:01 Dose: 60 mls/hr Lactulose (Lactulose Liq) 30 ml PO BID [facility] Last Admin: 10/21/17 11:46 Dose: Not Given Levothyroxine Sodium (Synthroid) 125 mcg PO DAILY@0700 [facility] Last Admin: 10/21/17 06:37 Dose: 125 mcg Metoclopramide HCl (Reglan) 5 mg PO TID [facility] Last Admin: 10/21/17 13:16 Dose: 5 mg Mirtazapine (Remeron) 15 mg PO HS [facility] Last Admin: 10/20/17 21:42 Dose: 15 mg Naloxone HCl (Narcan Inj) 0.4 mg IV.PUSH UNSCH PRN PRN Reason: SEE LABEL COMMENTS Oxycodone HCl (Roxicodone) 5 mg PO Q4H PRN PRN Reason: PAIN SCALE 3 TO 5 Last Admin: 10/20/17 12:59 Dose: 5 mg Oxycodone HCl (Roxicodone) 7.5 mg PO Q4H PRN PRN Reason: PAIN SCALE 6 TO 10 Last Admin: 10/20/17 04:07 Dose: 7.5 mg Pantoprazole Sodium (Protonix) 40 mg PO DAILY [facility] Last Admin: 10/21/17 11:46 Dose: 40 mg Propranolol HCl (Inderal) 10 mg PO DAILY [facility] Last Admin: 10/21/17 11:46 Dose: 10 mg Rifaximin (Xifaxan) 550 mg PO BID [facility] Last Admin: 10/21/17 11:45 Dose: 550 mg Sennosides (Senokot) 17.2 mg PO Q12H PRN PRN Reason: Moderate Constipation Sodium Chloride (Ns Flush) 2 ml IV.FLUSH PRN PRN PRN Reason: FLUSH AFTER USING IV ACCESS <Luca Cisneros - Last Filed: 10/21/17 17:07> Allergies Allergy/AdvReac Type Severity Reaction Status Date / Time No Known Allergies Allergy Verified 09/28/17 10:47 Home Medications Medication Instructions Recorded Confirmed Type fluorometholone 1 drp EACH EYE BID 08/22/17 10/19/17 History levothyroxine 125 mcg PO DAILY 08/22/17 10/19/17 History prednisolone acetate 1 drp LEFT EYE QID 08/22/17 10/19/17 History lactulose 20 g PO BID 09/21/17 10/19/17 History propranolol 10 mg PO DAILY 09/21/17 10/19/17 History potassium chloride 20 meq PO DAILY 09/28/17 10/19/17 History alprazolam [Xanax] 0.5 mg PO Q12HR PRN 10/19/17 10/19/17 History calcium carbonate 500 mg PO BID 10/19/17 10/19/17 History furosemide 40 mg PO BID 10/19/17 10/19/17 History ibuprofen 600 mg PO Q8HR PRN 10/19/17 10/19/17 History metoclopramide HCl [Reglan] 5 mg PO TID 10/19/17 10/19/17 History mirtazapine [Remeron] 15 mg PO HS 10/19/17 10/19/17 History ondansetron HCl 4 mg IM Q4H PRN 10/19/17 10/19/17 History ondansetron HCl [Zofran] 4 mg PO Q4HR PRN 10/19/17 10/19/17 History rifaximin 550 mg PO BID 10/19/17 10/19/17 History Exam Vital signs: Vital Signs 10/20/17 11:10 10/20/17 12:00 10/20/17 16:00 Temperature 97.4 F L 97.9 F Pulse Rate 62 64 Respiratory Rate 16 18 Blood Pressure 102/59 L 104/56 L Pulse Oximetry 99 96 94 L 10/20/17 20:00 10/21/17 00:00 10/21/17 04:00 Temperature 98.3 F 99.6 F 99.6 F Pulse Rate 72 78 78 Respiratory Rate 18 18 20 Blood Pressure 97/54 L 94/53 L 102/58 L Pulse Oximetry 95 91 L 96 10/21/17 08:00 10/21/17 09:37 Temperature 99.1 F Pulse Rate 75 Respiratory Rate 18 Blood Pressure 107/51 L Pulse Oximetry 94 L 94 L Intake & Output 10/20/17 10/21/17 10/21/17 18:59 06:59 18:59 Intake Total 1090 / 1090 Output Total 700 / 700 Balance 390 / 390 Weight 61.3 kg Intake: IV 400 / 400 Flexbumin 25% Inj 200 ML @ 60 400 / 400 mls/hr IV.SIG Q12H [facility] Rx#: [id number] Oral 690 / 690 Output: Urine 700 / 700 Other: # Voids 4 3 # Bowel Movements 1 - Constitutional no acute distress - Routine HEENT Exam Head: Present: normocephalic, atraumatic - Routine Respiratory Exam Absent: accessory muscle use - Routine Abdominal Exam Present: soft, normoactive bowel sounds. Absent: tenderness, distended - Routine Skin Exam Present: dry, warm - Routine Neurological Exam Present: alert, oriented X3 <Melissa Anthony - Last Filed: 10/21/17 11:01> Vital signs: Vital Signs 10/20/17 20:00 10/21/17 00:00 10/21/17 04:00 Temperature 98.3 F 99.6 F 99.6 F Pulse Rate 72 78 78 Respiratory Rate 18 18 20 Blood Pressure 97/54 L 94/53 L 102/58 L Pulse Oximetry 95 91 L 96 10/21/17 08:00 10/21/17 09:37 10/21/17 12:00 Temperature 99.1 F 99.3 F Pulse Rate 75 79 Respiratory Rate 18 17 Blood Pressure 107/51 L 102/51 L Pulse Oximetry 94 L 94 L 97 10/21/17 16:00 Temperature 99.2 F Pulse Rate 73 Respiratory Rate 16 Blood Pressure 93/55 L Pulse Oximetry 95 Intake & Output 10/20/17 10/21/17 10/21/17 18:59 06:59 18:59 Intake Total 1090 / 1090 Output Total 700 / 700 Balance 390 / 390 Weight 61.3 kg Intake: IV 400 / 400 Flexbumin 25% Inj 200 ML @ 60 400 / 400 mls/hr IV.SIG Q12H [facility] Rx#: [id number] Oral 690 / 690 Output: Urine 700 / 700 Other: # Voids 4 3 Date of Last Bowel Movement 10/20/17 # Bowel Movements 1 <Luca Cisneros - Last Filed: 10/21/17 17:07> Results - Labs CBC & Chem 7: 10/21/17 05:04 10/21/17 05:04 Labs: Laboratory Results - last 24 hr 10/20/17 10/20/17 10/21/17 09:35 09:35 05:04 WBC 1.9 L RBC 2.65 L Hgb 8.6 L Hct 24.8 L MCV 93.6 MCH 32.6 MCHC 34.8 RDW 20.6 H Plt Count 74 L MPV 8.5 Prelim Diff (Auto) Slide review pending Neut % (Auto) 47.5 Lymph % (Auto) 35.3 [place] % (Auto) 14.4 H Eos % (Auto) 2.2 Baso % (Auto) 0.6 Neut # (Auto) 0.9 L Lymph # (Auto) 0.7 L [place] # (Auto) 0.3 Eos # (Auto) 0.0 Baso # (Auto) 0.0 WBC Differential Manual diff final Seg Neuts % (Manual) 56 Band Neuts % (Manual) 2 Lymphocytes % (Manual) 33 Monocytes % (Manual) 8 Eosinophils % (Manual) 1 Abs Neuts (Manual) 1.1 L Differential Comment . Platelet Estimate Low L Platelet Morphology Normal Ovalocytes 1+ H Acanthocytes (Spur) Occ H Sodium Potassium Chloride Carbon Dioxide Anion Gap BUN Creatinine Estimated GFR Random Glucose Calcium Total Bilirubin AST ALT Alkaline Phosphatase Total Protein Albumin Peritoneal RBC 38 H Periton Nuc Cells 143 H Periton Neutrophils 7 Periton Lymphocytes 45 Peritoneal Monocytes 42 Periton Mesothelial 3 Periton Histiocytes 3 Peritoneal Albumin 0.2 10/21/17 05:04 WBC RBC Hgb Hct MCV MCH MCHC RDW Plt Count MPV Prelim Diff (Auto) Neut % (Auto) Lymph % (Auto) [place] % (Auto) Eos % (Auto) Baso % (Auto) Neut # (Auto) Lymph # (Auto) [place] # (Auto) Eos # (Auto) Baso # (Auto) WBC Differential Seg Neuts % (Manual) Band Neuts % (Manual) Lymphocytes % (Manual) Monocytes % (Manual) Eosinophils % (Manual) Abs Neuts (Manual) Differential Comment Platelet Estimate Platelet Morphology Ovalocytes Acanthocytes (Spur) Sodium 142 Potassium 4.2 Chloride 106 Carbon Dioxide 27.2 Anion Gap 9 BUN 14 Creatinine 1.34 H Estimated GFR 40 L Random Glucose 87 Calcium 7.6 L Total Bilirubin 1.7 H AST 44 H ALT 24 Alkaline Phosphatase 119 H Total Protein 4.9 L Albumin 2.3 L Peritoneal RBC Periton Nuc Cells Periton Neutrophils Periton Lymphocytes Peritoneal Monocytes Periton Mesothelial Periton Histiocytes Peritoneal Albumin - Imaging Impressions Paracentesis Ultrasound 10/20/17 00:00 CONCLUSION: 1. Uncomplicated paracentesis <Melissa Anthony - Last Filed: 10/21/17 11:01> - Labs CBC & Chem 7: 10/21/17 05:04 10/21/17 05:04 Labs: Laboratory Results - last 24 hr 10/21/17 10/21/17 05:04 05:04 WBC 1.9 L RBC 2.65 L Hgb 8.6 L Hct 24.8 L MCV 93.6 MCH 32.6 MCHC 34.8 RDW 20.6 H Plt Count 74 L MPV 8.5 Prelim Diff (Auto) Slide review pending Neut % (Auto) 47.5 Lymph % (Auto) 35.3 [place] % (Auto) 14.4 H Eos % (Auto) 2.2 Baso % (Auto) 0.6 Neut # (Auto) 0.9 L Lymph # (Auto) 0.7 L [place] # (Auto) 0.3 Eos # (Auto) 0.0 Baso # (Auto) 0.0 WBC Differential Manual diff final Seg Neuts % (Manual) 56 Band Neuts % (Manual) 2 Lymphocytes % (Manual) 33 Monocytes % (Manual) 8 Eosinophils % (Manual) 1 Abs Neuts (Manual) 1.1 L Differential Comment . Platelet Estimate Low L Platelet Morphology Normal Ovalocytes 1+ H Acanthocytes (Spur) Occ H Sodium 142 Potassium 4.2 Chloride 106 Carbon Dioxide 27.2 Anion Gap 9 BUN 14 Creatinine 1.34 H Estimated GFR 40 L Random Glucose 87 Calcium 7.6 L Total Bilirubin 1.7 H AST 44 H ALT 24 Alkaline Phosphatase 119 H Total Protein 4.9 L Albumin 2.3 L <Luca Cisneros - Last Filed: 10/21/17 17:07> Assessment and Plan - Plan Assessment: - Cirrhosis secondary to history of ETOH abuse and Hepatitis C S/P treatment with Interferon Pt has had extensive work up at multiple hospitals including previous liver biopsy, seen OP by Dr. Lowe last week. Pt has been at [facility], planning on discharge from there to Hospice, she has been given 6-12 months to live. Pt presented to the ER two days ago with complaints of abdominal pain and swelling, S/P paracentesis with 2200 mL removed, pt reports improvement in symptoms. Case was discussed by IR and Dr. Cisneros who felt a peritoneal drain would be beneficial, discussed with IR today, they are waiting for official Hospice papers to be signed before proceeding with this procedure. Discussed with [employer] [place] [employer] Discussed with RN Discussed with pts Plan for tentatively tomorrow if Hospice sees pt today Plan: IR consult for peritoneal drain NPO after [facility] consult Continue with supportive care Further recommendations to follow Pt has been seen and examined by myself and Dr. Cisneros and this note is written on his behalf <Melissa nAthony - Last Filed: 10/21/17 11:01> - Plan Seen and examined with DIE ST[employer]PER, Await peritoneal drain placement by IR. This was discussed yesterday with the patient and Dr Brady. Apparently IR waiting for hospice consents to be signed. Discussed again with Dr Brady today. Patient on the IR schedule for tomorrow. The exam, history, and the medical decision-making described in the above note were completed with the assistance of the mid-level provider. I reviewed and agree with the findings presented. I attest that I had a [id number] encounter with the patient on the same day, and personally performed and documented my assessment and findings in the medical record. <Luca Cisneros - Last Filed: 10/21/17 17:07>
[2017-10-21] MEDS: rifAXIMin 550 MG Tablet PO SCH ×2 (11:45→21:38)
[2017-10-21] MEDS: Metoclopramide 10 MG Tablet PO SCH ×3 (11:46→19:11)
[2017-10-21] MEDS: Propranolol 10 MG Tablet PO SCH (11:46)
[2017-10-21] MEDS: Fluorometholone 0.1% Opth Drops 5 ML Bottle EACH EYE SCH ×2 (12:01→21:38)
[2017-10-21] MEDS: Albumin Human 25% Inj 200 ML IV.SIG SCH ×2 (12:01→21:49)
--- NOTE | 2017-10-21 14:44 | P.PN ---
Subjective Interval history: Patient is seen lying quietly in bed. is at bedside. Patient tells me that she is feeling "the best she has felt in a while". No chest pain or shortness of breath. No nausea vomiting or diarrhea. She is tolerating meals well. Physical Exam Vital signs: Vital Signs 10/20/17 16:00 10/20/17 20:00 10/21/17 00:00 Temperature 97.9 F 98.3 F 99.6 F Pulse Rate 64 72 78 Respiratory Rate 18 18 18 Blood Pressure 104/56 L 97/54 L 94/53 L Pulse Oximetry 94 L 95 91 L 10/21/17 04:00 10/21/17 08:00 10/21/17 09:37 Temperature 99.6 F 99.1 F Pulse Rate 78 75 Respiratory Rate 20 18 Blood Pressure 102/58 L 107/51 L Pulse Oximetry 96 94 L 94 L 10/21/17 12:00 Temperature 99.3 F Pulse Rate 79 Respiratory Rate 17 Blood Pressure 102/51 L Pulse Oximetry 97 Intake & Output 10/20/17 10/21/17 10/21/17 18:59 06:59 18:59 Intake Total 1090 / 1090 Output Total 700 / 700 Balance 390 / 390 Weight 61.3 kg Intake: IV 400 / 400 Flexbumin 25% Inj 200 ML @ 60 400 / 400 mls/hr IV.SIG Q12H [facility] Rx#: [id number] Oral 690 / 690 Output: Urine 700 / 700 Other: # Voids 4 3 Date of Last Bowel Movement 10/20/17 # Bowel Movements 1 Narrative: GENERAL: Well-nourished, well-developed adult female in no obvious distress. SKIN: Warm and dry. HEAD: Atraumatic. Normocephalic. CARDIOVASCULAR: Regular rate and rhythm. RESPIRATORY: No accessory muscle use. Clear to auscultation. Breath sounds equal bilaterally. GASTROINTESTINAL: Abdomen soft, non-tender, distended. Positive bowel sounds. MUSCULOSKELETAL: Extremities without clubbing, cyanosis, or edema. No obvious deformities. NEUROLOGICAL: Awake and alert. No obvious cranial nerve deficits. Motor grossly within normal limits. Normal speech. PSYCHIATRIC: Appropriate mood and affect; insight and judgment good. Results - Labs CBC & Chem 7: 10/21/17 05:04 10/21/17 05:04 Laboratory Results - last 24 hr 10/21/17 10/21/17 05:04 05:04 WBC 1.9 L RBC 2.65 L Hgb 8.6 L Hct 24.8 L MCV 93.6 MCH 32.6 MCHC 34.8 RDW 20.6 H Plt Count 74 L MPV 8.5 Prelim Diff (Auto) Slide review pending Neut % (Auto) 47.5 Lymph % (Auto) 35.3 [place] % (Auto) 14.4 H Eos % (Auto) 2.2 Baso % (Auto) 0.6 Neut # (Auto) 0.9 L Lymph # (Auto) 0.7 L [place] # (Auto) 0.3 Eos # (Auto) 0.0 Baso # (Auto) 0.0 WBC Differential Manual diff final Seg Neuts % (Manual) 56 Band Neuts % (Manual) 2 Lymphocytes % (Manual) 33 Monocytes % (Manual) 8 Eosinophils % (Manual) 1 Abs Neuts (Manual) 1.1 L Differential Comment . Platelet Estimate Low L Platelet Morphology Normal Ovalocytes 1+ H Acanthocytes (Spur) Occ H Sodium 142 Potassium 4.2 Chloride 106 Carbon Dioxide 27.2 Anion Gap 9 BUN 14 Creatinine 1.34 H Estimated GFR 40 L Random Glucose 87 Calcium 7.6 L Total Bilirubin 1.7 H AST 44 H ALT 24 Alkaline Phosphatase 119 H Total Protein 4.9 L Albumin 2.3 L Microbiology 10/20/17 09:35 Fluid - Ascites Fluid Gram Stain - Final 10/20/17 09:35 Fluid - Ascites Fluid Body Fluid Culture - Preliminary No growth in 24 hours Assessment and Plan - Plan 67-year-old female presenting with a complaint of abdominal ascites. Has required repeat paracentesis. Currently living in SNF; considering hospice for liver failure. Past medical history includes hepatitis C, liver cirrhosis, hypertension, hyperthyroidism, asthma, esophageal varices and gastroparesis. Liver cirrhosis; hep C = Recent admission noted with ileus Recurrent ascites secondary to cirrhosis. -continue chronic medications of propranolol, rifaximin. -Paracentesis done 10/20; 2.2 L removed. -Platelets low. 107 at admit down to 74 on 10/21. Monitor. -Consult to GI -considering peritoneal drain. IR plans placement on 10/22 pending hospice consult and consent. NPO after midnight. Acute kidney injury -Creatinine 2 from normal previously. Improved to 1.34 on 10/21. -Fluid overload. This could be secondary to hepatorenal syndrome. Will start on IV albumin, consult gastroenterology. -Urine sodium level is pending. If urine sodium level is below 10, we will consider starting on octreotide, midodrine. Urine sodium never collected. Will cancel due to improved kidney function. -Ultrasound kidneys 10/19 indicates only a benign-appearing cyst in lower pole of right kidney; no acute abnormality. -We will hold off on diuretics for now, however could be started in the next day or 2. Leukopenia. WBC 3.6 -->2.7--> now 1.9; appears patient has had leukopenia in the past. This is likely secondary to liver disease. Monitor for signs of infection. Temp 99 as of 10/21. Anemia -Hbg 11.4 --> 9.4--> now 8.6. No obvious indication of bleeding. FOBT ordered. Consider CT of ab. Hypothyroidism. -Chronic. Continue home medications. Palliative care. -Palliative consulted; appreciate assistance. -Patient requests DNR. Consult hospice as well. Discussed Condition With: Patient, nurse, . Discharge planning: Uncertain if is able to care for at home. Pending hospice consult. Will need GI clearance. will consider SNF if indicated.
[2017-10-21] MEDS: Mirtazapine 15 MG Tablet PO SCH (21:38)
[2017-10-22 06:04] LABS: Baso % (Auto) 0.6 % (0.0-2.0); Hematocrit 23.8 % (35.0-46.0); Hemoglobin 8.2 gm/dL (11.6-15.3); Lymph # (Auto) 0.6 th/mm3 (1.0-4.8); Lymph % (Auto) 39.6 % (9.0-44.0); Mean Corpuscular HGB Conc 34.6 % (32.0-36.0); Mean Corpuscular Hemoglobin 32.3 pg (27.0-34.0); Mean Corpuscular Volume 93.2 fL (80.0-100.0); Mean Platelet Volume 8.3 fL (7.0-11.0); Mono # (Auto) 0.2 th/mm3 (0.0-0.9); Mono % (Auto) 15.2 % (0.0-8.0); Neut # (Auto) 0.6 th/mm3 (1.8-7.7); Neut % (Auto) 42.6 % (16.0-70.0); Platelet Count 64 th/mm3 (150-450); Red Blood Count 2.55 mil/mm3 (4.00-5.30); Red Cell Distribution Width 20.6 % (11.6-17.2); White Blood Count 1.4 th/mm3 (4.0-11.0)
[2017-10-22 06:26] LABS: Calcium 7.8 mg/dL (8.5-10.1); Carbon Dioxide 26.6 meq/L (21.0-32.0); Potassium 4.1 meq/L (3.5-5.1)
[2017-10-22] MEDS: Levothyroxine 125 MCG Tablet PO SCH (07:00)
[2017-10-22] MEDS: Propranolol 10 MG Tablet PO SCH (08:30)
[2017-10-22] MEDS: Metoclopramide 10 MG Tablet PO SCH ×3 (08:30→19:59)
[2017-10-22] MEDS: rifAXIMin 550 MG Tablet PO SCH ×2 (08:30→23:33)
[2017-10-22] MEDS: Fluorometholone 0.1% Opth Drops 5 ML Bottle EACH EYE SCH ×2 (08:30→23:36)
[2017-10-22] MEDS: Albumin Human 25% Inj 200 ML IV.SIG SCH ×2 (08:31→23:28)
[2017-10-22 09:06] LABS: Lymphocytes 25 % (9-44); Monocytes 9 % (0-8)
[2017-10-22 09:07] LABS: Acanthocytes Occ; Ovalocytes 1+; Platelet Morphology Normal (Normal); Tear Drop Cells 1+
--- NOTE | 2017-10-22 11:18 | P.PN ---
Subjective Interval history: Patient is seen lying quietly in bed. She tells me that she is feeling very good with no shortness of breath or abdominal discomfort. She is looking forward to her seizure today and has been n.p.o. since midnight. No chest pain. No nausea vomiting or diarrhea. Physical Exam Vital signs: Vital Signs 10/21/17 12:00 10/21/17 16:00 10/21/17 18:50 Temperature 99.3 F 99.2 F Pulse Rate 79 73 Respiratory Rate 17 16 Blood Pressure 102/51 L 93/55 L Pulse Oximetry 97 95 95 10/21/17 20:00 10/21/17 22:00 10/22/17 00:00 Temperature 99.2 F 98.9 F Pulse Rate 75 69 Respiratory Rate 17 17 Blood Pressure 113/54 L 90/51 L Pulse Oximetry 95 97 96 10/22/17 04:00 10/22/17 08:00 10/22/17 10:03 Temperature 98.5 F 98.3 F Pulse Rate 65 68 Respiratory Rate 17 17 Blood Pressure 91/54 L 106/50 L Pulse Oximetry 96 95 95 Intake & Output 10/21/17 10/22/17 10/22/17 18:59 06:59 18:59 Intake Total 800 / 800 300 / 300 Balance 800 / 800 300 / 300 Intake: IV 100 / 100 300 / 300 Flexbumin 25% Inj 200 ML @ 60 100 / 100 300 / 300 mls/hr IV.SIG Q12H [facility] Rx#: [id number] Oral 700 / 700 Other: # Voids 4 Date of Last Bowel Movement 10/20/17 10/20/17 10/22/17 Narrative: GENERAL: Well-nourished, well-developed adult female in no obvious distress. SKIN: Warm and dry. Nonjaundiced. HEAD: Atraumatic. Normocephalic. CARDIOVASCULAR: Regular rate and rhythm. RESPIRATORY: No accessory muscle use. Clear to auscultation. Breath sounds equal bilaterally. GASTROINTESTINAL: Abdomen soft, non-tender, distended. Positive bowel sounds. MUSCULOSKELETAL: Extremities without clubbing, cyanosis, or edema. No obvious deformities. NEUROLOGICAL: Awake and alert. No obvious cranial nerve deficits. Motor grossly within normal limits. Normal speech. PSYCHIATRIC: Appropriate mood and affect; insight and judgment good. Upbeat. Results - Labs CBC & Chem 7: 10/22/17 04:15 10/22/17 04:15 Laboratory Results - last 24 hr 10/22/17 10/22/17 04:15 04:15 WBC 1.4 L RBC 2.55 L Hgb 8.2 L Hct 23.8 L MCV 93.2 MCH 32.3 MCHC 34.6 RDW 20.6 H Plt Count 64 L MPV 8.3 Prelim Diff (Auto) Slide review pending Neut % (Auto) 42.6 Lymph % (Auto) 39.6 [place] % (Auto) 15.2 H Eos % (Auto) 2.0 Baso % (Auto) 0.6 Neut # (Auto) 0.6 L Lymph # (Auto) 0.6 L [place] # (Auto) 0.2 Eos # (Auto) 0.0 Baso # (Auto) 0.0 WBC Differential Manual diff final Seg Neuts % (Manual) 61 Band Neuts % (Manual) 5 Lymphocytes % (Manual) 25 Monocytes % (Manual) 9 H Abs Neuts (Manual) 0.9 L Differential Comment . Platelet Estimate Low L Platelet Morphology Normal Tear Drop Cells 1+ H Ovalocytes 1+ H Acanthocytes (Spur) Occ H Sodium 142 Potassium 4.1 Chloride 107 Carbon Dioxide 26.6 Anion Gap 8 BUN 10 Creatinine 1.03 H Estimated GFR 54 L Random Glucose 76 Calcium 7.8 L Microbiology 10/20/17 09:35 Fluid - Ascites Fluid Gram Stain - Final 10/20/17 09:35 Fluid - Ascites Fluid Body Fluid Culture - Preliminary No growth in 48 hours Assessment and Plan - Plan 67-year-old female presenting with a complaint of abdominal ascites. Has required repeat paracentesis. Currently living in SNF; considering hospice for liver failure. Past medical history includes hepatitis C, liver cirrhosis, hypertension, hyperthyroidism, asthma, esophageal varices and gastroparesis. Liver cirrhosis; hep C = Recent admission noted with ileus Recurrent ascites secondary to cirrhosis. -continue chronic medications of propranolol, rifaximin. -Paracentesis done 10/20; 2.2 L removed. -Platelets low. 107 at admit down to 74 on 10/21. Monitor. -Consult to GI -considering peritoneal drain/TIPS. IR plans placement on 10/22 pending hospice consult and consent. NPO after midnight. Acute kidney injury -Creatinine 2 from normal previously. Improved to 1.03 on 10/22. -Fluid overload. This could be secondary to hepatorenal syndrome. Will start on IV albumin, consult gastroenterology. -Urine sodium level is pending. If urine sodium level is below 10, we will consider starting on octreotide, midodrine. Urine sodium never collected. Will cancel due to improved kidney function. -Ultrasound kidneys 10/19 indicates only a benign-appearing cyst in lower pole of right kidney; no acute abnormality. -We will hold off on diuretics for now, however could be started in the next day or 2. Leukopenia. WBC 3.6 -->2.7-->1.9--> now 1.4; appears patient has had leukopenia in the past. This is likely secondary to liver disease. Monitor for signs of infection. Afebrile as of 10/22. Anemia -Hbg 11.4 --> 9.4-->8.6--> now 8.2. No obvious indication of bleeding. FOBT pending. Consider CT of ab. Hypothyroidism. -Chronic. Continue home medications. Palliative care. -Palliative consulted; appreciate assistance. -Patient requests DNR. Consult hospice as well. Discussed Condition With: Patient, nurse, . Discharge planning: Uncertain if is able to care for at home. Pending hospice consult. Will need GI clearance. will consider SNF if indicated.
--- NOTE | 2017-10-22 12:52 | P.PNGI ---
Subjective Interval history: Pt resting in bed, states she feels well today. Complaining of some abdominal pain from lying in bed. Denies nausea, vomiting, abdominal pain. currently NPO for IR procedure today. <Melissa Anthony - Last Filed: 10/22/17 12:49> Physical Exam Vital signs: Vital Signs 10/21/17 16:00 10/21/17 18:50 10/21/17 20:00 Temperature 99.2 F 99.2 F Pulse Rate 73 75 Respiratory Rate 16 17 Blood Pressure 93/55 L 113/54 L Pulse Oximetry 95 95 95 10/21/17 22:00 10/22/17 00:00 10/22/17 04:00 Temperature 98.9 F 98.5 F Pulse Rate 69 65 Respiratory Rate 17 17 Blood Pressure 90/51 L 91/54 L Pulse Oximetry 97 96 96 10/22/17 08:00 10/22/17 10:03 10/22/17 11:48 Temperature 98.3 F 98.5 F Pulse Rate 68 63 Respiratory Rate 17 16 Blood Pressure 106/50 L 101/55 L Pulse Oximetry 95 95 97 Intake & Output 10/21/17 10/22/17 10/22/17 18:59 06:59 18:59 Intake Total 800 / 800 300 / 300 Balance 800 / 800 300 / 300 Intake: IV 100 / 100 300 / 300 Flexbumin 25% Inj 200 ML @ 60 100 / 100 300 / 300 mls/hr IV.SIG Q12H [facility] Rx#: [id number] Oral 700 / 700 Other: # Voids 4 Date of Last Bowel Movement 10/20/17 10/20/17 10/22/17 - Constitutional no acute distress - Routine HEENT Exam Head: Present: normocephalic, atraumatic - Routine Respiratory Exam Absent: accessory muscle use - Routine Abdominal Exam Present: soft, normoactive bowel sounds, distended. Absent: tenderness - Routine Skin Exam Present: dry, warm - Routine Neurological Exam Present: alert, oriented X3 <Melissa Anthony - Last Filed: 10/22/17 12:49> Vital signs: Vital Signs 10/21/17 16:00 10/21/17 18:50 10/21/17 20:00 Temperature 99.2 F 99.2 F Pulse Rate 73 75 Respiratory Rate 16 17 Blood Pressure 93/55 L 113/54 L Pulse Oximetry 95 95 95 10/21/17 22:00 10/22/17 00:00 10/22/17 04:00 Temperature 98.9 F 98.5 F Pulse Rate 69 65 Respiratory Rate 17 17 Blood Pressure 90/51 L 91/54 L Pulse Oximetry 97 96 96 10/22/17 08:00 10/22/17 10:03 10/22/17 11:48 Temperature 98.3 F 98.5 F Pulse Rate 68 63 Respiratory Rate 17 16 Blood Pressure 106/50 L 101/55 L Pulse Oximetry 95 95 97 Intake & Output 10/21/17 10/22/17 10/22/17 18:59 06:59 18:59 Intake Total 800 / 800 300 / 300 Balance 800 / 800 300 / 300 Intake: IV 100 / 100 300 / 300 Flexbumin 25% Inj 200 ML @ 60 100 / 100 300 / 300 mls/hr IV.SIG Q12H [facility] Rx#: [id number] Oral 700 / 700 Other: # Voids 4 Date of Last Bowel Movement 10/20/17 10/20/17 10/22/17 <Luca Cisneros - Last Filed: 10/22/17 15:50> Results - Labs CBC & Chem 7: 10/22/17 04:15 10/22/17 04:15 Laboratory Results - last 24 hr 10/22/17 10/22/17 04:15 04:15 WBC 1.4 L RBC 2.55 L Hgb 8.2 L Hct 23.8 L MCV 93.2 MCH 32.3 MCHC 34.6 RDW 20.6 H Plt Count 64 L MPV 8.3 Prelim Diff (Auto) Slide review pending Neut % (Auto) 42.6 Lymph % (Auto) 39.6 [place] % (Auto) 15.2 H Eos % (Auto) 2.0 Baso % (Auto) 0.6 Neut # (Auto) 0.6 L Lymph # (Auto) 0.6 L [place] # (Auto) 0.2 Eos # (Auto) 0.0 Baso # (Auto) 0.0 WBC Differential Manual diff final Seg Neuts % (Manual) 61 Band Neuts % (Manual) 5 Lymphocytes % (Manual) 25 Monocytes % (Manual) 9 H Abs Neuts (Manual) 0.9 L Differential Comment . Platelet Estimate Low L Platelet Morphology Normal Tear Drop Cells 1+ H Ovalocytes 1+ H Acanthocytes (Spur) Occ H Sodium 142 Potassium 4.1 Chloride 107 Carbon Dioxide 26.6 Anion Gap 8 BUN 10 Creatinine 1.03 H Estimated GFR 54 L Random Glucose 76 Calcium 7.8 L Microbiology 10/22/17 10:00 Stool Stool Occult Blood (ARY) - Final Hemoccult negative 10/20/17 09:35 Fluid - Ascites Fluid Gram Stain - Final 10/20/17 09:35 Fluid - Ascites Fluid Body Fluid Culture - Preliminary No growth in 48 hours <Melissa Anthony - Last Filed: 10/22/17 12:49> - Labs CBC & Chem 7: 10/22/17 04:15 10/22/17 04:15 Laboratory Results - last 24 hr 10/22/17 10/22/17 04:15 04:15 WBC 1.4 L RBC 2.55 L Hgb 8.2 L Hct 23.8 L MCV 93.2 MCH 32.3 MCHC 34.6 RDW 20.6 H Plt Count 64 L MPV 8.3 Prelim Diff (Auto) Slide review pending Neut % (Auto) 42.6 Lymph % (Auto) 39.6 [place] % (Auto) 15.2 H Eos % (Auto) 2.0 Baso % (Auto) 0.6 Neut # (Auto) 0.6 L Lymph # (Auto) 0.6 L [place] # (Auto) 0.2 Eos # (Auto) 0.0 Baso # (Auto) 0.0 WBC Differential Manual diff final Seg Neuts % (Manual) 61 Band Neuts % (Manual) 5 Lymphocytes % (Manual) 25 Monocytes % (Manual) 9 H Abs Neuts (Manual) 0.9 L Differential Comment . Platelet Estimate Low L Platelet Morphology Normal Tear Drop Cells 1+ H Ovalocytes 1+ H Acanthocytes (Spur) Occ H Sodium 142 Potassium 4.1 Chloride 107 Carbon Dioxide 26.6 Anion Gap 8 BUN 10 Creatinine 1.03 H Estimated GFR 54 L Random Glucose 76 Calcium 7.8 L Microbiology 10/22/17 10:00 Stool Stool Occult Blood (ARY) - Final Hemoccult negative 10/20/17 09:35 Fluid - Ascites Fluid Gram Stain - Final 10/20/17 09:35 Fluid - Ascites Fluid Body Fluid Culture - Preliminary No growth in 48 hours <Luca Cisneros - Last Filed: 10/22/17 15:50> Assessment and Plan - Plan Assessment: - Cirrhosis secondary to history of ETOH abuse and Hepatitis C S/P treatment with Interferon Pt has had extensive work up at multiple hospitals including previous liver biopsy, seen OP by Dr. Lowe last week. Pt has been at [facility], planning on discharge from there to Hospice, she has been given 6-12 months to live. Pt presented to the ER two days ago with complaints of abdominal pain and swelling, S/P paracentesis with 2200 mL removed, pt reports improvement in symptoms. Case was discussed by IR and Dr. Cisneros who felt a peritoneal drain would be beneficial, discussed with IR today, they are waiting for official Hospice papers to be signed before proceeding with this procedure. Discussed with [facility] [place] [facility] Discussed with RN Discussed with pts Plan for tentatively tomorrow if Hospice sees pt today (10/22) Pt states feeling well today. NPO for peritoneal drain placement by IR. Hospice has seen pt, paperwork signed, she will be discharged to home Hospice after procedure. Discussed with IR, pt is on the schedule for today. Plan: IR consult for peritoneal drain NPO for procedure Home with hospice Our service will sign off, please reconsult as needed Pt has been seen and examined by myself and Dr. Cisneros and this note is written on his behalf <Melissa Anthony - Last Filed: 10/22/17 12:49> - Plan IR to do peritoneal drain today. If all goes well can go to hospice. GI fu as needed. thank you <Luca Cisneros - Last Filed: 10/22/17 15:50>
[2017-10-22] MEDS ORDERED: Sodium Chlor 0.9% Inj 250 ML ONE (15:49)
[2017-10-22] MEDS ORDERED: fentaNYL Citrate Inj 250 MCG/5 ML Ampul ONE (15:59)
[2017-10-22] MEDS ORDERED: ceFAZolin 2 GM Premix Inj 2 GM/50 ML PIGGYBACK IV.SIG ONE (16:01)
[2017-10-22] MEDS ORDERED: Iohexol 350 MG/ML 50 ML Vial (for Rad Diag) IVCONTRAST ONE (18:44)
[2017-10-22] MEDS: Mirtazapine 15 MG Tablet PO SCH (23:28)
[2017-10-23] MEDS: Levothyroxine 125 MCG Tablet PO SCH (05:59)
[2017-10-23] MEDS: Propranolol 10 MG Tablet PO SCH (08:41)
[2017-10-23] MEDS: Metoclopramide 10 MG Tablet PO SCH ×2 (08:41→12:30)
[2017-10-23] MEDS: rifAXIMin 550 MG Tablet PO SCH (08:41)
[2017-10-23] MEDS: Albumin Human 25% Inj 200 ML IV.SIG SCH (08:42)
[2017-10-23] MEDS: Fluorometholone 0.1% Opth Drops 5 ML Bottle EACH EYE SCH (08:42)
--- NOTE | 2017-10-23 12:29 | P.DS ---
Date of admission: 10/19/17 20:34 Primary care physician: UNKNOWN Attending physician on discharge: Jer Luu Anticipated date of discharge: 10/23/17 Brief History from admission: 67-year-old female with a history of cirrhosis, chronic ascites requiring paracentesis with most recent paracentesis 1 week ago, who presents with a one- week history of progressively worsening constant, dull, nonradiating diffuse abdominal pain, as well as shortness of breath which she reports is due to not being able to take deep breath due to abdominal distention. She denies any fevers, chills, chest pain, nausea, vomiting. She has 3-4 loose bowel movements a day and she is on lactulose. She says she needs a paracentesis. Patient says she would like this abdominal discomfort to be taking care of, however she has called hospice and would like to be set up with hospice. DS: Diagnosis - Discharge Diagnosis (1) Ascites Status: Chronic (2) Cirrhosis Status: Chronic (3) Physical deconditioning Status: Chronic DS: Medications - Discharge Medications Prescriptions: ondansetron HCl [Zofran] 4 mg PO Q4HR PRN #180 tab PRN Reason: Nausea And Vomiting furosemide 40 mg PO BID #60 tab lactulose 20 g PO BID 30 Days #1 ml levothyroxine [Synthroid] 125 mcg PO DAILY@0700 #30 tab metoclopramide HCl [Reglan] 5 mg PO TID #90 tab mirtazapine [Remeron] 15 mg PO HS #30 tab pantoprazole 40 mg PO DAILY #30 tab potassium chloride 20 meq PO DAILY #30 tab propranolol 10 mg PO DAILY #60 tab rifaximin 550 mg PO BID #60 tab spironolactone 100 mg PO DAILY #30 tab DS: Summary Hospital Course: 67-year-old female presenting with a complaint of abdominal ascites. Has required repeat paracentesis. Currently living in SNF; considering hospice for liver failure. Past medical history includes hepatitis C, liver cirrhosis, hypertension, hyperthyroidism, asthma, esophageal varices and gastroparesis. Recent admission noted with ileus. Admission is for recurrent ascites secondary to cirrhosis. Paracentesis done 10/20; 2.2 L removed. Multiple lab abnormalities related to liver failure noted in leukopenia, anemia and low platelet counts. GI was consulted and peritoneal drain was placed with expectation that patient would go home on hospice. - Time Spent with Patient Total time spent providing and/or coordinating discharge services: Less than 30 minutes - Quality: VTE Deep Vein Thrombosis/Pulmonary Embolism Present on Admission: No Exam Vital signs: Vital Signs 10/22/17 20:00 10/23/17 00:00 10/23/17 04:00 Temperature 98.1 F 98.4 F 98.3 F Pulse Rate 64 65 74 Respiratory Rate 18 16 15 Blood Pressure 97/50 L 102/57 L 100/60 Pulse Oximetry 95 98 96 10/23/17 08:00 Temperature 99.0 F Pulse Rate 77 Respiratory Rate 18 Blood Pressure 110/56 L Pulse Oximetry 91 L Intake & Output 10/22/17 10/23/17 10/23/17 18:59 06:59 18:59 Intake Total 300 / 300 1000 / 1000 Balance 300 / 300 1000 / 1000 Weight 61.3 kg Intake: IV 300 / 300 400 / 400 NS Inj 250 ML @ 0 mls/hr .ROUTE 250 / 250 .STK-[facility] ONE Rx#:[id number] Flexbumin 25% Inj 200 ML @ 60 400 / 400 mls/hr IV.SIG Q12H [facility] Rx#: [id number] Ancef 2 GM Premix Inj 2 gm In 50 / 50 50 ml @ 0 mls/hr IV.SIG .STK- MED ONE Rx#:[id number] Oral 600 / 600 Other: # Voids 3 Date of Last Bowel Movement 10/22/17 10/22/17 10/22/17 Narrative: GENERAL: Well-nourished, well-developed adult female in no obvious distress. SKIN: Warm and dry. Nonjaundiced. HEAD: Atraumatic. Normocephalic. CARDIOVASCULAR: Regular rate and rhythm. RESPIRATORY: No accessory muscle use. Clear to auscultation. Breath sounds equal bilaterally. GASTROINTESTINAL: Abdomen soft, non-tender, distended. Positive bowel sounds. Peritoneal drain in place. MUSCULOSKELETAL: Extremities without clubbing, cyanosis, or edema. No obvious deformities. NEUROLOGICAL: Awake and alert. No obvious cranial nerve deficits. Motor grossly within normal limits. Normal speech. PSYCHIATRIC: Appropriate mood and affect; insight and judgment good. Upbeat. Results Procedures completed during hospitalization: Paracentesis; peritoneal drain - Impressions ITS Impressions Abdomen/Bladder Ultrasound 10/19/17 00:00 CONCLUSION: 1. No hydronephrosis or other acute renal abnormality. 2. Subcentimeter benign-appearing cyst of the right lower pole. 3. Ascites and splenomegaly. Chest X-Ray 10/19/17 19:10 CONCLUSION: Right lower lobe atelectasis or consolidation. Stable areas of increased linear density seen in both lungs which could be small amounts of embolized packing material from prior vertebroplasty. This finding has been present on multiple prior exams and is stable. Paracentesis Ultrasound 10/20/17 00:00 CONCLUSION: 1. Uncomplicated paracentesis Discharge Plan - Discharge Disposition Patient Disposition: 50 Hospice/Home - Discharge Condition Condition: Fair - Discharge Order Discharge Orders: Discharge Order (Routine); Ordered 10/23/17 Ordered By: Nan Medeiros - Physicians Team Primary Care Provider: UNKNOWN, Attending Provider: Jer Luu Other Providers: Luca Cisneros MD ; Abiola Espana MD
--- NOTE | 2017-10-23 14:12 | IR ---
INDICATIONS: Patient presents with refractory ascites in need of intravenous line placement prior to peritoneal drainage catheter placement. CLINICAL DATA: This is the patient's initial encounter. Patient reports that signs and symptoms have been present for 3 days and indicates a pain score of 5/10. Location: , Laterality: Right MEDICAL/SURGICAL HISTORY: . Asthma, Hepatitis C, Gastroparesis, Esophageal varices, HTN, Liver cirrhosis, Immunity deficiency, Hypothyroidism. . Hysterectomy, Thyroidectomy, Cholecystectomy, Para centesis, Lumbar fusion. COMPARISON: No prior exams available for comparison. FLUORO TIME (min): IMAGE SERIES: 1 ACCESS SITE: brachial vein SEDATION TIME (min): CONTRAST (cc): MEDICATION(S): DEVICE(S): 3/4 dilator . . PROCEDURE : 1. Ultrasound guided venous access. The risks, benefits and alternatives to the procedure were explained and verbal and written consent w as obtained. The site was prepped in sterile fashion. Full sterile technique was used, including ca p, mask, sterile gloves and gown and a large sterile sheet. Hand hygiene and 2% chlorhexidine and/or betadine/alcohol prep was utilized per protocol for cutaneous antisepsis. Sterile gel and sterile p robe cover were utilized for ultrasound guidance. The skin and subcutaneous tissues were infiltrate d with local anesthetic solution. With ultrasound guidance the prescribed vein was punctured for venous access. A 4 [place] dilator was placed and was flushed and locked with heparin. The patient tolerated procedure well and there were n o complications. CONCLUSION: Uncomplicated ultrasound guided venous access. Electronically signed by: Daniel Brady MD 10/23/2017 2:11 PM EDT
--- NOTE | 2017-10-23 14:17 | IR ---
EXAM DATE: 10/23/2017 1:53 PM EDT AGE/SEX: 67 years / Female INDICATIONS: Patient presents with refractory ascites in need of peritoneal drainage catheter placem ent. CLINICAL DATA: This is the patient's initial encounter. Patient reports that signs and symptoms have been present for 3 days and indicates a pain score of 5/10. MEDICAL/SURGICAL HISTORY: . Asthma, Hepatitis C, Gastroparesis, Esophageal varices, HTN, Liver cirrhosis, Immunity deficiency, Hypothyroidism. . Hysterectomy, Thyroidectomy, Cholecystectomy, Para centesis, Lumbar fusion. COMPARISON: No prior exams available for comparison. FLUORO TIME (min): 2.01 IMAGE SERIES: 3 ACCESS SITE: SEDATION TIME (min): 30 CONTRAST (cc): 8 cc Omnipaque (iohexol) 350 MEDICATION(S): 3 mg midazolam (Versed) IV 150 mcg fentanyl (Sublimaze) IV Vancomycin within 2 hrs of procedure, Ancef (or alternative) within 1 hr of procedure. DEVICE(S): Right 15.5 fr Aspirate drain . . PROCEDURE : 1. Ultrasound and fluoroscopic guided implanted peritoneal drainage catheter placement 2. Conscious sedation with continuous EKG and Oximetry monitoring. The risks, benefits and alternatives to the procedure were explained and verbal and written consent w as obtained. The site was prepped in sterile fashion. Full sterile technique was used, including ca p, mask, sterile gloves and gown and a large sterile sheet. Hand hygiene and 2% chlorhexidine and Be tadine was utilized per protocol for cutaneous antisepsis with appropriate dry time for site. The sk in and subcutaneous tissues were infiltrated with local anesthetic solution. Under direct ultrasound guidance, the right mid abdominal peritoneal cavity was punctured just anteri or to the mid axillary line utilizing an 18-gauge Cohen blunt needle. A guidewire was introduced in to the peritoneal cavity under direct fluoroscopic guidance. A subcutaneous tunnel was created from t he peritoneal puncture site to a position more cephalad and more anterior on the right upper abdomina l wall. The Aspira drainage catheter was tunneled antegrade from the skin exit site to the peritoneal puncture site and was then introduced to the peritoneal cavity through a peel-away sheath. The derma totomies were closed with monofilament suture and the catheter was secured. There was spontaneous ret urn of clear peritoneal fluid from the catheter and the peritoneal cavity was drained dry prior to tr ansfer to the recovery area. Conscious sedation was performed with the prescribed dosages and duration as above in the presence of an independent trained radiology nurse to assist in the monitoring of the patient. EKG and oximetry remained stable throughout the procedure. CONCLUSION: Uncomplicated ultrasound and fluoroscopic guided implanted peritoneal drainage catheter placement as described in detail above Electronically signed by: Daniel Brady MD 10/23/2017 2:16 PM EDT
== END 2017-10-23 15:10 | disposition hospice, home (50) ==
LOC: NEPC 17:38 → NEDA 20:34 → N06 10-20 01:40
PROVIDERS: ADMIT Family Medicine; ATTEND Family Medicine